=== PATIENT | male | born 1945 | race Caucasian/White ===

== ENCOUNTER → 2019-11-15 00:01 | Outpatient (RCR) | payer MEDICARE, OTHER, SELFPAY | LOC: ONCMED 10-18 09:26 | PROVIDERS: Family Provider Family Medicine; Visit Provider Internal Medicine Hematology & Oncology | DX: Z51.12 Encounter for antineoplastic immunotherapy (principal); Z51.11 Encounter for antineoplastic chemotherapy; C34.2 Malignant neoplasm of middle lobe, bronchus or lung; C34.12 Malignant neoplasm of upper lobe, left bronchus or lung; C77.1 Secondary and unspecified malignant neoplasm of intrathoracic lymph nodes; J43.9 Emphysema, unspecified; F17.290 Nicotine dependence, other tobacco product, uncomplicated; Z92.3 Personal history of irradiation; Z79.899 Other long term (current) drug therapy | CPT/HCPCS: 80053 ×3; 84443; 85025 ×3; 96367; 96372; 96413; 96417; 99214 ×4; J1100; J1453; J2469; J3420; J3490; J7050 ×2; J9045; J9271; J9305 ==

== ENCOUNTER 2019-12-13 05:44 | Outpatient (RCR) | payer MEDICARE, OTHER, SELFPAY ==
[2019-11-23] MEDS: sodium chloride 0.9% 1,000 ML 999 ML IV (13:40)
[2019-11-23 14:17] LABS: Basophils % 0.8 %; Eosinophils % 1.2 %; Hematocrit 34.4 % (42.0-52.0); Hemoglobin 11.5 g/dL (11.7-16.6); Lymphocytes # 0.8 10^3/uL (0.8-4.8); Lymphocytes % 30.7 %; Mean Corpuscular HGB Conc 33.4 g/dL (30.0-36.0); Mean Corpuscular Hemoglobin 31.4 pg (28.0-34.0); Mean Platelet Volume 10.3 fL (7.4-10.4); Monocytes # 0.6 10^3/uL (0.2-0.9); Monocytes % 23.8 %; Neutrophils % 41.9 %; Nucleated Red Blood Cells % 0 %; Platelet Count 176 10^3/cmm (130-400); Red Blood Count 3.66 10^6/uL (4.1-5.3); Red Cell Distribution Width 13.8 % (12.1-15.1); White Blood Count 2.4 10^3/uL (4.0-10.0)
[2019-11-23 14:27] LABS: Alanine Aminotransferase 22 U/L (0-41); Albumin Level 3.9 g/dL (3.5-5.2); Alkaline Phosphatase 82 IU/L (40-130); Anion Gap 17.5 (5-19); Aspartate Amino Transferase 21 U/L (0-40); Blood Urea Nitrogen 31 mg/dL (8-23); Calcium 9.2 mg/Dl (8.8-10.2); Carbon Dioxide 23 mmol/L (22-29); Chloride 100 mmol/L (98-107); Globulin 3.1 g/dL (1.3-4.6); Glucose 112 mg/dL (74-106); Potassium 3.5 mmol/L (3.5-5.1); Sodium 137 mmol/L (136-145); Total Bilirubin 0.2 mg/dL (0.15-1.2)
[2019-11-23 14:47] LABS: Absolute Segmented Neutrophil 1.3 10/cmm (1.6-7.1); Band Neutrophils Absolute 0.1 10^3/cmm (0.0-1.2); Eosinophils 2 %; Lymphocytes 30 %; Monocytes Absolute 0.2 10^3/cmm (0.1-0.6); Platelet Estimate Normal (Normal); Segmented Neutrophils 56 %; Total Cells Counted 100 (0-100)
[2019-11-28 15:50] LABS: Eosinophils % 1.7 %; Hematocrit 27.8 % (42.0-52.0); Hemoglobin 9.1 g/dL (11.7-16.6); Lymphocytes # 0.6 10^3/uL (0.8-4.8); Lymphocytes % 26.8 %; Mean Corpuscular HGB Conc 32.7 g/dL (30.0-36.0); Mean Corpuscular Hemoglobin 31.2 pg (28.0-34.0); Mean Corpuscular Volume 95.2 fL (80-94); Mean Platelet Volume 11.2 fL (7.4-10.4); Monocytes # 0.7 10^3/uL (0.2-0.9); Monocytes % 30.3 %; Neutrophils # 0.9 10^3/uL (1.8-7.7); Neutrophils % 40.8 %; Nucleated Red Blood Cells % 0 %; Platelet Count 95 10^3/cmm (130-400); Red Blood Count 2.92 10^6/uL (4.1-5.3); Red Cell Distribution Width 13.4 % (12.1-15.1); White Blood Count 2.3 10^3/uL (4.0-10.0)
[2019-11-28 16:21] LABS: Alanine Aminotransferase 39 U/L (0-41); Albumin Level 3.2 g/dL (3.5-5.2); Alkaline Phosphatase 66 IU/L (40-130); Anion Gap 17.3 (5-19); Aspartate Amino Transferase 24 U/L (0-40); Blood Urea Nitrogen 18 mg/dL (8-23); Carbon Dioxide 24 mmol/L (22-29); Chloride 100 mmol/L (98-107); Globulin 2.5 g/dL (1.3-4.6); Glucose 82 mg/dL (74-106); Potassium 3.3 mmol/L (3.5-5.1); Sodium 138 mmol/L (136-145); Total Bilirubin 0.4 mg/dL (0.15-1.2); Total Protein 5.7 g/dL (6.6-8.7)
[2019-11-28 16:26] LABS: Calcium 8.5 mg/Dl (8.8-10.2)
--- NOTE | 2019-12-03 16:00 | ONC FU_ITS ---
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 Mr. Romeo reports in the last week of June 2018 he noted some blood in his yellow phlegm and tried to tough it out for about month and half. He finally saw his primary care physician and he was diagnosed with chronic bronchitis. A Chest x-ray was done-as per patient it was normal and he was given a prescription for Flovent. He felt some improvement and on 09/01/[address] scan of chest which showed right middle lobe lung mass. The mass was reported as about 6 cm in size with mediastinal and hilar lymphadenopathy and there was a contralateral nodule which is lobulated in the left upper lobe measures 4 x 2.3 cm. Mr Romeo was then referred to Dr. 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 He underwent bronchoscopy and transbronchial biopsy on 09/10/2018 which showed no evidence of malignancy. Subsequently patient underwent CT-guided biopsy of right middle lobe on 10/01/2018 which confirmed small cell lung cancer. Mr. Romeo underwent PET CT staging on 10/23/2018. The bulky right middle lobe mass demonstrates significant necrosis, and homogenous FDG uptake extends from the right hilum with subtotal atelectasis of the right middle lobe and an SUV of 25.2. There was loss of that plane between the mediastinum and mass superiorly, suggesting early invasion. The left upper lobe satellite mass is in a subpleural location, without involvement of the adjacent chest wall. This measures 2.0 x 3.0 cm with an SUV of 8.5. Patient has long-standing history of smoking, 50 year plus also tried pipe and then now cigars. He smokes 4-5 cigars a day. There was no evidence of malignancy outside of the chest. MRI of the head from 10/20/2018 reveals right anterior frontal lobe and left parietal lobe cortical 2-3 mm enhancing foci; primary considerations metastatic disease. Mr. Romeo began his first cycle of carboplatin and etoposide on 11/02/2018. He did have a few mouth sores with cycle 1 but this was controlled with Valtrex, baking soda and salt water and as needed Magic mouthwash. He states that once he started the Valtrex for cold sores resolved within a couple of days. He's had no recurrent problems with mouth sores. CT PET scan done after 3 cycles of chemotherapy on 01/15/2019 showed significant improvement in the right middle lobe mass with postobstructive atelectasis since the prior study. The mass now measures 4.6 x 2.4 cm with SUV of 5. And the satellite malignant nodules in the left upper lobe is stable measuring 2.2 x 2.8 cm with SUV of 10.9, not a significant change since prior study on 10/23/2018. No new lesion seen. Patient was referred to [facility] where he saw thoracic oncologist Dr. Bellamy who recommended MRI scan of the brain which was done on on 02/21/2019 which showed a new diffusion weighted, 5 mm abnormality with mild enhancement in the anterior right parietal lobe cortex. Subacute small lacunar infarction versus metastatic disease. Follow-up MRI brain is recommended in 3-4 month Previously described anterior right frontal and left parietal cortical areas of enhancement are slightly smaller in size. Differential include decrease in size of metastatic due to treatment. Severe chronic white matter disease and CT-guided biopsy of left upper lobe was done on 02/24/2019 showed adenocarcinoma, well-differentiated Patient was started on combined chemoradiation on 03/09/2019 with carboplatin and etoposide and if patient achieved complete remission then consider SB RT to newly diagnosed left upper lobe lung adenocarcinoma .Follow-up CT scan of chest done on 06/20/2019 showed decreased size of previous left upper lobe neoplastic mass Further decrease in size of previous bulky right middle lobe mass. Residual mass lesion remaining is probably associated with right-sided mediastinal invasion Residual scarring or subsegmental atelectasis right middle lobe Chronic emphysema f/u CT PET scan done on 09/10/2019 showed positive response to therapy of the left upper lobe adenocarcinoma New abnormal activity in the left upper lobe groundglass nodule and left upper hilar lymph node Increased activity in the bowel at left inguinal canal with new reactive left inguinal node, patient has history of left inguinal hernia repair in April 2018 MRI head done on 08/23/2019 shows resolved enhancing metastatic lesion, no new lesion seen Was referred to [facility] in [place] for EBUS/biopsy of left upper hilar lymph node which was done on 10/07/2019 and final pathology report came back adenocarcinoma consistent with lung origin. Patient was referred to radiation oncology Dr. Dalal for evaluation and his impression was patient had received radiation therapy to left upper lobe primary previously with a further radiation disease risk of left bronchus damage and major blood vessel damage so suggested chemotherapy alone. Dr Romeo was offered treatment with Carboplatin/Alimta/Keytruda. He started cycle 1 Keytruda/carboplatin/Alimta on 11/15/2019. He states overall he feels pretty good he has had significant diarrhea which was controlled with blackberries since his last treatment. He states he thinks he did have a touch of colitis although it is completely resolved now. With that he has had a flare of his hemorrhoids and is wondering what he can try for that. We discussed Preparation H and witch nikki. Typically the [id number] products worked well and prescription anti-hemorrhoid is typically not covered by insurance and is very pricey. I did offer to try run through his insurance for him but he states he will try [id number] first. He states is not been eating or drinking well for the last couple of days and the diarrhea has finally stopped. He feels that he is somewhat dehydrated. He has had no diarrhea that he states that is why his potassium is low. He denies any leg cramps or palpitations. He denies any actual nausea but states is been little queasy at times but that resolved on its own. He denies any worsening neuropathy symptoms. He has had no fever or chills. He denies any symptoms of infection. He states his breathing is about the same. It is no worse. He denies any chest pain/angina. He has had no vomiting but has had diarrhea multiple times. He states it lasted 3 to 4 days. It finally has resolved. He denies any new pain or lower extremity edema. He states his hemorrhoids are bothering him more than anything and once they are settled down he thinks he will feel better in general. He has no new concerns now that the diarrhea has stopped. His ECOG is 1. Came for follow-up, denies any specific complaints, no fever or chills, no nausea or vomiting, no hemoptysis or hematemesis, no shortness of breath, no diarrhea constipation. And ready to start first cycle of chemotherapy with carboplatin/Alimta/Keytruda. Past Medical History: Cardiac dysrhythmias Centrilobular emphysema Coronary artery disease Gastroesophageal reflux disease Hypertension Past Surgical History: Bronchoscopy Hernia repair Left lung biopsy in 2018 Lung biopsy in 2019 Lung biopsy in 2017 Coronary artery bypass in 2012 Allergies: latex Medications: Anoro Ellipta 1 (62.5-25 mcg/inh) Aerosol Powder, Breath Activated Inhalation daily black seed oil 1 tsp Liquid b.i.d. Co Q-10 1 Capsule (of 400 mg) Oral daily Flonase 2 spray(s) (of 50 mcg/act) Suspension Nasal daily PRN Metoprolol Tartrate 1 Tablet (of 50 mg) Oral b.i.d. Montelukast Sodium 1 Tablet (of 10 mg) Oral daily Multivitamin Adults 1 Tablet Oral daily Omeprazole 1 Capsule (of 20 mg) Capsule Delayed Release Oral b.i.d. Probiotic Daily 1 Capsule Oral daily ZyrTEC Allergy 1 Tablet (of 10 mg) Oral daily Family History: Mr. Romeo's mother is alive: heart disease, and hypertension. Mr. Romeo's father at age 74: sarcoma. Mr. Romeo has 2 brothers: 2 alive. 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 Mr. Romeo quit smoking 5 years ago but had smoked 1.0 pack/day for 50 years. He drinks daily. He consumes 3 drinks/day. Mr. Romeo reports contact with hazardous material. Review Of Symptoms: Constitutional Denies fevers, chills, night sweats, excessive fatigue or weight loss. Allergic/Immunologic No reactions. Eyes Denies significant visual changes. No diplopia. No amaurosis. ENMT Denies changes in hearing, sore throat, mouth sores, difficulty or changes in swallowing ability, and/or sinus drainage. Endocrine No diabetes, thyroid disease or hormone replacement. Denies hot flashes or night sweats. Hematologic/Lymphatic Denies easy bruising or bleeding. The patient denies any tender or palpable lymph nodes. Respiratory Denies dyspnea on exertion, chest pain, cough or hemoptysis. Denies orthopnea. Cardiovascular Denies anginal chest pain, palpitations or orthopnea. Gastrointestinal Denies nausea, vomiting, GI bleeding, or constipation. Denies change in bowel habits and/or stool color, no heartburn or early satiety. He states he did have alot of diarrhea and abdominal cramping after his last treatment. He did not use Imodium and the diarrhea resolved on its own after 3-4 days. Genitourinary (M) Denies hematuria, dysuria, increased frequency, urgency, hesitancy or incontinence. Musculoskeletal Denies joint pain, swelling or redness. No decreased range of motion. Integumentary Denies chronic rashes, inflammation, ulcerations or skin changes. Neurologic Denies headache, blurred vision, and no areas of focal weakness or numbness. Normal gait. No sensory problems. Psychiatric Denies insomnia, depression, bryant or mood swings. Vital Signs: Performed on Nov 29, 2019 11:46 Height - 70.00 in Weight - 150.8 lbs (LOW) BSA - 1.85 sq.m BMI - 21.64 Temperature - 97.8 F (LOW) Pulse - 96 /min Respiration - 16 /min BP - 89/60 mm(hg) (LOW) O2 Sat - 96 % Pain - 0 Fatigue - 6,1 - No physically strenuous activity, but ambulatory and able to carry out light or sedentary work (e.g. office work, light house work). (ECOG) Physical Examination: Constitutional Alert, oriented, no acute distress. Skin pink, warm and dry. Head Normocephalic; atraumatic. Eyes Conjunctivae and sclerae are clear and without icterus. Pupils are reactive and equal. ENMT No oral exudates, ulcers, masses, thrush or mucositis. Oropharynx clear. Tongue normal. Neck Supple without masses or thyromegaly. No jugular venous distension. Hematologic/Lymphatic No petechiae or purpura. Respiratory Lungs are clear to auscultation without rhonchi or wheezing. Cardiovascular Regular rate and rhythm of heart without murmurs,clicks, gallops or rubs. Back/Spine Non-tender to palpation. Extremities No visible deformities, no cyanosis, clubbing or edema. Pulses 4+ and equal bilaterally. Musculoskeletal No tenderness or swelling, normal range of motion without obvious weakness. Integumentary No rashes or lesions. Neurologic No sensory or motor deficits, normal cerebellar function, normal gait. Psychiatric Alert and oriented times three. Coherent speech. Verbalizes understanding of our discussions today. Laboratory:Test performed on Nov 28, 2019 08:55 Glucose 82 mg/dL BUN 18 mg/dL Creatinine 1.1 mg/dL Cr Clearance (Est) 60.09 mL/min Sodium 138 mmol/L Potassium 3.3 mmol/L Chloride 100 mmol/L CO2 24 mmol/L Calcium 8.5 mg/dL Protein, Total 5.7 g/dL Albumin 3.2 g/dL Globulin 2.5 g/dL Bilirubin, Total 0.4 mg/dL Alkaline Phosphatase 66 IU/L AST (SGOT) 24 IU/L ALT (SGPT) 39 IU/L WBC 2.3 10^9/L RBC 2.92 10^12/L HGB 9.1 g/dL HCT 27.8 % MCV 95.2 fl MCH 31.2 pg MCHC 32.7 g/dL RDW 13.4 % Platelet Count 95 10^9/L MPV 11.2 fL Neutrophils (Gran) 0.9 10^9/L Lymphocytes 0.6 10^9/L Monocytes 0.7 10^9/L Eosinophils 0.0 10^9/L Basophils 0.0 10^9/L Neutrophil % 1.7 % Manual Lymphocytes 26.8 % Manual Monocytes 30.3 % Manual Eosinophils 1.7 % Manual Basophils 0.0 % NRBCs 0.0 /100 WBC Test performed on Nov 14, 2019 09:10 TSH 1.31 uIU/mL Anion Gap 15.7 Lymphocyte % 18.0 % Monocyte % 12.4 % Eosinophil % 2.0 % Basophils % 0.6 % Impression: Recurrent adenocarcinoma per left hilar lymph node biopsy Small cell lung cancer involving the right middle lobe per CT-guided lung biopsy done on 10/01/2018 CT scan of chest done on 08/31/2018 showed 4 cm left upper lobe mass and large mass with a probable postobstructive atelectasis involving the right hilum extending to right middle lobe. This mass occludes medial bronchus of right middle lobe and narrowing of the lateral bronchus COPD/emphysema with bilateral apical pleural thickening Chronic smoking Mr. Romeo underwent PET CT staging on 10/23/2018. The bulky right middle lobe mass demonstrates significant necrosis, and homogenous FDG uptake extends from the right hilum with subtotal atelectasis of the right middle lobe and an SUV of 25.2. There was loss of that plane between the mediastinum and mass superiorly, suggesting early invasion. The left upper lobe satellite mass is in a subpleural location, without involvement of the adjacent chest wall. This measures 2.0 x 3.0 cm with an SUV of 8.5. Patient has long-standing history of smoking, 50 year plus also tried pipe and then now cigars. He smokes 4-5 cigars a day. Mr. Romeo began his first cycle of carboplatin and etoposide on 11/02/2018. He is completed 3 cycles of the carboplatin and etoposide On 12/30/2018. Follow-up CT PET scan done on 01/15/2019 showed significant improvement in right middle lobe mass with postobstructive atelectasis since prior study. Mass now measures 4.6 x 2.4 cm with SUV of 5. A satellite malignant nodule in the left upper lobe is stable, measuring 2.2 x 2.8 cm with SUV of 10.9, and not a significant change since prior study. No new lesion seen. There was no evidence of malignancy outside of the chest. MRI of the head from 10/20/2018 reveals right anterior frontal lobe and left parietal lobe cortical 2-3 mm enhancing foci; primary considerations metastatic disease .Based on CT PET scan findings patient was referred to thoracic oncology at [facility] for second opinion with patient underwent CT-guided biopsy of left upper lobe lesion which confirmed second primary e.g. adenocarcinoma well differentiated Patient was evaluated by Dr. Barrington Segundo who recommended concurrent chemoradiation to right chest and followed by whole brain radiation therapy and observation versus SB RT to left upper lobe newly diagnosed non-small cell lung cancer e.g. adenocarcinoma. Follow-up CT scan of chest done on 06/20/2019 showed when compared to CT scan from 08/31/2018 CT PET scan from 01/15/2019 Previously left upper lobe mass lesion in anterior lateral subpleural location, now measure 1.8 cm x 3.2 x 2.1 cm compared to 2.3 x 3.6 x 2.8 on 01/15/2019. Previous bulky mass lesion within the right middle lobe seen on 08/31/2018 and with reduced size on 01/15/2019 is with further improvement, now measuring 1.6 cm x 6 x 2.8 cm. Medially the mass lesion and likely invades the right side of mediastinum adjacent a superior vena cava and right atrium. No other mass lesion seen normal liver and spleen No adrenal enlargement. No lytic or blastic bony distal to lesion seen. Plan: 1. Hold planned treatment today due to neutropenia ANC is 900. Hemoglobin is 9.1. 2. PA for Neupogen 480 mics for 3 days and then recheck CBC. 3. We will go ahead and give him IV hydration today due to the fact that he had severe diarrhea last week and his potassium was 3.3. We will give him 10 mg of IV potassium today. 4. Labs from today were reviewed in detail and discussed with Dr. Romeo and his and a copy was given to them. WBC 2.3, hemoglobin 9.1, platelets 95,000 ANC is 900 potassium 3.3 glucose 82 LFTs are normal. His last TSH on 11/14/2019 was 1.3. It is noted that his weight is down 6 pounds. 5. We will plan to have him return in 1 week with repeat CBC CMP and follow-up with Dr. Guerrero for possible consideration of cycle 2 carboplatin Alimta/Keytruda. 7. He is advised that he can use [id number] preparation H for his hemorrhoid treatment and may try witch nikki. We could try Anusol to see if his insurance will pay for it but we have not had much luck in the past with that. He will start with the Preparation H. 8. If the Neupogen is prior approved we have authorization we will proceed with Neupogen 480 for 3 days and then recheck his blood counts. 9. Neutropenic precautions discussed and he was advised to contact us he has a fever greater than 100.4. I have asked that he keep Levaquin on hand just in the event that he does have fever or chills or any signs of infection. Refill was sent to [facility]. 10. Dr. Romeo was instructed to contact us in the interim should questions or problems arise. Signed By: James De Leon-, AOCNP Colette Guerrero MD <<Signature on File>>
[2019-12-05 12:07] LABS: Basophils % 0.5 %; Eosinophils % 0.7 %; Hematocrit 27.6 % (42.0-52.0); Hemoglobin 8.9 g/dL (11.7-16.6); Lymphocytes # 1.2 10^3/uL (0.8-4.8); Lymphocytes % 20.1 %; Mean Corpuscular HGB Conc 32.2 g/dL (30.0-36.0); Mean Corpuscular Hemoglobin 31.2 pg (28.0-34.0); Mean Corpuscular Volume 96.8 fL (80-94); Mean Platelet Volume 10.9 fL (7.4-10.4); Monocytes # 1.2 10^3/uL (0.2-0.9); Monocytes % 19.3 %; Neutrophils # 2.9 10^3/uL (1.8-7.7); Neutrophils % 48.6 %; Nucleated Red Blood Cells % 0 %; Platelet Count 291 10^3/cmm (130-400); Red Blood Count 2.85 10^6/uL (4.1-5.3)
[2019-12-05 12:36] LABS: Alanine Aminotransferase 98 U/L (0-41); Albumin Level 3.2 g/dL (3.5-5.2); Alkaline Phosphatase 74 IU/L (40-130); Anion Gap 16.9 (5-19); Aspartate Amino Transferase 55 U/L (0-40); Blood Urea Nitrogen 19 mg/dL (8-23); Calcium 8.7 mg/Dl (8.8-10.2); Carbon Dioxide 26 mmol/L (22-29); Chloride 101 mmol/L (98-107); Globulin 3.3 g/dL (1.3-4.6); Glucose 91 mg/dL (74-106); Potassium 3.9 mmol/L (3.5-5.1); Sodium 140 mmol/L (136-145); Total Bilirubin 0.2 mg/dL (0.15-1.2); Total Protein 6.5 g/dL (6.6-8.7)
[2019-12-05 13:31] LABS: Slide Review Slide Review Perform
--- NOTE | 2019-12-07 09:38 | ONC FU_ITS ---
Dr. 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 Mr. Romeo reports in the last week of June 2018 he noted some blood in his yellow phlegm and tried to tough it out for about month and half. He finally saw his primary care physician and he was diagnosed with chronic bronchitis. A Chest x-ray was done-as per patient it was normal and he was given a prescription for Flovent. He felt some improvement and on 09/01/[address] scan of chest which showed right middle lobe lung mass. The mass was reported as about 6 cm in size with mediastinal and hilar lymphadenopathy and there was a contralateral nodule which is lobulated in the left upper lobe measures 4 x 2.3 cm. Mr Romeo was then referred to Dr. Ortiz, otorhinolaryngologist in [place]. He underwent bronchoscopy and transbronchial biopsy on 09/10/2018 which showed no evidence of malignancy. Subsequently patient underwent CT-guided biopsy of right middle lobe on 10/01/2018 which confirmed small cell lung cancer. Mr. Romeo underwent PET CT staging on 10/23/2018. The bulky right middle lobe mass demonstrates significant necrosis, and homogenous FDG uptake extends from the right hilum with subtotal atelectasis of the right middle lobe and an SUV of 25.2. There was loss of that plane between the mediastinum and mass superiorly, suggesting early invasion. The left upper lobe satellite mass is in a subpleural location, without involvement of the adjacent chest wall. This measures 2.0 x 3.0 cm with an SUV of 8.5. Patient has long-standing history of smoking, 50 year plus also tried pipe and then now cigars. He smokes 4-5 cigars a day. There was no evidence of malignancy outside of the chest. MRI of the head from 10/20/2018 reveals right anterior frontal lobe and left parietal lobe cortical 2-3 mm enhancing foci; primary considerations metastatic disease. Mr. Romeo began his first cycle of carboplatin and etoposide on 11/02/2018. He did have a few mouth sores with cycle 1 but this was controlled with Valtrex, baking soda and salt water and as needed Magic mouthwash. He states that once he started the Valtrex for cold sores resolved within a couple of days. He's had no recurrent problems with mouth sores. CT PET scan done after 3 cycles of chemotherapy on 01/15/2019 showed significant improvement in the right middle lobe mass with postobstructive atelectasis since the prior study. The mass now measures 4.6 x 2.4 cm with SUV of 5. And the satellite malignant nodules in the left upper lobe is stable measuring 2.2 x 2.8 cm with SUV of 10.9, not a significant change since prior study on 10/23/2018. No new lesion seen. Patient was referred to [facility] where he saw thoracic oncologist Dr. Bellamy who recommended MRI scan of the brain which was done on on 02/21/2019 which showed a new diffusion weighted, 5 mm abnormality with mild enhancement in the anterior right parietal lobe cortex. Subacute small lacunar infarction versus metastatic disease. Follow-up MRI brain is recommended in 3-4 month Previously described anterior right frontal and left parietal cortical areas of enhancement are slightly smaller in size. Differential include decrease in size of metastatic due to treatment. Severe chronic white matter disease and CT-guided biopsy of left upper lobe was done on 02/24/2019 showed adenocarcinoma, well-differentiated Patient was started on combined chemoradiation on 03/09/2019 with carboplatin and etoposide and if patient achieved complete remission then consider SB RT to newly diagnosed left upper lobe lung adenocarcinoma .Follow-up CT scan of chest done on 06/20/2019 showed decreased size of previous left upper lobe neoplastic mass Further decrease in size of previous bulky right middle lobe mass. Residual mass lesion remaining is probably associated with right-sided mediastinal invasion Residual scarring or subsegmental atelectasis right middle lobe Chronic emphysema f/u CT PET scan done on 09/10/2019 showed positive response to therapy of the left upper lobe adenocarcinoma New abnormal activity in the left upper lobe groundglass nodule and left upper hilar lymph node Increased activity in the bowel at left inguinal canal with new reactive left inguinal node, patient has history of left inguinal hernia repair in April 2018 MRI head done on 08/23/2019 shows resolved enhancing metastatic lesion, no new lesion seen Was referred to [facility] in [place] for EBUS/biopsy of left upper hilar lymph node which was done on 10/07/2019 and final pathology report came back adenocarcinoma consistent with lung origin. Patient was referred to radiation oncology Dr. Dalal for evaluation and his impression was patient had received radiation therapy to left upper lobe primary previously with a further radiation disease risk of left bronchus damage and major blood vessel damage so suggested chemotherapy alone. Dr Romeo was offered treatment with Carboplatin/Alimta/Keytruda. He started cycle 1 Keytruda/carboplatin/Alimta on 11/15/2019. He states overall he feels pretty good he has had significant diarrhea which was controlled with blackberries since his last treatment. He states he thinks he did have a touch of colitis although it is completely resolved now. With that he has had a flare of his hemorrhoids Came for follow-up, denies any specific complaints,except episode of diarrhea started 4 days after chemotherapy lasted for 2 days and resolved on its own. Denies any jaundice, denies any fever or chills denies any abdominal pain has any mouth sores denies any mucus in his stool. no fever or chills, no nausea or vomiting, no hemoptysis or hematemesis, no shortness of breath, no diarrhea constipation. Medications: Anoro Ellipta 1 (62.5-25 mcg/inh) Aerosol Powder, Breath Activated Inhalation daily, black seed oil 1 tsp Liquid daily, Co Q-10 1 Capsule (of 400 mg) Oral daily, Flonase 2 spray(s) (of 50 mcg/act) Suspension Nasal daily PRN, Metoprolol Tartrate 1 Tablet (of 50 mg) Oral daily, Montelukast Sodium 1 Tablet (of 10 mg) Oral daily, Multivitamin Adults 1 Tablet Oral daily, Omeprazole 1 Capsule (of 20 mg) Capsule Delayed Release Oral b.i.d., Probiotic Daily 1 Capsule Oral daily, ZyrTEC Allergy 1 Tablet (of 10 mg) Oral daily Allergies: latex Review of Systems: Constitutional - Appetite is good and weight is stable. No fever, chills, hot flashes, or night sweats. Energy level is poor, ENMT - Some sinus congestion/drainage. No mouth sores. No sore throat or difficulty swallowing, Hematologic/Lymphatic - No abnormal bruising or bleeding, Respiratory - Frequent shortness of breath, with emphysema and wheezing. Nonproductive cough. No pleuritic pain or hemoptysis, Cardiovascular - No angina pain. No palpitations, Gastrointestinal - No nausea or vomiting. No heartburn or acid reflux. No diarrhea or constipation. No blood in the stool or black stools, Genitourinary (M) - No dysuria or hematuria. No urinary frequency. No urgency or incontinence, Musculoskeletal - Chronic back pain r/t old injury, Neurologic - No headaches or dizziness reported today, Psychiatric - No anxiety or depression. No insomnia. Vital Signs: Performed on Dec 06, 2019 08:10 Height - 70.00 in Weight - 154.8 lbs (HIGH) BSA - 1.87 sq.m BMI - 22.21 Temperature - 98.0 F (LOW) Pulse - 92 /min Respiration - 18 /min BP - 118/81 mm(hg) O2 Sat - 100 % Pain - 0 Performance Status: 1 - No physically strenuous activity, but ambulatory and able to carry out light or sedentary work (e.g. office work, light house work). (ECOG) Physical Examination: ENMT - No oral exudates, ulcers, masses, thrush or mucositis. Oropharynx clear. Tongue normal, Respiratory - Lungs are clear to auscultation without rhonchi or wheezing, Cardiovascular - Regular rate and rhythm of heart, Abdomen - Non-tender, . Good bowel sounds. No guarding or rebound tenderness. No pulsatile masses, Extremities - no edema. Lab/Imaging: Test performed on Dec 05, 2019 07:35 Glucose 91 mg/dL BUN 19 mg/dL Creatinine 1.0 mg/dL Cr Clearance (Est) 66.10 mL/min Sodium 140 mmol/L Potassium 3.9 mmol/L Chloride 101 mmol/L CO2 26 mmol/L Calcium 8.7 mg/dL Protein, Total 6.5 g/dL Albumin 3.2 g/dL Globulin 3.3 g/dL Bilirubin, Total 0.2 mg/dL Alkaline Phosphatase 74 IU/L AST (SGOT) 55 IU/L ALT (SGPT) 98 IU/L WBC 6.0 10^9/L RBC 2.85 10^12/L HGB 8.9 g/dL HCT 27.6 % MCV 96.8 fl MCH 31.2 pg MCHC 32.2 g/dL RDW 14.0 % Platelet Count 291 10^9/L MPV 10.9 fL Neutrophils (Gran) 2.9 10^9/L Lymphocytes 1.2 10^9/L Monocytes 1.2 10^9/L Eosinophils 0.0 10^9/L Basophils 0.0 10^9/L Manual Lymphocytes 20.1 % Manual Monocytes 19.3 % Manual Eosinophils 0.7 % Manual Basophils 0.5 % NRBCs 0.0 /100 WBC Test performed on Nov 28, 2019 08:55 Neutrophil % 1.7 % Test performed on Nov 14, 2019 09:10 TSH 1.31 uIU/mL Anion Gap 15.7 Lymphocyte % 18.0 % Monocyte % 12.4 % Eosinophil % 2.0 % Basophils % 0.6 % Impression: Recurrent adenocarcinoma per left hilar lymph node biopsy Small cell lung cancer involving the right middle lobe per CT-guided lung biopsy done on 10/01/2018 CT scan of chest done on 08/31/2018 showed 4 cm left upper lobe mass and large mass with a probable postobstructive atelectasis involving the right hilum extending to right middle lobe. This mass occludes medial bronchus of right middle lobe and narrowing of the lateral bronchus COPD/emphysema with bilateral apical pleural thickening Chronic smoking Mr. Romeo underwent PET CT staging on 10/23/2018. The bulky right middle lobe mass demonstrates significant necrosis, and homogenous FDG uptake extends from the right hilum with subtotal atelectasis of the right middle lobe and an SUV of 25.2. There was loss of that plane between the mediastinum and mass superiorly, suggesting early invasion. The left upper lobe satellite mass is in a subpleural location, without involvement of the adjacent chest wall. This measures 2.0 x 3.0 cm with an SUV of 8.5. Patient has long-standing history of smoking, 50 year plus also tried pipe and then now cigars. He smokes 4-5 cigars a day. Mr. Romeo began his first cycle of carboplatin and etoposide on 11/02/2018. He is completed 3 cycles of the carboplatin and etoposide On 12/30/2018. Follow-up CT PET scan done on 01/15/2019 showed significant improvement in right middle lobe mass with postobstructive atelectasis since prior study. Mass now measures 4.6 x 2.4 cm with SUV of 5. A satellite malignant nodule in the left upper lobe is stable, measuring 2.2 x 2.8 cm with SUV of 10.9, and not a significant change since prior study. No new lesion seen. There was no evidence of malignancy outside of the chest. MRI of the head from 10/20/2018 reveals right anterior frontal lobe and left parietal lobe cortical 2-3 mm enhancing foci; primary considerations metastatic disease .Based on CT PET scan findings patient was referred to thoracic oncology at [facility] for second opinion with patient underwent CT-guided biopsy of left upper lobe lesion which confirmed second primary e.g. adenocarcinoma well differentiated Patient was evaluated by Dr. Barrington Segundo who recommended concurrent chemoradiation to right chest and followed by whole brain radiation therapy and observation versus SB RT to left upper lobe newly diagnosed non-small cell lung cancer e.g. adenocarcinoma. Follow-up CT scan of chest done on 06/20/2019 showed when compared to CT scan from 08/31/2018 CT PET scan from 01/15/2019 Previously left upper lobe mass lesion in anterior lateral subpleural location, now measure 1.8 cm x 3.2 x 2.1 cm compared to 2.3 x 3.6 x 2.8 on 01/15/2019. Previous bulky mass lesion within the right middle lobe seen on 08/31/2018 and with reduced size on 01/15/2019 is with further improvement, now measuring 1.6 cm x 6 x 2.8 cm. Medially the mass lesion and likely invades the right side of mediastinum adjacent a superior vena cava and right atrium. No other mass lesion seen normal liver and spleen No adrenal enlargement. No lytic or blastic bony distal to lesion seen. Plan: Discussed with patient regarding his labs white blood count 6 hemoglobin 8.9 crit 27.6 platelets 291,000 ANC 2.9 CMP within normal limit except ALT 98 AST 55 compared to 39/24 on 11/28/2019 and 14/16 on 11/14/2019 Clinically, patient is doing well, tolerated first cycle of chemotherapy with Alimta/carboplatin/Keytruda well but with expected side effects e.g. progressive generalized weakness and fatigue could be due to progressive anemia progressive thrombocytopenia which has resolved now and leukopenia/neutropenia. And his CMP shows elevated LFTs which could be due to chemotherapy especially Alimta or as patient had episode of diarrhea may have exposure to hepatitis A. At this point his diarrhea has resolved so we will monitor his LFTs and also reduce Alimta dose by 20% to minimize Alimta related hepatic toxicity. Patient return to clinic in 1 week with CBC CMP. If there is a worsening of LFTs will consider right upper quadrant sonogram and hepatitis profile.And consider blood transfusion if hemoglobin drops below 8 g Signed By: Colette Guerrero M.D. <<Signature on File>>
[2019-12-12 15:39] LABS: Basophils % 1.3 %; Eosinophils % 0.3 %; Hematocrit 28.9 % (42.0-52.0); Hemoglobin 9.4 g/dL (11.7-16.6); Lymphocytes # 0.7 10^3/uL (0.8-4.8); Lymphocytes % 21.9 %; Mean Corpuscular HGB Conc 32.5 g/dL (30.0-36.0); Mean Corpuscular Hemoglobin 31.3 pg (28.0-34.0); Mean Corpuscular Volume 96.3 fL (80-94); Mean Platelet Volume 10.3 fL (7.4-10.4); Monocytes # 0.2 10^3/uL (0.2-0.9); Monocytes % 5.1 %; Neutrophils # 2.2 10^3/uL (1.8-7.7); Neutrophils % 70.8 %; Nucleated Red Blood Cells % 0 %; Platelet Count 299 10^3/cmm (130-400); Red Cell Distribution Width 14.2 % (12.1-15.1); White Blood Count 3.2 10^3/uL (4.0-10.0)
[2019-12-12 15:41] LABS: Alanine Aminotransferase 59 U/L (0-41); Albumin Level 3.7 g/dL (3.5-5.2); Alkaline Phosphatase 78 IU/L (40-130); Anion Gap 16.4 (5-19); Aspartate Amino Transferase 33 U/L (0-40); Blood Urea Nitrogen 26 mg/dL (8-23); Carbon Dioxide 26 mmol/L (22-29); Chloride 100 mmol/L (98-107); Globulin 3.1 g/dL (1.3-4.6); Glucose 94 mg/dL (74-106); Potassium 4.4 mmol/L (3.5-5.1); Sodium 138 mmol/L (136-145); Total Bilirubin 0.3 mg/dL (0.15-1.2); Total Protein 6.8 g/dL (6.6-8.7)
--- NOTE | 2019-12-13 17:00 | ONC FU_ITS ---
Dr. 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 Mr. Romeo reports in the last week of June 2018 he noted some blood in his yellow phlegm and tried to tough it out for about month and half. He finally saw his primary care physician and he was diagnosed with chronic bronchitis. A Chest x-ray was done-as per patient it was normal and he was given a prescription for Flovent. He felt some improvement and on 09/01/[address] scan of chest which showed right middle lobe lung mass. The mass was reported as about 6 cm in size with mediastinal and hilar lymphadenopathy and there was a contralateral nodule which is lobulated in the left upper lobe measures 4 x 2.3 cm. Mr Romeo was then referred to Dr. Ortiz, protection agent in [place]. He underwent bronchoscopy and transbronchial biopsy on 09/10/2018 which showed no evidence of malignancy. Subsequently patient underwent CT-guided biopsy of right middle lobe on 10/01/2018 which confirmed small cell lung cancer. Mr. Romeo underwent PET CT staging on 10/23/2018. The bulky right middle lobe mass demonstrates significant necrosis, and homogenous FDG uptake extends from the right hilum with subtotal atelectasis of the right middle lobe and an SUV of 25.2. There was loss of that plane between the mediastinum and mass superiorly, suggesting early invasion. The left upper lobe satellite mass is in a subpleural location, without involvement of the adjacent chest wall. This measures 2.0 x 3.0 cm with an SUV of 8.5. Patient has long-standing history of smoking, 50 year plus also tried pipe and then now cigars. He smokes 4-5 cigars a day. There was no evidence of malignancy outside of the chest. MRI of the head from 10/20/2018 reveals right anterior frontal lobe and left parietal lobe cortical 2-3 mm enhancing foci; primary considerations metastatic disease. Mr. Romeo began his first cycle of carboplatin and etoposide on 11/02/2018. He did have a few mouth sores with cycle 1 but this was controlled with Valtrex, baking soda and salt water and as needed Magic mouthwash. He states that once he started the Valtrex for cold sores resolved within a couple of days. He's had no recurrent problems with mouth sores. CT PET scan done after 3 cycles of chemotherapy on 01/15/2019 showed significant improvement in the right middle lobe mass with postobstructive atelectasis since the prior study. The mass now measures 4.6 x 2.4 cm with SUV of 5. And the satellite malignant nodules in the left upper lobe is stable measuring 2.2 x 2.8 cm with SUV of 10.9, not a significant change since prior study on 10/23/2018. No new lesion seen. Patient was referred to [facility] where he saw thoracic oncologist Dr. Bellamy who recommended MRI scan of the brain which was done on on 02/21/2019 which showed a new diffusion weighted, 5 mm abnormality with mild enhancement in the anterior right parietal lobe cortex. Subacute small lacunar infarction versus metastatic disease. Follow-up MRI brain is recommended in 3-4 month Previously described anterior right frontal and left parietal cortical areas of enhancement are slightly smaller in size. Differential include decrease in size of metastatic due to treatment. Severe chronic white matter disease and CT-guided biopsy of left upper lobe was done on 02/24/2019 showed adenocarcinoma, well-differentiated Patient was started on combined chemoradiation on 03/09/2019 with carboplatin and etoposide and if patient achieved complete remission then consider SB RT to newly diagnosed left upper lobe lung adenocarcinoma .Follow-up CT scan of chest done on 06/20/2019 showed decreased size of previous left upper lobe neoplastic mass Further decrease in size of previous bulky right middle lobe mass. Residual mass lesion remaining is probably associated with right-sided mediastinal invasion Residual scarring or subsegmental atelectasis right middle lobe Chronic emphysema f/u CT PET scan done on 09/10/2019 showed positive response to therapy of the left upper lobe adenocarcinoma New abnormal activity in the left upper lobe groundglass nodule and left upper hilar lymph node Increased activity in the bowel at left inguinal canal with new reactive left inguinal node, patient has history of left inguinal hernia repair in April 2018 MRI head done on 08/23/2019 shows resolved enhancing metastatic lesion, no new lesion seen Was referred to [facility] in [place] for EBUS/biopsy of left upper hilar lymph node which was done on 10/07/2019 and final pathology report came back adenocarcinoma consistent with lung origin. Patient was referred to radiation oncology Dr. Dalal for evaluation and his impression was patient had received radiation therapy to left upper lobe primary previously with a further radiation disease risk of left bronchus damage and major blood vessel damage so suggested chemotherapy alone. Dr Romeo was offered treatment with Carboplatin/Alimta/Keytruda. He started cycle 1 Keytruda/carboplatin/Alimta on 11/15/2019. He states overall he feels pretty good he has had significant diarrhea which was controlled with blackberries since his last treatment. He states he thinks he did have a touch of colitis although it is completely resolved now. With that he has had a flare of his hemorrhoids Came for follow-up, denies any specific complaints, no nausea vomiting, no diarrhea constipation no fever or chills, no mouth sores, tolerated second cycle of chemotherapy with Alimta/carboplatin/Keytruda well Medications: Anoro Ellipta 1 (62.5-25 mcg/inh) Aerosol Powder, Breath Activated Inhalation daily, black seed oil 1 tsp Liquid daily, Co Q-10 1 Capsule (of 400 mg) Oral daily, Flonase 2 spray(s) (of 50 mcg/act) Suspension Nasal daily PRN, Metoprolol Tartrate 1 Tablet (of 50 mg) Oral daily, Montelukast Sodium 1 Tablet (of 10 mg) Oral daily, Multivitamin Adults 1 Tablet Oral daily, Omeprazole 1 Capsule (of 20 mg) Capsule Delayed Release Oral b.i.d., Probiotic Daily 1 Capsule Oral daily, ZyrTEC Allergy 1 Tablet (of 10 mg) Oral daily Allergies: latex Review of Systems: Constitutional - Appetite is good and weight is stable. No fever, chills, hot flashes, or night sweats. Energy level is poor, ENMT - Some sinus congestion/drainage. No mouth sores. No sore throat or difficulty swallowing, Hematologic/Lymphatic - No abnormal bruising or bleeding, Respiratory - Frequent shortness of breath, with emphysema and wheezing. Nonproductive cough. No pleuritic pain or hemoptysis, Cardiovascular - No angina pain. No palpitations, Gastrointestinal - No nausea or vomiting. No heartburn or acid reflux. No diarrhea or constipation. No blood in the stool or black stools, Genitourinary (M) - No dysuria or hematuria. No urinary frequency. No urgency or incontinence, Musculoskeletal - Chronic back pain r/t old injury, Neurologic - No headaches or dizziness reported today, Psychiatric - No anxiety or depression. No insomnia. Vital Signs: Performed on Dec 13, 2019 08:41 Height - 70.00 in Weight - 148.6 lbs (LOW) BSA - 1.84 sq.m BMI - 21.32 Temperature - 97.5 F (LOW) Pulse - 88 /min Respiration - 24 /min BP - 115/74 mm(hg) O2 Sat - 95 % (LOW) Pain - 0 Performance Status: 1 - No physically strenuous activity, but ambulatory and able to carry out light or sedentary work (e.g. office work, light house work). (ECOG) Physical Examination: ENMT - No oral exudates, ulcers, masses, thrush or mucositis. Oropharynx clear. Tongue normal, Respiratory - Lungs are clear to auscultation without rhonchi or wheezing, Cardiovascular - Regular rate and rhythm of heart, Abdomen - Non-tender, non-distended, Good bowel sounds. No guarding or rebound tenderness. No pulsatile masses, Extremities - no edema. Lab/Imaging: Test performed on Dec 05, 2019 07:35 Glucose 91 mg/dL BUN 19 mg/dL Creatinine 1.0 mg/dL Cr Clearance (Est) 66.10 mL/min Sodium 140 mmol/L Potassium 3.9 mmol/L Chloride 101 mmol/L CO2 26 mmol/L Calcium 8.7 mg/dL Protein, Total 6.5 g/dL Albumin 3.2 g/dL Globulin 3.3 g/dL Bilirubin, Total 0.2 mg/dL Alkaline Phosphatase 74 IU/L AST (SGOT) 55 IU/L ALT (SGPT) 98 IU/L WBC 6.0 10^9/L RBC 2.85 10^12/L HGB 8.9 g/dL HCT 27.6 % MCV 96.8 fl MCH 31.2 pg MCHC 32.2 g/dL RDW 14.0 % Platelet Count 291 10^9/L MPV 10.9 fL Neutrophils (Gran) 2.9 10^9/L Lymphocytes 1.2 10^9/L Monocytes 1.2 10^9/L Eosinophils 0.0 10^9/L Basophils 0.0 10^9/L Manual Lymphocytes 20.1 % Manual Monocytes 19.3 % Manual Eosinophils 0.7 % Manual Basophils 0.5 % NRBCs 0.0 /100 WBC Test performed on Nov 28, 2019 08:55 Neutrophil % 1.7 % Test performed on Nov 14, 2019 09:10 TSH 1.31 uIU/mL Anion Gap 15.7 Lymphocyte % 18.0 % Monocyte % 12.4 % Eosinophil % 2.0 % Basophils % 0.6 % Impression: Recurrent adenocarcinoma per left hilar lymph node biopsy Small cell lung cancer involving the right middle lobe per CT-guided lung biopsy done on 10/01/2018 CT scan of chest done on 08/31/2018 showed 4 cm left upper lobe mass and large mass with a probable postobstructive atelectasis involving the right hilum extending to right middle lobe. This mass occludes medial bronchus of right middle lobe and narrowing of the lateral bronchus COPD/emphysema with bilateral apical pleural thickening Chronic smoking Mr. Romeo underwent PET CT staging on 10/23/2018. The bulky right middle lobe mass demonstrates significant necrosis, and homogenous FDG uptake extends from the right hilum with subtotal atelectasis of the right middle lobe and an SUV of 25.2. There was loss of that plane between the mediastinum and mass superiorly, suggesting early invasion. The left upper lobe satellite mass is in a subpleural location, without involvement of the adjacent chest wall. This measures 2.0 x 3.0 cm with an SUV of 8.5. Patient has long-standing history of smoking, 50 year plus also tried pipe and then now cigars. He smokes 4-5 cigars a day. Mr. Romeo began his first cycle of carboplatin and etoposide on 11/02/2018. He is completed 3 cycles of the carboplatin and etoposide On 12/30/2018. Follow-up CT PET scan done on 01/15/2019 showed significant improvement in right middle lobe mass with postobstructive atelectasis since prior study. Mass now measures 4.6 x 2.4 cm with SUV of 5. A satellite malignant nodule in the left upper lobe is stable, measuring 2.2 x 2.8 cm with SUV of 10.9, and not a significant change since prior study. No new lesion seen. There was no evidence of malignancy outside of the chest. MRI of the head from 10/20/2018 reveals right anterior frontal lobe and left parietal lobe cortical 2-3 mm enhancing foci; primary considerations metastatic disease .Based on CT PET scan findings patient was referred to thoracic oncology at [facility] for second opinion with patient underwent CT-guided biopsy of left upper lobe lesion which confirmed second primary e.g. adenocarcinoma well differentiated Patient was evaluated by Dr. Barrington Segundo who recommended concurrent chemoradiation to right chest and followed by whole brain radiation therapy and observation versus SB RT to left upper lobe newly diagnosed non-small cell lung cancer e.g. adenocarcinoma. Follow-up CT scan of chest done on 06/20/2019 showed when compared to CT scan from 08/31/2018 CT PET scan from 01/15/2019 Previously left upper lobe mass lesion in anterior lateral subpleural location, now measure 1.8 cm x 3.2 x 2.1 cm compared to 2.3 x 3.6 x 2.8 on 01/15/2019. Previous bulky mass lesion within the right middle lobe seen on 08/31/2018 and with reduced size on 01/15/2019 is with further improvement, now measuring 1.6 cm x 6 x 2.8 cm. Medially the mass lesion and likely invades the right side of mediastinum adjacent a superior vena cava and right atrium. No other mass lesion seen normal liver and spleen No adrenal enlargement. No lytic or blastic bony distal to lesion seen. Plan: Discussed patient regarding his labs white blood count 3.2 hemoglobin 9.4 crit 28.9 platelets 299,000 ANC 2200 CMP within normal limits except ALT 59 compared to 98 on 12/05/2019 and AST 33 compared to 55 on 12/05/2019 , creatinine 1.2. Clinically, patient is doing well, tolerating palliative chemotherapy/immunotherapy with Alimta/carboplatin/Keytruda well but with expected side effects. His follow-up lab showed improvement in his LFTs, last time his Alimta dose was reduced by 20%. We'll continue to monitor and he will return to clinic in 2 weeks with CBC CMP and if looks reasonable then or third cycle of chemotherapy followed by follow-up CT PET scan to assess disease response. Patient was advised to maintain good hydration. Signed By: Colette Guerrero M.D. <<Signature on File>>
== END 2019-12-16 23:59 | disposition home or self-care (01) ==
LOC: ONCMED 05:44
PROVIDERS: Internal Medicine Medical Oncology; Nurse Practitioner; Family Provider Family Medicine; Visit Provider Internal Medicine Hematology & Oncology
DX: Z51.12 Encounter for antineoplastic immunotherapy (principal); Z51.11 Encounter for antineoplastic chemotherapy; C34.2 Malignant neoplasm of middle lobe, bronchus or lung; E87.6 Hypokalemia; C78.02 Secondary malignant neoplasm of left lung; C77.1 Secondary and unspecified malignant neoplasm of intrathoracic lymph nodes; D70.1 Agranulocytosis secondary to cancer chemotherapy; T45.1X5A Adverse effect of antineoplastic and immunosuppressive drugs, initial encounter; E86.0 Dehydration; J43.9 Emphysema, unspecified; K64.9 Unspecified hemorrhoids; I25.10 Atherosclerotic heart disease of native coronary artery without angina pectoris; K21.9 Gastro-esophageal reflux disease without esophagitis; I10 Essential (primary) hypertension; F10.21 Alcohol dependence, in remission; Z92.3 Personal history of irradiation; Z95.1 Presence of aortocoronary bypass graft; Z87.891 Personal history of nicotine dependence
CPT/HCPCS: 36415; 80053; 85007; 85025; 87493; 96360; 96365; 96367; 96413; 96417; 99214; J1100; J1200; J1453; J2469; J3480; J3490; J7030; J7050; J9045; J9271; J9305

== ENCOUNTER 2020-01-05 10:39 | Outpatient (CLI) | payer MEDICARE, OTHER, SELFPAY ==
--- NOTE | 2020-01-05 11:13 | MR_ITS ---
WS: [id number] MRI BRAIN WITH AND WITHOUT CONTRAST HISTORY: METASTATIC LUNG CANCER COMPARISON: 12/26/2019 TECHNIQUE: Multiplanar imaging performed through the brain with Prohance 15 ml's IV. No acute infarcts are seen. Ledezma-white matter differentiation is well preserved. There is extensive c onfluent and patchy periventricular white matter abnormality similar to the prior study. May be relat ed to prior treatment effect. No susceptibility artifacts or prior lacunar infarcts. Ventricles and extra-axial spaces are normal. Clivus and pituitary gland are normal. Visualized posterior fossa and brainstem are also normal. Again noted is the RIGHT parasagittal enhancing lesion consistent with a metastatic site. Metastatic site measures 7 x 8 mm and questionably decreased in size as compared to the prior examination. No si gnificant change. No progression of the surrounding edema. No additional areas of enhancement. Dural venous sinuses are normal. Paranasal sinuses: Well aerated with no significant disease. Mastoid air cells: Diffuse bilateral mastoid air cell effusions without improvement. Also noted is th e T2 hyperintense lesion in the soft tissues of the inferior LEFT earlobe. Nodule measures 8.4 mm wit h minimal peripheral enhancement. Calvarium and scalp: Normal. MR/MR head wo/w con [id number] IMPRESSION: 1. No significant interval change of the RIGHT parietal, parasagittal metastat ic site measuring 7 x 8 mm. No additional metastatic sites or abnormal enhance ment. 2. Moderate chronic microvascular ischemic or post treatment changes. Stable. 3. T2 peripherally enhancing hyperdense lesion in the left ear lobe is unchang ed.
== END 2020-01-05 10:40 | disposition home or self-care (01) ==
LOC: RADWPI 10:47
PROVIDERS: Family Provider Family Medicine; PCP Family Medicine; Visit Provider Radiology Radiation Oncology
DX: C34.90 Malignant neoplasm of unspecified part of unspecified bronchus or lung (principal)
CPT/HCPCS: 70553; A9579

== ENCOUNTER 2020-01-09 06:00 | Outpatient (CLI) | payer MEDICARE, OTHER, SELFPAY ==
[2020-01-09 16:41] LABS: Eosinophils % 0.6 %; Lymphocytes # 0.7 10^3/uL (0.8-4.8); Mean Corpuscular HGB Conc 32.8 g/dL (30.0-36.0); Mean Corpuscular Hemoglobin 32.2 pg (28.0-34.0); Mean Corpuscular Volume 98.4 fL (80-94); Mean Platelet Volume 11.6 fL (7.4-10.4); Monocytes # 0.4 10^3/uL (0.2-0.9); Monocytes % 21.3 %; Neutrophils % 35.5 %; Nucleated Red Blood Cells % 0 %; Platelet Count 44 10^3/cmm (130-400); Red Blood Count 1.83 10^6/uL (4.1-5.3); Red Cell Distribution Width 15.1 % (12.1-15.1); White Blood Count 1.7 10^3/uL (4.0-10.0)
[2020-01-09 17:19] LABS: Alanine Aminotransferase 41 U/L (0-41); Albumin Level 3.5 g/dL (3.5-5.2); Alkaline Phosphatase 73 IU/L (40-130); Anion Gap 19.4 (5-19); Aspartate Amino Transferase 28 U/L (0-40); Blood Urea Nitrogen 24 mg/dL (8-23); Calcium 7.9 mg/dL (8.5-10.5); Carbon Dioxide 24 mmol/L (22-29); Chloride 98 mmol/L (98-107); Globulin 3.4 g/dL (1.3-4.6); Glucose 92 mg/dL (65-115); Iron 192 ug/dL (59-158); Percent Saturation 83.1 % (20-50); Potassium 3.4 mmol/L (3.5-5.1); Sodium 138 mmol/L (136-145); Total Bilirubin 0.4 mg/dL (0.15-1.2); Total Iron Binding Capacity 231 mcg/dl; Total Protein 6.9 g/dL (6.6-8.7); Unsaturated Iron Binding 39 ug/dL (112-347)
[2020-01-09 17:31] LABS: Vitamin B12 653 pg/mL (232-1245)
[2020-01-09 17:57] LABS: Ferritin 1878 ng/mL (30-400)
[2020-01-09 19:32] LABS: Neutrophils # 0.6 10^3/uL (1.8-7.7)
[2020-01-09 19:33] LABS: Hemoglobin 5.9 g/dL (11.7-16.6); Slide Review Slide Review Perform
[2020-01-10 01:25] LABS: Folate Level > 20.0 ng/mL (4.5-32.2)
--- NOTE | 2020-03-28 17:53 | ONC FU_ITS ---
Dr. Guerrero follow up note Patient: Timmy Romeo Unit #: [id number]: [id number] Dicatated By: Colette Guerrero M.D.Date of Visit:March 28, 2020 Telehealth Progress Note The patient has been informed that the visit may not be secure and acknowledged the information. I have explained the option of participating in a telephone or video visit during the [facility] emergency to the patient. After being given an opportunity to ask questions about and discuss this type of visit, the patient verbally consented to proceeding with the telephone/video visit. 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 Mr. Romeo reports in the last week of June 2018 he noted some blood in his yellow phlegm and tried to tough it out for about month and half. He finally saw his primary care physician and he was diagnosed with chronic bronchitis. A Chest x-ray was done-as per patient it was normal and he was given a prescription for Flovent. He felt some improvement and on 09/01/[address] scan of chest which showed right middle lobe lung mass. The mass was reported as about 6 cm in size with mediastinal and hilar lymphadenopathy and there was a contralateral nodule which is lobulated in the left upper lobe measures 4 x 2.3 cm. Mr Romeo was then referred to Dr. Ortiz, automotive services manager in [place]. He underwent bronchoscopy and transbronchial biopsy on 09/10/2018 which showed no evidence of malignancy. Subsequently patient underwent CT-guided biopsy of right middle lobe on 10/01/2018 which confirmed small cell lung cancer. Mr. Romeo underwent PET CT staging on 10/23/2018. The bulky right middle lobe mass demonstrates significant necrosis, and homogenous FDG uptake extends from the right hilum with subtotal atelectasis of the right middle lobe and an SUV of 25.2. There was loss of that plane between the mediastinum and mass superiorly, suggesting early invasion. The left upper lobe satellite mass is in a subpleural location, without involvement of the adjacent chest wall. This measures 2.0 x 3.0 cm with an SUV of 8.5. Patient has long-standing history of smoking, 50 year plus also tried pipe and then now cigars. He smokes 4-5 cigars a day. There was no evidence of malignancy outside of the chest. MRI of the head from 10/20/2018 reveals right anterior frontal lobe and left parietal lobe cortical 2-3 mm enhancing foci; primary considerations metastatic disease. Mr. Romeo began his first cycle of carboplatin and etoposide on 11/02/2018. He did have a few mouth sores with cycle 1 but this was controlled with Valtrex, baking soda and salt water and as needed Magic mouthwash. He states that once he started the Valtrex for cold sores resolved within a couple of days. He's had no recurrent problems with mouth sores. CT PET scan done after 3 cycles of chemotherapy on 01/15/2019 showed significant improvement in the right middle lobe mass with postobstructive atelectasis since the prior study. The mass now measures 4.6 x 2.4 cm with SUV of 5. And the satellite malignant nodules in the left upper lobe is stable measuring 2.2 x 2.8 cm with SUV of 10.9, not a significant change since prior study on 10/23/2018. No new lesion seen. Patient was referred to [facility] where he saw thoracic oncologist Dr. Bellamy who recommended MRI scan of the brain which was done on on 02/21/2019 which showed a new diffusion weighted, 5 mm abnormality with mild enhancement in the anterior right parietal lobe cortex. Subacute small lacunar infarction versus metastatic disease. Follow-up MRI brain is recommended in 3-4 month Previously described anterior right frontal and left parietal cortical areas of enhancement are slightly smaller in size. Differential include decrease in size of metastatic due to treatment. Severe chronic white matter disease and CT-guided biopsy of left upper lobe was done on 02/24/2019 showed adenocarcinoma, well-differentiated Patient was started on combined chemoradiation on 03/09/2019 with carboplatin and etoposide and if patient achieved complete remission then consider SB RT to newly diagnosed left upper lobe lung adenocarcinoma .Follow-up CT scan of chest done on 06/20/2019 showed decreased size of previous left upper lobe neoplastic mass Further decrease in size of previous bulky right middle lobe mass. Residual mass lesion remaining is probably associated with right-sided mediastinal invasion Residual scarring or subsegmental atelectasis right middle lobe Chronic emphysema f/u CT PET scan done on 09/10/2019 showed positive response to therapy of the left upper lobe adenocarcinoma New abnormal activity in the left upper lobe groundglass nodule and left upper hilar lymph node Increased activity in the bowel at left inguinal canal with new reactive left inguinal node, patient has history of left inguinal hernia repair in April 2018 MRI head done on 08/23/2019 shows resolved enhancing metastatic lesion, no new lesion seen Was referred to [facility] in [place] for EBUS/biopsy of left upper hilar lymph node which was done on 10/07/2019 and final pathology report came back adenocarcinoma consistent with lung origin. Patient was referred to radiation oncology Dr. Dalal for evaluation and his impression was patient had received radiation therapy to left upper lobe primary previously with a further radiation disease risk of left bronchus damage and major blood vessel damage so suggested chemotherapy alone. Dr Romeo was offered treatment with Carboplatin/Alimta/Keytruda. He started cycle 1 Keytruda/carboplatin/Alimta on 11/15/2019. He states overall he feels pretty good he has had significant diarrhea which was controlled with blackberries since his last treatment. He states he thinks he did have a touch of colitis although it is completely resolved now. With that he has had a flare of his hemorrhoids Follow-up CT PET scan done after 3 cycles of carboplatin/Alimta/Keytruda on 01/07/2020 showed mild progression of left upper lobe mass from the prior study done on 09/10/2019. Overall progression of disease within new unifocal osseous metastatic disease in the posterior left iliac and a new FDG positive prevascular mediastinal lymph node. Decreasing FDG activity in left upper lobe groundglass nodule. No significant change in left hilar node. No significant change in presumed inflammatory activity in the left inguinal canal. Patient had MRI scan of the head done recently which shows single brain metastases for which he was evaluated by radiation oncology , underwent SRS to the solitary brain lesion on 01/11/2020, subsequently patient developed seizure-like activity and was admitted to hospital on 01/12/2020, was treated with dexamethasone and Keppra was also evaluated by neurology Dr. García and at that time his labs showed white blood count1.3, hemoglobin 7.7 hematocrit 23.5, platelets 47,000 Restarted on palliative chemotherapy with carboplatin/Alimta/Keytruda on 01/22/2020 Evaluated via phone patient denies any specific complaint except generalized weakness and fatigue but no fever or chills, no nausea or vomiting, no diarrhea constipation, no nosebleed or gum bleed, no melena or hematochezia, no chest pain or palpitation. Medications: Anoro Ellipta 1 (62.5-25 mcg/inh) Aerosol Powder, Breath Activated Inhalation daily, black seed oil 1 tsp Liquid daily, Co Q-10 1 Capsule (of 400 mg) Oral daily, Flonase 2 spray(s) (of 50 mcg/act) Suspension Nasal daily PRN, Keppra 1 Tablet (of 1000 mg) Oral b.i.d., Magnesium 1 Tablet (of 100 mg) Oral daily, Multivitamin Adults 1 Tablet Oral daily, Omeprazole 1 Capsule (of 20 mg) Capsule Delayed Release Oral b.i.d., Probiotic Daily 1 Capsule Oral daily, ZyrTEC Allergy 1 Tablet (of 10 mg) Oral daily Allergies: latex and Pollen. Review of Systems: Review of Systems is not available for this patient. Vital Signs: Vitals are not available for this patient. Performance Status: 2 - Ambulatory/capable of all self-care, unable to perform any work activities. Up and about more than 50% of waking hours. (ECOG) Physical Examination: ENMT - denies any mouth sores, Respiratory - denies any shortness of breath orwheezing, Cardiovascular - denies any palpitation or tachycardia, Abdomen - denies any abdominal pain or distention, Extremities - mild edema bilaterally. Lab/Imaging: Test performed on March 27, 2020 08:25 Sodium 140 mmol/L TSH 3.59 uIU/mL Potassium 4.1 mmol/L Chloride 101 mmol/L CO2 25 mmol/L Anion Gap 18.1 BUN 27 mg/dL Creatinine 1.0 mg/dL Cr Clearance (Est) 65.1100 mL/min Glucose 83 mg/dL Calcium 8.7 mg/dL Protein, Total 6.7 g/dL Albumin 4.1 g/dL Globulin 2.6 g/dL Bilirubin, Total 0.2 mg/dL ALT (SGPT) 202 U/L AST (SGOT) 95 U/L Alkaline Phosphatase 117 IU/L WBC 5.6 10 3/uL RBC 2.47 10 6/uL HGB 8.0 g/dL HCT 25.2 % MCV 102.0 fL MCH 32.4 pg MCHC 31.7 g/dL RDW 16.7 % Platelet Count 39 10 3/cmm MPV 12.0 fL Neutrophils 3.5 10 3/uL Lymphocytes 1.0 10 3/uL Monocytes 0.9 10 3/uL Eosinophils 0.0 10 3/uL Basophils 0.0 10 3/uL Neutrophil % 62.8 % Lymphocyte % 17.9 % Monocyte % 16.5 % Eosinophil % 0.4 % Basophils % 0.2 % Test performed on Mar 01, 2020 13:15 CBC Slide Review Slide Review Perform SLIDE REVIEW AGREES WITH AUTOMATION Test performed on Feb 14, 2020 10:10 Magnesium 1.2 mg/dL Test performed on Jan 31, 2020 13:30 Ferritin 1317 ng/mL Iron 63 mcg/dL Vitamin B12 520 pg/mL Iron Binding Capacity (TIBC) 247 mcg/dl % Iron Saturation 25.5 % UIBC 184 mcg/dL Test performed on Dec 05, 2019 07:35 Manual Lymphocytes 20.1 % Manual Monocytes 19.3 % Manual Eosinophils 0.7 % Manual Basophils 0.5 % NRBCs 0.0 /100 WBC Impression: Recurrent adenocarcinoma per left hilar lymph node biopsy Small cell lung cancer involving the right middle lobe per CT-guided lung biopsy done on 10/01/2018 CT scan of chest done on 08/31/2018 showed 4 cm left upper lobe mass and large mass with a probable postobstructive atelectasis involving the right hilum extending to right middle lobe. This mass occludes medial bronchus of right middle lobe and narrowing of the lateral bronchus COPD/emphysema with bilateral apical pleural thickening Chronic smoking Mr. Romeo underwent PET CT staging on 10/23/2018. The bulky right middle lobe mass demonstrates significant necrosis, and homogenous FDG uptake extends from the right hilum with subtotal atelectasis of the right middle lobe and an SUV of 25.2. There was loss of that plane between the mediastinum and mass superiorly, suggesting early invasion. The left upper lobe satellite mass is in a subpleural location, without involvement of the adjacent chest wall. This measures 2.0 x 3.0 cm with an SUV of 8.5. Patient has long-standing history of smoking, 50 year plus also tried pipe and then now cigars. He smokes 4-5 cigars a day. Mr. Romeo began his first cycle of carboplatin and etoposide on 11/02/2018. He is completed 3 cycles of the carboplatin and etoposide On 12/30/2018. Follow-up CT PET scan done on 01/15/2019 showed significant improvement in right middle lobe mass with postobstructive atelectasis since prior study. Mass now measures 4.6 x 2.4 cm with SUV of 5. A satellite malignant nodule in the left upper lobe is stable, measuring 2.2 x 2.8 cm with SUV of 10.9, and not a significant change since prior study. No new lesion seen. There was no evidence of malignancy outside of the chest. MRI of the head from 10/20/2018 reveals right anterior frontal lobe and left parietal lobe cortical 2-3 mm enhancing foci; primary considerations metastatic disease .Based on CT PET scan findings patient was referred to thoracic oncology at [facility] for second opinion with patient underwent CT-guided biopsy of left upper lobe lesion which confirmed second primary e.g. adenocarcinoma well differentiated Patient was evaluated by Dr. Barrington Segundo who recommended concurrent chemoradiation to right chest and followed by whole brain radiation therapy and observation versus SB RT to left upper lobe newly diagnosed non-small cell lung cancer e.g. adenocarcinoma. Follow-up CT scan of chest done on 06/20/2019 showed when compared to CT scan from 08/31/2018 CT PET scan from 01/15/2019 Previously left upper lobe mass lesion in anterior lateral subpleural location, now measure 1.8 cm x 3.2 x 2.1 cm compared to 2.3 x 3.6 x 2.8 on 01/15/2019. Previous bulky mass lesion within the right middle lobe seen on 08/31/2018 and with reduced size on 01/15/2019 is with further improvement, now measuring 1.6 cm x 6 x 2.8 cm. Medially the mass lesion and likely invades the right side of mediastinum adjacent a superior vena cava and right atrium. No other mass lesion seen normal liver and spleen No adrenal enlargement. No lytic or blastic bony distal to lesion seen. Plan: Discussed with patient via telephone, regarding his labs white blood count 5.6 hemoglobin 8 hematocrit 25.2 platelets 39,000 CMP within normal limits except ALT 202 compared to 56 on 03/13/2020 and AST 95 compared to 44 on 03/13/2020 with a normal alkaline phosphatase and bilirubin Clinically, patient doing well, tolerating systemic chemotherapy/immunotherapy with carboplatin/Alimta/Keytruda well but with expected side effects. We will continue to monitor his labs including liver function test and platelet count We'll repeat his labs CBC CMP on 04/02/2020 if there is resolution of thrombocytopenia, we'll consider next cycle of chemotherapy followed by follow-up CT PET scan. If he has persistent thrombocytopenia then we will postpone his chemotherapy for 1 week. On the other hand if is a drop in his hemoglobin to below 8 g, we'll consider blood transfusion.^, time spent 5 minutes on the phone] Signed By: Colette Guerrero M.D. <<Signature on File>>
== END 2020-01-09 23:59 | disposition home or self-care (01) ==
LOC: ONCMED 03-29 09:56
PROVIDERS: PCP Family Medicine; Visit Provider Internal Medicine Hematology & Oncology
DX: C34.12 Malignant neoplasm of upper lobe, left bronchus or lung (principal); C34.2 Malignant neoplasm of middle lobe, bronchus or lung; D64.81 Anemia due to antineoplastic chemotherapy; D70.1 Agranulocytosis secondary to cancer chemotherapy
CPT/HCPCS: 36415; 80053; 82607; 82728; 82746; 83540; 83550; 85025

== ENCOUNTER 2020-01-11 05:45 | Outpatient (RCR) | payer MEDICARE, OTHER, SELFPAY ==
--- NOTE | 2019-12-26 07:52 | MR_ITS ---
WS: [id number] MRI HEAD WITH CONTRAST TECHNIQUE: Sagittal T1, T2 axial, T2 axial FLAIR, axial susceptibility weighted imaging, axial diffus ion weighted images, and coronal T2 images were obtained. Pre and post-T1 axial and post T1 coronal i mages. ADC and FSPGR images. CLINICAL INFORMATION: METASTATIC LUNG CA COMPARISON: MRI MRI 4 18,019, 12 5,018 FINDINGS: No evidence of restricted diffusion to suggest acute ischemia. Ventricular system and basal cisterns are patent. Moderate patchy supratentorial periventricular white matter changes progressed since likely due to treatment effect. Superimposed small vessel changes. Moderate parenchyma l volume loss. No hydrocephalus. New enhancing right parasagittal parietal lesion measuring 10 mm consistent with progressive metastat ic disease. This is new from previous with a small amount of T2 signal abnormality. No significant ma ss effect. No other new or progressed enhancing lesions. Normal optic chiasm and pituitary infundibul um. Normal visualized dural venous sinuses. Normal cavernous sinuses and Meckel's cave. Normal price checker ior fossa. Normal vascular flow voids at the skull base. Partial opacification the mastoid air cells bilaterally. Mild mucosal thickening in the ethmoid air cells. Small T2 hyperintense subcutaneous lesion involving the left earlobe measuring 8.8 mm with peripheral enhancement. This appears unchanged since August 23 2019, this is also stable since October 20. MR/MR head wo/w con [id number] IMPRESSION: 1. New enhancing lesion in the parasagittal right parietal lobe measuring 10.3 mm consistent with metastatic disease. Minimal associated edema. No significan t mass effect. 2. No other progressed metastatic lesions. 3. Progressed periventricular T2 hyperintensity consistent with treatment effe ct. Superimposed small vessel changes. 4. Bilateral mastoid effusions. 5. T2 hyperintense lesion in the left ear near the auricular lobule (earlobe) with peripheral enhancement. This is unchanged since 2018.
[2019-12-26 08:26] LABS: Basophils % 0.5 %; Eosinophils % 0.2 %; Hematocrit 27.2 % (42.0-52.0); Hemoglobin 8.6 g/dL (11.7-16.6); Lymphocytes # 0.9 10^3/uL (0.8-4.8); Lymphocytes % 21.4 %; Mean Corpuscular HGB Conc 31.6 g/dL (30.0-36.0); Mean Corpuscular Hemoglobin 31.7 pg (28.0-34.0); Mean Corpuscular Volume 100.4 fL (80-94); Mean Platelet Volume 10.1 fL (7.4-10.4); Monocytes # 0.6 10^3/uL (0.2-0.9); Monocytes % 15.2 %; Neutrophils # 2.4 10^3/uL (1.8-7.7); Neutrophils % 57.4 %; Nucleated Red Blood Cells % 0 %; Platelet Count 231 10^3/cmm (130-400); Red Blood Count 2.71 10^6/uL (4.1-5.3); White Blood Count 4.2 10^3/uL (4.0-10.0)
[2019-12-26 09:19] LABS: Alanine Aminotransferase 62 U/L (0-41); Albumin Level 3.7 g/dL (3.5-5.2); Alkaline Phosphatase 83 IU/L (40-130); Anion Gap 17.9 (5-19); Aspartate Amino Transferase 41 U/L (0-40); Blood Urea Nitrogen 17 mg/dL (8-23); Calcium 8.5 mg/dL (8.5-10.5); Carbon Dioxide 25 mmol/L (22-29); Chloride 102 mmol/L (98-107); Globulin 2.9 g/dL (1.3-4.6); Glucose 110 mg/dL (65-115); Potassium 3.9 mmol/L (3.5-5.1); Sodium 141 mmol/L (136-145); Total Bilirubin 0.3 mg/dL (0.15-1.2); Total Protein 6.6 g/dL (6.6-8.7)
[2019-12-27] MEDS: sodium chloride 0.9% 250 ML 999 ML IV (09:30)
[2019-12-27 10:18] LABS: Iron 103 ug/dL (59-158); Percent Saturation 43.6 % (20-50); Total Iron Binding Capacity 236 mcg/dl; Unsaturated Iron Binding 133 ug/dL (112-347); Vitamin B12 711 pg/mL (232-1245)
[2019-12-27 10:41] LABS: Ferritin 1353 ng/mL (30-400)
[2019-12-27 11:26] LABS: Folate Level 18.7 ng/mL (4.5-32.2)
--- NOTE | 2019-12-28 16:36 | ONCRAD EPV_ITS ---
Radiation Oncology Established Patient Visit Patient: Lazaro MR#: [id number] : 1945> Age: 74> Sex: Male> Dictated by: Dr. Moises Dalal Date of Service: 12/28/2019 Referring Physician(s) : Dr. Nathanael Ortiz Diagnosis: D70.1 - Agranulocytosis secondary to cancer chemotherapy, Diagnosed 11/29/2019 (Active) C34.2 - Malignant neoplasm of middle lobe, bronchus or lung, Diagnosed 10/06/2018 (Active) Radiotherapy to Date: Course: Lung RT Mediasti Treatment Site: [id number] Ref. ID: [id number] Energy: 15X/6X Dose/Fx (cGy): 200 #Fx: 23/ Dose Correction (cGy): 0 Total Dose (cGy): 4,600 Start Date: 03/09/2019 End Date: 04/08/2019 Elapsed Days: 30 Course: Lung RT Mediasti Treatment Site: [id number] Ref. ID: [id number] Energy: 15X/6X Dose/Fx (cGy): 200 #Fx: 7 / 7 Dose Correction (cGy): 0 Total Dose (cGy): 1,400 Start Date: 04/12/2019 End Date: 04/20/2019 Elapsed Days: 8 Chief Complaint / History of Present Illness: Small cell lung cancer of right middle lobe and left upper lobe adenocarcinoma This is a 74-year-old gentleman with 2 synchronous lung cancers: Small cell carcinoma involving the right lung/hilum/mediastinum and a stage I adenocarcinoma involving the left upper lobe of the lung. He is received 3 cycles of chemotherapy with excellent response followed by chemoRT to the residual tumor in the right lung/mediastinum, whole brain irradiation and SBRT to the left upper lobe adenocarcinoma completed on 05/04/2019. The patient has had a good response to chemoRT and SBRT. CT of chest on 06/20/2019 showed decreased size of the left upper lobe pulmonary mass and further decrease in size of previous bulky right medial lobe mass. Residual mass lesion is probably associated with right-sided mediastinal invasion. There is no new lesions in the chest. The patient is doing well overall. He notes dyspnea on exertion and a fair appetite, mild fatigue but denies cough, hemoptysis, chest pain or significant weight loss. He had a PET/CT on September 10, 2019. It showed that the subpleural left upper lobe nodule now measures 1.7 x 2.5 cm with an SUV of 6.6 representing a positive anatomic and metabolic response to therapy. A new central groundglass opacity has developed in the central left upper lobe with an SUV of 4.0, and that there is new intense activity in the superior left hilar node with an SUV of 11.3. The patient underwent a bronchoscopy with EBUS and transbronchial needle aspiration of the left hilar 10L lymphadenopathy on October 07, 2019. Pathology showed adenocarcinoma consistent with lung origin. The patient received chemotherapy and had his last one yesterday. He has tolerated chemotherapy relatively well. Follow-up MRI of the brain on December 26, 2019 showed a new enhancing right parasagittal parietal lesion measuring 10.3 mm consistent with metastatic disease. It is new from previous scan with a small amount of T2 signal abnormality. There is no significant mass-effect. No other new or progressive enhancing lesions. Small T2 hyperintense subcutaneous lesion involving the left earlobe measuring 8.8 mm with peripheral enhancement. This appears unchanged since August 23, 2019 and is also stable since October 20, 2018. The patient denies headaches, nausea, vomiting, vision change, seizures or focal neurological deficits. Current Medications: Alimta, aloxi, anoro Ellipta, benadryl, black seed oil, cARBOplatin, co Q-10, dexamethasone Sodium Phosphate, emend, flonase, folic Acid, keytruda, lORazepam, metoprolol Tartrate, montelukast Sodium, multivitamin Adults, neulasta Delivery Kit, omeprazole, pepcid, probiotic Daily, prochlorperazine Maleate, zyrTEC Allergy. Allergies: latex. Current Complaints / Review of Systems: Constitutional - Complains of lack of appetite. Complains of moderate fatigue. Denies fever, night sweats and rigors / chills. Eyes - Denies blurred vision and double vision. ENMT - Complains of ear pain on the right side which happened last week and was a sharp shooting pain that happened occasionally. Complains of mouth dryness. Complains of altered taste which is off and on. Denies dysphagia, stomatitis and tinnitus. Neck - Denies neck pain. Integumentary - Complains of rash small spot on the right knee. Cardiovascular - Denies arrhythmias and chest pain. Respiratory - Complains of cough which is related to sinus drainage. Denies dyspnea and wheezing. Gastrointestinal - Complains of diarrhea which happened after a treatment of Keytruda. Denies abdominal pain, constipation, heartburn / dyspepsia, melena / GI bleeding, nausea and vomiting. Genitourinary (M) - Denies dysuria, frequency, nocturia and urgency. Musculoskeletal - Complains of joint pain in right SI joint. Complains of generalized muscle weakness. Denies bone pain. Neurologic - Denies disorientation, dizziness, abnormal gait, headaches and memory loss. Endocrine - Denies diabetes and thyroid disease. Hematologic/Lymphatic - Denies tender or enlarged lymph nodes.. Vital Signs: Performed on 12/28/2019 1:26 PM BMI - 21.839 kg/m2, Height - 70.00 in, Weight - 152.2 lbs, Temperature - 97.7 f, Pulse - 89, Respiration - 20, O2 Sat - 100 %, Pain - 0 and BP - 120/ 75 mm(hg). Physical Exam: General: Alert and oriented x 3. No acute distress. HEENT: Normocephalic, atraumatic. Extraocular Movements Intact: Pupils Equal, Round, Reactive to Light and Accommodation: Sclerae anicteric. Oral cavity is clear without lesions, masses or ulcers. NECK: Supple without supraclavicular or jugular lymphadenopathy. LUNGS: Clear to auscultation bilaterally without rales, rhonchi or wheeze. HEART: Regular rate and rhythm, normal S1 and S2 without murmur, gallop or rub. MUSCULOSKELETAL: No tenderness or percussion pain over the axial skeleton, scapulae or pelvis. ABDOMEN: Soft, nontender, nondistended without masses or organomegaly. Bowel sounds are present. EXTREMITIES: No peripheral edema is identified. Limited motor and sensory examination are grossly intact and symmetric bilaterally. NEUROLOGIC: Cranial nerves II ???XII are grossly intact. Normal sensation, strength 5/5 in all extremities, normal gait, no ataxia. Performance Status: 2 - Ambulatory/capable of all self-care, unable to perform any work activities. Up and about more than 50% of waking hours. (ECOG) Lab: Test performed on 12/26/2019 7:57 AM RBC - 2.71 10 6/ul (low), HGB - 8.6 g/dl (low), HCT - 27.2 % (low), MCV - 100.4 fl (high), Cr Clearance (Est) - 55.0800 ml/min (low), ALT (SGPT) - 62 u/l (high), AST (SGOT) - 41 u/l (high) and Test performed on 12/27/2019 9:20 AM Ferritin - 1353 ng/ml (high). 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 There is no associated neurological symptoms/signs. Plan: I recommended SRS to the solitary brain metastasis. We went over the procedure, benefit, risks and potential side effects of SRS to the solitary brain metastasis. The potential side effects include but not limited to fatigue, skin reaction, hair loss, headaches, nausea, radiation necrosis and potential damage to the surrounding normal brain tissue causing associated neurological symptoms. Mr. Romeo has expressed good understanding and decided to proceed with the recommended treatment. The patient just received a full dose chemotherapy yesterday. In order to decrease the risk of radiation toxicity caused by concurrent chemotherapy, we will defer SRS to 2 weeks later. He will be scheduled for CT simulation along with a MRI late next week. And we will start his treatment in about 2 weeks. Signed by: 12/28/2019 4:36:04 PM <<Signature on File>> CPT Code: CPT Code: Signed By: Dr. Moises Dalal, 12/28/2019 4:36:05 PM <<Signature on File>>
--- NOTE | 2020-01-05 | CT_ITS ---
Radation Therapy Planning CT images; total exam DLP: 1409.39 mGy-cm MTDD
[2020-01-10 15:10] VITALS: BP 96/64; PULSE 64; RESP 18; TEMP 37.2
[2020-01-10 15:24] VITALS: BP 96/64; PULSE 68; RESP 18; TEMP 37.2; O2SAT 96
[2020-01-10 15:32] VITALS: BP 103/68; PULSE 98; RESP 18; TEMP 36.8; O2SAT 98
--- NOTE | 2020-01-10 16:01 | ONC FU_ITS ---
Dr. 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 Mr. Romeo reports in the last week of June 2018 he noted some blood in his yellow phlegm and tried to tough it out for about month and half. He finally saw his primary care physician and he was diagnosed with chronic bronchitis. A Chest x-ray was done-as per patient it was normal and he was given a prescription for Flovent. He felt some improvement and on 09/01/[address] scan of chest which showed right middle lobe lung mass. The mass was reported as about 6 cm in size with mediastinal and hilar lymphadenopathy and there was a contralateral nodule which is lobulated in the left upper lobe measures 4 x 2.3 cm. Mr Romeo was then referred to Dr. Ortiz, fur scraper in [place]. He underwent bronchoscopy and transbronchial biopsy on 09/10/2018 which showed no evidence of malignancy. Subsequently patient underwent CT-guided biopsy of right middle lobe on 10/01/2018 which confirmed small cell lung cancer. Mr. Romeo underwent PET CT staging on 10/23/2018. The bulky right middle lobe mass demonstrates significant necrosis, and homogenous FDG uptake extends from the right hilum with subtotal atelectasis of the right middle lobe and an SUV of 25.2. There was loss of that plane between the mediastinum and mass superiorly, suggesting early invasion. The left upper lobe satellite mass is in a subpleural location, without involvement of the adjacent chest wall. This measures 2.0 x 3.0 cm with an SUV of 8.5. Patient has long-standing history of smoking, 50 year plus also tried pipe and then now cigars. He smokes 4-5 cigars a day. There was no evidence of malignancy outside of the chest. MRI of the head from 10/20/2018 reveals right anterior frontal lobe and left parietal lobe cortical 2-3 mm enhancing foci; primary considerations metastatic disease. Mr. Romeo began his first cycle of carboplatin and etoposide on 11/02/2018. He did have a few mouth sores with cycle 1 but this was controlled with Valtrex, baking soda and salt water and as needed Magic mouthwash. He states that once he started the Valtrex for cold sores resolved within a couple of days. He's had no recurrent problems with mouth sores. CT PET scan done after 3 cycles of chemotherapy on 01/15/2019 showed significant improvement in the right middle lobe mass with postobstructive atelectasis since the prior study. The mass now measures 4.6 x 2.4 cm with SUV of 5. And the satellite malignant nodules in the left upper lobe is stable measuring 2.2 x 2.8 cm with SUV of 10.9, not a significant change since prior study on 10/23/2018. No new lesion seen. Patient was referred to [facility] where he saw thoracic oncologist Dr. Bellamy who recommended MRI scan of the brain which was done on on 02/21/2019 which showed a new diffusion weighted, 5 mm abnormality with mild enhancement in the anterior right parietal lobe cortex. Subacute small lacunar infarction versus metastatic disease. Follow-up MRI brain is recommended in 3-4 month Previously described anterior right frontal and left parietal cortical areas of enhancement are slightly smaller in size. Differential include decrease in size of metastatic due to treatment. Severe chronic white matter disease and CT-guided biopsy of left upper lobe was done on 02/24/2019 showed adenocarcinoma, well-differentiated Patient was started on combined chemoradiation on 03/09/2019 with carboplatin and etoposide and if patient achieved complete remission then consider SB RT to newly diagnosed left upper lobe lung adenocarcinoma .Follow-up CT scan of chest done on 06/20/2019 showed decreased size of previous left upper lobe neoplastic mass Further decrease in size of previous bulky right middle lobe mass. Residual mass lesion remaining is probably associated with right-sided mediastinal invasion Residual scarring or subsegmental atelectasis right middle lobe Chronic emphysema f/u CT PET scan done on 09/10/2019 showed positive response to therapy of the left upper lobe adenocarcinoma New abnormal activity in the left upper lobe groundglass nodule and left upper hilar lymph node Increased activity in the bowel at left inguinal canal with new reactive left inguinal node, patient has history of left inguinal hernia repair in April 2018 MRI head done on 08/23/2019 shows resolved enhancing metastatic lesion, no new lesion seen Was referred to [facility] in [place] for EBUS/biopsy of left upper hilar lymph node which was done on 10/07/2019 and final pathology report came back adenocarcinoma consistent with lung origin. Patient was referred to radiation oncology Dr. Dalal for evaluation and his impression was patient had received radiation therapy to left upper lobe primary previously with a further radiation disease risk of left bronchus damage and major blood vessel damage so suggested chemotherapy alone. Dr Romeo was offered treatment with Carboplatin/Alimta/Keytruda. He started cycle 1 Keytruda/carboplatin/Alimta on 11/15/2019. He states overall he feels pretty good he has had significant diarrhea which was controlled with blackberries since his last treatment. He states he thinks he did have a touch of colitis although it is completely resolved now. With that he has had a flare of his hemorrhoids Came for follow-up, denies any specific complaint except mild to moderate generalized weakness and fatigue mild dyspnea on exertion. But no melena hematochezia no fever or chills, mild diarrhea e.g. to 2-3 semisolid stools in 24 hours. No jaundice no abdominal pain, no lower extremity edema. Tolerating systemic therapy with Keytruda/Alimta/carboplatin well otherwise Follow-up CT PET scan done after 3 cycles of carboplatin/Alimta/Keytruda on 01/07/2020 showed mild progression of left upper lobe mass from the prior study done on 09/10/2019. Overall progression of disease within new unifocal osseous metastatic disease in the posterior left iliac and a new FDG positive prevascular mediastinal lymph node. Decreasing FDG activity in left upper lobe groundglass nodule. No significant change in left hilar node. No significant change in presumed inflammatory activity in the left inguinal canal. Patient had MRI scan of the head done recently which shows single brain metastases for which he was evaluated by radiation oncology and now SRS to the solitary brain lesion is planned for the morning and radiation oncology requested to chemotherapy for 2 weeks. Came for follow-up, patient is complaining of generalized weakness and fatigue but no melena or hematochezia, no nausea or vomiting, no jaundice, no diarrhea constipation but palpitation and shortness of breath on exertion but no chest pain. Medications: Anoro Ellipta 1 (62.5-25 mcg/inh) Aerosol Powder, Breath Activated Inhalation daily, black seed oil 1 tsp Liquid daily, Co Q-10 1 Capsule (of 400 mg) Oral daily, Flonase 2 spray(s) (of 50 mcg/act) Suspension Nasal daily PRN, Metoprolol Tartrate 1 Tablet (of 50 mg) Oral daily, Montelukast Sodium 1 Tablet (of 10 mg) Oral daily, Multivitamin Adults 1 Tablet Oral daily, Omeprazole 1 Capsule (of 20 mg) Capsule Delayed Release Oral b.i.d., Probiotic Daily 1 Capsule Oral daily, ZyrTEC Allergy 1 Tablet (of 10 mg) Oral daily Allergies: latex Review of Systems: Review of Systems is not available for this patient. Vital Signs: Vitals are not available for this patient. Performance Status: 2 - Ambulatory/capable of all self-care, unable to perform any work activities. Up and about more than 50% of waking hours. (ECOG) Physical Examination: ENMT - No oral exudates, ulcers, masses, thrush or mucositis. Oropharynx clear. Tongue normal, Respiratory - Lungs are clear to auscultation without rhonchi or wheezing, Cardiovascular - Regular rate and rhythm of heart, Abdomen - Non-tender, non-distended, Good bowel sounds. No guarding or rebound tenderness. No pulsatile masses, Extremities - trace edema. Lab/Imaging: Test performed on Dec 27, 2019 09:20 Ferritin 1353 ng/mL Iron 103 ug/dL Vitamin B12 711 pg/mL UIBC 133 ug/dL Test performed on Dec 26, 2019 07:57 Sodium 141 mmol/L Potassium 3.9 mmol/L Chloride 102 mmol/L CO2 25 mmol/L Anion Gap 17.9 BUN 17 mg/dL Creatinine 1.2 mg/dL Cr Clearance (Est) 55.0800 mL/min Glucose 110 mg/dL Calcium 8.5 mg/dL Protein, Total 6.6 g/dL Albumin 3.7 g/dL Globulin 2.9 g/dL Bilirubin, Total 0.3 mg/dL ALT (SGPT) 62 U/L AST (SGOT) 41 U/L Alkaline Phosphatase 83 IU/L WBC 4.2 10 3/uL RBC 2.71 10 6/uL HGB 8.6 g/dL HCT 27.2 % MCV 100.4 fL MCH 31.7 pg MCHC 31.6 g/dL RDW 15.0 % Platelet Count 231 10 3/cmm MPV 10.1 fL Neutrophils 2.4 10 3/uL Lymphocytes 0.9 10 3/uL Monocytes 0.6 10 3/uL Eosinophils 0.0 10 3/uL Basophils 0.0 10 3/uL Neutrophil % 57.4 % Lymphocyte % 21.4 % Monocyte % 15.2 % Eosinophil % 0.2 % Basophils % 0.5 % Test performed on Dec 05, 2019 07:35 Manual Lymphocytes 20.1 % Manual Monocytes 19.3 % Manual Eosinophils 0.7 % Manual Basophils 0.5 % NRBCs 0.0 /100 WBC Test performed on Nov 14, 2019 09:10 TSH 1.31 uIU/mL Impression: Recurrent adenocarcinoma per left hilar lymph node biopsy Small cell lung cancer involving the right middle lobe per CT-guided lung biopsy done on 10/01/2018 CT scan of chest done on 08/31/2018 showed 4 cm left upper lobe mass and large mass with a probable postobstructive atelectasis involving the right hilum extending to right middle lobe. This mass occludes medial bronchus of right middle lobe and narrowing of the lateral bronchus COPD/emphysema with bilateral apical pleural thickening Chronic smoking Mr. Romeo underwent PET CT staging on 10/23/2018. The bulky right middle lobe mass demonstrates significant necrosis, and homogenous FDG uptake extends from the right hilum with subtotal atelectasis of the right middle lobe and an SUV of 25.2. There was loss of that plane between the mediastinum and mass superiorly, suggesting early invasion. The left upper lobe satellite mass is in a subpleural location, without involvement of the adjacent chest wall. This measures 2.0 x 3.0 cm with an SUV of 8.5. Patient has long-standing history of smoking, 50 year plus also tried pipe and then now cigars. He smokes 4-5 cigars a day. Mr. Romeo began his first cycle of carboplatin and etoposide on 11/02/2018. He is completed 3 cycles of the carboplatin and etoposide On 12/30/2018. Follow-up CT PET scan done on 01/15/2019 showed significant improvement in right middle lobe mass with postobstructive atelectasis since prior study. Mass now measures 4.6 x 2.4 cm with SUV of 5. A satellite malignant nodule in the left upper lobe is stable, measuring 2.2 x 2.8 cm with SUV of 10.9, and not a significant change since prior study. No new lesion seen. There was no evidence of malignancy outside of the chest. MRI of the head from 10/20/2018 reveals right anterior frontal lobe and left parietal lobe cortical 2-3 mm enhancing foci; primary considerations metastatic disease .Based on CT PET scan findings patient was referred to thoracic oncology at [facility] for second opinion with patient underwent CT-guided biopsy of left upper lobe lesion which confirmed second primary e.g. adenocarcinoma well differentiated Patient was evaluated by Dr. Barrington Segundo who recommended concurrent chemoradiation to right chest and followed by whole brain radiation therapy and observation versus SB RT to left upper lobe newly diagnosed non-small cell lung cancer e.g. adenocarcinoma. Follow-up CT scan of chest done on 06/20/2019 showed when compared to CT scan from 08/31/2018 CT PET scan from 01/15/2019 Previously left upper lobe mass lesion in anterior lateral subpleural location, now measure 1.8 cm x 3.2 x 2.1 cm compared to 2.3 x 3.6 x 2.8 on 01/15/2019. Previous bulky mass lesion within the right middle lobe seen on 08/31/2018 and with reduced size on 01/15/2019 is with further improvement, now measuring 1.6 cm x 6 x 2.8 cm. Medially the mass lesion and likely invades the right side of mediastinum adjacent a superior vena cava and right atrium. No other mass lesion seen normal liver and spleen No adrenal enlargement. No lytic or blastic bony distal to lesion seen. Plan: Discussed with patient regarding his labs white blood count 1.7 hemoglobin 5.9 hematocrit 18 platelets 44,060 600 CMP within normal limits, ferritin 1878, iron 119, B12 653 Clinically, patient is in moderate distress due to progressive anemia and his anemia workup remained inconclusive, there is a decent drop in his hemoglobin from 8.6 g on 12/26/2019 to 5.9 g today, we will consider 2 units of packed RBCs and also give him prescription for Levaquin 500 milligrams by mouth daily prophylaxis for neutropenia. We'll repeat his CBC at home next week and then he will return to clinic in 2 weeks with CBC CMP After reviewing his PET scan, treatment options were discussed including continue with same regimen e.g. Keytruda/carboplatin/Alimta for [address] PET scan to assess for the response as recent CT PET scan was compared with one from 09/10/2019 whereas systemic therapy was started on 11/15/2019 e.g. after 9 weeks of gap, there is a possibility of tumor growth during that period of time. And next PET scan will show us if current regimen is effective or not Other treatment option would be considering carboplatin/Abraxane/ tecentriq ???[address] scan. All the side effect possible benefits associated with this regimen were discussed, patient to think about and will make decision when he return to clinic in 2 weeks. Patient was advised in case he has any fever or mental status changes he need to go to ER immediately. Signed By: Colette Guerrero M.D. <<Signature on File>>
[2020-01-10 16:55] VITALS: BP 103/68; BP 104/64; PULSE 98; RESP 18; TEMP 36.8; TEMP 37.2; O2SAT 98
[2020-01-10 17:10] VITALS: BP 109/60; PULSE 90; RESP 18; TEMP 36.8; O2SAT 98
[2020-01-10 18:00] VITALS: BP 108/61; PULSE 90; RESP 18; TEMP 36.6; O2SAT 98
--- NOTE | 2020-01-11 10:47 | ONCRAD TMN_ITS ---
Radiation Oncology Weekly Treatment Management/Treatment Summary Patient: Timmy Romeo MR#: [id number] : 1945> Age: 74> Sex: Male Dictated by: Dr. Moises Dalal Date of Service: 01/11/2020 Referring Physician(s) : Dr. Ntahanael Otriz Primary Diagnosis: D70.1 - Agranulocytosis secondary to cancer chemotherapy, Diagnosed 11/29/2019 (Active) C34.2 - Malignant neoplasm of middle lobe, bronchus or lung, Diagnosed 10/06/2018 (Active) Radiotherapy to date: Course: BrainSRS 2019, Treatment Site: BrainSRS 20Gy, Ref. ID: BrainSRS, Energy: 6X, Dose/Fx (cGy): 2,000, #Fx: , Dose Correction (cGy): 0, Total Dose (cGy): 2,000, Start Date: 01/11/2020, End Date: 01/11/2020, Elapsed Days: 0 Current Complaints/Interval History: Constitutional Complains of a poor appetite, moderate fatigue and weight loss of between 6 and 9 pounds since last week. Denies fever and night sweats. Neurologic Complains of intermittent dull headaches, dizziness that occurs with activity and abnormal gait in which he feels off balanced with walking. Denies blurred vision, double vision, nausea and vomiting. Current Medications: Alimta, aloxi, anoro Ellipta, benadryl, black seed oil, cARBOplatin, co Q-10, dexamethasone Sodium Phosphate, emend, flonase, folic Acid, keytruda, levoFLOXacin, lORazepam, metoprolol Tartrate, montelukast Sodium, multivitamin Adults, neulasta Delivery Kit, omeprazole, pepcid, probiotic Daily, prochlorperazine Maleate, zyrTEC Allergy. Allergies: latex. Vital Signs: Performed on 01/11/2020 9:48 AM BMI - 20.547 kg/m2, Height - 70.00 in, Weight - 143.2 lbs, Temperature - 98.0 f, Pulse - 93, Respiration - 20, O2 Sat - 100 %, Pain - 0 and BP - 106/ 75 mm(hg). Physical Exam: Appears stable, no skin erythema or desquamation. Performance Status: 3 - Capable of only limited self-care, confined to bed or chair more than 50% of waking hours. (ECOG) Lab: Test performed on 12/26/2019 7:57 AM RBC - 2.71 10 6/ul (low), HGB - 8.6 g/dl (low), HCT - 27.2 % (low), MCV - 100.4 fl (high), Cr Clearance (Est) - 55.0800 ml/min (low), ALT (SGPT) - 62 u/l (high), AST (SGOT) - 41 u/l (high) and Test performed on 12/27/2019 9:20 AM Ferritin - 1353 ng/ml (high). Imaging: No new diagnostic imaging was performed since the last weekly treatment visit. All radiation therapy related imaging (including but not limited to CBCT generated images) was reviewed. Appropriate changes, if any, were made to assure accurate target localization. Impression/Plan: Tolerating treatment well. Completed treatment as planned today. He will follow up with med onc to resume systemic therapy. He will follow up with me in one month. CPT: 71095 Signed by: Dr. Moises Dalal>01/11/2020 10:46:16 AM <<Signature on File>>
== END 2020-01-11 22:00 | disposition home or self-care (01) ==
LOC: ONCMED 05:45
PROVIDERS: Internal Medicine Hematology & Oncology; Family Provider Family Medicine; Visit Provider Radiology Radiation Oncology
DX: Z51.0 Encounter for antineoplastic radiation therapy (principal); Z51.11 Encounter for antineoplastic chemotherapy; C79.31 Secondary malignant neoplasm of brain; C34.12 Malignant neoplasm of upper lobe, left bronchus or lung; C34.2 Malignant neoplasm of middle lobe, bronchus or lung; C77.1 Secondary and unspecified malignant neoplasm of intrathoracic lymph nodes; C79.51 Secondary malignant neoplasm of bone; D64.9 Anemia, unspecified; F17.210 Nicotine dependence, cigarettes, uncomplicated; J43.9 Emphysema, unspecified; Z79.899 Other long term (current) drug therapy
CPT/HCPCS: 36415; 36430; 70553; 77014; 77280; 77290; 77295; 77300; 77334; 77370; 77372; 77470; 80053; 82607; 82728; 82746; 83540; 83550; 85025; 86850; 86900; 96367; 96413; 96417; 99214; 99215; A9579; J1100; J1200; J1453; J2469; J3490; J7050; J9045; J9271; J9305; P9040

== ENCOUNTER 2020-01-11 22:13 | Inpatient (IN) | payer OTHER, MEDICARE, SELFPAY ==
[2020-01-11 22:34] VITALS: BMI 20.7
[2020-01-11 22:40] VITALS: BP 132/87; PULSE 114; RESP 23; TEMP 36.4; O2SAT 99
[2020-01-11 23:00] VITALS: BP 132/87; PULSE 102; RESP 18; O2SAT 98
--- NOTE | 2020-01-11 23:56 | PM.HP ---
Providers/Chief Complaint Admitting Physician: Bianka Koch MD Primary Care Provider: Edwin Carranza Chief Complaint: NEW ONSET SEIZURES History of Present Illness Timmy Romeo is a 74 year old male with a history of small cell lung cancer. He follows with Dr. Guerrero. He completed his third cycle of carboplatin, Alimta, Keytruda on December 27. PET scan done on January 07 showed mild progression of the left upper lobe mass, progression of some osseous metastases in the left iliac area as well as a new prevascular mediastinal lymph node. Recent MRI of the head showed a single brain metastases as well. Patient was seen by Dr. Guerrero on January 10. His counts were low and he received transfusion of blood at that time. On 01/11, patient underwent a planned one-time radiation treatment for the brain lesion. He was doing okay when he got home. His stepped out to get prescriptions filled and continuous pickling line pickler helper a walker. She was gone for about an hour. When she came home patient was on the couch and was jerking and rigid. She called 911. They were there a short time later. Patient was not doing as bad when they arrived. He had another significant episode in route to the hospital. He was taken to [facility]. On arrival there patient was unresponsive. Not knowing if he might still be seizing he did receive Ativan for a total of 4 mg. He started to come around and at times was able to provide answers to questions and other times was very sedate. He has no personal history of seizures to speak of. He did have loss of bowel or bladder function associated with the event. No recent fevers. He has been getting progressively weaker lately. He had had problems with diarrhea after his chemotherapy and it was thought that his weakness was related to this time. Diarrhea has started to slow down. Last bowel movement was the day of admission. Patient has not had an appetite for much. He has continued to lose weight. He has been sleeping a little bit more. He was noted to have pupil irregularities on exam at [facility] in addition to the new onset seizure and request was made for transfer to our facility. Additionally they reported that ABG on arrival showed a pH of 7.0 with low bicarbonate. They gave him some bicarbonate there. He has not had any further seizure activity. Only other new medications lately included Levaquin that was started yesterday officially by Dr. Guerrero empirically because of low counts. Patient had been taking it for couple of days from an old prescription due to upper respiratory type symptoms. It is not known exactly how long he had been taking them. He was accepted on transfer. Review of Systems General: Reports: ROS unobtainable due to mental status (And what is below was per his ) Const: Reports: change in appetite, change in weight, fatigue and malaise; Denies: fever Eyes: Reports: other (Decreased vision left eye, chronically irregular pupils) ENMT: Reports: nasal discharge Resp: Reports: shortness of breath and productive cough; Denies: coughing up blood GI: Reports: nausea, diarrhea, constipation and other; Denies: vomiting : Denies: difficulty urinating Musc: Reports: back pain and extremity pain Skin/Breast: Reports: sores (On 1 of his knees) Yuri/Lymph: Denies: easy bleeding Medications/Allergies Home Medications Medication Instructions Recorded Confirmed Last Taken Type ascorbic acid (vitamin C) [Vitamin 1,000 mg PO DAILY 01/11/20 01/11/20 01/11/20 08:00 History C] cetirizine [Zyrtec] 10 mg PO DAILY 01/11/20 01/11/20 01/11/20 08:00 History fluticasone propionate 2 spray INTRANASAL Q12H PRN 01/11/20 01/11/20 01/10/20 20:00 History levofloxacin [Levaquin] 500 mg PO DAILY 01/11/20 01/11/20 01/11/20 08:00 History metoprolol tartrate 50 mg PO DAILY 01/11/20 01/11/20 01/11/20 08:00 History montelukast [Singulair] 10 mg PO DAILY 01/11/20 01/11/20 01/11/20 08:00 History squchfmccaza-dcp-mcoa-FA-vit K 1 tab PO DAILY 01/11/20 01/11/20 01/11/20 08:00 History [Multi-Day Plus Minerals] omeprazole 20 mg PO BID 01/11/20 01/11/20 01/11/20 08:00 History umeclidinium-vilanterol [Anoro 1 inh INHALATION DAILY 01/11/20 01/11/20 01/11/20 08:00 History Ellipta] Allergies Allergy/AdvReac Type Severity Reaction Status Date / Time Latex, Natural Rubber Allergy Intermediate ADR-Itching Verified 01/11/20 22:45 PFSH Acute PFSH: Medical History (Updated 01/12/20 @ 06:14 by Bianka Koch MD) CAD (coronary artery disease) COPD (chronic obstructive pulmonary disease) GERD (gastroesophageal reflux disease) History of cardiac arrhythmia Hypertension 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 Guerrero, on third cycle of carboplatin, Alimta, Keytruda and has received 1 dose of radiation therapy to the brain as of 01/12/20 Surgical History (Updated 01/12/20 @ 05:59 by Bianka Koch MD) History of bilateral inguinal hernia repair (~2017) History of cataract surgery (~2013) History of coronary artery bypass graft (~2012) Vocal cord nodule Required surgery x2 in 2011 and 2014, benign Family History (Updated 01/12/20 @ 06:00 by Bianka Koch MD) Other CAD (coronary artery disease) Cancer Hypertension Social History (Updated 01/12/20 @ 06:00 by Bianka Koch MD) Smoking and tobacco status: former smoker Alcohol intake: current Alcohol use comment: Occasional beers 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 Vitals/I&O/Wt Weight last 48 hrs Weight 65.459 kg Weight 65.459 kg Physical Exam Const: EXAM LIMITATIONS: altered mental status NUTRITIONAL APPEARANCE: cachectic (Mild) HENMT: HEAD & SCALP: normocephalic (Except mild bitemporal wasting) and atraumatic MOUTH: mouth trauma (Patient obviously bit his oral mucosa and has some bruising to the tongue) Eye: COMMON NORMALS: conjunctivae normal GENERAL EYE: other (Left pupil is slightly larger than right pupil but both are equally reactive) Neck/C-Spine: COMMON NORMALS: supple Resp: COMMON NORMALS: normal respiratory effort, no use of accessory muscles and clear to auscultation bilaterally Cardio: RATE: tachycardic HEART SOUNDS: murmur GI: COMMON NORMALS: soft to palpation and non-tender AUSCULTATION: Yes normoactive bowel sounds : COMMON NORMALS: Yes external exam normal Extremity: COMMON NORMALS: normal capillary refill GENERAL: No edema Neuro: OTHER: No current seizure activity noted. Did make eye contact with me initially. Moves all extremities. Face symmetric. Skin: NARRATIVE SKIN EXAM: Patient has lewis for radiation noted. He has alopecia. He has some chronic hyperpigmented areas Data : 01/11/20 00:23 01/12/20 04:03 Other Labs: Laboratory studies from outside facility show troponin that was negative INR 1.5 and PTT of 26. Initial ABG showed 7.0/19/95/5. Patient was given 2 A of bicarb and subsequent ABG showed 7.4 01/10//16. Initial lactic acid was 12 with a reflex lactic acid of 22, or possibly the other way around. Sodium was 139, potassium 3.5, chloride 100, CO2 on initial blood work was also less than 5, BUN was 23 with a creatinine of 1.5, glucose 200, total bili 0.4, albumin 4.2, alkaline phosphatase 69, AST 38, ALT does not look like it was run white blood count was 6.8, hemoglobin was 9.6 with hematocrit of 29.8 and platelet count was 59. Patient had 11% neutrophils with 54% lymphocytes. CT Head: Radiologist's impression: From outside facility, CT of the head without contrast this evening showed no mass, no midline shift, no hydrocephalus or hemorrhage. The ventricles and sulci were noted to be enlarged consistent with atrophy. Lucency in the periventricular white matter indicates microvascular ischemic changes but no extra-axial fluid collection was identified. A&P Assessment and plan (1) New onset seizure: Most likely related to small brain metastases. He has been on Levaquin lately which can potentially decrease seizure threshold. Chemotherapy was several weeks out. Cannot rule out infection with his counts where they are but I do not get a strong sense that that is what happened here at the moment. Status: Acute Code(s): R56.9 - Unspecified convulsions (2) Antineoplastic chemotherapy induced pancytopenia: Received third cycle of carboplatin, Alimta, Keytruda on 12/27/2019. Had transfusion on 01/10/2020. Status: Acute Code(s): D61.810 - Antineoplastic chemotherapy induced pancytopenia; T45.1X5A - Adverse effect of antineoplastic and immunosuppressive drugs, initial encounter (3) Small cell lung cancer: With brain and bone metastases, follows with Dr. Guerrero. Status post 1 dose of radiation therapy to the brain on 01/11/[address] Dalal. Status: Chronic Code(s): C34.90 - Malignant neoplasm of unspecified part of unspecified bronchus or lung (4) COPD (chronic obstructive pulmonary disease): Not currently acute, chronically on Anoro Ellipta Status: Chronic Qualifiers: COPD type: unspecified COPD Qualified Code(s): J44.9 - Chronic obstructive pulmonary disease, unspecified Code(s): J44.9 - Chronic obstructive pulmonary disease, unspecified (5) Hypertension: Chronically on metoprolol Status: Chronic Qualifiers: Hypertension type: essential hypertension Qualified Code(s): I10 - Essential (primary) hypertension Code(s): I10 - Essential (primary) hypertension (6) CAD (coronary artery disease): No acute symptoms to speak of, status post bypass surgery in 2013 Status: Chronic Qualifiers: Coronary Disease-Associated Artery/Lesion type: [place] artery [place] vs. transplanted heart: [place] heart Associated angina: without angina Qualified Code(s): I25.10 - Atherosclerotic heart disease of [place] coronary artery without angina pectoris Code(s): I25.10 - Atherosclerotic heart disease of [place] coronary artery without angina pectoris (7) GERD (gastroesophageal reflux disease): Chronically on PPI Status: Chronic Qualifiers: Esophagitis presence: esophagitis presence not specified Qualified Code(s): K21.9 - Gastro-esophageal reflux disease without esophagitis Code(s): K21.9 - Gastro-esophageal reflux disease without esophagitis Additional A&P Information Other diagnoses: Presented with significant acidosis at outside facility which I think was due to lactic acidosis from hypoxemia looking at labs there. Recent diarrhea from chemotherapy Declining ECOG of late Plan: Observation admission for now Admitted to the ICU for overnight monitoring secondary to length of seizure and presenting ABG values Serial neuro exams Loaded with some IV Keppra and switch to oral Keppra when alert and able to take by mouth medications Dexamethasone 4 mg p.o. twice a day I did review the case briefly with Dr. Dalal who had seen him earlier in the day as well as with neurology to get recommendations on above medications Recommendation was for outpatient EEG Continue Levaquin for empiric coverage in the setting of neutropenia, monitor clinical condition and adjust coverage if needed Nothing by mouth until a bit more awake IV fluids Continue home medications otherwise as ordered Need to review events with Dr. Guerrero in the morning Discussed with patient's and other family present in the room that having the brain metastases increases potential to have a seizure. Discussed that medications, metabolic abnormalities such as electrolyte changes as well as infection can contribute to the development of seizures. Reviewed initiation of Keppra as well as a dexamethasone. SCDs for DVT prophylaxis, no pharmacological prophylaxis secondary to thrombocytopenia Supportive care otherwise Currently full code If remains stable tonight can transfer to floor in the morning if requires ongoing hospitalization Attestations Medical Necessity Statement*: Currently anticipated stay less than 2 midnights in a patient with known brain metastases presenting with new onset seizure. With the significant acidosis present on presentation to outside facility want to ensure there is not anything else going on particularly in light of chemotherapy-induced pancytopenia and other comorbid conditions. Hopefully however he will be beyond his postictal state tomorrow unable to be discharged with outpatient follow-up. Plans are as noted above. Coding Level of Care Code Acute Javascript Engineer for Shonda Jimenez Diagnoses New onset seizure R56.9 Antineoplastic chemotherapy induced pancytopenia D61.810; T45.1X5A Small cell lung cancer C34.90 COPD (chronic obstructive pulmonary disease) J44.9 COPD type: unspecified COPD Hypertension I10 Hypertension type: essential hypertension CAD (coronary artery disease) I25.10 Coronary Disease-Associated Artery/Lesion type: [place] artery [place] vs. transplanted heart: [place] heart Associated angina: without angina GERD (gastroesophageal reflux disease) K21.9 Esophagitis presence: esophagitis presence not specified
[2020-01-12] VITALS (27 sets, daily range): BP systolic 97–123; BP diastolic 57–78; PULSE 81–106; RESP 16–25; TEMP 37; O2SAT 95–99
[2020-01-12 00:28] LABS: Lactic Sepsis W/Reflex 0.9 mmol/L (0.5-2.2)
[2020-01-12 00:53] LABS: Hematocrit 21.6 % (42.0-52.0); Hemoglobin 7.3 g/dL (11.7-16.6); Mean Corpuscular HGB Conc 33.8 g/dL (30.0-36.0); Mean Corpuscular Hemoglobin 32.2 pg (28.0-34.0); Mean Corpuscular Volume 95.2 fL (80-94); Mean Platelet Volume 11.5 fL (7.4-10.4); Platelet Count 45 10^3/cmm (130-400); Red Blood Count 2.27 10^6/uL (4.1-5.3); Red Cell Distribution Width 15.7 % (12.1-15.1); White Blood Count 1.9 10^3/uL (4.0-10.0)
[2020-01-12 00:56] LABS: Troponin T (5th) Once 30 ng/mL (0-15)
[2020-01-12 03:25] LABS: Absolute Segmented Neutrophil 0.4 10/cmm (1.6-7.1); Lymphocytes 37 %; Monocytes Absolute 0.7 10^3/cmm (0.1-0.6); Platelet Estimate Decreased (Normal); Segmented Neutrophils 23 %; Total Cells Counted 100 (0-100)
[2020-01-12 04:48] LABS: Eosinophils % 0.9 %; Hematocrit 22.3 % (42.0-52.0); Hemoglobin 7.6 g/dL (11.7-16.6); Lymphocytes # 0.8 10^3/uL (0.8-4.8); Lymphocytes % 37.5 %; Mean Corpuscular HGB Conc 34.1 g/dL (30.0-36.0); Mean Corpuscular Hemoglobin 31.5 pg (28.0-34.0); Mean Corpuscular Volume 92.5 fL (80-94); Monocytes # 0.9 10^3/uL (0.2-0.9); Monocytes % 42.1 %; Neutrophils % 18.6 %; Nucleated Red Blood Cells % 0.9 %; Platelet Count 47 10^3/cmm (130-400); Red Blood Count 2.41 10^6/uL (4.1-5.3); Red Cell Distribution Width 15.3 % (12.1-15.1); White Blood Count 2.2 10^3/uL (4.0-10.0)
[2020-01-12 05:03] LABS: Alanine Aminotransferase 29 U/L (0-41); Albumin Level 3.1 g/dL (3.5-5.2); Alkaline Phosphatase 67 IU/L (40-130); Anion Gap 17.8 (5-19); Aspartate Amino Transferase 26 U/L (0-40); Blood Urea Nitrogen 23 mg/dL (8-23); Calcium 7.3 mg/dL (8.5-10.5); Carbon Dioxide 26 mmol/L (22-29); Chloride 102 mmol/L (98-107); Glucose 89 mg/dL (65-115); Sodium 143 mmol/L (136-145); Total Bilirubin 0.3 mg/dL (0.15-1.2); Total Protein 6.1 g/dL (6.6-8.7)
[2020-01-12 05:12] LABS: Potassium 2.8 mmol/L (3.5-5.1)
[2020-01-12 05:53] LABS: Neutrophils # 0.4 10^3/uL (1.8-7.7)
[2020-01-12 05:54] LABS: Slide Review Slide Review Perform
[2020-01-12 07:06] LABS: Phosphorus 3.2 mg/dL (2.5-4.5)
[2020-01-12] MEDS: sodium chlor 0.9% + KCl 20 mEq 20 MEQ/1,000 ML BAG 125 MEQ IV ×2 (07:15→16:53)
[2020-01-12] MEDS: potassium chloride premix 40 MEQ/100 ML PREMIX 25 MEQ IV (07:15)
[2020-01-12] MEDS: ascorbic acid 500 mg Tablet 1000 MG PO (09:04)
[2020-01-12] MEDS: cetirizine 10 mg Tablet PO (09:04)
[2020-01-12] MEDS: levofloxacin-dextrose 5 % 500 MG/100 ML PREMIX 100 MG IV (09:04)
[2020-01-12] MEDS: pantoprazole DR 40 mg Tablet PO ×2 (09:05→17:00)
[2020-01-12] MEDS: levETIRAcetam 500 mg Tablet 1000 MG PO ×2 (09:05→17:00)
[2020-01-12] MEDS: metoprolol tartrate 50 mg Tablet PO (09:05)
[2020-01-12] MEDS: dexamethasone 4 mg Tablet PO ×2 (09:05→17:00)
[2020-01-12] MEDS: montelukast sodium 10 mg Tablet PO (09:05)
[2020-01-12] MEDS: magnesium sulfate premix 4 GM/100 ML PREMIX IV (10:34)
[2020-01-12 13:36] LABS: Hematocrit 23.5 % (42.0-52.0); Hemoglobin 7.7 g/dL (11.7-16.6); Mean Corpuscular HGB Conc 32.8 g/dL (30.0-36.0); Mean Corpuscular Hemoglobin 30.7 pg (28.0-34.0); Mean Corpuscular Volume 93.6 fL (80-94); Mean Platelet Volume 11.4 fL (7.4-10.4); Platelet Count 47 10^3/cmm (130-400); Red Blood Count 2.51 10^6/uL (4.1-5.3); Red Cell Distribution Width 15.8 % (12.1-15.1); White Blood Count 1.3 10^3/uL (4.0-10.0)
[2020-01-12 13:55] LABS: Alanine Aminotransferase 32 U/L (0-41); Alkaline Phosphatase 72 IU/L (40-130); Anion Gap 17.9 (5-19); Aspartate Amino Transferase 33 U/L (0-40); Blood Urea Nitrogen 22 mg/dL (8-23); Calcium 7.5 mg/dL (8.5-10.5); Carbon Dioxide 23 mmol/L (22-29); Chloride 102 mmol/L (98-107); Globulin 3.3 g/dL (1.3-4.6); Glucose 106 mg/dL (65-115); Magnesium 2.4 mg/dL (1.7-2.3); Phosphorus 3.2 mg/dL (2.5-4.5); Potassium 3.9 mmol/L (3.5-5.1); Sodium 139 mmol/L (136-145); Total Bilirubin 0.3 mg/dL (0.15-1.2); Total Protein 6.3 g/dL (6.6-8.7)
[2020-01-12 14:00] LABS: Absolute Segmented Neutrophil 0.2 10/cmm (1.6-7.1); Anisocytosis 1+; Band Neutrophils Absolute 0.2 10^3/cmm (0.0-1.2); Eosinophils 2 %; Lymphocytes 40 %; Monocytes Absolute 0.3 10^3/cmm (0.1-0.6); Platelet Estimate Decreased (Normal); Segmented Neutrophils 18 %; Total Cells Counted 50 (0-100)
--- NOTE | 2020-01-12 14:19 | P.PN_ITS ---
Subjective Subjective: Interval history: This morning patient was examined, he was lying in bed, is at bedside, patient does not remember the event but stated that he had an episode of seizure in his home, and an episode of seizure in the ambulance on the way to the hospital, no seizures since being in the hospital, has tolerated Keppra well, no headaches, no blurry vision, no nausea, no vomiting, no lightheadedness, no dizziness patient's does state he has a poor appetite, has not been eating and drinking well, no diarrhea, no fevers, no chills, he is has been on Levaquin for the last 5 days for URI symptoms, and there were plans for him to be on it chronically for neutropenia Vitals/I&O/Wt Last Vital Signs Temp 97.6 F 01/11/20 22:40 Pulse 83 01/12/20 12:00 Resp 20 H 01/12/20 12:00 BP 109/71 01/12/20 12:00 Pulse Ox 96 01/12/20 12:00 01/11/20 01/12/20 01/12/20 22:59 06:59 14:59 Intake Total 390 / 390 40 / 40 Output Total 450 / 450 Balance -60 / -60 40 / 40 Weight last 48 hrs Weight 65.459 kg Weight 65.459 kg Physical Exam Const: COMMON NORMALS: no apparent distress and oriented x3 GENERAL APPEARANCE: cooperative and comfortable NUTRITIONAL APPEARANCE: cachectic and thin HENMT: COMMON NORMALS: normocephalic HEAD & SCALP: normocephalic Eye: COMMON NORMALS: PERRL, EOMs intact bilaterally and no papilledema GENERAL EYE: normal appearance of both eyes PUPIL: Yes PERRL DIRECT OPHTHALMOSCOPY: Yes no papilledema Neck/C-Spine: COMMON NORMALS: full ROM, no lymphadenopathy, no JVD and thyroid normal THYROID: thyroid normal Lymph: LYMPHATIC: no lymphadenopathy noted Resp: COMMON NORMALS: normal respiratory effort, no retractions, no use of accessory muscles and clear to auscultation bilaterally AUSCULTATION: clear to auscultation bilaterally Cardio: COMMON NORMALS: no JVD, regular rate, regular rhythm, S1 normal heart sound, S2 normal heart sound, no gallops, no clicks and no murmurs RATE: regular rate RHYTHM: regular rhythm HEART SOUNDS: S1 normal and S2 normal GI: COMMON NORMALS: normal to inspection, nondistended, normoactive bowel sounds, soft to palpation, non-tender and no hepatosplenomegaly PALPATION: Y es soft and Yes no hepatosplenomegaly Extremity: COMMON NORMALS: normal to inspection, full ROM and no pedal edema Neuro: COMMON NORMALS: oriented x3, CN's II-XII intact bilaterally, moves all extremities and no focal motor deficits Psych: COMMON NORMALS: mental status grossly normal, thought process normal and cooperative THOUGHT PROCESS: normal thought process Data : 01/12/20 13:18 01/12/20 13:18 A&P Assessment and plan (1) New onset seizure: Most likely related to small brain metastases. He has been on Levaquin lately which can potentially decrease seizure threshold. Chemotherapy was several weeks out. Cannot rule out infection with his counts where they are but I do not get a strong sense that that is what happened here at the moment. Continue Keppra thousand twice daily Status: Acute Code(s): R56.9 - Unspecified convulsions (2) Antineoplastic chemotherapy induced pancytopenia: Received third cycle of carboplatin, Alimta, Keytruda on 12/27/2019. Had transfusion on 01/10/2020. Hemoglobin 7.7, platelet count 47, continue to monitor Status: Acute Code(s): D61.810 - Antineoplastic chemotherapy induced pancytopenia; T45.1X5A - Adverse effect of antineoplastic and immunosuppressive drugs, initial encounter (3) Small cell lung cancer: With brain and bone metastases, follows with Dr. Guerrero. Status post 1 dose of radiation therapy to the brain on 01/11/[address] Dalal. Status: Chronic Code(s): C34.90 - Malignant neoplasm of unspecified part of unspecified bronchus or lung (4) COPD (chronic obstructive pulmonary disease): Not currently acute, chronically on Anoro Ellipta Status: Chronic Qualifiers: COPD type: unspecified COPD Qualified Code(s): J44.9 - Chronic obstructive pulmonary disease, unspecified Code(s): J44.9 - Chronic obstructive pulmonary disease, unspecified (5) Hypertension: Chronically on metoprolol Status: Chronic Qualifiers: Hypertension type: essential hypertension Qualified Code(s): I10 - Essential (primary) hypertension Code(s): I10 - Essential (primary) hypertension (6) CAD (coronary artery disease): No acute symptoms to speak of, status post bypass surgery in 2013 Status: Chronic Qualifiers: Coronary Disease-Associated Artery/Lesion type: [place] artery [place] vs. transplanted heart: [place] Associated angina: without angina Qualified Code(s): I25.10 - Atherosclerotic heart disease of [place] coronary artery without angina pectoris Code(s): I25.10 - Atherosclerotic heart disease of [place] coronary artery without angina pectoris (7) GERD (gastroesophageal reflux disease): Chronically on PPI Status: Chronic Qualifiers: Esophagitis presence: esophagitis presence not specified Qualified Code(s): K21.9 - Gastro-esophageal reflux disease without esophagitis Code(s): K21.9 - Gastro-esophageal reflux disease without esophagitis Additional A&P Information Other diagnoses: Presented with significant acidosis at outside facility which I think was due to lactic acidosis from hypoxemia looking at labs there. Recent diarrhea from chemotherapy Declining ECOG of late Plan: Observation admission for now Will transition to general medical floors Serial neuro exams Loaded with some IV Keppra and switch to oral Keppra when alert and able to take by mouth medications Dexamethasone 4 mg p.o. twice a day I did review the case briefly with Dr. Dalal who had seen him earlier in the day as well as with neurology to get recommendations on above medications Recommendation was for outpatient EEG I spoke to Dr. Guerrero, he agrees with Keppra, continue Decadron, will top Levaquin as this can decrease seizure threshold, start Bactrim 1 tablet double strength every other day for neutropenia Transition to general diet Replace potassium with 80 mEq of potassium IV, replace magnesium with 4 mg of magnesium, recheck electrolytes in the afternoon Continue home medications otherwise as ordered Discussed with patient's and other family present in the room that having the brain metastases increases potential to have a seizure. Discussed that medications, metabolic abnormalities such as electrolyte changes as well as infection can contribute to the development of seizures. Reviewed initiation of Keppra as well as a dexamethasone. SCDs for DVT prophylaxis, no pharmacological prophylaxis secondary to thrombocytopenia Supportive care otherwise Currently full code If remains stable tonight can transfer to floor in the morning if requires ongoing hospitalization Attestations Medical Necessity Statement*: Patient requires continued hospitalization for new onset seizure secondary to intracranial metastasis Coding Level of Care Code Acute Psych Therapist for Shonda Fwolivier Diagnoses New onset seizure R56.9 Antineoplastic chemotherapy induced pancytopenia D61.810; T45.1X5A Small cell lung cancer C34.90 COPD (chronic obstructive pulmonary disease) J44.9 COPD type: unspecified COPD Hypertension I10 Hypertension type: essential hypertension CAD (coronary artery disease) I25.10 Coronary Disease-Associated Artery/Lesion type: [place] artery [place] vs. transplanted heart: [place] Associated angina: without angina GERD (gastroesophageal reflux disease) K21.9 Esophagitis presence: esophagitis presence not specified
[2020-01-13] VITALS (12 sets, daily range): BP systolic 102–113; BP diastolic 63–73; PULSE 72–111; RESP 12–29; TEMP 36.8; O2SAT 94
[2020-01-13] MEDS: sodium chlor 0.9% + KCl 20 mEq 20 MEQ/1,000 ML BAG 125 MEQ IV (00:47)
[2020-01-13 05:32] LABS: Hematocrit 22.1 % (42.0-52.0); Hemoglobin 7.3 g/dL (11.7-16.6); Lymphocytes # 0.6 10^3/uL (0.8-4.8); Lymphocytes % 29.1 %; Mean Corpuscular Hemoglobin 30.9 pg (28.0-34.0); Mean Corpuscular Volume 93.6 fL (80-94); Monocytes # 0.9 10^3/uL (0.2-0.9); Monocytes % 43.3 %; Neutrophils % 25.6 %; Nucleated Red Blood Cells % 0 %; Platelet Count 60 10^3/cmm (130-400); Red Blood Count 2.36 10^6/uL (4.1-5.3); Red Cell Distribution Width 15.1 % (12.1-15.1)
[2020-01-13 05:43] LABS: Alanine Aminotransferase 31 U/L (0-41); Albumin Level 2.9 g/dL (3.5-5.2); Alkaline Phosphatase 66 IU/L (40-130); Anion Gap 17.5 (5-19); Aspartate Amino Transferase 33 U/L (0-40); Blood Urea Nitrogen 17 mg/dL (8-23); Calcium 7.4 mg/dL (8.5-10.5); Carbon Dioxide 21 mmol/L (22-29); Chloride 105 mmol/L (98-107); Globulin 3.1 g/dL (1.3-4.6); Glucose 106 mg/dL (65-115); Magnesium 1.8 mg/dL (1.7-2.3); Phosphorus 3.6 mg/dL (2.5-4.5); Potassium 4.5 mmol/L (3.5-5.1); Sodium 139 mmol/L (136-145); Total Bilirubin 0.3 mg/dL (0.15-1.2)
[2020-01-13 05:56] LABS: Neutrophils # 0.5 10^3/uL (1.8-7.7)
[2020-01-13] MEDS: dexamethasone 4 mg Tablet PO (09:04)
[2020-01-13] MEDS: pantoprazole DR 40 mg Tablet PO (09:05)
[2020-01-13] MEDS: levETIRAcetam 500 mg Tablet 1000 MG PO (09:05)
[2020-01-13] MEDS: cetirizine 10 mg Tablet PO (09:05)
[2020-01-13] MEDS: ascorbic acid 500 mg Tablet 1000 MG PO (09:05)
[2020-01-13] MEDS: metoprolol tartrate 50 mg Tablet PO (09:07)
[2020-01-13] MEDS: montelukast sodium 10 mg Tablet PO (09:15)
--- NOTE | 2020-01-13 11:06 | PC.CHAP ---
Pastoral Care Encounter/Spiritual Assessment Type of Contact [] Declined retail specialist visit [] Patient/Family/Request visit [] Outpatient visit [] Follow-up visit [] Physician referral [] Code/Alert [x] Routine visit [] Staff referral [] Actively dying [] Patient sleeping [x] Family support [] [] Out of room [] Palliative care [] [] Receiving care in room [] Pre-surgical visit [] Trauma [] Long length of stay [x] ICU visit [] Other: Relational/Emotional Strength [] Patient feels connected with others/family/visitors/staff [] Distress [] Loneliness/isolation [] Abandonment Spirituality of Patient [x] Person of Kateryna [] Attends Yazdanism of their [place]ateryna [x] Believes in Prayer [] Reads Bible or Methodist materials [] There are Spiritual issues to be addressed Hosiery Repairer Interventions [x] Prayer [] Active listening [] Non-anxious presence [] Spiritual/emotional support [] Crisis/trauma care [] Spiritual counseling [] Bereavement support [] Provided bereavement packet [] Provided Bible/devotional materials [] Provided toy/stuffed animal, coloring book to patient or family member [] Provided Communion [] Anointing/[place] [] Salvation [x] Completed spiritual assessment [] Other: Impact on Illness or Injury [] Angry [] Fearful [] Anxious [] Often cries [] Exhaustion [] Unable to work [] Unable to attend spiritism [] Unable to walk/stand [] Unable to read [] Unable to drive [] Unable to eat/drink [] Unable to sleep [] Unable to be with family [] Patient intubated [] Other: Summary Mask and gloves required to enter room. Patients coloring better, per and breathing better. Time spent with patient 15min
--- NOTE | 2020-01-13 14:43 | P.DS_ITS ---
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 Guerrero, on third cycle of carboplatin, Alimta, Keytruda and has received 1 dose of radiation therapy to the brain as of 01/12/20 (4) COPD (chronic obstructive pulmonary disease): Status: Chronic Qualifiers: COPD type: unspecified COPD Qualified Code(s): J44.9 - Chronic obstructive pulmonary disease, unspecified (5) Hypertension: Status: Chronic Qualifiers: Hypertension type: essential hypertension Qualified Code(s): I10 - Essential (primary) hypertension (6) CAD (coronary artery disease): Status: Chronic Qualifiers: Coronary Disease-Associated Artery/Lesion type: [place] artery [place] vs. transplanted heart: [place] heart Associated angina: without angina Qualified Code(s): I25.10 - Atherosclerotic heart disease of [place] coronary artery without angina pectoris (7) GERD (gastroesophageal reflux disease): Status: Chronic Qualifiers: Esophagitis presence: esophagitis presence not specified Qualified Code(s): K21.9 - Gastro-esophageal reflux disease without esophagitis Reason for Visit Reason for Visit: Reason For Visit: NEW ONSET SEIZURES Brief History: Timmy Romeo is a 74 year old male with a history of small cell lung cancer. He follows with Dr. Guerrero. He completed his third cycle of carboplatin, Alimta, Keytruda on December 27. PET scan done on January 07 showed mild progression of the left upper lobe mass, progression of some osseous metastases in the left iliac area as well as a new prevascular mediastinal lymph node. Recent MRI of the head showed a single brain metastases as well. Patient was seen by Dr. Guerrero on January 10. His counts were low and he received transfusion of blood at that time. On 01/11, patient underwent a planned one-time radiation treatment for the brain lesion. He was doing okay when he got home. His stepped out to get prescriptions filled and olive picker a walker. She was gone for about an hour. When she came home patient was on the couch and was jerking and rigid. She called 911. They were there a short time later. 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 García as outpatient. In addition patient was discharged on Decadron for 10 total days. In addition he anti-biotic prophylaxis for his absolute neutropenia was changed from Levaquin to Bactrim as fluoroquinolones can lower the seizure threshold. Patient also had poor appetite, deconditioning during his hospitalization requiring IV replacement of his electrolytes, patient was discharged with instructions to drink plenty of electrolyte balance fluids, drink Ensure shakes 3 times daily, and home health care. Patient was advised to follow-up with Dr. Guerrero in 1 week. Physical Exam Const: COMMON NORMALS: no apparent distress and oriented x3 HENMT: COMMON NORMALS: normocephalic HEAD & SCALP: normocephalic Neck/C-Spine: COMMON NORMALS: no JVD Resp: COMMON NORMALS: normal respiratory effort, no retractions, no use of accessory muscles and clear to auscultation bilaterally AUSCULTATION: clear to auscultation bilaterally Cardio: COMMON NORMALS: no JVD, regular rate, regular rhythm, S1 normal heart sound and S2 normal heart sound RATE: regular rate RHYTHM: regular rhythm HEART SOUNDS: S1 normal and S2 normal GI: COMMON NORMALS: normal to inspection, nondistended, normoactive bowel sounds, soft to palpation, non-tender, no hepatosplenomegaly, no masses and no bruits PALPATION: Yes soft and Yes no hepatosplenomegaly Extremity: COMMON NORMALS: normal capillary refill, no clubbing, cyanosis or edema, no calf tenderness and no pedal edema Neuro: COMMON NORMALS: oriented x3 Psych: COMMON NORMALS: mental status grossly normal Discharge Data Data Completed and Pending: Pending at discharge Category Date Time Status Complete Blood Co unt w/Auto AM LABS Lab 01/14/20 04:00 Ordered Complete Blood Co unt w/Auto AM LABS Lab 01/15/20 04:00 Ordered Complete Blood Co unt w/Auto AM LABS Lab 01/16/20 04:00 Ordered Comprehensive Met abolic Panel AM LA BS Lab 01/14/20 04:00 Ordered Comprehensive Met abolic Panel AM LA BS Lab 01/15/20 04:00 Ordered Comprehensive Met abolic Panel AM LA BS Lab 01/16/20 04:00 Ordered Magnesium AM LABS Lab 01/14/20 04:00 Ordered Magnesium AM LABS Lab 01/15/20 04:00 Ordered Magnesium AM LABS Lab 01/16/20 04:00 Ordered Phosphorus AM LAB S Lab 01/14/20 04:00 Ordered Phosphorus AM LAB S Lab 01/15/20 04:00 Ordered Phosphorus AM LAB S Lab 01/16/20 04:00 Ordered Labs from last 24 hours 01/13/20 01/13/20 04:45 04:45 WBC 2.0 L RBC 2.36 L Hgb 7.3 L Hct 22.1 L MCV 93.6 MCH 30.9 MCHC 33.0 RDW 15.1 Plt Count 60 L MPV 11.0 H Neut % (Auto) 25.6 Lymph % (Auto) 29.1 [place] % (Auto) 43.3 Eos % (Auto) 0.0 Baso % (Auto) 0.0 Neut # (Auto) 0.5 L* Lymph # (Auto) 0.6 L [place] # (Auto) 0.9 Eos # (Auto) 0.0 Baso # (Auto) 0.0 Nucleated RBC % (a uto) 0 Nucleated RBCs # 0.0 Sodium 139 Potassium 4.5 Chloride 105 Carbon Dioxide 21 L Anion Gap 17.5 BUN 17 Creatinine 1.1 Glucose 106 Calcium 7.4 L Phosphorus 3.6 Magnesium 1.8 Total Bilirubin 0.3 AST 33 ALT 31 Alkaline Phosphata se 66 Total Protein 6.0 L Albumin 2.9 L Globulin 3.1 Vitals: Last Vital Signs Temp 98.2 F 01/13/20 04:00 Pulse 111 H 01/13/20 09:00 Resp 29 H 01/13/20 09:00 BP 105/68 01/13/20 10:00 Pulse Ox 94 01/13/20 08:27 Discharge Plan Discharge Patient Disposition: Home Health Service Condition: Stable Prescriptions: New dexamethasone 4 mg Tablet 4 mg PO DAILY 8 Days Qty: 8 RF: 0 levetiracetam 1,000 mg tablet 1,000 mg PO BID 30 Days Qty: 60 RF: 0 sulfamethoxazole-trimethoprim 800-160 mg Tablet 1 tab PO EVERY OTHER DAY 30 Days Qty: 15 RF: 0 Continued Anoro Ellipta 62.5-25 mcg/actuation blister with device 1 inh INHALATION DAILY RF: 0 omeprazole 20 mg Capsule,Delayed Release(Dr/Ec) 20 mg PO BID RF: 0 metoprolol tartrate 50 mg Tablet 50 mg PO DAILY RF: 0 Zyrtec 10 mg Tablet 10 mg PO DAILY RF: 0 Singulair 10 mg Tablet 10 mg PO DAILY RF: 0 Multi-Day Plus Minerals 18 mg iron-400 mcg-25 mcg Tablet 1 tab PO DAILY RF: 0 Vitamin C 1,000 mg Tablet 1,000 mg PO DAILY RF: 0 fluticasone propionate 50 mcg/actuation [place],Suspension 2 spray INTRANASAL Q12H PRN (Reason: Allergy Symptoms) RF: 0 Discontinued levofloxacin [Levaquin] 500 mg Tablet 500 mg PO DAILY RF: 0 Discharge Orders: Discharge Order (Routine); Ordered 01/13/20 Ordered By: Geoff Merrill Other Ambulatory Orders: Complete Blood Count w/Auto (Routine) Timeframe: 1 Day Location: Determined by Patient Ordered By: Geoff Merrill Comprehensive Metabolic Panel (Routine) Timeframe: 1 Day Facility: [facility] - Location: Lab - Main Lab Ordered By: Geoff Merrill EEG electroencephalogram (Routine) Timeframe: 1 Week Facility: [facility] - Location: Neurology Ordered By: Geoff Merrill Referrals: Trupti García MD [Physician] - 02/02/20 3:30 am () Colette Guerrero MD [Staff Physician] - 1 week (Please call Thursday morning to verify and/or set up an appointment with Dr. Guerrero. ) Discharge Diet: Regular Discharge Activity: Resume usual activity Patient Instructions: Sulfamethoxazole/Trimethoprim (By mouth), Dexamethasone (By mouth), Levetiracetam (By mouth), Neutropenia (DC), Seizures Activity Restrictions/Additional Instructions: -For seizures please take Keppra as prescribed, follow-up with Dr. García, complete EEG, if you have repeat seizures please follow discharge instructions for seizures, come back to the emergency room -Take steroids for the next 8 days -Take Bactrim for neutropenia -Follow-up with Dr. Guerrero in 1 week Discharge Attestations Time Spent in Discharge Care*: less than 30 min Quality Metrics Clinical Quality Measures During this hospital stay, did patient experience: None Coding Level of Care Code Acute Buffing Line Set Up Worker for Chg Fwd Diagnoses New onset seizure R56.9 Antineoplastic chemotherapy induced pancytopenia D61.810; T45.1X5A Small cell lung cancer C34.90 COPD (chronic obstructive pulmonary disease) J44.9 COPD type: unspecified COPD Hypertension I10 Hypertension type: essential hypertension CAD (coronary artery disease) I25.10 Coronary Disease-Associated Artery/Lesion type: [place] artery [place] vs. transplanted heart: [place] heart Associated angina: without angina GERD (gastroesophageal reflux disease) K21.9 Esophagitis presence: esophagitis presence not specified
== END 2020-01-13 14:00 | disposition home health service (06) | DRG 100 ==
PROVIDERS: Admitting Provider Hospitalist; Family Provider Family Medicine; PCP Family Medicine; Visit Provider Family Medicine
DX: R56.9 Unspecified convulsions (principal); D61.810 Antineoplastic chemotherapy induced pancytopenia; E87.2 Acidosis; C34.90 Malignant neoplasm of unspecified part of unspecified bronchus or lung; C79.31 Secondary malignant neoplasm of brain; I10 Essential (primary) hypertension; I25.10 Atherosclerotic heart disease of native coronary artery without angina pectoris; Z87.891 Personal history of nicotine dependence; J44.9 Chronic obstructive pulmonary disease, unspecified; K21.9 Gastro-esophageal reflux disease without esophagitis
CPT/HCPCS: 12345; 36415; 36430; 77014; 77280; 77295; 77300; 77334; 77370; 77372; 80053; 82607; 82728; 82746; 83540; 83550; 83605; 83735; 84100; 84484; 85007; 85025; 85027; 86850; 86900; 97110; 97161; 97165; 99214; G0378; G0379; J1953; J1956; J3475; J3480; J8540; P9040

== ENCOUNTER → 2020-02-02 15:13 | Outpatient (BNVA) | payer MEDICARE, OTHER, SELFPAY | PROVIDERS: Family Provider Family Medicine; PCP Family Medicine; Referring Provider Family Medicine; Visit Provider Specialist | DX: G40.909 Epilepsy, unspecified, not intractable, without status epilepticus (principal); C34.90 Malignant neoplasm of unspecified part of unspecified bronchus or lung; C79.31 Secondary malignant neoplasm of brain; Z87.891 Personal history of nicotine dependence | CPT/HCPCS: 99204 ==

== ENCOUNTER 2020-02-14 10:10 | Outpatient (RCR) | payer MEDICARE, OTHER, SELFPAY ==
[2020-01-18 14:46] LABS: Basophils % 0.3 %; Eosinophils % 0.2 %; Hematocrit 29.6 % (42.0-52.0); Hemoglobin 9.4 g/dL (11.7-16.6); Lymphocytes # 1.3 10^3/uL (0.8-4.8); Lymphocytes % 14.5 %; Mean Corpuscular HGB Conc 31.8 g/dL (30.0-36.0); Mean Corpuscular Hemoglobin 32.5 pg (28.0-34.0); Mean Corpuscular Volume 102.4 fL (80-94); Mean Platelet Volume 10.7 fL (7.4-10.4); Monocytes # 1.6 10^3/uL (0.2-0.9); Monocytes % 17.7 %; Neutrophils # 4.7 10^3/uL (1.8-7.7); Neutrophils % 51.9 %; Nucleated Red Blood Cells % 0 %; Platelet Count 247 10^3/cmm (130-400); Red Blood Count 2.89 10^6/uL (4.1-5.3); Red Cell Distribution Width 17.3 % (12.1-15.1)
[2020-01-18 15:00] LABS: Alanine Aminotransferase 48 U/L (0-41); Albumin Level 3.7 g/dL (3.5-5.2); Alkaline Phosphatase 69 IU/L (40-130); Anion Gap 17.1 (5-19); Aspartate Amino Transferase 53 U/L (0-40); Blood Urea Nitrogen 14 mg/dL (8-23); Calcium 9.5 mg/dL (8.5-10.5); Carbon Dioxide 25 mmol/L (22-29); Chloride 101 mmol/L (98-107); Glucose 82 mg/dL (65-115); Magnesium 1.2 mg/dL (1.7-2.3); Potassium 4.1 mmol/L (3.5-5.1); Sodium 139 mmol/L (136-145); Total Bilirubin 0.2 mg/dL (0.15-1.2); Total Protein 6.7 g/dL (6.6-8.7)
[2020-01-18 15:23] LABS: Slide Review Slide Review Perform
[2020-01-24 16:59] LABS: Basophils # 0.1 10^3/uL (0.0-0.1); Basophils % 0.5 %; Hemoglobin 9.1 g/dL (11.7-16.6); Lymphocytes # 1.2 10^3/uL (0.8-4.8); Lymphocytes % 12.8 %; Mean Corpuscular HGB Conc 31.4 g/dL (30.0-36.0); Mean Corpuscular Hemoglobin 31.8 pg (28.0-34.0); Mean Corpuscular Volume 101.4 fL (80-94); Mean Platelet Volume 10.5 fL (7.4-10.4); Monocytes # 2.1 10^3/uL (0.2-0.9); Neutrophils # 5.7 10^3/uL (1.8-7.7); Neutrophils % 58.8 %; Nucleated Red Blood Cells % 0 %; Platelet Count 242 10^3/cmm (130-400); Red Blood Count 2.86 10^6/uL (4.1-5.3); Red Cell Distribution Width 18.9 % (12.1-15.1); White Blood Count 9.7 10^3/uL (4.0-10.0)
[2020-01-24 17:00] LABS: Alanine Aminotransferase 38 U/L (0-41); Albumin Level 3.5 g/dL (3.5-5.2); Alkaline Phosphatase 71 IU/L (40-130); Anion Gap 17.8 (5-19); Aspartate Amino Transferase 29 U/L (0-40); Blood Urea Nitrogen 21 mg/dL (8-23); Calcium 9.2 mg/dL (8.5-10.5); Carbon Dioxide 24 mmol/L (22-29); Chloride 103 mmol/L (98-107); Glucose 78 mg/dL (65-115); Magnesium 1.1 mg/dL (1.7-2.3); Osmolality Calculated 287 mOsm/kg (285-295); Potassium 3.8 mmol/L (3.5-5.1); Sodium 141 mmol/L (136-145); Total Bilirubin 0.3 mg/dL (0.15-1.2); Total Protein 6.5 g/dL (6.6-8.7)
[2020-01-24 20:18] LABS: Slide Review Slide Review Perform
--- NOTE | 2020-01-25 13:41 | ONC FU_ITS ---
Dr. 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 Mr. Romeo reports in the last week of June 2018 he noted some blood in his yellow phlegm and tried to tough it out for about month and half. He finally saw his primary care physician and he was diagnosed with chronic bronchitis. A Chest x-ray was done-as per patient it was normal and he was given a prescription for Flovent. He felt some improvement and on 09/01/[address] scan of chest which showed right middle lobe lung mass. The mass was reported as about 6 cm in size with mediastinal and hilar lymphadenopathy and there was a contralateral nodule which is lobulated in the left upper lobe measures 4 x 2.3 cm. Mr Romeo was then referred to Dr. Ortiz, foreign exchange dealer in [place]. He underwent bronchoscopy and transbronchial biopsy on 09/10/2018 which showed no evidence of malignancy. Subsequently patient underwent CT-guided biopsy of right middle lobe on 10/01/2018 which confirmed small cell lung cancer. Mr. Romeo underwent PET CT staging on 10/23/2018. The bulky right middle lobe mass demonstrates significant necrosis, and homogenous FDG uptake extends from the right hilum with subtotal atelectasis of the right middle lobe and an SUV of 25.2. There was loss of that plane between the mediastinum and mass superiorly, suggesting early invasion. The left upper lobe satellite mass is in a subpleural location, without involvement of the adjacent chest wall. This measures 2.0 x 3.0 cm with an SUV of 8.5. Patient has long-standing history of smoking, 50 year plus also tried pipe and then now cigars. He smokes 4-5 cigars a day. There was no evidence of malignancy outside of the chest. MRI of the head from 10/20/2018 reveals right anterior frontal lobe and left parietal lobe cortical 2-3 mm enhancing foci; primary considerations metastatic disease. Mr. Romeo began his first cycle of carboplatin and etoposide on 11/02/2018. He did have a few mouth sores with cycle 1 but this was controlled with Valtrex, baking soda and salt water and as needed Magic mouthwash. He states that once he started the Valtrex for cold sores resolved within a couple of days. He's had no recurrent problems with mouth sores. CT PET scan done after 3 cycles of chemotherapy on 01/15/2019 showed significant improvement in the right middle lobe mass with postobstructive atelectasis since the prior study. The mass now measures 4.6 x 2.4 cm with SUV of 5. And the satellite malignant nodules in the left upper lobe is stable measuring 2.2 x 2.8 cm with SUV of 10.9, not a significant change since prior study on 10/23/2018. No new lesion seen. Patient was referred to [facility] where he saw thoracic oncologist Dr. Bellamy who recommended MRI scan of the brain which was done on on 02/21/2019 which showed a new diffusion weighted, 5 mm abnormality with mild enhancement in the anterior right parietal lobe cortex. Subacute small lacunar infarction versus metastatic disease. Follow-up MRI brain is recommended in 3-4 month Previously described anterior right frontal and left parietal cortical areas of enhancement are slightly smaller in size. Differential include decrease in size of metastatic due to treatment. Severe chronic white matter disease and CT-guided biopsy of left upper lobe was done on 02/24/2019 showed adenocarcinoma, well-differentiated Patient was started on combined chemoradiation on 03/09/2019 with carboplatin and etoposide and if patient achieved complete remission then consider SB RT to newly diagnosed left upper lobe lung adenocarcinoma .Follow-up CT scan of chest done on 06/20/2019 showed decreased size of previous left upper lobe neoplastic mass Further decrease in size of previous bulky right middle lobe mass. Residual mass lesion remaining is probably associated with right-sided mediastinal invasion Residual scarring or subsegmental atelectasis right middle lobe Chronic emphysema f/u CT PET scan done on 09/10/2019 showed positive response to therapy of the left upper lobe adenocarcinoma New abnormal activity in the left upper lobe groundglass nodule and left upper hilar lymph node Increased activity in the bowel at left inguinal canal with new reactive left inguinal node, patient has history of left inguinal hernia repair in April 2018 MRI head done on 08/23/2019 shows resolved enhancing metastatic lesion, no new lesion seen Was referred to [facility] in [place] for EBUS/biopsy of left upper hilar lymph node which was done on 10/07/2019 and final pathology report came back adenocarcinoma consistent with lung origin. Patient was referred to radiation oncology Dr. Dalal for evaluation and his impression was patient had received radiation therapy to left upper lobe primary previously with a further radiation disease risk of left bronchus damage and major blood vessel damage so suggested chemotherapy alone. Dr Romeo was offered treatment with Carboplatin/Alimta/Keytruda. He started cycle 1 Keytruda/carboplatin/Alimta on 11/15/2019. He states overall he feels pretty good he has had significant diarrhea which was controlled with blackberries since his last treatment. He states he thinks he did have a touch of colitis although it is completely resolved now. With that he has had a flare of his hemorrhoids Follow-up CT PET scan done after 3 cycles of carboplatin/Alimta/Keytruda on 01/07/2020 showed mild progression of left upper lobe mass from the prior study done on 09/10/2019. Overall progression of disease within new unifocal osseous metastatic disease in the posterior left iliac and a new FDG positive prevascular mediastinal lymph node. Decreasing FDG activity in left upper lobe groundglass nodule. No significant change in left hilar node. No significant change in presumed inflammatory activity in the left inguinal canal. Patient had MRI scan of the head done recently which shows single brain metastases for which he was evaluated by radiation oncology , underwent SRS to the solitary brain lesion on 01/11/2020, subsequently patient developed seizure-like activity and was admitted to hospital on 01/12/2020, was treated with dexamethasone and Keppra was also evaluated by neurology Dr. García and at that time his labs showed white blood count1.3, hemoglobin 7.7 hematocrit 23.5, platelets 47,000 Came for follow-up, denies any specific complaint except generalized weakness and fatigue, and short-term memory loss since episode of seizure but now improving somewhat, he has follow-up appointment with Dr. García, neurologist on 02/02/2020. He had no more episode of seizure. And no focal weakness. No melena or hematochezia no nausea or vomiting. Medications: Anoro Ellipta 1 (62.5-25 mcg/inh) Aerosol Powder, Breath Activated Inhalation daily, Bactrim DS 1 Tablet (of 800-160 mg) Oral q on Every Other Day, black seed oil 1 tsp Liquid daily, Co Q-10 1 Capsule (of 400 mg) Oral daily, Flonase 2 spray(s) (of 50 mcg/act) Suspension Nasal daily PRN, Magnesium 1 Tablet (of 100 mg) Oral daily, Metoprolol Tartrate 0.5 Tablet (of 50 mg) Oral daily, Montelukast Sodium 1 Tablet (of 10 mg) Oral daily, Multivitamin Adults 1 Tablet Oral daily, Omeprazole 1 Capsule (of 20 mg) Capsule Delayed Release Oral b.i.d., Probiotic Daily 1 Capsule Oral daily, ZyrTEC Allergy 1 Tablet (of 10 mg) Oral daily Allergies: latex Review of Systems: Constitutional - Appetite is fair and weight is stable. No fever, chills, hot flashes, or night sweats. Energy level is poor, ENMT - Some sinus congestion/drainage. No mouth sores. No sore throat or difficulty swallowing, Hematologic/Lymphatic - No abnormal bruising or bleeding, Respiratory - Frequent shortness of breath, with emphysema and wheezing. Nonproductive cough. No pleuritic pain or hemoptysis, Cardiovascular - No angina pain. No palpitations, Gastrointestinal - No nausea or vomiting. No heartburn or acid reflux. No diarrhea or constipation. No blood in the stool or black stools, Genitourinary (M) - No dysuria or hematuria. No urinary frequency. No urgency or incontinence, Musculoskeletal - Chronic back pain r/t old injury, Neurologic - No headaches or dizziness reported today. Pt was recently put on an anti seizure med (unsure which). Pt states he feels shaky and that he is having short term memory loss, Psychiatric - No anxiety or depression. No insomnia. Vital Signs: Performed on Jan 25, 2020 10:50 Height - 70.00 in Weight - 146.4 lbs (HIGH) BSA - 1.83 sq.m BMI - 21.01 Temperature - 97.8 F (LOW) Pulse - 54 /min (LOW) Respiration - 18 /min BP - 93/60 mm(hg) O2 Sat - 90 % (LOW) Pain - 0 Performance Status: 1 - No physically strenuous activity, but ambulatory and able to carry out light or sedentary work (e.g. office work, light house work). (ECOG) Physical Examination: ENMT - No oral exudates, ulcers, masses, thrush or mucositis. Oropharynx clear. Tongue normal, Respiratory - Lungs are clear to auscultation without rhonchi or wheezing, Cardiovascular - Regular rate and rhythm of heart, Abdomen - Non-tender, non-distended,Good bowel sounds. No guarding or rebound tenderness. No pulsatile masses, Extremities - no edema. Lab/Imaging: Test performed on Jan 15, 2020 09:04 Magnesium 0.9 mg/dL Test performed on Jan 09, 2020 13:25 Ferritin 1878 ng/mL Iron 192 ug/dL Vitamin B12 653 pg/mL UIBC 39 ug/dL Cr Clearance (Est) 60.0900 mL/min Test performed on Jan 09, 2020 09:00 Neutrophils 0.6 10 3/uL Eosinophils 0.0 10 3/uL Basophils 0.0 10 3/uL Neutrophil % 35.5 % Eosinophil % 0.6 % Basophils % 0.0 % CBC Slide Review Slide Review Perform Test performed on Dec 05, 2019 07:35 Manual Lymphocytes 20.1 % Manual Monocytes 19.3 % Manual Eosinophils 0.7 % Manual Basophils 0.5 % NRBCs 0.0 /100 WBC Test performed on Nov 14, 2019 09:10 TSH 1.31 uIU/mL Impression: Recurrent adenocarcinoma per left hilar lymph node biopsy Small cell lung cancer involving the right middle lobe per CT-guided lung biopsy done on 10/01/2018 CT scan of chest done on 08/31/2018 showed 4 cm left upper lobe mass and large mass with a probable postobstructive atelectasis involving the right hilum extending to right middle lobe. This mass occludes medial bronchus of right middle lobe and narrowing of the lateral bronchus COPD/emphysema with bilateral apical pleural thickening Chronic smoking Mr. Romeo underwent PET CT staging on 10/23/2018. The bulky right middle lobe mass demonstrates significant necrosis, and homogenous FDG uptake extends from the right hilum with subtotal atelectasis of the right middle lobe and an SUV of 25.2. There was loss of that plane between the mediastinum and mass superiorly, suggesting early invasion. The left upper lobe satellite mass is in a subpleural location, without involvement of the adjacent chest wall. This measures 2.0 x 3.0 cm with an SUV of 8.5. Patient has long-standing history of smoking, 50 year plus also tried pipe and then now cigars. He smokes 4-5 cigars a day. Mr. Romeo began his first cycle of carboplatin and etoposide on 11/02/2018. He is completed 3 cycles of the carboplatin and etoposide On 12/30/2018. Follow-up CT PET scan done on 01/15/2019 showed significant improvement in right middle lobe mass with postobstructive atelectasis since prior study. Mass now measures 4.6 x 2.4 cm with SUV of 5. A satellite malignant nodule in the left upper lobe is stable, measuring 2.2 x 2.8 cm with SUV of 10.9, and not a significant change since prior study. No new lesion seen. There was no evidence of malignancy outside of the chest. MRI of the head from 10/20/2018 reveals right anterior frontal lobe and left parietal lobe cortical 2-3 mm enhancing foci; primary considerations metastatic disease .Based on CT PET scan findings patient was referred to thoracic oncology at [facility] for second opinion with patient underwent CT-guided biopsy of left upper lobe lesion which confirmed second primary e.g. adenocarcinoma well differentiated Patient was evaluated by Dr. Barrington Segundo who recommended concurrent chemoradiation to right chest and followed by whole brain radiation therapy and observation versus SB RT to left upper lobe newly diagnosed non-small cell lung cancer e.g. adenocarcinoma. Follow-up CT scan of chest done on 06/20/2019 showed when compared to CT scan from 08/31/2018 CT PET scan from 01/15/2019 Previously left upper lobe mass lesion in anterior lateral subpleural location, now measure 1.8 cm x 3.2 x 2.1 cm compared to 2.3 x 3.6 x 2.8 on 01/15/2019. Previous bulky mass lesion within the right middle lobe seen on 08/31/2018 and with reduced size on 01/15/2019 is with further improvement, now measuring 1.6 cm x 6 x 2.8 cm. Medially the mass lesion and likely invades the right side of mediastinum adjacent a superior vena cava and right atrium. No other mass lesion seen normal liver and spleen No adrenal enlargement. No lytic or blastic bony distal to lesion seen. Plan: Discussed with patient regarding his labs white blood count 9.7 hemoglobin 9.1 crit 29 platelets 242,000 with normal differential CMP within normal limits, Clinically, patient is doing reasonably well, now recovering and absent concerned about driving now and in future , patient was advised discussed with Dr. García. In the meantime patient is complaining of generalized weakness and fatigue which could be multifactorial including anemia and Keppra and Dr. García will monitor his Keppra dose and we will consider anemia workup which include iron studies, B12 folic acid level if low will consider supplement. Patient will return to clinic in 1 week to discuss regarding restarting systemic therapy for recurrent adenocarcinoma of the lung Signed By: Colette Guerrero M.D. <<Signature on File>>
[2020-01-31 17:31] LABS: Basophils % 0.5 %; Eosinophils % 0.2 %; Hematocrit 28.8 % (42.0-52.0); Lymphocytes # 0.4 10^3/uL (0.8-4.8); Lymphocytes % 7.3 %; Mean Corpuscular HGB Conc 31.3 g/dL (30.0-36.0); Mean Corpuscular Volume 105.5 fL (80-94); Mean Platelet Volume 11.1 fL (7.4-10.4); Monocytes # 0.2 10^3/uL (0.2-0.9); Monocytes % 2.9 %; Neutrophils # 5.1 10^3/uL (1.8-7.7); Neutrophils % 87.5 %; Nucleated Red Blood Cells % 0 %; Platelet Count 211 10^3/cmm (130-400); Red Blood Count 2.73 10^6/uL (4.1-5.3); Red Cell Distribution Width 19.3 % (12.1-15.1); White Blood Count 5.8 10^3/uL (4.0-10.0)
[2020-01-31 18:12] LABS: Alanine Aminotransferase 31 U/L (0-41); Albumin Level 3.5 g/dL (3.5-5.2); Alkaline Phosphatase 80 IU/L (40-130); Chloride 101 mmol/L (98-107); Iron 63 ug/dL (59-158); Potassium 3.9 mmol/L (3.5-5.1); Sodium 138 mmol/L (136-145); Vitamin B12 520 pg/mL (232-1245)
[2020-01-31 18:42] LABS: Anion Gap 15.9 (5-19); Aspartate Amino Transferase 27 U/L (0-40); Blood Urea Nitrogen 17 mg/dL (8-23); Calcium 9.5 mg/dL (8.5-10.5); Carbon Dioxide 25 mmol/L (22-29); Globulin 3.6 g/dL (1.3-4.6); Glucose 130 mg/dL (65-115); Osmolality Calculated 284 mOsm/kg (285-295); Percent Saturation 25.5 % (20-50); Total Bilirubin 0.3 mg/dL (0.15-1.2); Total Iron Binding Capacity 247 mcg/dl; Total Protein 7.1 g/dL (6.6-8.7); Unsaturated Iron Binding 184 ug/dL (112-347)
[2020-01-31 19:10] LABS: Ferritin 1317 ng/mL (30-400)
[2020-02-01] MEDS: sodium chloride 0.9% 250 ML 999 ML IV (10:30)
[2020-02-01] MEDS: cyanocobalamin 1,000 mcg/mL SDV 1000 MCG SUBCUT (16:10)
[2020-02-01] MEDS: pegfilgrastim 6 mg/0.6 mL Kit (onpro) SUBCUT (16:15)
--- NOTE | 2020-02-01 17:22 | ONC FU_ITS ---
Dr. 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 Mr. Romeo reports in the last week of June 2018 he noted some blood in his yellow phlegm and tried to tough it out for about month and half. He finally saw his primary care physician and he was diagnosed with chronic bronchitis. A Chest x-ray was done-as per patient it was normal and he was given a prescription for Flovent. He felt some improvement and on 09/01/[address] scan of chest which showed right middle lobe lung mass. The mass was reported as about 6 cm in size with mediastinal and hilar lymphadenopathy and there was a contralateral nodule which is lobulated in the left upper lobe measures 4 x 2.3 cm. Mr Romeo was then referred to Dr. Ortiz, network technology instructor in [place]. He underwent bronchoscopy and transbronchial biopsy on 09/10/2018 which showed no evidence of malignancy. Subsequently patient underwent CT-guided biopsy of right middle lobe on 10/01/2018 which confirmed small cell lung cancer. Mr. Romeo underwent PET CT staging on 10/23/2018. The bulky right middle lobe mass demonstrates significant necrosis, and homogenous FDG uptake extends from the right hilum with subtotal atelectasis of the right middle lobe and an SUV of 25.2. There was loss of that plane between the mediastinum and mass superiorly, suggesting early invasion. The left upper lobe satellite mass is in a subpleural location, without involvement of the adjacent chest wall. This measures 2.0 x 3.0 cm with an SUV of 8.5. Patient has long-standing history of smoking, 50 year plus also tried pipe and then now cigars. He smokes 4-5 cigars a day. There was no evidence of malignancy outside of the chest. MRI of the head from 10/20/2018 reveals right anterior frontal lobe and left parietal lobe cortical 2-3 mm enhancing foci; primary considerations metastatic disease. Mr. Romeo began his first cycle of carboplatin and etoposide on 11/02/2018. He did have a few mouth sores with cycle 1 but this was controlled with Valtrex, baking soda and salt water and as needed Magic mouthwash. He states that once he started the Valtrex for cold sores resolved within a couple of days. He's had no recurrent problems with mouth sores. CT PET scan done after 3 cycles of chemotherapy on 01/15/2019 showed significant improvement in the right middle lobe mass with postobstructive atelectasis since the prior study. The mass now measures 4.6 x 2.4 cm with SUV of 5. And the satellite malignant nodules in the left upper lobe is stable measuring 2.2 x 2.8 cm with SUV of 10.9, not a significant change since prior study on 10/23/2018. No new lesion seen. Patient was referred to [facility] where he saw thoracic oncologist Dr. Bellamy who recommended MRI scan of the brain which was done on on 02/21/2019 which showed a new diffusion weighted, 5 mm abnormality with mild enhancement in the anterior right parietal lobe cortex. Subacute small lacunar infarction versus metastatic disease. Follow-up MRI brain is recommended in 3-4 month Previously described anterior right frontal and left parietal cortical areas of enhancement are slightly smaller in size. Differential include decrease in size of metastatic due to treatment. Severe chronic white matter disease and CT-guided biopsy of left upper lobe was done on 02/24/2019 showed adenocarcinoma, well-differentiated Patient was started on combined chemoradiation on 03/09/2019 with carboplatin and etoposide and if patient achieved complete remission then consider SB RT to newly diagnosed left upper lobe lung adenocarcinoma .Follow-up CT scan of chest done on 06/20/2019 showed decreased size of previous left upper lobe neoplastic mass Further decrease in size of previous bulky right middle lobe mass. Residual mass lesion remaining is probably associated with right-sided mediastinal invasion Residual scarring or subsegmental atelectasis right middle lobe Chronic emphysema f/u CT PET scan done on 09/10/2019 showed positive response to therapy of the left upper lobe adenocarcinoma New abnormal activity in the left upper lobe groundglass nodule and left upper hilar lymph node Increased activity in the bowel at left inguinal canal with new reactive left inguinal node, patient has history of left inguinal hernia repair in April 2018 MRI head done on 08/23/2019 shows resolved enhancing metastatic lesion, no new lesion seen Was referred to [facility] in [place] for EBUS/biopsy of left upper hilar lymph node which was done on 10/07/2019 and final pathology report came back adenocarcinoma consistent with lung origin. Patient was referred to radiation oncology Dr. Dalal for evaluation and his impression was patient had received radiation therapy to left upper lobe primary previously with a further radiation disease risk of left bronchus damage and major blood vessel damage so suggested chemotherapy alone. Dr Romeo was offered treatment with Carboplatin/Alimta/Keytruda. He started cycle 1 Keytruda/carboplatin/Alimta on 11/15/2019. He states overall he feels pretty good he has had significant diarrhea which was controlled with blackberries since his last treatment. He states he thinks he did have a touch of colitis although it is completely resolved now. With that he has had a flare of his hemorrhoids Follow-up CT PET scan done after 3 cycles of carboplatin/Alimta/Keytruda on 01/07/2020 showed mild progression of left upper lobe mass from the prior study done on 09/10/2019. Overall progression of disease within new unifocal osseous metastatic disease in the posterior left iliac and a new FDG positive prevascular mediastinal lymph node. Decreasing FDG activity in left upper lobe groundglass nodule. No significant change in left hilar node. No significant change in presumed inflammatory activity in the left inguinal canal. Patient had MRI scan of the head done recently which shows single brain metastases for which he was evaluated by radiation oncology , underwent SRS to the solitary brain lesion on 01/11/2020, subsequently patient developed seizure-like activity and was admitted to hospital on 01/12/2020, was treated with dexamethasone and Keppra was also evaluated by neurology Dr. García and at that time his labs showed white blood count1.3, hemoglobin 7.7 hematocrit 23.5, platelets 47,000 Came for follow-up, denies any specific complaints, no nausea vomiting no fever no chills no diarrhea constipation more energetic,. No more seizure-like activity. Medications: Anoro Ellipta 1 (62.5-25 mcg/inh) Aerosol Powder, Breath Activated Inhalation daily, Bactrim DS 1 Tablet (of 800-160 mg) Oral q on Every Other Day, black seed oil 1 tsp Liquid daily, Co Q-10 1 Capsule (of 400 mg) Oral daily, Flonase 2 spray(s) (of 50 mcg/act) Suspension Nasal daily PRN, Magnesium 1 Tablet (of 100 mg) Oral daily, Metoprolol Tartrate 0.5 Tablet (of 50 mg) Oral daily, Montelukast Sodium 1 Tablet (of 10 mg) Oral daily, Multivitamin Adults 1 Tablet Oral daily, Omeprazole 1 Capsule (of 20 mg) Capsule Delayed Release Oral b.i.d., Probiotic Daily 1 Capsule Oral daily, ZyrTEC Allergy 1 Tablet (of 10 mg) Oral daily Allergies: latex Review of Systems: Review of Systems is not available for this patient. Vital Signs: Performed on Feb 01, 2020 08:36 Height - 70.00 in Weight - 144.0 lbs (LOW) BSA - 1.82 sq.m BMI - 20.66 Temperature - 98.1 F (LOW) Pulse - 108 /min (HIGH) Respiration - 20 /min BP - 116/76 mm(hg) O2 Sat - 98 % Pain - 0 Performance Status: 1 - No physically strenuous activity, but ambulatory and able to carry out light or sedentary work (e.g. office work, light house work). (ECOG) Physical Examination: ENMT - No oral exudates, ulcers, masses, thrush or mucositis. Oropharynx clear. Tongue normal, Respiratory - Lungs are clear to auscultation without rhonchi or wheezing, Cardiovascular - Regular rate and rhythm of heart, Abdomen - Non-tender, non-distended, Good bowel sounds. No guarding or rebound tenderness. No pulsatile masses, Extremities - no edema. Lab/Imaging: Test performed on Jan 31, 2020 13:30 Ferritin 1317 ng/mL Iron 63 mcg/dL Sodium 138 mmol/L Vitamin B12 520 pg/mL Iron Binding Capacity (TIBC) 247 mcg/dl Potassium 3.9 mmol/L % Iron Saturation 25.5 % Chloride 101 mmol/L CO2 25 mmol/L UIBC 184 mcg/dL Anion Gap 15.9 BUN 17 mg/dL Creatinine 1.0 mg/dL Cr Clearance (Est) 66.1000 mL/min Glucose 130 mg/dL Calcium 9.5 mg/dL Protein, Total 7.1 g/dL Albumin 3.5 g/dL Globulin 3.6 g/dL Bilirubin, Total 0.3 mg/dL ALT (SGPT) 31 U/L AST (SGOT) 27 U/L Alkaline Phosphatase 80 IU/L WBC 5.8 10 3/uL RBC 2.73 10 6/uL HGB 9.0 g/dL HCT 28.8 % MCV 105.5 fL MCH 33.0 pg MCHC 31.3 g/dL RDW 19.3 % Platelet Count 211 10 3/cmm MPV 11.1 fL Neutrophils 5.1 10 3/uL Lymphocytes 0.4 10 3/uL Monocytes 0.2 10 3/uL Eosinophils 0.0 10 3/uL Basophils 0.0 10 3/uL Neutrophil % 87.5 % Lymphocyte % 7.3 % Monocyte % 2.9 % Eosinophil % 0.2 % Basophils % 0.5 % Test performed on Jan 15, 2020 09:04 Magnesium 0.9 mg/dL Test performed on Jan 09, 2020 09:00 CBC Slide Review Slide Review Perform Test performed on Dec 05, 2019 07:35 Manual Lymphocytes 20.1 % Manual Monocytes 19.3 % Manual Eosinophils 0.7 % Manual Basophils 0.5 % NRBCs 0.0 /100 WBC Test performed on Nov 14, 2019 09:10 TSH 1.31 uIU/mL Impression: Recurrent adenocarcinoma per left hilar lymph node biopsy Small cell lung cancer involving the right middle lobe per CT-guided lung biopsy done on 10/01/2018 CT scan of chest done on 08/31/2018 showed 4 cm left upper lobe mass and large mass with a probable postobstructive atelectasis involving the right hilum extending to right middle lobe. This mass occludes medial bronchus of right middle lobe and narrowing of the lateral bronchus COPD/emphysema with bilateral apical pleural thickening Chronic smoking Mr. Romeo underwent PET CT staging on 10/23/2018. The bulky right middle lobe mass demonstrates significant necrosis, and homogenous FDG uptake extends from the right hilum with subtotal atelectasis of the right middle lobe and an SUV of 25.2. There was loss of that plane between the mediastinum and mass superiorly, suggesting early invasion. The left upper lobe satellite mass is in a subpleural location, without involvement of the adjacent chest wall. This measures 2.0 x 3.0 cm with an SUV of 8.5. Patient has long-standing history of smoking, 50 year plus also tried pipe and then now cigars. He smokes 4-5 cigars a day. Mr. Romeo began his first cycle of carboplatin and etoposide on 11/02/2018. He is completed 3 cycles of the carboplatin and etoposide On 12/30/2018. Follow-up CT PET scan done on 01/15/2019 showed significant improvement in right middle lobe mass with postobstructive atelectasis since prior study. Mass now measures 4.6 x 2.4 cm with SUV of 5. A satellite malignant nodule in the left upper lobe is stable, measuring 2.2 x 2.8 cm with SUV of 10.9, and not a significant change since prior study. No new lesion seen. There was no evidence of malignancy outside of the chest. MRI of the head from 10/20/2018 reveals right anterior frontal lobe and left parietal lobe cortical 2-3 mm enhancing foci; primary considerations metastatic disease .Based on CT PET scan findings patient was referred to thoracic oncology at [facility] for second opinion with patient underwent CT-guided biopsy of left upper lobe lesion which confirmed second primary e.g. adenocarcinoma well differentiated Patient was evaluated by Dr. Barrington Segundo who recommended concurrent chemoradiation to right chest and followed by whole brain radiation therapy and observation versus SB RT to left upper lobe newly diagnosed non-small cell lung cancer e.g. adenocarcinoma. Follow-up CT scan of chest done on 06/20/2019 showed when compared to CT scan from 08/31/2018 CT PET scan from 01/15/2019 Previously left upper lobe mass lesion in anterior lateral subpleural location, now measure 1.8 cm x 3.2 x 2.1 cm compared to 2.3 x 3.6 x 2.8 on 01/15/2019. Previous bulky mass lesion within the right middle lobe seen on 08/31/2018 and with reduced size on 01/15/2019 is with further improvement, now measuring 1.6 cm x 6 x 2.8 cm. Medially the mass lesion and likely invades the right side of mediastinum adjacent a superior vena cava and right atrium. No other mass lesion seen normal liver and spleen No adrenal enlargement. No lytic or blastic bony distal to lesion seen. Plan: Discussed with patient regarding his labs white blood count 5.8 hemoglobin 9.0 hematocrit 28.8 platelets 211,000 CMP within normal limits ferritin 1317, iron 63, TIBC 247, B12 520 Clinically, patient is doing really well, now further palliative chemotherapy is under consideration. We'll proceed with next dose of carboplatin/Alimta/Keytruda with Neulasta support and then he'll return to clinic in 2 weeks with CBC CMP and plan was to do CT PET scan up to 2 cycles of chemotherapy if it shows good response then we'll switch him to maintenance therapy with Keytruda alone. As for his anemia is concerned, his anemia workup is inconclusive so we'll continue monitor his blood counts and consider blood transfusion if hemoglobin is below 8 g Signed By: Colette Guerrero M.D. <<Signature on File>>
[2020-02-14 18:37] LABS: Basophils % 0.3 %; Eosinophils % 0.2 %; Hematocrit 21.4 % (42.0-52.0); Hemoglobin 6.6 g/dL (11.7-16.6); Lymphocytes # 1.1 10^3/uL (0.8-4.8); Lymphocytes % 19.7 %; Mean Corpuscular HGB Conc 30.8 g/dL (30.0-36.0); Mean Corpuscular Hemoglobin 33.3 pg (28.0-34.0); Mean Corpuscular Volume 108.1 fL (80-94); Mean Platelet Volume 12.2 fL (7.4-10.4); Monocytes # 0.8 10^3/uL (0.2-0.9); Monocytes % 14.1 %; Neutrophils # 3.5 10^3/uL (1.8-7.7); Nucleated Red Blood Cells % 0 %; Platelet Count 30 10^3/cmm (130-400); Red Blood Count 1.98 10^6/uL (4.1-5.3); White Blood Count 5.7 10^3/uL (4.0-10.0)
[2020-02-14 18:39] LABS: Alanine Aminotransferase 132 U/L (0-41); Albumin Level 3.9 g/dL (3.5-5.2); Alkaline Phosphatase 101 IU/L (40-130); Anion Gap 18.8 (5-19); Aspartate Amino Transferase 68 U/L (0-40); Blood Urea Nitrogen 20 mg/dL (8-23); Calcium 9.4 mg/dL (8.5-10.5); Carbon Dioxide 23 mmol/L (22-29); Chloride 103 mmol/L (98-107); Globulin 2.3 g/dL (1.3-4.6); Glucose 68 mg/dL (65-115); Magnesium 1.2 mg/dL (1.7-2.3); Osmolality Calculated 287 mOsm/kg (285-295); Potassium 3.8 mmol/L (3.5-5.1); Sodium 141 mmol/L (136-145); Total Bilirubin 0.2 mg/dL (0.15-1.2); Total Protein 6.2 g/dL (6.6-8.7)
[2020-02-14 20:00] LABS: Slide Review Slide Review Perform
== END 2020-02-14 23:59 | disposition home or self-care (01) ==
LOC: ONCMED 10:10
PROVIDERS: Absent Provider Radiology Radiation Oncology; Family Provider Family Medicine; PCP Family Medicine; Visit Provider Internal Medicine Hematology & Oncology
DX: Z51.12 Encounter for antineoplastic immunotherapy (principal); Z51.11 Encounter for antineoplastic chemotherapy; C34.12 Malignant neoplasm of upper lobe, left bronchus or lung; C34.2 Malignant neoplasm of middle lobe, bronchus or lung; C79.51 Secondary malignant neoplasm of bone; C79.31 Secondary malignant neoplasm of brain; C77.1 Secondary and unspecified malignant neoplasm of intrathoracic lymph nodes; D64.9 Anemia, unspecified; D70.1 Agranulocytosis secondary to cancer chemotherapy; T45.1X5A Adverse effect of antineoplastic and immunosuppressive drugs, initial encounter; R41.3 Other amnesia; J43.9 Emphysema, unspecified; F17.210 Nicotine dependence, cigarettes, uncomplicated; Z79.899 Other long term (current) drug therapy; Z92.3 Personal history of irradiation
CPT/HCPCS: 36415; 80053; 82607; 82728; 83540; 83550; 83735; 85025; 96365; 96367; 96372; 96413; 96415; 96417; 99214; G0463; J1100; J1200; J1453; J2469; J2505; J3420; J3475; J3490; J7050; J9045; J9271; J9305

== ENCOUNTER 2020-02-22 06:47 | Outpatient (RCR) | payer MEDICARE, OTHER, SELFPAY ==
--- NOTE | 2020-02-15 14:35 | ONC FU_ITS ---
Dr. 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 Mr. Romeo reports in the last week of June 2018 he noted some blood in his yellow phlegm and tried to tough it out for about month and half. He finally saw his primary care physician and he was diagnosed with chronic bronchitis. A Chest x-ray was done-as per patient it was normal and he was given a prescription for Flovent. He felt some improvement and on 09/01/[address] scan of chest which showed right middle lobe lung mass. The mass was reported as about 6 cm in size with mediastinal and hilar lymphadenopathy and there was a contralateral nodule which is lobulated in the left upper lobe measures 4 x 2.3 cm. Mr Romeo was then referred to Dr. Ortiz, chemical checker in [place]. He underwent bronchoscopy and transbronchial biopsy on 09/10/2018 which showed no evidence of malignancy. Subsequently patient underwent CT-guided biopsy of right middle lobe on 10/01/2018 which confirmed small cell lung cancer. Mr. Romeo underwent PET CT staging on 10/23/2018. The bulky right middle lobe mass demonstrates significant necrosis, and homogenous FDG uptake extends from the right hilum with subtotal atelectasis of the right middle lobe and an SUV of 25.2. There was loss of that plane between the mediastinum and mass superiorly, suggesting early invasion. The left upper lobe satellite mass is in a subpleural location, without involvement of the adjacent chest wall. This measures 2.0 x 3.0 cm with an SUV of 8.5. Patient has long-standing history of smoking, 50 year plus also tried pipe and then now cigars. He smokes 4-5 cigars a day. There was no evidence of malignancy outside of the chest. MRI of the head from 10/20/2018 reveals right anterior frontal lobe and left parietal lobe cortical 2-3 mm enhancing foci; primary considerations metastatic disease. Mr. Romeo began his first cycle of carboplatin and etoposide on 11/02/2018. He did have a few mouth sores with cycle 1 but this was controlled with Valtrex, baking soda and salt water and as needed Magic mouthwash. He states that once he started the Valtrex for cold sores resolved within a couple of days. He's had no recurrent problems with mouth sores. CT PET scan done after 3 cycles of chemotherapy on 01/15/2019 showed significant improvement in the right middle lobe mass with postobstructive atelectasis since the prior study. The mass now measures 4.6 x 2.4 cm with SUV of 5. And the satellite malignant nodules in the left upper lobe is stable measuring 2.2 x 2.8 cm with SUV of 10.9, not a significant change since prior study on 10/23/2018. No new lesion seen. Patient was referred to [facility] where he saw thoracic oncologist Dr. Bellamy who recommended MRI scan of the brain which was done on on 02/21/2019 which showed a new diffusion weighted, 5 mm abnormality with mild enhancement in the anterior right parietal lobe cortex. Subacute small lacunar infarction versus metastatic disease. Follow-up MRI brain is recommended in 3-4 month Previously described anterior right frontal and left parietal cortical areas of enhancement are slightly smaller in size. Differential include decrease in size of metastatic due to treatment. Severe chronic white matter disease and CT-guided biopsy of left upper lobe was done on 02/24/2019 showed adenocarcinoma, well-differentiated Patient was started on combined chemoradiation on 03/09/2019 with carboplatin and etoposide and if patient achieved complete remission then consider SB RT to newly diagnosed left upper lobe lung adenocarcinoma .Follow-up CT scan of chest done on 06/20/2019 showed decreased size of previous left upper lobe neoplastic mass Further decrease in size of previous bulky right middle lobe mass. Residual mass lesion remaining is probably associated with right-sided mediastinal invasion Residual scarring or subsegmental atelectasis right middle lobe Chronic emphysema f/u CT PET scan done on 09/10/2019 showed positive response to therapy of the left upper lobe adenocarcinoma New abnormal activity in the left upper lobe groundglass nodule and left upper hilar lymph node Increased activity in the bowel at left inguinal canal with new reactive left inguinal node, patient has history of left inguinal hernia repair in April 2018 MRI head done on 08/23/2019 shows resolved enhancing metastatic lesion, no new lesion seen Was referred to [facility] in [place] for EBUS/biopsy of left upper hilar lymph node which was done on 10/07/2019 and final pathology report came back adenocarcinoma consistent with lung origin. Patient was referred to radiation oncology Dr. Dalal for evaluation and his impression was patient had received radiation therapy to left upper lobe primary previously with a further radiation disease risk of left bronchus damage and major blood vessel damage so suggested chemotherapy alone. Dr Romeo was offered treatment with Carboplatin/Alimta/Keytruda. He started cycle 1 Keytruda/carboplatin/Alimta on 11/15/2019. He states overall he feels pretty good he has had significant diarrhea which was controlled with blackberries since his last treatment. He states he thinks he did have a touch of colitis although it is completely resolved now. With that he has had a flare of his hemorrhoids Follow-up CT PET scan done after 3 cycles of carboplatin/Alimta/Keytruda on 01/07/2020 showed mild progression of left upper lobe mass from the prior study done on 09/10/2019. Overall progression of disease within new unifocal osseous metastatic disease in the posterior left iliac and a new FDG positive prevascular mediastinal lymph node. Decreasing FDG activity in left upper lobe groundglass nodule. No significant change in left hilar node. No significant change in presumed inflammatory activity in the left inguinal canal. Patient had MRI scan of the head done recently which shows single brain metastases for which he was evaluated by radiation oncology , underwent SRS to the solitary brain lesion on 01/11/2020, subsequently patient developed seizure-like activity and was admitted to hospital on 01/12/2020, was treated with dexamethasone and Keppra was also evaluated by neurology Dr. García and at that time his labs showed white blood count1.3, hemoglobin 7.7 hematocrit 23.5, platelets 47,000 Restarted on palliative chemotherapy with carboplatin/Alimta/Keytruda on 02/01/2020 Came for follow-up, complaining of generalized weakness and fatigue, dyspnea/palpitation on exertion. Denies any melena or hematochezia denies any hemoptysis hematemesis denies any jaundice. Denies any nausea or vomiting denies any fever or chills. No headaches blurred vision double vision, no seizure-like activity. Tolerating palliative therapy with carboplatin/lambda/Keytruda reasonably well. Medications: Anoro Ellipta 1 (62.5-25 mcg/inh) Aerosol Powder, Breath Activated Inhalation daily, Bactrim DS 1 Tablet (of 800-160 mg) Oral q on Every Other Day, black seed oil 1 tsp Liquid daily, Co Q-10 1 Capsule (of 400 mg) Oral daily, Flonase 2 spray(s) (of 50 mcg/act) Suspension Nasal daily PRN, Magnesium 1 Tablet (of 100 mg) Oral daily, Metoprolol Tartrate 0.5 Tablet (of 50 mg) Oral daily, Montelukast Sodium 1 Tablet (of 10 mg) Oral daily, Multivitamin Adults 1 Tablet Oral daily, Omeprazole 1 Capsule (of 20 mg) Capsule Delayed Release Oral b.i.d., Probiotic Daily 1 Capsule Oral daily, ZyrTEC Allergy 1 Tablet (of 10 mg) Oral daily Allergies: latex Review of Systems: Review of Systems is not available for this patient. Vital Signs: Performed on Feb 15, 2020 12:32 Height - 70.00 in Weight - 145.0 lbs (HIGH) BSA - 1.82 sq.m BMI - 20.81 Temperature - 97.7 F (LOW) Pulse - 99 /min Respiration - 24 /min BP - 104/70 mm(hg) O2 Sat - 99 % Pain - 0 Performance Status: 2 - Ambulatory/capable of all self-care, unable to perform any work activities. Up and about more than 50% of waking hours. (ECOG) Physical Examination: ENMT - No oral exudates, ulcers, masses, thrush or mucositis. Oropharynx clear. Tongue normal, Respiratory - Lungs are clear to auscultation without rhonchi or wheezing, Extremities - 1+ edema bilaterally. Lab/Imaging: Test performed on Jan 31, 2020 13:30 Ferritin 1317 ng/mL Iron 63 mcg/dL Sodium 138 mmol/L Vitamin B12 520 pg/mL Iron Binding Capacity (TIBC) 247 mcg/dl Potassium 3.9 mmol/L % Iron Saturation 25.5 % Chloride 101 mmol/L CO2 25 mmol/L UIBC 184 mcg/dL Anion Gap 15.9 BUN 17 mg/dL Creatinine 1.0 mg/dL Cr Clearance (Est) 66.1000 mL/min Glucose 130 mg/dL Calcium 9.5 mg/dL Protein, Total 7.1 g/dL Albumin 3.5 g/dL Globulin 3.6 g/dL Bilirubin, Total 0.3 mg/dL ALT (SGPT) 31 U/L AST (SGOT) 27 U/L Alkaline Phosphatase 80 IU/L WBC 5.8 10 3/uL RBC 2.73 10 6/uL HGB 9.0 g/dL HCT 28.8 % MCV 105.5 fL MCH 33.0 pg MCHC 31.3 g/dL RDW 19.3 % Platelet Count 211 10 3/cmm MPV 11.1 fL Neutrophils 5.1 10 3/uL Lymphocytes 0.4 10 3/uL Monocytes 0.2 10 3/uL Eosinophils 0.0 10 3/uL Basophils 0.0 10 3/uL Neutrophil % 87.5 % Lymphocyte % 7.3 % Monocyte % 2.9 % Eosinophil % 0.2 % Basophils % 0.5 % Test performed on Jan 24, 2020 13:10 Magnesium 1.1 mg/dL CBC Slide Review Slide Review Perform SLIDE REVIEW AGREES WITH AUTOMATED RESULT Test performed on Dec 05, 2019 07:35 Manual Lymphocytes 20.1 % Manual Monocytes 19.3 % Manual Eosinophils 0.7 % Manual Basophils 0.5 % NRBCs 0.0 /100 WBC Test performed on Nov 14, 2019 09:10 TSH 1.31 uIU/mL Impression: Recurrent adenocarcinoma per left hilar lymph node biopsy Small cell lung cancer involving the right middle lobe per CT-guided lung biopsy done on 10/01/2018 CT scan of chest done on 08/31/2018 showed 4 cm left upper lobe mass and large mass with a probable postobstructive atelectasis involving the right hilum extending to right middle lobe. This mass occludes medial bronchus of right middle lobe and narrowing of the lateral bronchus COPD/emphysema with bilateral apical pleural thickening Chronic smoking Mr. Romeo underwent PET CT staging on 10/23/2018. The bulky right middle lobe mass demonstrates significant necrosis, and homogenous FDG uptake extends from the right hilum with subtotal atelectasis of the right middle lobe and an SUV of 25.2. There was loss of that plane between the mediastinum and mass superiorly, suggesting early invasion. The left upper lobe satellite mass is in a subpleural location, without involvement of the adjacent chest wall. This measures 2.0 x 3.0 cm with an SUV of 8.5. Patient has long-standing history of smoking, 50 year plus also tried pipe and then now cigars. He smokes 4-5 cigars a day. Mr. Romeo began his first cycle of carboplatin and etoposide on 11/02/2018. He is completed 3 cycles of the carboplatin and etoposide On 12/30/2018. Follow-up CT PET scan done on 01/15/2019 showed significant improvement in right middle lobe mass with postobstructive atelectasis since prior study. Mass now measures 4.6 x 2.4 cm with SUV of 5. A satellite malignant nodule in the left upper lobe is stable, measuring 2.2 x 2.8 cm with SUV of 10.9, and not a significant change since prior study. No new lesion seen. There was no evidence of malignancy outside of the chest. MRI of the head from 10/20/2018 reveals right anterior frontal lobe and left parietal lobe cortical 2-3 mm enhancing foci; primary considerations metastatic disease .Based on CT PET scan findings patient was referred to thoracic oncology at [facility] for second opinion with patient underwent CT-guided biopsy of left upper lobe lesion which confirmed second primary e.g. adenocarcinoma well differentiated Patient was evaluated by Dr. Barrington Segundo who recommended concurrent chemoradiation to right chest and followed by whole brain radiation therapy and observation versus SB RT to left upper lobe newly diagnosed non-small cell lung cancer e.g. adenocarcinoma. Follow-up CT scan of chest done on 06/20/2019 showed when compared to CT scan from 08/31/2018 CT PET scan from 01/15/2019 Previously left upper lobe mass lesion in anterior lateral subpleural location, now measure 1.8 cm x 3.2 x 2.1 cm compared to 2.3 x 3.6 x 2.8 on 01/15/2019. Previous bulky mass lesion within the right middle lobe seen on 08/31/2018 and with reduced size on 01/15/2019 is with further improvement, now measuring 1.6 cm x 6 x 2.8 cm. Medially the mass lesion and likely invades the right side of mediastinum adjacent a superior vena cava and right atrium. No other mass lesion seen normal liver and spleen No adrenal enlargement. No lytic or blastic bony distal to lesion seen. Plan: Discussed with patient regarding his labs white blood count 5.7 hemoglobin 6.6 hematocrit 21.4 platelets 30,000 CMP within normal limit except ALT 132 AST 68 bilirubin 0.2 alkaline phosphatase 101 Clinically, patient is doing reasonably well, tolerating palliative therapy with carboplatin/Keytruda/Alimta well but with expected side effects now with progressive anemia with a no evidence of hemolysis or bleeding. His anemia workup done recently was inconclusive, anemia could be multifactorial including due to chemotherapy and considering his age underlying myelodysplasia cannot be ruled out. Now he is symptomatic due to anemia we will consider 2 units of packed RBCs will be arranged in [facility] in [facility]. As far as thrombocytopenia is concern probably due to chemotherapy especially carboplatin. Patient was advised not to take ibuprofen/Motrin or aspirin and avoid trauma. We'll continue monitor his platelet count if there is a further drop to below 20,000 we'll consider platelet transfusion. He will return to clinic in 1 week with CBC CMP and will consider chemotherapy if resolution of thrombocytopenia and improvement in LFTs otherwise may postpone chemotherapy for another week and if there is a worsening of LFTs we'll consider right upper quadrant sonogram order otherwise consider further dose reduction to minimize chemotherapy-induced hepatotoxicity. Signed By: Colette Guerrero M.D. <<Signature on File>>
[2020-02-21 12:45] LABS: Basophils % 0.3 %; Eosinophils % 0.2 %; Hematocrit 28.9 % (42.0-52.0); Hemoglobin 9.1 g/dL (11.7-16.6); Lymphocytes # 1.2 10^3/uL (0.8-4.8); Lymphocytes % 12.7 %; Mean Corpuscular HGB Conc 31.5 g/dL (30.0-36.0); Mean Corpuscular Hemoglobin 33.2 pg (28.0-34.0); Mean Corpuscular Volume 105.5 fL (80-94); Mean Platelet Volume 11.9 fL (7.4-10.4); Monocytes # 1.4 10^3/uL (0.2-0.9); Neutrophils # 6.6 10^3/uL (1.8-7.7); Neutrophils % 67.7 %; Nucleated Red Blood Cells % 0 %; Platelet Count 101 10^3/cmm (130-400); Red Blood Count 2.74 10^6/uL (4.1-5.3); Red Cell Distribution Width 17.7 % (12.1-15.1); White Blood Count 9.7 10^3/uL (4.0-10.0)
[2020-02-21 12:54] LABS: Alanine Aminotransferase 53 U/L (0-41); Albumin Level 3.6 g/dL (3.5-5.2); Alkaline Phosphatase 112 IU/L (40-130); Anion Gap 18.3 (5-19); Aspartate Amino Transferase 33 U/L (0-40); Blood Urea Nitrogen 20 mg/dL (8-23); Calcium 8.9 mg/dL (8.5-10.5); Carbon Dioxide 22 mmol/L (22-29); Chloride 103 mmol/L (98-107); Globulin 2.9 g/dL (1.3-4.6); Glucose 110 mg/dL (65-115); Osmolality Calculated 287 mOsm/kg (285-295); Potassium 3.3 mmol/L (3.5-5.1); Sodium 140 mmol/L (136-145); Total Bilirubin 0.2 mg/dL (0.15-1.2); Total Protein 6.5 g/dL (6.6-8.7)
[2020-02-21 13:53] LABS: Slide Review Slide Review Perform
[2020-02-21 13:57] LABS: Band Neutrophils Absolute 0.3 10^3/cmm (0.0-1.2); Lymphocytes 20 %; Platelet Estimate Decreased (Normal); Segmented Neutrophils 62 %; Total Cells Counted 100 (0-100)
[2020-02-21 13:58] LABS: Anisocytosis 2+; Macrocytosis 2+
[2020-02-22] MEDS: sodium chloride 0.9% 250 ML 999 ML IV (10:54)
[2020-02-22] MEDS: sodium chloride 0.9% 100 ML (15:27)
[2020-02-22] MEDS: cyanocobalamin 1,000 mcg/mL SDV 1000 MCG SUBCUT (15:38)
[2020-02-22] MEDS: pegfilgrastim 6 mg/0.6 mL Kit (onpro) SUBCUT (15:39)
== END 2020-02-22 23:59 | disposition home or self-care (01) ==
LOC: ONCMED 06:47
PROVIDERS: Family Medicine; Absent Provider Radiology Radiation Oncology; Family Provider Family Medicine; PCP Family Medicine; Visit Provider Internal Medicine Hematology & Oncology
DX: Z51.12 Encounter for antineoplastic immunotherapy (principal); Z51.11 Encounter for antineoplastic chemotherapy; C34.12 Malignant neoplasm of upper lobe, left bronchus or lung; C77.1 Secondary and unspecified malignant neoplasm of intrathoracic lymph nodes; D70.1 Agranulocytosis secondary to cancer chemotherapy; D69.59 Other secondary thrombocytopenia; T45.1X5A Adverse effect of antineoplastic and immunosuppressive drugs, initial encounter; F17.210 Nicotine dependence, cigarettes, uncomplicated; J43.9 Emphysema, unspecified; Z79.899 Other long term (current) drug therapy; Z92.3 Personal history of irradiation
CPT/HCPCS: 80053; 85007; 85025; 96367; 96372; 96413; 96415; 96417; 99214; J1100; J1200; J1453; J2469; J2505; J3420; J3490; J7050; J9045; J9271; J9305

== ENCOUNTER 2020-03-01 13:15 | Outpatient (CLI) | payer MEDICARE, OTHER, SELFPAY ==
[2020-03-01 20:22] LABS: Basophils % 0.9 %; Eosinophils % 0.3 %; Hematocrit 25.3 % (42.0-52.0); Lymphocytes # 0.6 10^3/uL (0.8-4.8); Lymphocytes % 18.9 %; Mean Corpuscular HGB Conc 31.6 g/dL (30.0-36.0); Mean Corpuscular Hemoglobin 33.5 pg (28.0-34.0); Mean Corpuscular Volume 105.9 fL (80-94); Mean Platelet Volume 12.2 fL (7.4-10.4); Monocytes # 0.6 10^3/uL (0.2-0.9); Monocytes % 16.5 %; Neutrophils % 59.2 %; Nucleated Red Blood Cells % 0 %; Platelet Count 103 10^3/cmm (130-400); Red Blood Count 2.39 10^6/uL (4.1-5.3); Red Cell Distribution Width 17.2 % (12.1-15.1); White Blood Count 3.3 10^3/uL (4.0-10.0)
[2020-03-01 20:49] LABS: Alanine Aminotransferase 65 U/L (0-41); Alkaline Phosphatase 139 IU/L (40-130); Anion Gap 19.1 (5-19); Aspartate Amino Transferase 43 U/L (0-40); Blood Urea Nitrogen 26 mg/dL (8-23); Calcium 9.2 mg/dL (8.5-10.5); Carbon Dioxide 24 mmol/L (22-29); Chloride 99 mmol/L (98-107); Globulin 2.9 g/dL (1.3-4.6); Glucose 72 mg/dL (65-115); Osmolality Calculated 281 mOsm/kg (285-295); Potassium 4.1 mmol/L (3.5-5.1); Sodium 138 mmol/L (136-145); Total Bilirubin 0.4 mg/dL (0.15-1.2); Total Protein 6.9 g/dL (6.6-8.7)
[2020-03-01 21:48] LABS: Slide Review Slide Review Perform
== END 2020-03-01 13:16 | disposition home or self-care (01) ==
LOC: ONCMED 03-02 08:29
PROVIDERS: PCP Family Medicine; Visit Provider Internal Medicine Hematology & Oncology
DX: C34.12 Malignant neoplasm of upper lobe, left bronchus or lung (principal)
CPT/HCPCS: 80053; 85025

== ENCOUNTER 2020-03-02 08:47 | Outpatient (CLI) | payer MEDICARE, OTHER, SELFPAY ==
--- NOTE | 2020-03-02 16:45 | ONC FU_ITS ---
Dr. 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 Mr. Romeo reports in the last week of June 2018 he noted some blood in his yellow phlegm and tried to tough it out for about month and half. He finally saw his primary care physician and he was diagnosed with chronic bronchitis. A Chest x-ray was done-as per patient it was normal and he was given a prescription for Flovent. He felt some improvement and on 09/01/[address] scan of chest which showed right middle lobe lung mass. The mass was reported as about 6 cm in size with mediastinal and hilar lymphadenopathy and there was a contralateral nodule which is lobulated in the left upper lobe measures 4 x 2.3 cm. Mr Romeo was then referred to Dr. Ortiz, pharmaceutical laboratory technician in [place]. He underwent bronchoscopy and transbronchial biopsy on 09/10/2018 which showed no evidence of malignancy. Subsequently patient underwent CT-guided biopsy of right middle lobe on 10/01/2018 which confirmed small cell lung cancer. Mr. Romeo underwent PET CT staging on 10/23/2018. The bulky right middle lobe mass demonstrates significant necrosis, and homogenous FDG uptake extends from the right hilum with subtotal atelectasis of the right middle lobe and an SUV of 25.2. There was loss of that plane between the mediastinum and mass superiorly, suggesting early invasion. The left upper lobe satellite mass is in a subpleural location, without involvement of the adjacent chest wall. This measures 2.0 x 3.0 cm with an SUV of 8.5. Patient has long-standing history of smoking, 50 year plus also tried pipe and then now cigars. He smokes 4-5 cigars a day. There was no evidence of malignancy outside of the chest. MRI of the head from 10/20/2018 reveals right anterior frontal lobe and left parietal lobe cortical 2-3 mm enhancing foci; primary considerations metastatic disease. Mr. Romeo began his first cycle of carboplatin and etoposide on 11/02/2018. He did have a few mouth sores with cycle 1 but this was controlled with Valtrex, baking soda and salt water and as needed Magic mouthwash. He states that once he started the Valtrex for cold sores resolved within a couple of days. He's had no recurrent problems with mouth sores. CT PET scan done after 3 cycles of chemotherapy on 01/15/2019 showed significant improvement in the right middle lobe mass with postobstructive atelectasis since the prior study. The mass now measures 4.6 x 2.4 cm with SUV of 5. And the satellite malignant nodules in the left upper lobe is stable measuring 2.2 x 2.8 cm with SUV of 10.9, not a significant change since prior study on 10/23/2018. No new lesion seen. Patient was referred to [facility] where he saw thoracic oncologist Dr. Bellamy who recommended MRI scan of the brain which was done on on 02/21/2019 which showed a new diffusion weighted, 5 mm abnormality with mild enhancement in the anterior right parietal lobe cortex. Subacute small lacunar infarction versus metastatic disease. Follow-up MRI brain is recommended in 3-4 month Previously described anterior right frontal and left parietal cortical areas of enhancement are slightly smaller in size. Differential include decrease in size of metastatic due to treatment. Severe chronic white matter disease and CT-guided biopsy of left upper lobe was done on 02/24/2019 showed adenocarcinoma, well-differentiated Patient was started on combined chemoradiation on 03/09/2019 with carboplatin and etoposide and if patient achieved complete remission then consider SB RT to newly diagnosed left upper lobe lung adenocarcinoma .Follow-up CT scan of chest done on 06/20/2019 showed decreased size of previous left upper lobe neoplastic mass Further decrease in size of previous bulky right middle lobe mass. Residual mass lesion remaining is probably associated with right-sided mediastinal invasion Residual scarring or subsegmental atelectasis right middle lobe Chronic emphysema f/u CT PET scan done on 09/10/2019 showed positive response to therapy of the left upper lobe adenocarcinoma New abnormal activity in the left upper lobe groundglass nodule and left upper hilar lymph node Increased activity in the bowel at left inguinal canal with new reactive left inguinal node, patient has history of left inguinal hernia repair in April 2018 MRI head done on 08/23/2019 shows resolved enhancing metastatic lesion, no new lesion seen Was referred to [facility] in [place] for EBUS/biopsy of left upper hilar lymph node which was done on 10/07/2019 and final pathology report came back adenocarcinoma consistent with lung origin. Patient was referred to radiation oncology Dr. Dalal for evaluation and his impression was patient had received radiation therapy to left upper lobe primary previously with a further radiation disease risk of left bronchus damage and major blood vessel damage so suggested chemotherapy alone. Dr Romeo was offered treatment with Carboplatin/Alimta/Keytruda. He started cycle 1 Keytruda/carboplatin/Alimta on 11/15/2019. He states overall he feels pretty good he has had significant diarrhea which was controlled with blackberries since his last treatment. He states he thinks he did have a touch of colitis although it is completely resolved now. With that he has had a flare of his hemorrhoids Follow-up CT PET scan done after 3 cycles of carboplatin/Alimta/Keytruda on 01/07/2020 showed mild progression of left upper lobe mass from the prior study done on 09/10/2019. Overall progression of disease within new unifocal osseous metastatic disease in the posterior left iliac and a new FDG positive prevascular mediastinal lymph node. Decreasing FDG activity in left upper lobe groundglass nodule. No significant change in left hilar node. No significant change in presumed inflammatory activity in the left inguinal canal. Patient had MRI scan of the head done recently which shows single brain metastases for which he was evaluated by radiation oncology , underwent SRS to the solitary brain lesion on 01/11/2020, subsequently patient developed seizure-like activity and was admitted to hospital on 01/12/2020, was treated with dexamethasone and Keppra was also evaluated by neurology Dr. García and at that time his labs showed white blood count1.3, hemoglobin 7.7 hematocrit 23.5, platelets 47,000 Restarted on palliative chemotherapy with carboplatin/Alimta/Keytruda on 02/01/2020 Came for follow-up, denies any specific complaints except generalized weakness fatigue patient tolerated last dose of chemotherapy with Alimta/carboplatin and Keytruda given on 02/22/2020, this time no diarrhea or nausea or vomiting patient denies any fever chills. Denies any melena or hematochezia, denies any chest pain. Denies any skin rash or jaundice, denies any shortness of breath or wheezing at rest but complaining of dyspnea on exertion. But no lightheadedness no dizziness. Medications: Anoro Ellipta 1 (62.5-25 mcg/inh) Aerosol Powder, Breath Activated Inhalation daily, Bactrim DS 1 Tablet (of 800-160 mg) Oral q on Every Other Day, black seed oil 1 tsp Liquid daily, Co Q-10 1 Capsule (of 400 mg) Oral daily, Flonase 2 spray(s) (of 50 mcg/act) Suspension Nasal daily PRN, Keppra 1 Tablet (of 1000 mg) Oral b.i.d., Magnesium 1 Tablet (of 100 mg) Oral daily, Metoprolol Tartrate 0.5 Tablet (of 50 mg) Oral daily, Montelukast Sodium 1 Tablet (of 10 mg) Oral daily, Multivitamin Adults 1 Tablet Oral daily, Omeprazole 1 Capsule (of 20 mg) Capsule Delayed Release Oral b.i.d., Probiotic Daily 1 Capsule Oral daily, ZyrTEC Allergy 1 Tablet (of 10 mg) Oral daily Allergies: latex and Pollen. Review of Systems: Constitutional - Appetite is fair and weight is stable. No fever, chills, hot flashes, or night sweats. Energy level is poor, ENMT - Some sinus congestion/drainage. No mouth sores. No sore throat or difficulty swallowing, Hematologic/Lymphatic - No abnormal bruising or bleeding, Respiratory - Frequent shortness of breath, with emphysema and wheezing. Nonproductive cough. No pleuritic pain or hemoptysis, Cardiovascular - No angina pain. No palpitations, Gastrointestinal - No nausea or vomiting. No heartburn or acid reflux. No diarrhea or constipation. No blood in the stool or black stools, Genitourinary (M) - No dysuria or hematuria. No urinary frequency. No urgency or incontinence, Musculoskeletal - Chronic back pain r/t old injury, Neurologic - No headaches or dizziness reported today. Pt states he feels shaky and that he is having short term memory loss, Psychiatric - No anxiety or depression. No insomnia. Vital Signs: Performed on Mar 02, 2020 08:58 Height - 70.00 in Weight - 145 lbs BSA - 1.82 sq.m BMI - 20.81 Temperature - 97.7 F (LOW) Pulse - 118 /min (HIGH) Respiration - 19 /min BP - 87/71 mm(hg) (LOW) O2 Sat - 98 % Pain - 0 Performance Status: 2 - Ambulatory/capable of all self-care, unable to perform any work activities. Up and about more than 50% of waking hours. (ECOG) Physical Examination: ENMT - no ulcer or thrush, Respiratory - Lungs are clear to auscultation, Cardiovascular - Regular rate and rhythm, Abdomen - nontender, bowel sounds present, Extremities - no edema. Lab/Imaging: Test performed on Feb 21, 2020 09:36 Glucose 110 mg/dL BUN 20 mg/dL Creatinine 1 mg/dL Cr Clearance (Est) 65.11 mL/min Sodium 140 mmol/L Potassium 3.3 mmol/L Chloride 103 mmol/L CO2 22 mmol/L Calcium 8.9 mg/dL Protein, Total 6.5 g/dL Albumin 3.6 g/dL Globulin 2.9 g/dL Bilirubin, Total 0.2 mg/dL Alkaline Phosphatase 112 IU/L AST (SGOT) 33 IU/L ALT (SGPT) 53 IU/L WBC 9.7 10^9/L RBC 2.74 10^12/L HGB 9.1 g/dL HCT 28.9 % MCV 105.5 fl MCH 33.2 pg MCHC 31.5 g/dL RDW 17.7 % Platelet Count 101 10^9/L MPV 11.9 fL Neutrophils (Gran) 6.6 10^9/L Lymphocytes 1.2319 10^9/L Monocytes 1.358 10^9/L Eosinophils 0.0194 10^9/L Basophils 0.0291 10^9/L Test performed on Feb 14, 2020 10:10 Magnesium 1.2 mg/dL Anion Gap 18.8 Neutrophil % 61.0 % Lymphocyte % 19.7 % Monocyte % 14.1 % Eosinophil % 0.2 % Basophils % 0.3 % CBC Slide Review Slide Review Perform SLIDE REVIEW AGREES WITH AUTO DIFF. Test performed on Jan 31, 2020 13:30 Ferritin 1317 ng/mL Iron 63 mcg/dL Vitamin B12 520 pg/mL Iron Binding Capacity (TIBC) 247 mcg/dl % Iron Saturation 25.5 % UIBC 184 mcg/dL Test performed on Dec 05, 2019 07:35 Manual Lymphocytes 20.1 % Manual Monocytes 19.3 % Manual Eosinophils 0.7 % Manual Basophils 0.5 % NRBCs 0.0 /100 WBC Test performed on Nov 14, 2019 09:10 TSH 1.31 uIU/mL Impression: Recurrent adenocarcinoma per left hilar lymph node biopsy Small cell lung cancer involving the right middle lobe per CT-guided lung biopsy done on 10/01/2018 CT scan of chest done on 08/31/2018 showed 4 cm left upper lobe mass and large mass with a probable postobstructive atelectasis involving the right hilum extending to right middle lobe. This mass occludes medial bronchus of right middle lobe and narrowing of the lateral bronchus COPD/emphysema with bilateral apical pleural thickening Chronic smoking Mr. Romeo underwent PET CT staging on 10/23/2018. The bulky right middle lobe mass demonstrates significant necrosis, and homogenous FDG uptake extends from the right hilum with subtotal atelectasis of the right middle lobe and an SUV of 25.2. There was loss of that plane between the mediastinum and mass superiorly, suggesting early invasion. The left upper lobe satellite mass is in a subpleural location, without involvement of the adjacent chest wall. This measures 2.0 x 3.0 cm with an SUV of 8.5. Patient has long-standing history of smoking, 50 year plus also tried pipe and then now cigars. He smokes 4-5 cigars a day. Mr. Romeo began his first cycle of carboplatin and etoposide on 11/02/2018. He is completed 3 cycles of the carboplatin and etoposide On 12/30/2018. Follow-up CT PET scan done on 01/15/2019 showed significant improvement in right middle lobe mass with postobstructive atelectasis since prior study. Mass now measures 4.6 x 2.4 cm with SUV of 5. A satellite malignant nodule in the left upper lobe is stable, measuring 2.2 x 2.8 cm with SUV of 10.9, and not a significant change since prior study. No new lesion seen. There was no evidence of malignancy outside of the chest. MRI of the head from 10/20/2018 reveals right anterior frontal lobe and left parietal lobe cortical 2-3 mm enhancing foci; primary considerations metastatic disease .Based on CT PET scan findings patient was referred to thoracic oncology at [facility] for second opinion with patient underwent CT-guided biopsy of left upper lobe lesion which confirmed second primary e.g. adenocarcinoma well differentiated Patient was evaluated by Dr. Barrington Segundo who recommended concurrent chemoradiation to right chest and followed by whole brain radiation therapy and observation versus SB RT to left upper lobe newly diagnosed non-small cell lung cancer e.g. adenocarcinoma. Follow-up CT scan of chest done on 06/20/2019 showed when compared to CT scan from 08/31/2018 CT PET scan from 01/15/2019 Previously left upper lobe mass lesion in anterior lateral subpleural location, now measure 1.8 cm x 3.2 x 2.1 cm compared to 2.3 x 3.6 x 2.8 on 01/15/2019. Previous bulky mass lesion within the right middle lobe seen on 08/31/2018 and with reduced size on 01/15/2019 is with further improvement, now measuring 1.6 cm x 6 x 2.8 cm. Medially the mass lesion and likely invades the right side of mediastinum adjacent a superior vena cava and right atrium. No other mass lesion seen normal liver and spleen No adrenal enlargement. No lytic or blastic bony distal to lesion seen. Plan: Discussed with patient regarding his labs white blood count 3.3 hemoglobin 8 hematocrit 25.3 platelets 103,000 CMP within normal limits except ALT 65. ALT 43 compared to ALT 132 on 02/14/2020 Clinically, patient doing reasonably well tolerating palliative therapy with carboplatin/Alimta/Keytruda well but with expected side effects e.g. progressive pancytopenia/anemia requiring frequent blood transfusion and at this point we'll consider 2 units of packed RBCs to improve quality of life. Patient will go to [facility] in [facility] for blood transfusion tomorrow morning. His vital s pulse was around 118 and systolic blood pressure was in in upper 80s but patient is not symptomatic, he was offered hydration as he has not been drink enough fluids but patient declined rather prefer oral intake and he was also advised to minimize coffee intake. Patient was advised in case there is a worsening of his symptoms then he need to go to emergency room. Patient agreed. Return to clinic in 2 weeks with CBC CMP Signed By: Colette Guerrero M.D. <<Signature on File>>
== END 2020-03-02 08:48 | disposition home or self-care (01) ==
LOC: ONCMED 08:47
PROVIDERS: PCP Family Medicine; Visit Provider Internal Medicine Hematology & Oncology
DX: C34.2 Malignant neoplasm of middle lobe, bronchus or lung (principal); C78.02 Secondary malignant neoplasm of left lung; C79.51 Secondary malignant neoplasm of bone; C77.8 Secondary and unspecified malignant neoplasm of lymph nodes of multiple regions; J43.9 Emphysema, unspecified; F17.210 Nicotine dependence, cigarettes, uncomplicated; Z79.899 Other long term (current) drug therapy; Z92.3 Personal history of irradiation
CPT/HCPCS: 99214

== ENCOUNTER 2020-03-13 08:55 | Outpatient (CLI) | payer MEDICARE, OTHER, SELFPAY ==
[2020-03-13 15:29] LABS: Basophils # 0.1 10^3/uL (0.0-0.1); Basophils % 0.4 %; Eosinophils % 0.1 %; Hematocrit 34.6 % (42.0-52.0); Hemoglobin 10.7 g/dL (11.7-16.6); Lymphocytes # 1.3 10^3/uL (0.8-4.8); Lymphocytes % 9.2 %; Mean Corpuscular HGB Conc 30.9 g/dL (30.0-36.0); Mean Corpuscular Hemoglobin 31.9 pg (28.0-34.0); Mean Corpuscular Volume 103.3 fL (80-94); Mean Platelet Volume 11.6 fL (7.4-10.4); Monocytes # 2.2 10^3/uL (0.2-0.9); Monocytes % 15.8 %; Neutrophils # 9.6 10^3/uL (1.8-7.7); Neutrophils % 69.5 %; Nucleated Red Blood Cells % 0 %; Platelet Count 158 10^3/cmm (130-400); Red Blood Count 3.35 10^6/uL (4.1-5.3); Red Cell Distribution Width 16.9 % (12.1-15.1); White Blood Count 13.8 10^3/uL (4.0-10.0)
[2020-03-13 17:14] LABS: Alanine Aminotransferase 56 U/L (0-41); Albumin Level 3.8 g/dL (3.5-5.2); Alkaline Phosphatase 120 IU/L (40-130); Anion Gap 21.4 (5-19); Blood Urea Nitrogen 19 mg/dL (8-23); Calcium 9.1 mg/dL (8.5-10.5); Carbon Dioxide 23 mmol/L (22-29); Chloride 100 mmol/L (98-107); Globulin 3.2 g/dL (1.3-4.6); Glucose 66 mg/dL (65-115); Osmolality Calculated 285 mOsm/kg (285-295); Potassium 4.4 mmol/L (3.5-5.1); Sodium 140 mmol/L (136-145); Total Bilirubin 0.2 mg/dL (0.15-1.2)
[2020-03-14 01:05] LABS: Aspartate Amino Transferase 44 U/L (0-40)
== END 2020-03-13 08:56 | disposition home or self-care (01) ==
LOC: ONCMED 03-14 08:07
PROVIDERS: PCP Family Medicine; Visit Provider Internal Medicine Hematology & Oncology
DX: C34.12 Malignant neoplasm of upper lobe, left bronchus or lung (principal); D64.81 Anemia due to antineoplastic chemotherapy; D70.1 Agranulocytosis secondary to cancer chemotherapy
CPT/HCPCS: 80053; 85025

== ENCOUNTER 2020-03-14 10:48 | Outpatient (CLI) | payer MEDICARE, OTHER, SELFPAY ==
[2020-03-14] MEDS: sodium chloride 0.9% 250 ML 999 ML IV (12:05)
--- NOTE | 2020-03-14 14:38 | ONC FU_ITS ---
Dr. 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 Mr. Romeo reports in the last week of June 2018 he noted some blood in his yellow phlegm and tried to tough it out for about month and half. He finally saw his primary care physician and he was diagnosed with chronic bronchitis. A Chest x-ray was done-as per patient it was normal and he was given a prescription for Flovent. He felt some improvement and on 09/01/[address] scan of chest which showed right middle lobe lung mass. The mass was reported as about 6 cm in size with mediastinal and hilar lymphadenopathy and there was a contralateral nodule which is lobulated in the left upper lobe measures 4 x 2.3 cm. Mr Romeo was then referred to Dr. Ortiz, heart doctor in [place]. He underwent bronchoscopy and transbronchial biopsy on 09/10/2018 which showed no evidence of malignancy. Subsequently patient underwent CT-guided biopsy of right middle lobe on 10/01/2018 which confirmed small cell lung cancer. Mr. Romeo underwent PET CT staging on 10/23/2018. The bulky right middle lobe mass demonstrates significant necrosis, and homogenous FDG uptake extends from the right hilum with subtotal atelectasis of the right middle lobe and an SUV of 25.2. There was loss of that plane between the mediastinum and mass superiorly, suggesting early invasion. The left upper lobe satellite mass is in a subpleural location, without involvement of the adjacent chest wall. This measures 2.0 x 3.0 cm with an SUV of 8.5. Patient has long-standing history of smoking, 50 year plus also tried pipe and then now cigars. He smokes 4-5 cigars a day. There was no evidence of malignancy outside of the chest. MRI of the head from 10/20/2018 reveals right anterior frontal lobe and left parietal lobe cortical 2-3 mm enhancing foci; primary considerations metastatic disease. Mr. Romeo began his first cycle of carboplatin and etoposide on 11/02/2018. He did have a few mouth sores with cycle 1 but this was controlled with Valtrex, baking soda and salt water and as needed Magic mouthwash. He states that once he started the Valtrex for cold sores resolved within a couple of days. He's had no recurrent problems with mouth sores. CT PET scan done after 3 cycles of chemotherapy on 01/15/2019 showed significant improvement in the right middle lobe mass with postobstructive atelectasis since the prior study. The mass now measures 4.6 x 2.4 cm with SUV of 5. And the satellite malignant nodules in the left upper lobe is stable measuring 2.2 x 2.8 cm with SUV of 10.9, not a significant change since prior study on 10/23/2018. No new lesion seen. Patient was referred to [facility] where he saw thoracic oncologist Dr. Bellamy who recommended MRI scan of the brain which was done on on 02/21/2019 which showed a new diffusion weighted, 5 mm abnormality with mild enhancement in the anterior right parietal lobe cortex. Subacute small lacunar infarction versus metastatic disease. Follow-up MRI brain is recommended in 3-4 month Previously described anterior right frontal and left parietal cortical areas of enhancement are slightly smaller in size. Differential include decrease in size of metastatic due to treatment. Severe chronic white matter disease and CT-guided biopsy of left upper lobe was done on 02/24/2019 showed adenocarcinoma, well-differentiated Patient was started on combined chemoradiation on 03/09/2019 with carboplatin and etoposide and if patient achieved complete remission then consider SB RT to newly diagnosed left upper lobe lung adenocarcinoma .Follow-up CT scan of chest done on 06/20/2019 showed decreased size of previous left upper lobe neoplastic mass Further decrease in size of previous bulky right middle lobe mass. Residual mass lesion remaining is probably associated with right-sided mediastinal invasion Residual scarring or subsegmental atelectasis right middle lobe Chronic emphysema f/u CT PET scan done on 09/10/2019 showed positive response to therapy of the left upper lobe adenocarcinoma New abnormal activity in the left upper lobe groundglass nodule and left upper hilar lymph node Increased activity in the bowel at left inguinal canal with new reactive left inguinal node, patient has history of left inguinal hernia repair in April 2018 MRI head done on 08/23/2019 shows resolved enhancing metastatic lesion, no new lesion seen Was referred to [facility] in [place] for EBUS/biopsy of left upper hilar lymph node which was done on 10/07/2019 and final pathology report came back adenocarcinoma consistent with lung origin. Patient was referred to radiation oncology Dr. Dalal for evaluation and his impression was patient had received radiation therapy to left upper lobe primary previously with a further radiation disease risk of left bronchus damage and major blood vessel damage so suggested chemotherapy alone. Dr Romeo was offered treatment with Carboplatin/Alimta/Keytruda. He started cycle 1 Keytruda/carboplatin/Alimta on 11/15/2019. He states overall he feels pretty good he has had significant diarrhea which was controlled with blackberries since his last treatment. He states he thinks he did have a touch of colitis although it is completely resolved now. With that he has had a flare of his hemorrhoids Follow-up CT PET scan done after 3 cycles of carboplatin/Alimta/Keytruda on 01/07/2020 showed mild progression of left upper lobe mass from the prior study done on 09/10/2019. Overall progression of disease within new unifocal osseous metastatic disease in the posterior left iliac and a new FDG positive prevascular mediastinal lymph node. Decreasing FDG activity in left upper lobe groundglass nodule. No significant change in left hilar node. No significant change in presumed inflammatory activity in the left inguinal canal. Patient had MRI scan of the head done recently which shows single brain metastases for which he was evaluated by radiation oncology , underwent SRS to the solitary brain lesion on 01/11/2020, subsequently patient developed seizure-like activity and was admitted to hospital on 01/12/2020, was treated with dexamethasone and Keppra was also evaluated by neurology Dr. García and at that time his labs showed white blood count1.3, hemoglobin 7.7 hematocrit 23.5, platelets 47,000 Restarted on palliative chemotherapy with carboplatin/Alimta/Keytruda on 01/22/2020 Came for follow-up, denies any specific complaints, no fever or chills, no nausea or vomiting, no diarrhea constipation, feeling much better since blood transfusion, more energetic Medications: Anoro Ellipta 1 (62.5-25 mcg/inh) Aerosol Powder, Breath Activated Inhalation daily, black seed oil 1 tsp Liquid daily, Co Q-10 1 Capsule (of 400 mg) Oral daily, Flonase 2 spray(s) (of 50 mcg/act) Suspension Nasal daily PRN, Keppra 1 Tablet (of 1000 mg) Oral b.i.d., Magnesium 1 Tablet (of 100 mg) Oral daily, Multivitamin Adults 1 Tablet Oral daily, Omeprazole 1 Capsule (of 20 mg) Capsule Delayed Release Oral b.i.d., Probiotic Daily 1 Capsule Oral daily, ZyrTEC Allergy 1 Tablet (of 10 mg) Oral daily Allergies: latex and Pollen. Review of Systems: Constitutional - Appetite is fair and weight is stable. No fever, chills, hot flashes, or night sweats. Energy level is poor, ENMT - Some sinus congestion/drainage. No mouth sores. No sore throat or difficulty swallowing, Hematologic/Lymphatic - No abnormal bruising or bleeding, Respiratory - Frequent shortness of breath, with emphysema and wheezing. Nonproductive cough. No pleuritic pain or hemoptysis, Cardiovascular - No angina pain. No palpitations, Gastrointestinal - No nausea or vomiting. No heartburn or acid reflux. No diarrhea or constipation. No blood in the stool or black stools, Genitourinary (M) - No dysuria or hematuria. No urinary frequency. No urgency or incontinence, Musculoskeletal - Chronic back pain r/t old injury. Also c/o of hip pain today, Neurologic - No headaches or dizziness reported today, Psychiatric - No anxiety or depression. No insomnia. Vital Signs: Performed on Mar 14, 2020 11:10 Height - 70.00 in Weight - 146.4 lbs (HIGH) BSA - 1.83 sq.m BMI - 21.01 Temperature - 98.4 F Pulse - 16 /min (LOW) Respiration - 106 /min (HIGH) BP - 112/77 mm(hg) O2 Sat - 97 % Pain - 5 Performance Status: 1 - No physically strenuous activity, but ambulatory and able to carry out light or sedentary work (e.g. office work, light house work). (ECOG) Physical Examination: ENMT - no mouth sores, Respiratory - Lungs are clear, Cardiovascular - Regular rate and rhythm of heart, Abdomen - no abdominal pain or distention, Extremities - no visible edema or rash. Lab/Imaging: Test performed on Mar 13, 2020 08:55 Sodium 140 mmol/L Potassium 4.4 mmol/L Chloride 100 mmol/L CO2 23 mmol/L Anion Gap 21.4 BUN 19 mg/dL Creatinine 1.1 mg/dL Cr Clearance (Est) 59.1900 mL/min Glucose 66 mg/dL Calcium 9.1 mg/dL Protein, Total 7.0 g/dL Albumin 3.8 g/dL Globulin 3.2 g/dL Bilirubin, Total 0.2 mg/dL ALT (SGPT) 56 U/L AST (SGOT) 44 U/L Alkaline Phosphatase 120 IU/L WBC 13.8 10 3/uL RBC 3.35 10 6/uL HGB 10.7 g/dL HCT 34.6 % MCV 103.3 fL MCH 31.9 pg MCHC 30.9 g/dL RDW 16.9 % Platelet Count 158 10 3/cmm MPV 11.6 fL Neutrophils 9.6 10 3/uL Lymphocytes 1.3 10 3/uL Monocytes 2.2 10 3/uL Eosinophils 0.0 10 3/uL Basophils 0.1 10 3/uL Neutrophil % 69.5 % Lymphocyte % 9.2 % Monocyte % 15.8 % Eosinophil % 0.1 % Basophils % 0.4 % Test performed on Mar 01, 2020 13:15 CBC Slide Review Slide Review Perform SLIDE REVIEW AGREES WITH AUTOMATION Test performed on Feb 14, 2020 10:10 Magnesium 1.2 mg/dL Test performed on Jan 31, 2020 13:30 Ferritin 1317 ng/mL Iron 63 mcg/dL Vitamin B12 520 pg/mL Iron Binding Capacity (TIBC) 247 mcg/dl % Iron Saturation 25.5 % UIBC 184 mcg/dL Test performed on Dec 05, 2019 07:35 Manual Lymphocytes 20.1 % Manual Monocytes 19.3 % Manual Eosinophils 0.7 % Manual Basophils 0.5 % NRBCs 0.0 /100 WBC Test performed on Nov 14, 2019 09:10 TSH 1.31 uIU/mL Impression: Recurrent adenocarcinoma per left hilar lymph node biopsy Small cell lung cancer involving the right middle lobe per CT-guided lung biopsy done on 10/01/2018 CT scan of chest done on 08/31/2018 showed 4 cm left upper lobe mass and large mass with a probable postobstructive atelectasis involving the right hilum extending to right middle lobe. This mass occludes medial bronchus of right middle lobe and narrowing of the lateral bronchus COPD/emphysema with bilateral apical pleural thickening Chronic smoking Mr. Romeo underwent PET CT staging on 10/23/2018. The bulky right middle lobe mass demonstrates significant necrosis, and homogenous FDG uptake extends from the right hilum with subtotal atelectasis of the right middle lobe and an SUV of 25.2. There was loss of that plane between the mediastinum and mass superiorly, suggesting early invasion. The left upper lobe satellite mass is in a subpleural location, without involvement of the adjacent chest wall. This measures 2.0 x 3.0 cm with an SUV of 8.5. Patient has long-standing history of smoking, 50 year plus also tried pipe and then now cigars. He smokes 4-5 cigars a day. Mr. Romeo began his first cycle of carboplatin and etoposide on 11/02/2018. He is completed 3 cycles of the carboplatin and etoposide On 12/30/2018. Follow-up CT PET scan done on 01/15/2019 showed significant improvement in right middle lobe mass with postobstructive atelectasis since prior study. Mass now measures 4.6 x 2.4 cm with SUV of 5. A satellite malignant nodule in the left upper lobe is stable, measuring 2.2 x 2.8 cm with SUV of 10.9, and not a significant change since prior study. No new lesion seen. There was no evidence of malignancy outside of the chest. MRI of the head from 10/20/2018 reveals right anterior frontal lobe and left parietal lobe cortical 2-3 mm enhancing foci; primary considerations metastatic disease .Based on CT PET scan findings patient was referred to thoracic oncology at [facility] for second opinion with patient underwent CT-guided biopsy of left upper lobe lesion which confirmed second primary e.g. adenocarcinoma well differentiated Patient was evaluated by Dr. Barrington Segundo who recommended concurrent chemoradiation to right chest and followed by whole brain radiation therapy and observation versus SB RT to left upper lobe newly diagnosed non-small cell lung cancer e.g. adenocarcinoma. Follow-up CT scan of chest done on 06/20/2019 showed when compared to CT scan from 08/31/2018 CT PET scan from 01/15/2019 Previously left upper lobe mass lesion in anterior lateral subpleural location, now measure 1.8 cm x 3.2 x 2.1 cm compared to 2.3 x 3.6 x 2.8 on 01/15/2019. Previous bulky mass lesion within the right middle lobe seen on 08/31/2018 and with reduced size on 01/15/2019 is with further improvement, now measuring 1.6 cm x 6 x 2.8 cm. Medially the mass lesion and likely invades the right side of mediastinum adjacent a superior vena cava and right atrium. No other mass lesion seen normal liver and spleen No adrenal enlargement. No lytic or blastic bony distal to lesion seen. Plan: Discussed with patient regarding his labs white blood count 13.8 hemoglobin 10.7 hematocrit 34.6 platelets 158,000, CMP within normal limits except mildly elevated transaminases Clinically, patient is doing well, with no signs symptom suggestive of disease progression, tolerating systemic therapy with Alimta/carboplatin/Keytruda well. We'll proceed with next 3 weekly dose with carboplatin/Alimta/Keytruda, with the Neulasta support to prevent chemotherapy-induced neutropenia, today and then repeat CBC CMP in 2 weeks and we will evaluate him via telemedicine. Then he'll return to clinic in 3 weeks with CBC CMP looks reasonable for next cycle of chemotherapy and after that we'll consider follow-up CT PET scan to assess disease status, if complete remission then we may consider consolidation therapy with 1- 2 cycle same regimen followed by maintenance therapy with Keytruda alone, on the other hand if it shows disease progression, then will consider changing his treatment. Signed By: Colette Guerrero M.D. <<Signature on File>>
[2020-03-14] MEDS: pegfilgrastim 6 mg/0.6 mL Kit (onpro) SUBCUT (15:00)
== END 2020-03-14 10:49 | disposition home or self-care (01) ==
LOC: ONCMED 10:50
PROVIDERS: PCP Family Medicine; Visit Provider Internal Medicine Hematology & Oncology
DX: Z51.11 Encounter for antineoplastic chemotherapy (principal); Z51.12 Encounter for antineoplastic immunotherapy; C34.12 Malignant neoplasm of upper lobe, left bronchus or lung; C34.2 Malignant neoplasm of middle lobe, bronchus or lung; C77.1 Secondary and unspecified malignant neoplasm of intrathoracic lymph nodes; C79.51 Secondary malignant neoplasm of bone; C79.31 Secondary malignant neoplasm of brain; D64.81 Anemia due to antineoplastic chemotherapy; D70.1 Agranulocytosis secondary to cancer chemotherapy; J43.9 Emphysema, unspecified; F17.210 Nicotine dependence, cigarettes, uncomplicated; Z79.899 Other long term (current) drug therapy; Z92.3 Personal history of irradiation
CPT/HCPCS: 96367; 96372; 96413; 96415; 96417; 99214; J1100; J1200; J1453; J2469; J2505; J3490; J7050; J9045; J9271; J9305

== ENCOUNTER 2020-03-27 08:25 | Outpatient (CLI) | payer MEDICARE, OTHER, SELFPAY ==
[2020-03-27 10:48] LABS: Basophils % 0.2 %; Eosinophils % 0.4 %; Hematocrit 25.2 % (42.0-52.0); Lymphocytes % 17.9 %; Mean Corpuscular HGB Conc 31.7 g/dL (30.0-36.0); Mean Corpuscular Hemoglobin 32.4 pg (28.0-34.0); Monocytes # 0.9 10^3/uL (0.2-0.9); Monocytes % 16.5 %; Neutrophils # 3.5 10^3/uL (1.8-7.7); Neutrophils % 62.8 %; Nucleated Red Blood Cells % 0 %; Platelet Count 39 10^3/cmm (130-400); Red Blood Count 2.47 10^6/uL (4.1-5.3); Red Cell Distribution Width 16.7 % (12.1-15.1); White Blood Count 5.6 10^3/uL (4.0-10.0)
[2020-03-27 11:17] LABS: Alanine Aminotransferase 202 U/L (0-41); Albumin Level 4.1 g/dL (3.5-5.2); Alkaline Phosphatase 117 IU/L (40-130); Anion Gap 18.1 (5-19); Aspartate Amino Transferase 95 U/L (0-40); Blood Urea Nitrogen 27 mg/dL (8-23); Calcium 8.7 mg/dL (8.5-10.5); Carbon Dioxide 25 mmol/L (22-29); Chloride 101 mmol/L (98-107); Globulin 2.6 g/dL (1.3-4.6); Glucose 83 mg/dL (65-115); Osmolality Calculated 286 mOsm/kg (285-295); Potassium 4.1 mmol/L (3.5-5.1); Sodium 140 mmol/L (136-145); Thyroid Stimulating Hormone 3.59 uIU/mL (0.27-4.20); Total Bilirubin 0.2 mg/dL (0.15-1.2); Total Protein 6.7 g/dL (6.6-8.7)
== END 2020-03-27 08:26 | disposition home or self-care (01) ==
LOC: ONCMED 15:48
PROVIDERS: PCP Family Medicine; Visit Provider Internal Medicine Hematology & Oncology
DX: C34.12 Malignant neoplasm of upper lobe, left bronchus or lung (principal); C34.2 Malignant neoplasm of middle lobe, bronchus or lung; D64.81 Anemia due to antineoplastic chemotherapy; D70.1 Agranulocytosis secondary to cancer chemotherapy; E03.9 Hypothyroidism, unspecified
CPT/HCPCS: 80053; 84443; 85025

== ENCOUNTER 2020-04-02 12:20 | Outpatient (CLI) | payer MEDICARE, OTHER, SELFPAY ==
[2020-04-02 19:50] LABS: Basophils % 0.1 %; Eosinophils % 0.1 %; Hematocrit 26.2 % (42.0-52.0); Hemoglobin 8.2 g/dL (11.7-16.6); Lymphocytes # 0.6 10^3/uL (0.8-4.8); Lymphocytes % 3.5 %; Mean Corpuscular HGB Conc 31.3 g/dL (30.0-36.0); Mean Corpuscular Hemoglobin 32.3 pg (28.0-34.0); Mean Corpuscular Volume 103.1 fL (80-94); Mean Platelet Volume 12.4 fL (7.4-10.4); Monocytes # 0.3 10^3/uL (0.2-0.9); Monocytes % 1.8 %; Neutrophils # 16.2 10^3/uL (1.8-7.7); Neutrophils % 92.4 %; Nucleated Red Blood Cells % 0 %; Platelet Count 70 10^3/cmm (130-400); Red Blood Count 2.54 10^6/uL (4.1-5.3); White Blood Count 17.5 10^3/uL (4.0-10.0)
[2020-04-03 00:35] LABS: Alanine Aminotransferase 65 U/L (0-41); Albumin Level 4.1 g/dL (3.5-5.2); Alkaline Phosphatase 118 IU/L (40-130); Aspartate Amino Transferase 30 U/L (0-40); Blood Urea Nitrogen 18 mg/dL (8-23); Calcium 8.6 mg/dL (8.5-10.5); Carbon Dioxide 23 mmol/L (22-29); Chloride 102 mmol/L (98-107); Globulin 2.3 g/dL (1.3-4.6); Glucose 119 mg/dL (65-115); Osmolality Calculated 292 mOsm/kg (285-295); Sodium 142 mmol/L (136-145); Total Bilirubin 0.2 mg/dL (0.15-1.2); Total Protein 6.4 g/dL (6.6-8.7)
== END 2020-04-02 12:21 | disposition home or self-care (01) ==
LOC: ONCMED 16:47
PROVIDERS: PCP Family Medicine; Visit Provider Internal Medicine Hematology & Oncology
DX: C34.12 Malignant neoplasm of upper lobe, left bronchus or lung (principal); D64.81 Anemia due to antineoplastic chemotherapy; D70.1 Agranulocytosis secondary to cancer chemotherapy; T45.1X5A Adverse effect of antineoplastic and immunosuppressive drugs, initial encounter
CPT/HCPCS: 36415; 80053; 85025

== ENCOUNTER 2020-04-10 08:28 | Outpatient (CLI) | payer MEDICARE, OTHER, SELFPAY ==
[2020-04-10 10:20] LABS: Alanine Aminotransferase 24 U/L (0-41); Albumin Level 3.6 g/dL (3.5-5.2); Alkaline Phosphatase 102 IU/L (40-130); Anion Gap 19.9 (5-19); Aspartate Amino Transferase 21 U/L (0-40); Blood Urea Nitrogen 24 mg/dL (8-23); Calcium 9.6 mg/dL (8.5-10.5); Carbon Dioxide 19 mmol/L (22-29); Chloride 101 mmol/L (98-107); Globulin 3.4 g/dL (1.3-4.6); Glucose 190 mg/dL (65-115); Osmolality Calculated 282 mOsm/kg (285-295); Potassium 4.9 mmol/L (3.5-5.1); Sodium 135 mmol/L (136-145); Total Bilirubin 0.2 mg/dL (0.15-1.2)
[2020-04-10 10:22] LABS: Basophils % 0.2 %; Hematocrit 25.8 % (42.0-52.0); Hemoglobin 8.4 g/dL (11.7-16.6); Lymphocytes # 0.7 10^3/uL (0.8-4.8); Lymphocytes % 3.9 %; Mean Corpuscular HGB Conc 32.6 g/dL (30.0-36.0); Mean Corpuscular Hemoglobin 32.9 pg (28.0-34.0); Mean Corpuscular Volume 101.2 fL (80-94); Mean Platelet Volume 10.4 fL (7.4-10.4); Monocytes # 0.7 10^3/uL (0.2-0.9); Monocytes % 4.3 %; Neutrophils # 15.1 10^3/uL (1.8-7.7); Neutrophils % 87.8 %; Nucleated Red Blood Cells % 0 %; Platelet Count 274 10^3/cmm (130-400); Red Blood Count 2.55 10^6/uL (4.1-5.3); Red Cell Distribution Width 19.9 % (12.1-15.1); White Blood Count 17.2 10^3/uL (4.0-10.0)
--- NOTE | 2020-04-10 11:01 | ONC FU_ITS ---
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 Mr. Romeo reports in the last week of June 2018 he noted some blood in his yellow phlegm and tried to tough it out for about month and half. He finally saw his primary care physician and he was diagnosed with chronic bronchitis. A Chest x-ray was done-as per patient it was normal and he was given a prescription for Flovent. He felt some improvement and on 09/01/[address] scan of chest which showed right middle lobe lung mass. The mass was reported as about 6 cm in size with mediastinal and hilar lymphadenopathy and there was a contralateral nodule which is lobulated in the left upper lobe measures 4 x 2.3 cm. Mr Romeo was then referred to Dr. Ortiz, title abstractor in [place]. He underwent bronchoscopy and transbronchial biopsy on 09/10/2018 which showed no evidence of malignancy. Subsequently patient underwent CT-guided biopsy of right middle lobe on 10/01/2018 which confirmed small cell lung cancer. Mr. Romeo underwent PET CT staging on 10/23/2018. The bulky right middle lobe mass demonstrates significant necrosis, and homogenous FDG uptake extends from the right hilum with subtotal atelectasis of the right middle lobe and an SUV of 25.2. There was loss of that plane between the mediastinum and mass superiorly, suggesting early invasion. The left upper lobe satellite mass is in a subpleural location, without involvement of the adjacent chest wall. This measures 2.0 x 3.0 cm with an SUV of 8.5. Patient has long-standing history of smoking, 50 year plus also tried pipe and then now cigars. He smokes 4-5 cigars a day. There was no evidence of malignancy outside of the chest. MRI of the head from 10/20/2018 reveals right anterior frontal lobe and left parietal lobe cortical 2-3 mm enhancing foci; primary considerations metastatic disease. Mr. Romeo began his first cycle of carboplatin and etoposide on 11/02/2018. He did have a few mouth sores with cycle 1 but this was controlled with Valtrex, baking soda and salt water and as needed Magic mouthwash. He states that once he started the Valtrex for cold sores resolved within a couple of days. He's had no recurrent problems with mouth sores. CT PET scan done after 3 cycles of chemotherapy on 01/15/2019 showed significant improvement in the right middle lobe mass with postobstructive atelectasis since the prior study. The mass now measures 4.6 x 2.4 cm with SUV of 5. And the satellite malignant nodules in the left upper lobe is stable measuring 2.2 x 2.8 cm with SUV of 10.9, not a significant change since prior study on 10/23/2018. No new lesion seen. Patient was referred to [facility] where he saw thoracic oncologist Dr. Bellamy who recommended MRI scan of the brain which was done on on 02/21/2019 which showed a new diffusion weighted, 5 mm abnormality with mild enhancement in the anterior right parietal lobe cortex. Subacute small lacunar infarction versus metastatic disease. Follow-up MRI brain is recommended in 3-4 month Previously described anterior right frontal and left parietal cortical areas of enhancement are slightly smaller in size. Differential include decrease in size of metastatic due to treatment. Severe chronic white matter disease and CT-guided biopsy of left upper lobe was done on 02/24/2019 showed adenocarcinoma, well-differentiated Patient was started on combined chemoradiation on 03/09/2019 with carboplatin and etoposide and if patient achieved complete remission then consider SB RT to newly diagnosed left upper lobe lung adenocarcinoma .Follow-up CT scan of chest done on 06/20/2019 showed decreased size of previous left upper lobe neoplastic mass Further decrease in size of previous bulky right middle lobe mass. Residual mass lesion remaining is probably associated with right-sided mediastinal invasion Residual scarring or subsegmental atelectasis right middle lobe Chronic emphysema f/u CT PET scan done on 09/10/2019 showed positive response to therapy of the left upper lobe adenocarcinoma New abnormal activity in the left upper lobe groundglass nodule and left upper hilar lymph node Increased activity in the bowel at left inguinal canal with new reactive left inguinal node, patient has history of left inguinal hernia repair in April 2018 MRI head done on 08/23/2019 shows resolved enhancing metastatic lesion, no new lesion seen Was referred to [facility] in [place] for EBUS/biopsy of left upper hilar lymph node which was done on 10/07/2019 and final pathology report came back adenocarcinoma consistent with lung origin. Dr Romeo was referred to radiation oncology for evaluation. Dr Dalal's impression was that the patient had received radiation therapy to left upper lobe primary previously. With further radiation, the risk of casuing left bronchus damage and major blood vessel damage would deter radiation. Dr Guerrero then suggested chemotherapy alone. Dr Romeo was offered treatment with Carboplatin/Alimta/Keytruda. He started cycle 1 Keytruda/carboplatin/Alimta on 11/15/2019. Follow-up CT PET scan done after 3 cycles of carboplatin/Alimta/Keytruda on 01/07/2020 showed mild progression of left upper lobe mass from the prior study done on 09/10/2019. Overall progression of disease within new unifocal osseous metastatic disease in the posterior left iliac and a new FDG positive prevascular mediastinal lymph node. Decreasing FDG activity in left upper lobe groundglass nodule. No significant change in left hilar node. No significant change in presumed inflammatory activity in the left inguinal canal. Dr Romeo had a MRI scan of the head done in December 2019. 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 He was evaluated by radiation oncology and underwent SRS to the solitary brain lesion on 01/11/2020. Subsequently patient developed seizure-like activity and was admitted to hospital on 01/12/2020. He was treated with dexamethasone and Keppra and was also evaluated by neurology- Dr. García. At that time his labs showed white blood count1.3, hemoglobin 7.7 hematocrit 23.5, platelets 47,000 Dr Romoe restarted on palliative chemotherapy with carboplatin/Alimta/Keytruda on 01/22/2020 after recovery from his December hospital admission. He is here today for follow-up. He states overall he is doing well. His appetite is not as good as he would like. In the past he had been using cannabis but has laid off of it since he has been on the Keppra. We did discuss potential interactions between the cannabis and Keppra and he was given the drug information on Keppra from up-to-date file. He denies any nausea or vomiting. She has had no fever or chills. He has occasional cough which thus far has only had clear sputum. He denies any increase in shortness of breath. He denies any wheezing. He states his breathing has been good. He denies any diarrhea or constipation. He states he has had some random hip and leg pain but states that sciatica. He states that is not new and it comes and goes. Tylenol does help this. He is also had some intermittent left shoulder pain but that is gone at present as well. He denies any chest pain orthopnea. He denies mouth sores, sore throat or difficulty swallowing. ECOG is 1. Past Medical History: Cardiac dysrhythmias Centrilobular emphysema Coronary artery disease Gastroesophageal reflux disease Hypertension Past Surgical History: Bronchoscopy Hernia repair Left lung biopsy in 2019 Lung biopsy in 2019 Lung biopsy in 2018 Coronary artery bypass in 2012 Allergies: latex and Pollen. Medications: Anoro Ellipta 1 (62.5-25 mcg/inh) Aerosol Powder, Breath Activated Inhalation daily black seed oil 1 tsp Liquid daily Co Q-10 1 Capsule (of 400 mg) Oral daily Flonase 2 spray(s) (of 50 mcg/act) Suspension Nasal daily PRN Keppra 1 Tablet (of 1000 mg) Oral b.i.d. Magnesium 1 Tablet (of 100 mg) Oral daily Multivitamin Adults 1 Tablet Oral daily Omeprazole 1 Capsule (of 20 mg) Capsule Delayed Release Oral b.i.d. Probiotic Daily 1 Capsule Oral daily ZyrTEC Allergy 1 Tablet (of 10 mg) Oral daily Family History: Mr. Romeo's mother is alive: heart disease, and hypertension. Mr. Romeo's father at age 74: sarcoma. Mr. Romeo has 2 brothers: 2 alive. 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 Mr. Romeo quit smoking 5 years ago but had smoked 1.0 pack/day for 50 years. He drinks daily. He consumes 3 drinks/day. Mr. Romeo reports contact with hazardous material. Review Of Symptoms: Constitutional Denies fevers, chills, night sweats, excessive fatigue or weight loss. Allergic/Immunologic No reactions. Eyes Denies significant visual changes. No diplopia. No amaurosis. ENMT Denies changes in hearing, sore throat, mouth sores, difficulty or changes in swallowing ability, and/or sinus drainage. Endocrine No diabetes, thyroid disease or hormone replacement. Denies hot flashes or night sweats. Hematologic/Lymphatic Denies easy bruising or bleeding. The patient denies any tender or palpable lymph nodes. Respiratory Denies dyspnea on exertion, chest pain, cough or hemoptysis. Denies orthopnea. Cardiovascular Denies anginal chest pain, palpitations or orthopnea. Gastrointestinal Denies nausea, vomiting, GI bleeding, or constipation. Denies change in bowel habits and/or stool color, no heartburn or early satiety. Genitourinary (M) Denies hematuria, dysuria, increased frequency, urgency, hesitancy or incontinence. Musculoskeletal Denies joint pain, swelling or redness. No decreased range of motion. Integumentary Denies chronic rashes, inflammation, ulcerations or skin changes. Neurologic Denies headache, blurred vision, and no areas of focal weakness or numbness. Normal gait. No sensory problems. Psychiatric Denies insomnia, depression, bryant or mood swings. Vital Signs: Performed on April 10, 2020 10:11 Height - 70.00 in Weight - 144.2 lbs (LOW) BSA - 1.82 sq.m BMI - 20.69 Temperature - 98.2 F (LOW) Pulse - 88 /min Respiration - 20 /min BP - 110/71 mm(hg) O2 Sat - 96 % Pain - 0,2 - Ambulatory/capable of all self-care, unable to perform any work activities. Up and about more than 50% of waking hours. (ECOG) Physical Examination: Constitutional Alert, oriented, no acute distress. Skin pink, warm and dry. Head Normocephalic; atraumatic. Eyes Conjunctivae and sclerae are clear and without icterus. Pupils are reactive and equal. Neck Supple without masses or thyromegaly. No jugular venous distension. Hematologic/Lymphatic No petechiae or purpura. No tender or palpable lymph nodes in the cervical or supraclavicular areas. Respiratory Lungs are clear to auscultation without rhonchi or wheezing. Cardiovascular Regular rate and rhythm of heart without murmurs,clicks, gallops or rubs. Abdomen Non-tender, non-distended, no masses or ascites. No guarding or rebound tenderness. No pulsatile masses. Back/Spine Non-tender to palpation. Extremities No visible deformities, no cyanosis, clubbing or edema. Musculoskeletal No tenderness or swelling, normal range of motion without obvious weakness. Integumentary No rashes or lesions. Neurologic No sensory or motor deficits, normal cerebellar function, normal gait. Psychiatric Alert and oriented times three. Coherent speech. Verbalizes understanding of our discussions today. Laboratory:Test performed on April 10, 2020 09:35 Sodium 135 mmol/L Potassium 4.9 mmol/L Chloride 101 mmol/L CO2 19 mmol/L Anion Gap 19.9 BUN 24 mg/dL Creatinine 1.3 mg/dL Cr Clearance (Est) 50.0900 mL/min Glucose 190 mg/dL Calcium 9.6 mg/dL Protein, Total 7.0 g/dL Albumin 3.6 g/dL Globulin 3.4 g/dL Bilirubin, Total 0.2 mg/dL ALT (SGPT) 24 U/L AST (SGOT) 21 U/L Alkaline Phosphatase 102 IU/L WBC 17.2 10 3/uL RBC 2.55 10 6/uL HGB 8.4 g/dL HCT 25.8 % MCV 101.2 fL MCH 32.9 pg MCHC 32.6 g/dL RDW 19.9 % Platelet Count 274 10 3/cmm MPV 10.4 fL Neutrophils 15.1 10 3/uL Lymphocytes 0.7 10 3/uL Monocytes 0.7 10 3/uL Eosinophils 0.0 10 3/uL Basophils 0.0 10 3/uL Neutrophil % 87.8 % Lymphocyte % 3.9 % Monocyte % 4.3 % Eosinophil % 0.0 % Basophils % 0.2 % Test performed on March 27, 2020 08:25 TSH 3.59 uIU/mL Impression: Recurrent adenocarcinoma per left hilar lymph node biopsy Small cell lung cancer involving the right middle lobe per CT-guided lung biopsy done on 10/01/2018 CT scan of chest done on 08/31/2018 showed 4 cm left upper lobe mass and large mass with a probable postobstructive atelectasis involving the right hilum extending to right middle lobe. This mass occludes medial bronchus of right middle lobe and narrowing of the lateral bronchus; COPD/emphysema with bilateral apical pleural thickening Chronic smoking Mr. Romeo underwent PET CT staging on 10/23/2018. The bulky right middle lobe mass demonstrates significant necrosis, and homogenous FDG uptake extends from the right hilum with subtotal atelectasis of the right middle lobe and an SUV of 25.2. There was loss of that plane between the mediastinum and mass superiorly, suggesting early invasion. The left upper lobe satellite mass is in a subpleural location, without involvement of the adjacent chest wall. This measures 2.0 x 3.0 cm with an SUV of 8.5. Patient has long-standing history of smoking, 50 year plus also tried pipe and then now cigars. He smokes 4-5 cigars a day. Mr. Romeo began his first cycle of carboplatin and etoposide on 11/02/2018. He completed 3 cycles of the carboplatin and etoposide On 12/30/2018. Follow-up CT PET scan done on 01/15/2019 showed significant improvement in right middle lobe mass with postobstructive atelectasis since prior study. Mass now measures 4.6 x 2.4 cm with SUV of 5. A satellite malignant nodule in the left upper lobe is stable, measuring 2.2 x 2.8 cm with SUV of 10.9, and not a significant change since prior study. No new lesion seen. There was no evidence of malignancy outside of the chest. MRI of the head from 10/20/2018 revealed right anterior frontal lobe and left parietal lobe cortical 2-3 mm enhancing foci; primary considerations metastatic disease .Based on CT PET scan findings, Dr ValienteOusmane was referred to thoracic oncology at [facility] for second opinion. He underwent CT-guided biopsy of left upper lobe lesion which confirmed second primary e.g. adenocarcinoma well differentiated Patient was evaluated by Dr. Barrington Segundo who recommended concurrent chemoradiation to right chest and followed by whole brain radiation therapy and observation versus SB RT to left upper lobe newly diagnosed non-small cell lung cancer e.g. adenocarcinoma. Follow-up CT scan of chest done on 06/20/2019 showed when compared to CT scan from 08/31/2018 CT PET scan from 01/15/2019 Previously left upper lobe mass lesion in anterior lateral subpleural location, measured 1.8 cm x 3.2 x 2.1 cm compared to 2.3 x 3.6 x 2.8 on 01/15/2019. Previous bulky mass lesion within the right middle lobe seen on 08/31/2018 and with reduced size on 01/15/2019 is with further improvement, now measuring 1.6 cm x 6 x 2.8 cm. Medially the mass lesion and likely invades the right side of mediastinum adjacent a superior vena cava and right atrium. No other mass lesion seen normal liver and spleen No adrenal enlargement. No lytic or blastic bony distal to lesion seen. Mr. Romeo began his first cycle of carboplatin and etoposide on 11/02/2018. He did have a few mouth sores with cycle 1 but this was controlled with Valtrex, baking soda and salt water and as needed Magic mouthwash. He states that once he started the Valtrex for cold sores resolved within a couple of days. He's had no recurrent problems with mouth sores. CT PET scan done after 3 cycles of chemotherapy on 01/15/2019 showed significant improvement in the right middle lobe mass with postobstructive atelectasis since the prior study. The mass now measures 4.6 x 2.4 cm with SUV of 5. And the satellite malignant nodules in the left upper lobe is stable measuring 2.2 x 2.8 cm with SUV of 10.9, not a significant change since prior study on 10/23/2018. No new lesion seen. Patient was referred to [facility] where he saw thoracic oncologist Dr. Bellamy who recommended MRI scan of the brain which was done on on 02/21/2019 which showed a new diffusion weighted, 5 mm abnormality with mild enhancement in the anterior right parietal lobe cortex. Subacute small lacunar infarction versus metastatic disease. Follow-up MRI brain is recommended in 3-4 month Previously described anterior right frontal and left parietal cortical areas of enhancement are slightly smaller in size. Differential include decrease in size of metastatic due to treatment. Severe chronic white matter disease and CT-guided biopsy of left upper lobe was done on 02/24/2019 showed adenocarcinoma, well-differentiated Patient was started on combined chemoradiation on 03/09/2019 with carboplatin and etoposide and if patient achieved complete remission then consider SB RT to newly diagnosed left upper lobe lung adenocarcinoma .Follow-up CT scan of chest done on 06/20/2019 showed decreased size of previous left upper lobe neoplastic mass Further decrease in size of previous bulky right middle lobe mass. Residual mass lesion remaining is probably associated with right-sided mediastinal invasion Residual scarring or subsegmental atelectasis right middle lobe Chronic emphysema f/u CT PET scan done on 09/10/2019 showed positive response to therapy of the left upper lobe adenocarcinoma New abnormal activity in the left upper lobe groundglass nodule and left upper hilar lymph node Increased activity in the bowel at left inguinal canal with new reactive left inguinal node, patient has history of left inguinal hernia repair in April 2018 MRI head done on 08/23/2019 shows resolved enhancing metastatic lesion, no new lesion seen Was referred to [facility] in [place] for EBUS/biopsy of left upper hilar lymph node which was done on 10/07/2019 and final pathology report came back adenocarcinoma consistent with lung origin. Dr Romeo was referred to radiation oncology for evaluation. Dr Dalal's impression was that the patient had received radiation therapy to left upper lobe primary previously. With further radiation, the risk of casuing left bronchus damage and major blood vessel damage would deter radiation. Dr Guerrero then suggested chemotherapy alone. Dr Romeo was offered treatment with Carboplatin/Alimta/Keytruda. He started cycle 1 Keytruda/carboplatin/Alimta on 11/15/2019. Follow-up CT PET scan done after 3 cycles of carboplatin/Alimta/Keytruda on 01/07/2020 showed mild progression of left upper lobe mass from the prior study done on 09/10/2019. Overall progression of disease within new unifocal osseous metastatic disease in the posterior left iliac and a new FDG positive prevascular mediastinal lymph node. Decreasing FDG activity in left upper lobe groundglass nodule. No significant change in left hilar node. No significant change in presumed inflammatory activity in the left inguinal canal. Dr Romeo had a MRI scan of the head done in December 2019. 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 He was evaluated by radiation oncology and underwent SRS to the solitary brain lesion on 01/11/2020. Subsequently patient developed seizure-like activity and was admitted to hospital on 01/12/2020. He was treated with dexamethasone and Keppra and was also evaluated by neurology- Dr. García. At that time his labs showed white blood count1.3, hemoglobin 7.7 hematocrit 23.5, platelets 47,000 Dr Romeo is here today for follow-up. His blood counts have recovered. His hemoglobin is 8.4 and his platelet count is 247,000. We will plan to proceed with this last chemotherapy and reevaluate him with PET CT imaging prior to his next appointment in 3 to 4 weeks. Plan: 1. Proceed with cycle 7 carboplatin/ Alimta/ Keytruda. His carboplatin dose calculated at the lower milligram due to his creatinine of 1.3. I did not change it due to his history of thrombocytopenia. 2. Today's labs were reviewed with Dr. Romeo and a copy was given to him. WBC 17.2, hemoglobin 8.4, platelets are 274,000 ANC is 15,000. Potassium 4.9 creatinine 1.3 BUN is 24 LFTs are normal. His TSH from his visit on March 27 was 3.59. 3. We will plan to see Dr. Romeo back after he has follow-up PET/CT. We tentatively requested the PET/CT on May 05, 2020 and will see him the following week. 4. He is aware that if his hemoglobin is below 8 we can consider blood transfusions. He states right now he feels good. His hemoglobin today is 8.4. He states that he will call us if he has any symptoms of worsening anemia. He states that he would like to do blood transfusions in [place] if that is possible. 5. We will plan to check his labs weekly due to his normal cytopenia in the past as well as his current anemia. 6. We will plan to see him back with CBC CMP TSH and follow-up a week after his PET/CT on May 05, 2020. 1. Dr. Romeo was instructed to contact us in the interim should questions or problems arise. Signed By: Stephane De LeonNArvin-, MISTY Guerrero MD <<Signature on File>>
[2020-04-10] MEDS: sodium chloride 0.9% 250 ML 999 ML IV (11:10)
== END 2020-04-10 08:29 | disposition home or self-care (01) ==
LOC: ONCMED 08:32
PROVIDERS: PCP Family Medicine; Visit Provider Nurse Practitioner
DX: Z51.11 Encounter for antineoplastic chemotherapy (principal); C34.12 Malignant neoplasm of upper lobe, left bronchus or lung; C34.2 Malignant neoplasm of middle lobe, bronchus or lung; C77.1 Secondary and unspecified malignant neoplasm of intrathoracic lymph nodes; C79.51 Secondary malignant neoplasm of bone; C79.31 Secondary malignant neoplasm of brain; D64.81 Anemia due to antineoplastic chemotherapy; T45.1X5A Adverse effect of antineoplastic and immunosuppressive drugs, initial encounter; J43.9 Emphysema, unspecified; R56.9 Unspecified convulsions; F17.290 Nicotine dependence, other tobacco product, uncomplicated; Z92.3 Personal history of irradiation; Z79.899 Other long term (current) drug therapy
CPT/HCPCS: 80053; 85025; 96367; 96375; 96413; 96417; 99214; J1100; J1200; J1453; J2469; J3490; J7050; J9045; J9271; J9305

== ENCOUNTER 2020-05-08 09:25 | Outpatient (CLI) | payer MEDICARE, OTHER, SELFPAY ==
[2020-05-08 14:56] LABS: Alanine Aminotransferase 16 U/L (0-41); Albumin Level 3.8 g/dL (3.5-5.2); Alkaline Phosphatase 77 IU/L (40-130); Anion Gap 19.9 (5-19); Aspartate Amino Transferase 23 U/L (0-40); Blood Urea Nitrogen 28 mg/dL (8-23); Calcium 9.6 mg/dL (8.5-10.5); Carbon Dioxide 23 mmol/L (22-29); Chloride 104 mmol/L (98-107); Globulin 2.5 g/dL (1.3-4.6); Glucose 75 mg/dL (65-115); Osmolality Calculated 292 mOsm/kg (285-295); Potassium 3.9 mmol/L (3.5-5.1); Sodium 143 mmol/L (136-145); Total Bilirubin 0.3 mg/dL (0.15-1.2); Total Protein 6.3 g/dL (6.6-8.7)
[2020-05-08 15:36] LABS: Basophils % 0.5 %; Eosinophils % 0.3 %; Hematocrit 21.7 % (42.0-52.0); Lymphocytes # 0.5 10^3/uL (0.8-4.8); Lymphocytes % 8.2 %; Mean Corpuscular Hemoglobin 34.6 pg (28.0-34.0); Mean Corpuscular Volume 115.4 fL (80-94); Monocytes # 0.6 10^3/uL (0.2-0.9); Monocytes % 10.8 %; Neutrophils # 4.7 10^3/uL (1.8-7.7); Neutrophils % 79.2 %; Nucleated Red Blood Cells % 0 %; Platelet Count 229 10^3/cmm (130-400); Red Blood Count 1.88 10^6/uL (4.1-5.3); Red Cell Distribution Width 23.6 % (12.1-15.1); White Blood Count 5.9 10^3/uL (4.0-10.0)
[2020-05-08 15:46] LABS: Hemoglobin 6.5 g/dL (11.7-16.6)
== END 2020-05-08 09:26 | disposition home or self-care (01) ==
LOC: ONCMED 15:26
PROVIDERS: PCP Family Medicine; Visit Provider Nurse Practitioner
DX: C34.12 Malignant neoplasm of upper lobe, left bronchus or lung (principal); C34.2 Malignant neoplasm of middle lobe, bronchus or lung; Z51.81 Encounter for therapeutic drug level monitoring; Z79.899 Other long term (current) drug therapy; C79.51 Secondary malignant neoplasm of bone; C77.1 Secondary and unspecified malignant neoplasm of intrathoracic lymph nodes; J43.9 Emphysema, unspecified; Z92.3 Personal history of irradiation; Z91.81 History of falling; Z87.81 Personal history of (healed) traumatic fracture
CPT/HCPCS: 36415; 36430; 80053; 84443; 85025; 86850; 86900; 86920; 99214; J7050; P9016

== ENCOUNTER 2020-05-09 08:36 | Outpatient (CLI) | payer MEDICARE, OTHER, SELFPAY ==
[2020-05-09] VITALS (10 sets, daily range): BP systolic 107–136; BP diastolic 66–82; PULSE 87–96; RESP 18–118; TEMP 36.4–36.8; O2SAT 97–99
[2020-05-09] MEDS: acetaminophen 325 mg Tablet 650 MG PO (10:10)
[2020-05-09] MEDS: diphenhydrAMINE 25 mg Capsule PO (10:10)
--- NOTE | 2020-05-09 10:37 | ONC FU_ITS ---
Dr. 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 Mr. Romeo reports in the last week of June 2018 he noted some blood in his yellow phlegm and tried to tough it out for about month and half. He finally saw his primary care physician and he was diagnosed with chronic bronchitis. A Chest x-ray was done-as per patient it was normal and he was given a prescription for Flovent. He felt some improvement and on 09/01/[address] scan of chest which showed right middle lobe lung mass. The mass was reported as about 6 cm in size with mediastinal and hilar lymphadenopathy and there was a contralateral nodule which is lobulated in the left upper lobe measures 4 x 2.3 cm. Mr Romeo was then referred to Dr. Ortiz, individualized education plan aide in [place]. He underwent bronchoscopy and transbronchial biopsy on 09/10/2018 which showed no evidence of malignancy. Subsequently patient underwent CT-guided biopsy of right middle lobe on 10/01/2018 which confirmed small cell lung cancer. Mr. Romeo underwent PET CT staging on 10/23/2018. The bulky right middle lobe mass demonstrates significant necrosis, and homogenous FDG uptake extends from the right hilum with subtotal atelectasis of the right middle lobe and an SUV of 25.2. There was loss of that plane between the mediastinum and mass superiorly, suggesting early invasion. The left upper lobe satellite mass is in a subpleural location, without involvement of the adjacent chest wall. This measures 2.0 x 3.0 cm with an SUV of 8.5. Patient has long-standing history of smoking, 50 year plus also tried pipe and then now cigars. He smokes 4-5 cigars a day. There was no evidence of malignancy outside of the chest. MRI of the head from 10/20/2018 reveals right anterior frontal lobe and left parietal lobe cortical 2-3 mm enhancing foci; primary considerations metastatic disease. Mr. Romeo began his first cycle of carboplatin and etoposide on 11/02/2018. He did have a few mouth sores with cycle 1 but this was controlled with Valtrex, baking soda and salt water and as needed Magic mouthwash. He states that once he started the Valtrex for cold sores resolved within a couple of days. He's had no recurrent problems with mouth sores. CT PET scan done after 3 cycles of chemotherapy on 01/15/2019 showed significant improvement in the right middle lobe mass with postobstructive atelectasis since the prior study. The mass now measures 4.6 x 2.4 cm with SUV of 5. And the satellite malignant nodules in the left upper lobe is stable measuring 2.2 x 2.8 cm with SUV of 10.9, not a significant change since prior study on 10/23/2018. No new lesion seen. Patient was referred to [facility] where he saw thoracic oncologist Dr. Bellamy who recommended MRI scan of the brain which was done on on 02/21/2019 which showed a new diffusion weighted, 5 mm abnormality with mild enhancement in the anterior right parietal lobe cortex. Subacute small lacunar infarction versus metastatic disease. Follow-up MRI brain is recommended in 3-4 month Previously described anterior right frontal and left parietal cortical areas of enhancement are slightly smaller in size. Differential include decrease in size of metastatic due to treatment. Severe chronic white matter disease and CT-guided biopsy of left upper lobe was done on 02/24/2019 showed adenocarcinoma, well-differentiated Patient was started on combined chemoradiation on 03/09/2019 with carboplatin and etoposide and if patient achieved complete remission then consider SB RT to newly diagnosed left upper lobe lung adenocarcinoma .Follow-up CT scan of chest done on 06/20/2019 showed decreased size of previous left upper lobe neoplastic mass Further decrease in size of previous bulky right middle lobe mass. Residual mass lesion remaining is probably associated with right-sided mediastinal invasion Residual scarring or subsegmental atelectasis right middle lobe Chronic emphysema f/u CT PET scan done on 09/10/2019 showed positive response to therapy of the left upper lobe adenocarcinoma New abnormal activity in the left upper lobe groundglass nodule and left upper hilar lymph node Increased activity in the bowel at left inguinal canal with new reactive left inguinal node, patient has history of left inguinal hernia repair in April 2018 MRI head done on 08/23/2019 shows resolved enhancing metastatic lesion, no new lesion seen Was referred to [facility] in [place] for EBUS/biopsy of left upper hilar lymph node which was done on 10/07/2019 and final pathology report came back adenocarcinoma consistent with lung origin. Dr Romeo was referred to radiation oncology for evaluation. Dr Dalal's impression was that the patient had received radiation therapy to left upper lobe primary previously. With further radiation, the risk of casuing left bronchus damage and major blood vessel damage would deter radiation. Dr Guerrero then suggested chemotherapy alone. Dr Romeo was offered treatment with Carboplatin/Alimta/Keytruda. He started cycle 1 Keytruda/carboplatin/Alimta on 11/15/2019. Follow-up CT PET scan done after 3 cycles of carboplatin/Alimta/Keytruda on 01/07/2020 showed mild progression of left upper lobe mass from the prior study done on 09/10/2019. Overall progression of disease within new unifocal osseous metastatic disease in the posterior left iliac and a new FDG positive prevascular mediastinal lymph node. Decreasing FDG activity in left upper lobe groundglass nodule. No significant change in left hilar node. No significant change in presumed inflammatory activity in the left inguinal canal. Dr Romeo had a MRI scan of the head done in December 2019. 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 He was evaluated by radiation oncology and underwent SRS to the solitary brain lesion on 01/11/2020. Subsequently patient developed seizure-like activity and was admitted to hospital on 01/12/2020. He was treated with dexamethasone and Keppra and was also evaluated by neurology- Dr. García. At that time his labs showed white blood count1.3, hemoglobin 7.7 hematocrit 23.5, platelets 47,000 Dr Romeo restarted on palliative chemotherapy with carboplatin/Alimta/Keytruda on 01/22/2020 after recovery from his December hospital admission. c/o poor appetite . In the past he had been using cannabis but has laid off of it since he has been on the Keppra. We did discuss potential interactions between the cannabis and Keppra and he was given the drug information on Keppra from up-to-date file. Follow-up CT PET scan done on May 13, 2020 showed left upper lobe mass that previously measured 2.4 x 3.1 cm with SUV of 5.8 now measures 3.1 x 4.7 cm with SUV of 7.1. Adjacent groundglass opacity is unchanged. Mediastinal nodes are improved, superior left hilar node now has improved SUV 5.8 compared to 7.8 previously. Prevascular adenopathy is improved. Right middle lobe atelectasis seen on previous study is unchanged and remain FDG negative. Activity in left inguinal canal is minimally improved. Osseous metastatic disease in the left iliac is progressed with abnormal activity now surrounding the acetabulum and new lesion in the anterior bone Case was discussed with Dr. Reese who ordered his PET scan today, his impression was changes in the left upper lobe nodule/primary could be due to tumor flare due to immunotherapy which is seen in about 20 to 25% cases as the rest of sites shows improvement except left hip again patient has history of trauma, in that case he suggested plain x-ray or MRI scan of hip for further information. Came for follow-up, complaining of generalized weakness and fatigue, no melena or hematochezia, no jaundice, no hemoptysis or hematemesis, no hematuria but dyspnea on exertion and palpitation. And mild discomfort/pain in left hip. Which is chronic in nature. No wheezing no shortness of breath no diarrhea no skin rash otherwise tolerating Alimta/carboplatin/Keytruda well. Medications: Anoro Ellipta 1 (62.5-25 mcg/inh) Aerosol Powder, Breath Activated Inhalation daily, black seed oil 1 tsp Liquid daily, Co Q-10 1 Capsule (of 400 mg) Oral daily, Flonase 2 spray(s) (of 50 mcg/act) Suspension Nasal daily PRN, Keppra 1 Tablet (of 1000 mg) Oral b.i.d., Magnesium 1 Tablet (of 100 mg) Oral daily, Multivitamin Adults 1 Tablet Oral daily, Omeprazole 1 Capsule (of 20 mg) Capsule Delayed Release Oral b.i.d., Probiotic Daily 1 Capsule Oral daily, ZyrTEC Allergy 1 Tablet (of 10 mg) Oral daily Allergies: latex and Pollen. Review of Systems: Constitutional - Appetite is fair and weight is stable. No fever, chills, hot flashes, or night sweats. Energy level is poor, ENMT - Some sinus congestion/drainage. No mouth sores. No sore throat or difficulty swallowing, Hematologic/Lymphatic - No abnormal bruising or bleeding, Respiratory - Frequent shortness of breath, with emphysema and wheezing. Nonproductive cough. No pleuritic pain or hemoptysis, Cardiovascular - No angina pain. No palpitations, Gastrointestinal - No nausea or vomiting. No heartburn or acid reflux. No diarrhea or constipation. No blood in the stool or black stools, Genitourinary (M) - No dysuria or hematuria. No urinary frequency. No urgency or incontinence, Musculoskeletal - Chronic back pain r/t old injury, Neurologic - No headaches or dizziness reported today, Psychiatric - No anxiety or depression. No insomnia. Vital Signs: Vitals are not available for this patient. Performance Status: 2 - Ambulatory/capable of all self-care, unable to perform any work activities. Up and about more than 50% of waking hours. (ECOG) Physical Examination: ENMT - No mouth sores, no thrush, no jaundice, Respiratory - Lungs are clear, Cardiovascular - Regular rate and rhythm of heart, Abdomen - Soft, bowel sounds present, Extremities - No edema or rash. Lab/Imaging: Test performed on May 08, 2020 09:25 Sodium 143 mmol/L TSH 2.50 uIU/mL Potassium 3.9 mmol/L Chloride 104 mmol/L CO2 23 mmol/L Anion Gap 19.9 BUN 28 mg/dL Creatinine 1.7 mg/dL Cr Clearance (Est) 38.3000 mL/min Glucose 75 mg/dL Calcium 9.6 mg/dL Protein, Total 6.3 g/dL Albumin 3.8 g/dL Globulin 2.5 g/dL Bilirubin, Total 0.3 mg/dL ALT (SGPT) 16 U/L AST (SGOT) 23 U/L Alkaline Phosphatase 77 IU/L WBC 5.9 10 3/uL RBC 1.88 10 6/uL HGB 6.5 g/dL HCT 21.7 % MCV 115.4 fL MCH 34.6 pg MCHC 30.0 g/dL RDW 23.6 % Platelet Count 229 10 3/cmm MPV 11.0 fL Neutrophils 4.7 10 3/uL Lymphocytes 0.5 10 3/uL Monocytes 0.6 10 3/uL Eosinophils 0.0 10 3/uL Basophils 0.0 10 3/uL Neutrophil % 79.2 % Lymphocyte % 8.2 % Monocyte % 10.8 % Eosinophil % 0.3 % Basophils % 0.5 % NRBC % 0 % Test performed on Mar 01, 2020 13:15 CBC Slide Review Slide Review Perform SLIDE REVIEW AGREES WITH AUTOMATION Test performed on Feb 14, 2020 10:10 Magnesium 1.2 mg/dL Test performed on Jan 31, 2020 13:30 Ferritin 1317 ng/mL Iron 63 mcg/dL Vitamin B12 520 pg/mL Iron Binding Capacity (TIBC) 247 mcg/dl % Iron Saturation 25.5 % UIBC 184 mcg/dL Test performed on Dec 05, 2019 07:35 Manual Lymphocytes 20.1 % Manual Monocytes 19.3 % Manual Eosinophils 0.7 % Manual Basophils 0.5 % NRBCs 0.0 /100 WBC Impression: Recurrent adenocarcinoma per left hilar lymph node biopsy Small cell lung cancer involving the right middle lobe per CT-guided lung biopsy done on 10/01/2018 CT scan of chest done on 08/31/2018 showed 4 cm left upper lobe mass and large mass with a probable postobstructive atelectasis involving the right hilum extending to right middle lobe. This mass occludes medial bronchus of right middle lobe and narrowing of the lateral bronchus; COPD/emphysema with bilateral apical pleural thickening Chronic smoking Mr. Romeo underwent PET CT staging on 10/23/2018. The bulky right middle lobe mass demonstrates significant necrosis, and homogenous FDG uptake extends from the right hilum with subtotal atelectasis of the right middle lobe and an SUV of 25.2. There was loss of that plane between the mediastinum and mass superiorly, suggesting early invasion. The left upper lobe satellite mass is in a subpleural location, without involvement of the adjacent chest wall. This measures 2.0 x 3.0 cm with an SUV of 8.5. Patient has long-standing history of smoking, 50 year plus also tried pipe and then now cigars. He smokes 4-5 cigars a day. Mr. Romeo began his first cycle of carboplatin and etoposide on 11/02/2018. He completed 3 cycles of the carboplatin and etoposide On 12/30/2018. Follow-up CT PET scan done on 01/15/2019 showed significant improvement in right middle lobe mass with postobstructive atelectasis since prior study. Mass now measures 4.6 x 2.4 cm with SUV of 5. A satellite malignant nodule in the left upper lobe is stable, measuring 2.2 x 2.8 cm with SUV of 10.9, and not a significant change since prior study. No new lesion seen. There was no evidence of malignancy outside of the chest. MRI of the head from 10/20/2018 revealed right anterior frontal lobe and left parietal lobe cortical 2-3 mm enhancing foci; primary considerations metastatic disease .Based on CT PET scan findings, Dr Romeo was referred to thoracic oncology at [facility] for second opinion. He underwent CT-guided biopsy of left upper lobe lesion which confirmed second primary e.g. adenocarcinoma well differentiated Patient was evaluated by Dr. Barrington Segundo who recommended concurrent chemoradiation to right chest and followed by whole brain radiation therapy and observation versus SB RT to left upper lobe newly diagnosed non-small cell lung cancer e.g. adenocarcinoma. Follow-up CT scan of chest done on 06/20/2019 showed when compared to CT scan from 08/31/2018 CT PET scan from 01/15/2019 Previously left upper lobe mass lesion in anterior lateral subpleural location, measured 1.8 cm x 3.2 x 2.1 cm compared to 2.3 x 3.6 x 2.8 on 01/15/2019. Previous bulky mass lesion within the right middle lobe seen on 08/31/2018 and with reduced size on 01/15/2019 is with further improvement, now measuring 1.6 cm x 6 x 2.8 cm. Medially the mass lesion and likely invades the right side of mediastinum adjacent a superior vena cava and right atrium. No other mass lesion seen normal liver and spleen No adrenal enlargement. No lytic or blastic bony distal to lesion seen. Mr. Romeo began his first cycle of carboplatin and etoposide on 11/02/2018. He did have a few mouth sores with cycle 1 but this was controlled with Valtrex, baking soda and salt water and as needed Magic mouthwash. He states that once he started the Valtrex for cold sores resolved within a couple of days. He's had no recurrent problems with mouth sores. CT PET scan done after 3 cycles of chemotherapy on 01/15/2019 showed significant improvement in the right middle lobe mass with postobstructive atelectasis since the prior study. The mass now measures 4.6 x 2.4 cm with SUV of 5. And the satellite malignant nodules in the left upper lobe is stable measuring 2.2 x 2.8 cm with SUV of 10.9, not a significant change since prior study on 10/23/2018. No new lesion seen. Patient was referred to [facility] where he saw thoracic oncologist Dr. Bellamy who recommended MRI scan of the brain which was done on on 02/21/2019 which showed a new diffusion weighted, 5 mm abnormality with mild enhancement in the anterior right parietal lobe cortex. Subacute small lacunar infarction versus metastatic disease. Follow-up MRI brain is recommended in 3-4 month Previously described anterior right frontal and left parietal cortical areas of enhancement are slightly smaller in size. Differential include decrease in size of metastatic due to treatment. Severe chronic white matter disease and CT-guided biopsy of left upper lobe was done on 02/24/2019 showed adenocarcinoma, well-differentiated Patient was started on combined chemoradiation on 03/09/2019 with carboplatin and etoposide and if patient achieved complete remission then consider SB RT to newly diagnosed left upper lobe lung adenocarcinoma .Follow-up CT scan of chest done on 06/20/2019 showed decreased size of previous left upper lobe neoplastic mass Further decrease in size of previous bulky right middle lobe mass. Residual mass lesion remaining is probably associated with right-sided mediastinal invasion Residual scarring or subsegmental atelectasis right middle lobe Chronic emphysema f/u CT PET scan done on 09/10/2019 showed positive response to therapy of the left upper lobe adenocarcinoma New abnormal activity in the left upper lobe groundglass nodule and left upper hilar lymph node Increased activity in the bowel at left inguinal canal with new reactive left inguinal node, patient has history of left inguinal hernia repair in April 2018 MRI head done on 08/23/2019 shows resolved enhancing metastatic lesion, no new lesion seen Was referred to [facility] in [place] for EBUS/biopsy of left upper hilar lymph node which was done on 10/07/2019 and final pathology report came back adenocarcinoma consistent with lung origin. Dr Romeo was referred to radiation oncology for evaluation. Dr Dalal's impression was that the patient had received radiation therapy to left upper lobe primary previously. With further radiation, the risk of casuing left bronchus damage and major blood vessel damage would deter radiation. Dr Guerrero then suggested chemotherapy alone. Dr Romeo was offered treatment with Carboplatin/Alimta/Keytruda. He started cycle 1 Keytruda/carboplatin/Alimta on 11/15/2019. Follow-up CT PET scan done after 3 cycles of carboplatin/Alimta/Keytruda on 01/07/2020 showed mild progression of left upper lobe mass from the prior study done on 09/10/2019. Overall progression of disease within new unifocal osseous metastatic disease in the posterior left iliac and a new FDG positive prevascular mediastinal lymph node. Decreasing FDG activity in left upper lobe groundglass nodule. No significant change in left hilar node. No significant change in presumed inflammatory activity in the left inguinal canal. Dr Romeo had a MRI scan of the head done in December 2019. 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 He was evaluated by radiation oncology and underwent SRS to the solitary brain lesion on 01/11/2020. Subsequently patient developed seizure-like activity and was admitted to hospital on 01/12/2020. He was treated with dexamethasone and Keppra and was also evaluated by neurology- Dr. García. At that time his labs showed white blood count1.3, hemoglobin 7.7 hematocrit 23.5, platelets 47,000 Dr Romeo is here today for follow-up. His blood counts have recovered. His hemoglobin is 8.4 and his platelet count is 247,000. We will plan to proceed with this last chemotherapy and reevaluate him with PET CT imaging prior to his next appointment in 3 to 4 weeks. Plan: Discussed with patient regarding his labs white blood count 5.9 hemoglobin 6.5 hematocrit 21.7 platelets 229,[address] PET scan findings Clinically, patient is doing well tolerating palliative chemotherapy with carboplatin/Alimta/Keytruda well but with expected side effects. His follow-up CT PET scan shows mixed response, most of the metastatic' disease especially in the thorax shows improvement except the primary in the left upper lobe, case was discussed with Dr. Reese, his impression was left upper lobe increase in size could be due to tumor flare due to immunotherapy which is seen in about 20 to 25% cases as other sites showed continued improvement and other lesion was seen in left iliac bone, patient has history of fall and fractured right hip and Dr. Reese suggested plain x-ray of left hip or MRI scan of left hip for further information. In the meantime, will continue with same chemo regimen carboplatin/Alimta and Keytruda for 3 more cycles and then increase follow-up CT PET scan and if it shows further improvement then we may consider switching him to maintenance therapy with Keytruda alone. Severe anemia, his iron studies done recently were inconclusive, will consider blood transfusion today and he will return to clinic in the morning for next cycle of chemotherapy with carboplatin/Alimta/Keytruda followed by CBC CMP in 2 weeks. Signed By: Colette Guerrero M.D. <<Signature on File>>
[2020-05-09] MEDS: sodium chloride 0.9% 250 ML 999 ML IV (12:39)
== END 2020-05-09 08:37 | disposition home or self-care (01) ==
LOC: ONCMED 08:39
PROVIDERS: PCP Family Medicine; Visit Provider Internal Medicine Hematology & Oncology
DX: C34.12 Malignant neoplasm of upper lobe, left bronchus or lung (principal); C34.2 Malignant neoplasm of middle lobe, bronchus or lung; C79.51 Secondary malignant neoplasm of bone; C77.1 Secondary and unspecified malignant neoplasm of intrathoracic lymph nodes; J43.9 Emphysema, unspecified; Z92.3 Personal history of irradiation; Z79.899 Other long term (current) drug therapy; Z91.81 History of falling; Z87.81 Personal history of (healed) traumatic fracture
CPT/HCPCS: 36430; 86850; 86900; 86920; 99214; J7050; P9016

== ENCOUNTER 2020-05-10 09:21 | Outpatient (CLI) | payer MEDICARE, OTHER, SELFPAY ==
[2020-05-10] MEDS: sodium chloride 0.9% 250 ML 999 ML IV (10:20)
== END 2020-05-10 09:22 | disposition home or self-care (01) ==
LOC: ONCMED 09:30
PROVIDERS: PCP Family Medicine; Visit Provider Nurse Practitioner
DX: Z51.12 Encounter for antineoplastic immunotherapy (principal); Z51.11 Encounter for antineoplastic chemotherapy; C34.12 Malignant neoplasm of upper lobe, left bronchus or lung; C34.2 Malignant neoplasm of middle lobe, bronchus or lung; D64.81 Anemia due to antineoplastic chemotherapy; D70.1 Agranulocytosis secondary to cancer chemotherapy
CPT/HCPCS: 96367; 96413; 96417; J1100; J1200; J1453; J2469; J3490; J7050; J9045; J9271; J9305

== ENCOUNTER 2020-05-22 10:50 | Outpatient (CLI) | payer MEDICARE, OTHER, SELFPAY ==
[2020-05-22 12:35] LABS: Hematocrit 20.9 % (42.0-52.0); Lymphocytes # 0.5 10^3/uL (0.8-4.8); Lymphocytes % 22.8 %; Mean Corpuscular HGB Conc 31.1 g/dL (30.0-36.0); Mean Corpuscular Hemoglobin 34.6 pg (28.0-34.0); Mean Corpuscular Volume 111.2 fL (80-94); Mean Platelet Volume 12.2 fL (7.4-10.4); Monocytes # 0.3 10^3/uL (0.2-0.9); Monocytes % 14.4 %; Neutrophils # 1.2 10^3/uL (1.8-7.7); Neutrophils % 60.8 %; Nucleated Red Blood Cells % 0 %; Red Blood Count 1.88 10^6/uL (4.1-5.3); Red Cell Distribution Width 18.3 % (12.1-15.1)
[2020-05-22 13:40] LABS: Alanine Aminotransferase 88 U/L (0-41); Albumin Level 2.9 g/dL (3.5-5.2); Alkaline Phosphatase 111 IU/L (40-130); Anion Gap 15.7 (5-19); Aspartate Amino Transferase 47 U/L (0-40); Blood Urea Nitrogen 32 mg/dL (8-23); Calcium 8.9 mg/dL (8.5-10.5); Carbon Dioxide 24 mmol/L (22-29); Chloride 104 mmol/L (98-107); Globulin 3.6 g/dL (1.3-4.6); Glucose 94 mg/dL (65-115); Osmolality Calculated 287 mOsm/kg (285-295); Potassium 3.7 mmol/L (3.5-5.1); Sodium 140 mmol/L (136-145); Thyroid Stimulating Hormone 1.16 uIU/mL (0.27-4.20); Total Bilirubin 0.4 mg/dL (0.15-1.2); Total Protein 6.5 g/dL (6.6-8.7)
[2020-05-22 13:44] LABS: Hemoglobin 6.5 g/dL (11.7-16.6); Platelet Count 26 10^3/cmm (130-400); Slide Review Slide Review Perform
[2020-05-23] VITALS (9 sets, daily range): BP systolic 101–119; BP diastolic 69–84; PULSE 90–105; RESP 17–18; TEMP 32.2–37.3; O2SAT 95–97
== END 2020-05-22 10:51 | disposition home or self-care (01) ==
LOC: ONCMED 13:22
PROVIDERS: PCP Family Medicine; Visit Provider Internal Medicine Hematology & Oncology
DX: C34.2 Malignant neoplasm of middle lobe, bronchus or lung (principal); C34.12 Malignant neoplasm of upper lobe, left bronchus or lung; D64.81 Anemia due to antineoplastic chemotherapy; D70.1 Agranulocytosis secondary to cancer chemotherapy; T45.1X5A Adverse effect of antineoplastic and immunosuppressive drugs, initial encounter; E03.9 Hypothyroidism, unspecified
CPT/HCPCS: 80053; 84443; 85025; 86850; 86900; 86920; P9016

== ENCOUNTER 2020-05-23 07:48 | Outpatient (CLI) | payer MEDICARE, OTHER, SELFPAY ==
--- NOTE | 2020-05-23 13:07 | XR_ITS ---
WS: [id number] PORTABLE CHEST HISTORY: PICC PLACEMENT COMPARISON: None available. Right-sided PICC line is in place with tip in distal SVC. Prior CABG. Known LEFT upper lobe mass measures 2.6 x 4.5 cm. No pleural effusion or pneumothorax. Cardiac size: Normal. Mediastinum/Aorta: Mild atherosclerosis aorta. No osseous abnormality seen. XR/XR chest 1V portable [id number] IMPRESSION: Satisfactory placement right-sided PICC line.
[2020-05-23] MEDS: sodium chloride 0.9% 250 ML 999 ML IV (14:20)
[2020-05-23] MEDS: acetaminophen 325 mg Tablet 650 MG PO (14:35)
[2020-05-23] MEDS: diphenhydrAMINE 25 mg Capsule PO (16:39)
[2020-05-23] MEDS: FUROsemide 10 mg/mL SDV 2mL 20 MG IV (16:40)
--- NOTE | 2020-05-23 17:36 | ONC FU_ITS ---
Dr. 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 Mr. Romeo reports in the last week of June 2018 he noted some blood in his yellow phlegm and tried to tough it out for about month and half. He finally saw his primary care physician and he was diagnosed with chronic bronchitis. A Chest x-ray was done-as per patient it was normal and he was given a prescription for Flovent. He felt some improvement and on 09/01/[address] scan of chest which showed right middle lobe lung mass. The mass was reported as about 6 cm in size with mediastinal and hilar lymphadenopathy and there was a contralateral nodule which is lobulated in the left upper lobe measures 4 x 2.3 cm. Mr Romeo was then referred to Dr. Ortiz, bioinformatics specialist in [place]. He underwent bronchoscopy and transbronchial biopsy on 09/10/2018 which showed no evidence of malignancy. Subsequently patient underwent CT-guided biopsy of right middle lobe on 10/01/2018 which confirmed small cell lung cancer. Mr. Romeo underwent PET CT staging on 10/23/2018. The bulky right middle lobe mass demonstrates significant necrosis, and homogenous FDG uptake extends from the right hilum with subtotal atelectasis of the right middle lobe and an SUV of 25.2. There was loss of that plane between the mediastinum and mass superiorly, suggesting early invasion. The left upper lobe satellite mass is in a subpleural location, without involvement of the adjacent chest wall. This measures 2.0 x 3.0 cm with an SUV of 8.5. Patient has long-standing history of smoking, 50 year plus also tried pipe and then now cigars. He smokes 4-5 cigars a day. There was no evidence of malignancy outside of the chest. MRI of the head from 10/20/2018 reveals right anterior frontal lobe and left parietal lobe cortical 2-3 mm enhancing foci; primary considerations metastatic disease. Mr. Romeo began his first cycle of carboplatin and etoposide on 11/02/2018. He did have a few mouth sores with cycle 1 but this was controlled with Valtrex, baking soda and salt water and as needed Magic mouthwash. He states that once he started the Valtrex for cold sores resolved within a couple of days. He's had no recurrent problems with mouth sores. CT PET scan done after 3 cycles of chemotherapy on 01/15/2019 showed significant improvement in the right middle lobe mass with postobstructive atelectasis since the prior study. The mass now measures 4.6 x 2.4 cm with SUV of 5. And the satellite malignant nodules in the left upper lobe is stable measuring 2.2 x 2.8 cm with SUV of 10.9, not a significant change since prior study on 10/23/2018. No new lesion seen. Patient was referred to [facility] where he saw thoracic oncologist Dr. Bellamy who recommended MRI scan of the brain which was done on on 02/21/2019 which showed a new diffusion weighted, 5 mm abnormality with mild enhancement in the anterior right parietal lobe cortex. Subacute small lacunar infarction versus metastatic disease. Follow-up MRI brain is recommended in 3-4 month Previously described anterior right frontal and left parietal cortical areas of enhancement are slightly smaller in size. Differential include decrease in size of metastatic due to treatment. Severe chronic white matter disease and CT-guided biopsy of left upper lobe was done on 02/24/2019 showed adenocarcinoma, well-differentiated Patient was started on combined chemoradiation on 03/09/2019 with carboplatin and etoposide and if patient achieved complete remission then consider SB RT to newly diagnosed left upper lobe lung adenocarcinoma .Follow-up CT scan of chest done on 06/20/2019 showed decreased size of previous left upper lobe neoplastic mass Further decrease in size of previous bulky right middle lobe mass. Residual mass lesion remaining is probably associated with right-sided mediastinal invasion Residual scarring or subsegmental atelectasis right middle lobe Chronic emphysema f/u CT PET scan done on 09/10/2019 showed positive response to therapy of the left upper lobe adenocarcinoma New abnormal activity in the left upper lobe groundglass nodule and left upper hilar lymph node Increased activity in the bowel at left inguinal canal with new reactive left inguinal node, patient has history of left inguinal hernia repair in April 2018 MRI head done on 08/23/2019 shows resolved enhancing metastatic lesion, no new lesion seen Was referred to [facility] in [place] for EBUS/biopsy of left upper hilar lymph node which was done on 10/07/2019 and final pathology report came back adenocarcinoma consistent with lung origin. Dr Romeo was referred to radiation oncology for evaluation. Dr Dalal's impression was that the patient had received radiation therapy to left upper lobe primary previously. With further radiation, the risk of casuing left bronchus damage and major blood vessel damage would deter radiation. Dr Guerrero then suggested chemotherapy alone. Dr Romeo was offered treatment with Carboplatin/Alimta/Keytruda. He started cycle 1 Keytruda/carboplatin/Alimta on 11/15/2019. Follow-up CT PET scan done after 3 cycles of carboplatin/Alimta/Keytruda on 01/07/2020 showed mild progression of left upper lobe mass from the prior study done on 09/10/2019. Overall progression of disease within new unifocal osseous metastatic disease in the posterior left iliac and a new FDG positive prevascular mediastinal lymph node. Decreasing FDG activity in left upper lobe groundglass nodule. No significant change in left hilar node. No significant change in presumed inflammatory activity in the left inguinal canal. Dr Romeo had a MRI scan of the head done in December 2019. 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 He was evaluated by radiation oncology and underwent SRS to the solitary brain lesion on 01/11/2020. Subsequently patient developed seizure-like activity and was admitted to hospital on 01/12/2020. He was treated with dexamethasone and Keppra and was also evaluated by neurology- Dr. García. At that time his labs showed white blood count1.3, hemoglobin 7.7 hematocrit 23.5, platelets 47,000 Dr Romeo restarted on palliative chemotherapy with carboplatin/Alimta/Keytruda on 01/22/2020 after recovery from his December hospital admission. c/o poor appetite . In the past he had been using cannabis but has laid off of it since he has been on the Keppra. We did discuss potential interactions between the cannabis and Keppra and he was given the drug information on Keppra from up-to-date file. Follow-up CT PET scan done on May 13, 2020 showed left upper lobe mass that previously measured 2.4 x 3.1 cm with SUV of 5.8 now measures 3.1 x 4.7 cm with SUV of 7.1. Adjacent groundglass opacity is unchanged. Mediastinal nodes are improved, superior left hilar node now has improved SUV 5.8 compared to 7.8 previously. Prevascular adenopathy is improved. Right middle lobe atelectasis seen on previous study is unchanged and remain FDG negative. Activity in left inguinal canal is minimally improved. Osseous metastatic disease in the left iliac is progressed with abnormal activity now surrounding the acetabulum and new lesion in the anterior bone Case was discussed with Dr. Reese who ordered his PET scan today, his impression was changes in the left upper lobe nodule/primary could be due to tumor flare due to immunotherapy which is seen in about 20 to 25% cases as the rest of sites shows improvement except left hip again patient has history of trauma, in that case he suggested plain x-ray or MRI scan of hip for further information. Came for follow-up, complaining of generalized weakness and fatigue, dyspnea on exertion, but no fever or chills, no nausea or vomiting, no diarrhea or constipation, no melena or hematochezia or hematuria Medications: Anoro Ellipta 1 (62.5-25 mcg/inh) Aerosol Powder, Breath Activated Inhalation daily, black seed oil 1 tsp Liquid daily, Co Q-10 1 Capsule (of 400 mg) Oral daily, Flonase 2 spray(s) (of 50 mcg/act) Suspension Nasal daily PRN, Keppra 1 Tablet (of 1000 mg) Oral b.i.d., Magnesium 1 Tablet (of 100 mg) Oral daily, Multivitamin Adults 1 Tablet Oral daily, Omeprazole 1 Capsule (of 20 mg) Capsule Delayed Release Oral b.i.d., Probiotic Daily 1 Capsule Oral daily, ZyrTEC Allergy 1 Tablet (of 10 mg) Oral daily Allergies: latex and Pollen. Review of Systems: Constitutional - Appetite is fair and weight is stable. No fever, chills, hot flashes, or night sweats. Energy level is poor, ENMT - Some sinus congestion/drainage. No mouth sores. No sore throat or difficulty swallowing, Hematologic/Lymphatic - No abnormal bruising or bleeding, Respiratory - Frequent shortness of breath, with emphysema and wheezing. Nonproductive cough. No pleuritic pain or hemoptysis, Cardiovascular - No angina pain. No palpitations, Gastrointestinal - No nausea or vomiting. No heartburn or acid reflux. No diarrhea or constipation. No blood in the stool or black stools, Genitourinary (M) - No dysuria or hematuria. No urinary frequency. No urgency or incontinence, Musculoskeletal - Chronic back pain r/t old injury, Neurologic - No headaches or dizziness reported today, Psychiatric - No anxiety or depression. No insomnia. Vital Signs: Performed on May 23, 2020 15:50 Height - 70.00 in Temperature - 98.1 F (LOW) Pulse - 100 /min Respiration - 18 /min BP - 117/74 mm(hg) O2 Sat - 89 % (LOW) Pain - 0 Fatigue - 6 Performed on May 23, 2020 09:18 Height - 70.00 in Temperature - 96.9 F (LOW) Pulse - 108 /min (HIGH) Respiration - 17 /min BP - 111/73 mm(hg) O2 Sat - 96 % Pain - 0 Performance Status: 2 - Ambulatory/capable of all self-care, unable to perform any work activities. Up and about more than 50% of waking hours. (ECOG) Physical Examination: ENMT - No mouth sores, no thrush, no jaundice, Respiratory - Lungs are clear, Cardiovascular - Regular rate and rhythm of heart, Abdomen - Soft, bowel sounds present, Extremities - Trace edema bilaterally. Lab/Imaging: Test performed on May 08, 2020 09:25 Sodium 143 mmol/L TSH 2.50 uIU/mL Potassium 3.9 mmol/L Chloride 104 mmol/L CO2 23 mmol/L Anion Gap 19.9 BUN 28 mg/dL Creatinine 1.7 mg/dL Cr Clearance (Est) 38.3000 mL/min Glucose 75 mg/dL Calcium 9.6 mg/dL Protein, Total 6.3 g/dL Albumin 3.8 g/dL Globulin 2.5 g/dL Bilirubin, Total 0.3 mg/dL ALT (SGPT) 16 U/L AST (SGOT) 23 U/L Alkaline Phosphatase 77 IU/L WBC 5.9 10 3/uL RBC 1.88 10 6/uL HGB 6.5 g/dL HCT 21.7 % MCV 115.4 fL MCH 34.6 pg MCHC 30.0 g/dL RDW 23.6 % Platelet Count 229 10 3/cmm MPV 11.0 fL Neutrophils 4.7 10 3/uL Lymphocytes 0.5 10 3/uL Monocytes 0.6 10 3/uL Eosinophils 0.0 10 3/uL Basophils 0.0 10 3/uL Neutrophil % 79.2 % Lymphocyte % 8.2 % Monocyte % 10.8 % Eosinophil % 0.3 % Basophils % 0.5 % NRBC % 0 % Test performed on Mar 01, 2020 13:15 CBC Slide Review Slide Review Perform SLIDE REVIEW AGREES WITH AUTOMATION Test performed on Feb 14, 2020 10:10 Magnesium 1.2 mg/dL Test performed on Jan 31, 2020 13:30 Ferritin 1317 ng/mL Iron 63 mcg/dL Vitamin B12 520 pg/mL Iron Binding Capacity (TIBC) 247 mcg/dl % Iron Saturation 25.5 % UIBC 184 mcg/dL Test performed on Dec 05, 2019 07:35 Manual Lymphocytes 20.1 % Manual Monocytes 19.3 % Manual Eosinophils 0.7 % Manual Basophils 0.5 % NRBCs 0.0 /100 WBC Impression: Recurrent adenocarcinoma per left hilar lymph node biopsy Small cell lung cancer involving the right middle lobe per CT-guided lung biopsy done on 10/01/2018 CT scan of chest done on 08/31/2018 showed 4 cm left upper lobe mass and large mass with a probable postobstructive atelectasis involving the right hilum extending to right middle lobe. This mass occludes medial bronchus of right middle lobe and narrowing of the lateral bronchus; COPD/emphysema with bilateral apical pleural thickening Chronic smoking Mr. Romeo underwent PET CT staging on 10/23/2018. The bulky right middle lobe mass demonstrates significant necrosis, and homogenous FDG uptake extends from the right hilum with subtotal atelectasis of the right middle lobe and an SUV of 25.2. There was loss of that plane between the mediastinum and mass superiorly, suggesting early invasion. The left upper lobe satellite mass is in a subpleural location, without involvement of the adjacent chest wall. This measures 2.0 x 3.0 cm with an SUV of 8.5. Patient has long-standing history of smoking, 50 year plus also tried pipe and then now cigars. He smokes 4-5 cigars a day. Mr. Romeo began his first cycle of carboplatin and etoposide on 11/02/2018. He completed 3 cycles of the carboplatin and etoposide On 12/30/2018. Follow-up CT PET scan done on 01/15/2019 showed significant improvement in right middle lobe mass with postobstructive atelectasis since prior study. Mass now measures 4.6 x 2.4 cm with SUV of 5. A satellite malignant nodule in the left upper lobe is stable, measuring 2.2 x 2.8 cm with SUV of 10.9, and not a significant change since prior study. No new lesion seen. There was no evidence of malignancy outside of the chest. MRI of the head from 10/20/2018 revealed right anterior frontal lobe and left parietal lobe cortical 2-3 mm enhancing foci; primary considerations metastatic disease .Based on CT PET scan findings, Dr Romeo was referred to thoracic oncology at [facility] for second opinion. He underwent CT-guided biopsy of left upper lobe lesion which confirmed second primary e.g. adenocarcinoma well differentiated Patient was evaluated by Dr. Barringtno Segundo who recommended concurrent chemoradiation to right chest and followed by whole brain radiation therapy and observation versus SB RT to left upper lobe newly diagnosed non-small cell lung cancer e.g. adenocarcinoma. Follow-up CT scan of chest done on 06/20/2019 showed when compared to CT scan from 08/31/2018 CT PET scan from 01/15/2019 Previously left upper lobe mass lesion in anterior lateral subpleural location, measured 1.8 cm x 3.2 x 2.1 cm compared to 2.3 x 3.6 x 2.8 on 01/15/2019. Previous bulky mass lesion within the right middle lobe seen on 08/31/2018 and with reduced size on 01/15/2019 is with further improvement, now measuring 1.6 cm x 6 x 2.8 cm. Medially the mass lesion and likely invades the right side of mediastinum adjacent a superior vena cava and right atrium. No other mass lesion seen normal liver and spleen No adrenal enlargement. No lytic or blastic bony distal to lesion seen. Mr. Romeo began his first cycle of carboplatin and etoposide on 11/02/2018. He did have a few mouth sores with cycle 1 but this was controlled with Valtrex, baking soda and salt water and as needed Magic mouthwash. He states that once he started the Valtrex for cold sores resolved within a couple of days. He's had no recurrent problems with mouth sores. CT PET scan done after 3 cycles of chemotherapy on 01/15/2019 showed significant improvement in the right middle lobe mass with postobstructive atelectasis since the prior study. The mass now measures 4.6 x 2.4 cm with SUV of 5. And the satellite malignant nodules in the left upper lobe is stable measuring 2.2 x 2.8 cm with SUV of 10.9, not a significant change since prior study on 10/23/2018. No new lesion seen. Patient was referred to [facility] where he saw thoracic oncologist Dr. Bellamy who recommended MRI scan of the brain which was done on on 02/21/2019 which showed a new diffusion weighted, 5 mm abnormality with mild enhancement in the anterior right parietal lobe cortex. Subacute small lacunar infarction versus metastatic disease. Follow-up MRI brain is recommended in 3-4 month Previously described anterior right frontal and left parietal cortical areas of enhancement are slightly smaller in size. Differential include decrease in size of metastatic due to treatment. Severe chronic white matter disease and CT-guided biopsy of left upper lobe was done on 02/24/2019 showed adenocarcinoma, well-differentiated Patient was started on combined chemoradiation on 03/09/2019 with carboplatin and etoposide and if patient achieved complete remission then consider SB RT to newly diagnosed left upper lobe lung adenocarcinoma .Follow-up CT scan of chest done on 06/20/2019 showed decreased size of previous left upper lobe neoplastic mass Further decrease in size of previous bulky right middle lobe mass. Residual mass lesion remaining is probably associated with right-sided mediastinal invasion Residual scarring or subsegmental atelectasis right middle lobe Chronic emphysema f/u CT PET scan done on 09/10/2019 showed positive response to therapy of the left upper lobe adenocarcinoma New abnormal activity in the left upper lobe groundglass nodule and left upper hilar lymph node Increased activity in the bowel at left inguinal canal with new reactive left inguinal node, patient has history of left inguinal hernia repair in April 2018 MRI head done on 08/23/2019 shows resolved enhancing metastatic lesion, no new lesion seen Was referred to [facility] in [place] for EBUS/biopsy of left upper hilar lymph node which was done on 10/07/2019 and final pathology report came back adenocarcinoma consistent with lung origin. Dr Romeo was referred to radiation oncology for evaluation. Dr Dalal's impression was that the patient had received radiation therapy to left upper lobe primary previously. With further radiation, the risk of casuing left bronchus damage and major blood vessel damage would deter radiation. Dr Guerrero then suggested chemotherapy alone. Dr Romeo was offered treatment with Carboplatin/Alimta/Keytruda. He started cycle 1 Keytruda/carboplatin/Alimta on 11/15/2019. Follow-up CT PET scan done after 3 cycles of carboplatin/Alimta/Keytruda on 01/07/2020 showed mild progression of left upper lobe mass from the prior study done on 09/10/2019. Overall progression of disease within new unifocal osseous metastatic disease in the posterior left iliac and a new FDG positive prevascular mediastinal lymph node. Decreasing FDG activity in left upper lobe groundglass nodule. No significant change in left hilar node. No significant change in presumed inflammatory activity in the left inguinal canal. Dr Romeo had a MRI scan of the head done in December 2019. 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 He was evaluated by radiation oncology and underwent SRS to the solitary brain lesion on 01/11/2020. Subsequently patient developed seizure-like activity and was admitted to hospital on 01/12/2020. He was treated with dexamethasone and Keppra and was also evaluated by neurology- Dr. García. At that time his labs showed white blood count1.3, hemoglobin 7.7 hematocrit 23.5, platelets 47,000 Dr Romeo is here today for follow-up. His blood counts have recovered. His hemoglobin is 8.4 and his platelet count is 247,000. We will plan to proceed with this last chemotherapy and reevaluate him with PET CT imaging prior to his next appointment in 3 to 4 weeks. Plan: Discussed with patient regarding his labs white blood count 2 hemoglobin 6.5 hematocrit 20.9 platelets 26,000 ANC 1200 CMP within normal limit except ALT 88 AST 47 with normal bilirubin and alk phos Clinically, patient is doing reasonably well now with symptomatic anemia, patient was given 2 units of packed RBCs on May 09, 2024 hemoglobin 6.5 g, and he received chemotherapy on May 10, 2020 and follow-up labs done today showed progressive pancytopenia due to chemotherapy with no evidence of gross bleeding. At this point we will proceed with 2 units of packed RBCs and repeat labs in 2 weeks and anticipating thrombocytopenia/leukopenia recovery and improvement in hemoglobin with blood transfusion. If patient's performance and CBC improves in 2 weeks then we may consider next cycle of chemotherapy with Keytruda/carboplatin/Alimta otherwise we may discontinue chemotherapy and switch him to maintenance therapy with Keytruda. Signed By: Colette Guerrero M.D. <<Signature on File>>
== END 2020-05-23 07:49 | disposition home or self-care (01) ==
LOC: ONCMED 07:52
PROVIDERS: PCP Family Medicine; Visit Provider Internal Medicine Hematology & Oncology
DX: C34.12 Malignant neoplasm of upper lobe, left bronchus or lung (principal); D64.81 Anemia due to antineoplastic chemotherapy; D70.1 Agranulocytosis secondary to cancer chemotherapy; T45.1X5A Adverse effect of antineoplastic and immunosuppressive drugs, initial encounter; J43.2 Centrilobular emphysema; I25.10 Atherosclerotic heart disease of native coronary artery without angina pectoris; K21.9 Gastro-esophageal reflux disease without esophagitis; I10 Essential (primary) hypertension
CPT/HCPCS: 36569; 71045; 99214; J1940; J7050

== ENCOUNTER 2020-06-05 11:50 | Outpatient (CLI) | payer MEDICARE, OTHER, SELFPAY ==
[2020-06-05 15:59] LABS: Basophils # 0.1 10^3/uL (0.0-0.1); Basophils % 0.3 %; Eosinophils % 0.1 %; Hematocrit 32.9 % (42.0-52.0); Hemoglobin 10.2 g/dL (11.7-16.6); Lymphocytes # 1.2 10^3/uL (0.8-4.8); Lymphocytes % 7.4 %; Mean Corpuscular Hemoglobin 32.4 pg (28.0-34.0); Mean Corpuscular Volume 104.4 fL (80-94); Mean Platelet Volume 11.6 fL (7.4-10.4); Monocytes % 12.5 %; Neutrophils # 11.63 10^3/uL (1.8-7.7); Neutrophils % 72.6 %; Nucleated Red Blood Cells % 0 %; Platelet Count 146 10^3/cmm (130-400); Red Blood Count 3.15 10^6/uL (4.1-5.3); Red Cell Distribution Width 19.4 % (12.1-15.1)
[2020-06-05 16:38] LABS: Alanine Aminotransferase 57 U/L (0-41); Albumin Level 3.3 g/dL (3.5-5.2); Alkaline Phosphatase 126 IU/L (40-130); Anion Gap 18.4 (5-19); Aspartate Amino Transferase 31 U/L (0-40); Blood Urea Nitrogen 37 mg/dL (8-23); Carbon Dioxide 23 mmol/L (22-29); Chloride 101 mmol/L (98-107); Globulin 2.7 g/dL (1.3-4.6); Glucose 85 mg/dL (65-115); Osmolality Calculated 283 mOsm/kg (285-295); Potassium 4.4 mmol/L (3.5-5.1); Sodium 138 mmol/L (136-145); Thyroid Stimulating Hormone 2.36 uIU/mL (0.27-4.20); Total Bilirubin 0.3 mg/dL (0.15-1.2)
[2020-06-05 16:56] LABS: Slide Review Slide Review Perform
== END 2020-06-05 11:51 | disposition home or self-care (01) ==
LOC: ONCMED 15:30
PROVIDERS: PCP Family Medicine; Visit Provider Internal Medicine Hematology & Oncology
DX: C34.12 Malignant neoplasm of upper lobe, left bronchus or lung (principal); C34.2 Malignant neoplasm of middle lobe, bronchus or lung; D64.81 Anemia due to antineoplastic chemotherapy; D70.1 Agranulocytosis secondary to cancer chemotherapy; T45.1X5A Adverse effect of antineoplastic and immunosuppressive drugs, initial encounter
CPT/HCPCS: 36415; 80053; 84443; 85025

== ENCOUNTER 2020-06-06 08:39 | Outpatient (CLI) | payer MEDICARE, OTHER, SELFPAY ==
--- NOTE | 2020-06-06 16:32 | ONC FU_ITS ---
Dr. 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 Mr. Romeo reports in the last week of June 2018 he noted some blood in his yellow phlegm and tried to tough it out for about month and half. He finally saw his primary care physician and he was diagnosed with chronic bronchitis. A Chest x-ray was done-as per patient it was normal and he was given a prescription for Flovent. He felt some improvement and on 09/01/[address] scan of chest which showed right middle lobe lung mass. The mass was reported as about 6 cm in size with mediastinal and hilar lymphadenopathy and there was a contralateral nodule which is lobulated in the left upper lobe measures 4 x 2.3 cm. Mr Romeo was then referred to Dr. Ortiz, mountain bike guide in [place]. He underwent bronchoscopy and transbronchial biopsy on 09/10/2018 which showed no evidence of malignancy. Subsequently patient underwent CT-guided biopsy of right middle lobe on 10/01/2018 which confirmed small cell lung cancer. Mr. Romeo underwent PET CT staging on 10/23/2018. The bulky right middle lobe mass demonstrates significant necrosis, and homogenous FDG uptake extends from the right hilum with subtotal atelectasis of the right middle lobe and an SUV of 25.2. There was loss of that plane between the mediastinum and mass superiorly, suggesting early invasion. The left upper lobe satellite mass is in a subpleural location, without involvement of the adjacent chest wall. This measures 2.0 x 3.0 cm with an SUV of 8.5. Patient has long-standing history of smoking, 50 year plus also tried pipe and then now cigars. He smokes 4-5 cigars a day. There was no evidence of malignancy outside of the chest. MRI of the head from 10/20/2018 reveals right anterior frontal lobe and left parietal lobe cortical 2-3 mm enhancing foci; primary considerations metastatic disease. Mr. Romeo began his first cycle of carboplatin and etoposide on 11/02/2018. He did have a few mouth sores with cycle 1 but this was controlled with Valtrex, baking soda and salt water and as needed Magic mouthwash. He states that once he started the Valtrex for cold sores resolved within a couple of days. He's had no recurrent problems with mouth sores. CT PET scan done after 3 cycles of chemotherapy on 01/15/2019 showed significant improvement in the right middle lobe mass with postobstructive atelectasis since the prior study. The mass now measures 4.6 x 2.4 cm with SUV of 5. And the satellite malignant nodules in the left upper lobe is stable measuring 2.2 x 2.8 cm with SUV of 10.9, not a significant change since prior study on 10/23/2018. No new lesion seen. Patient was referred to [facility] where he saw thoracic oncologist Dr. Bellamy who recommended MRI scan of the brain which was done on on 02/21/2019 which showed a new diffusion weighted, 5 mm abnormality with mild enhancement in the anterior right parietal lobe cortex. Subacute small lacunar infarction versus metastatic disease. Follow-up MRI brain is recommended in 3-4 month Previously described anterior right frontal and left parietal cortical areas of enhancement are slightly smaller in size. Differential include decrease in size of metastatic due to treatment. Severe chronic white matter disease and CT-guided biopsy of left upper lobe was done on 02/24/2019 showed adenocarcinoma, well-differentiated Patient was started on combined chemoradiation on 03/09/2019 with carboplatin and etoposide and if patient achieved complete remission then consider SB RT to newly diagnosed left upper lobe lung adenocarcinoma .Follow-up CT scan of chest done on 06/20/2019 showed decreased size of previous left upper lobe neoplastic mass Further decrease in size of previous bulky right middle lobe mass. Residual mass lesion remaining is probably associated with right-sided mediastinal invasion Residual scarring or subsegmental atelectasis right middle lobe Chronic emphysema f/u CT PET scan done on 09/10/2019 showed positive response to therapy of the left upper lobe adenocarcinoma New abnormal activity in the left upper lobe groundglass nodule and left upper hilar lymph node Increased activity in the bowel at left inguinal canal with new reactive left inguinal node, patient has history of left inguinal hernia repair in April 2018 MRI head done on 08/23/2019 shows resolved enhancing metastatic lesion, no new lesion seen Was referred to [facility] in [place] for EBUS/biopsy of left upper hilar lymph node which was done on 10/07/2019 and final pathology report came back adenocarcinoma consistent with lung origin. Dr Romeo was referred to radiation oncology for evaluation. Dr Dalal's impression was that the patient had received radiation therapy to left upper lobe primary previously. With further radiation, the risk of casuing left bronchus damage and major blood vessel damage would deter radiation. Dr Guerrero then suggested chemotherapy alone. Dr Romeo was offered treatment with Carboplatin/Alimta/Keytruda. He started cycle 1 Keytruda/carboplatin/Alimta on 11/15/2019. Follow-up CT PET scan done after 3 cycles of carboplatin/Alimta/Keytruda on 01/07/2020 showed mild progression of left upper lobe mass from the prior study done on 09/10/2019. Overall progression of disease within new unifocal osseous metastatic disease in the posterior left iliac and a new FDG positive prevascular mediastinal lymph node. Decreasing FDG activity in left upper lobe groundglass nodule. No significant change in left hilar node. No significant change in presumed inflammatory activity in the left inguinal canal. Dr Romeo had a MRI scan of the head done in December 2019. 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 He was evaluated by radiation oncology and underwent SRS to the solitary brain lesion on 01/11/2020. Subsequently patient developed seizure-like activity and was admitted to hospital on 01/12/2020. He was treated with dexamethasone and Keppra and was also evaluated by neurology- Dr. García. At that time his labs showed white blood count1.3, hemoglobin 7.7 hematocrit 23.5, platelets 47,000 Dr Romoe restarted on palliative chemotherapy with carboplatin/Alimta/Keytruda on 01/22/2020 after recovery from his December hospital admission. c/o poor appetite . In the past he had been using cannabis but has laid off of it since he has been on the Keppra. We did discuss potential interactions between the cannabis and Keppra and he was given the drug information on Keppra from up-to-date file. Follow-up CT PET scan done on May 13, 2020 showed left upper lobe mass that previously measured 2.4 x 3.1 cm with SUV of 5.8 now measures 3.1 x 4.7 cm with SUV of 7.1. Adjacent groundglass opacity is unchanged. Mediastinal nodes are improved, superior left hilar node now has improved SUV 5.8 compared to 7.8 previously. Prevascular adenopathy is improved. Right middle lobe atelectasis seen on previous study is unchanged and remain FDG negative. Activity in left inguinal canal is minimally improved. Osseous metastatic disease in the left iliac is progressed with abnormal activity now surrounding the acetabulum and new lesion in the anterior bone Case was discussed with Dr. Reese who ordered his PET scan today, his impression was changes in the left upper lobe nodule/primary could be due to tumor flare due to immunotherapy which is seen in about 20 to 25% cases as the rest of sites shows improvement except left hip again patient has history of trauma, in that case he suggested plain x-ray or MRI scan of hip for further information. Came for follow-up, denies any specific complaints except generalized weakness and fatigue but overall feeling somewhat better especially after blood transfusion, no fever chills, no nausea or vomiting, no diarrhea or constipation, no hemoptysis or hematemesis, no headaches or blurred vision or double vision, no seizure-like activity. Medications: Anoro Ellipta 1 (62.5-25 mcg/inh) Aerosol Powder, Breath Activated Inhalation daily, black seed oil 1 tsp Liquid daily, Co Q-10 1 Capsule (of 400 mg) Oral daily, Flonase 2 spray(s) (of 50 mcg/act) Suspension Nasal daily PRN, Keppra 1 Tablet (of 1000 mg) Oral b.i.d., Magnesium 1 Tablet (of 100 mg) Oral daily, Multivitamin Adults 1 Tablet Oral daily, Omeprazole 1 Capsule (of 20 mg) Capsule Delayed Release Oral b.i.d., Probiotic Daily 1 Capsule Oral daily, ZyrTEC Allergy 1 Tablet (of 10 mg) Oral daily Allergies: latex and Pollen. Review of Systems: Constitutional - Appetite is fair and weight is stable. No fever, chills, hot flashes, or night sweats. Energy level is poor, ENMT - Some sinus congestion/drainage. No mouth sores. No sore throat or difficulty swallowing, Hematologic/Lymphatic - No abnormal bruising or bleeding, Respiratory - Frequent shortness of breath, with emphysema and wheezing. Nonproductive cough. No pleuritic pain or hemoptysis, Cardiovascular - No angina pain. No palpitations, Gastrointestinal - No nausea or vomiting. No heartburn or acid reflux. No diarrhea or constipation. No blood in the stool or black stools, Genitourinary (M) - No dysuria or hematuria. No urinary frequency. No urgency or incontinence, Musculoskeletal - Chronic back pain r/t old injury, Neurologic - No headaches or dizziness reported today, Psychiatric - No anxiety or depression. No insomnia. Vital Signs: Performed on Jun 06, 2020 08:52 Height - 70.00 in Weight - 142.8 lbs (LOW) BSA - 1.81 sq.m BMI - 20.49 Temperature - 98.9 F (HIGH) Pulse - 108 /min (HIGH) Respiration - 18 /min BP - 123/80 mm(hg) O2 Sat - 98 % Pain - 4 Performance Status: 2 - Ambulatory/capable of all self-care, unable to perform any work activities. Up and about more than 50% of waking hours. (ECOG) Physical Examination: ENMT - No mouth sores, no thrush, no jaundice, Respiratory - Lungs are clear , Cardiovascular - Regular rate and rhythm of heart, Abdomen - Soft, bowel sounds present, Extremities - Trace edema. Lab/Imaging: Test performed on Jun 05, 2020 11:50 Sodium 138 mmol/L TSH 2.36 uIU/mL Potassium 4.4 mmol/L Chloride 101 mmol/L CO2 23 mmol/L Anion Gap 18.4 BUN 37 mg/dL Creatinine 1.4 mg/dL Cr Clearance (Est) 46.5100 mL/min Glucose 85 mg/dL Calcium 9.0 mg/dL Protein, Total 6.0 g/dL Albumin 3.3 g/dL Globulin 2.7 g/dL Bilirubin, Total 0.3 mg/dL ALT (SGPT) 57 U/L AST (SGOT) 31 U/L Alkaline Phosphatase 126 IU/L WBC 16.0 10 3/uL RBC 3.15 10 6/uL HGB 10.2 g/dL HCT 32.9 % MCV 104.4 fL MCH 32.4 pg MCHC 31.0 g/dL RDW 19.4 % Platelet Count 146 10 3/cmm MPV 11.6 fL Neutrophils 11.63 10 3/uL Lymphocytes 1.2 10 3/uL Monocytes 2.0 10 3/uL Eosinophils 0.0 10 3/uL Basophils 0.1 10 3/uL Neutrophil % 72.6 % Lymphocyte % 7.4 % Monocyte % 12.5 % Eosinophil % 0.1 % Basophils % 0.3 % NRBC % 0 % CBC Slide Review Slide Review Perform SLIDE REVIEW AGREES WITH AUTOMATED RESULTS Test performed on Feb 14, 2020 10:10 Magnesium 1.2 mg/dL Test performed on Jan 31, 2020 13:30 Ferritin 1317 ng/mL Iron 63 mcg/dL Vitamin B12 520 pg/mL Iron Binding Capacity (TIBC) 247 mcg/dl % Iron Saturation 25.5 % UIBC 184 mcg/dL Impression: Recurrent adenocarcinoma per left hilar lymph node biopsy Small cell lung cancer involving the right middle lobe per CT-guided lung biopsy done on 10/01/2018 CT scan of chest done on 08/31/2018 showed 4 cm left upper lobe mass and large mass with a probable postobstructive atelectasis involving the right hilum extending to right middle lobe. This mass occludes medial bronchus of right middle lobe and narrowing of the lateral bronchus; COPD/emphysema with bilateral apical pleural thickening Chronic smoking Mr. Romeo underwent PET CT staging on 10/23/2018. The bulky right middle lobe mass demonstrates significant necrosis, and homogenous FDG uptake extends from the right hilum with subtotal atelectasis of the right middle lobe and an SUV of 25.2. There was loss of that plane between the mediastinum and mass superiorly, suggesting early invasion. The left upper lobe satellite mass is in a subpleural location, without involvement of the adjacent chest wall. This measures 2.0 x 3.0 cm with an SUV of 8.5. Patient has long-standing history of smoking, 50 year plus also tried pipe and then now cigars. He smokes 4-5 cigars a day. Mr. Romeo began his first cycle of carboplatin and etoposide on 11/02/2018. He completed 3 cycles of the carboplatin and etoposide On 12/30/2018. Follow-up CT PET scan done on 01/15/2019 showed significant improvement in right middle lobe mass with postobstructive atelectasis since prior study. Mass now measures 4.6 x 2.4 cm with SUV of 5. A satellite malignant nodule in the left upper lobe is stable, measuring 2.2 x 2.8 cm with SUV of 10.9, and not a significant change since prior study. No new lesion seen. There was no evidence of malignancy outside of the chest. MRI of the head from 10/20/2018 revealed right anterior frontal lobe and left parietal lobe cortical 2-3 mm enhancing foci; primary considerations metastatic disease .Based on CT PET scan findings, Dr Romeo was referred to thoracic oncology at [facility] for second opinion. He underwent CT-guided biopsy of left upper lobe lesion which confirmed second primary e.g. adenocarcinoma well differentiated Patient was evaluated by Dr. Barrington Segundo who recommended concurrent chemoradiation to right chest and followed by whole brain radiation therapy and observation versus SB RT to left upper lobe newly diagnosed non-small cell lung cancer e.g. adenocarcinoma. Follow-up CT scan of chest done on 06/20/2019 showed when compared to CT scan from 08/31/2018 CT PET scan from 01/15/2019 Previously left upper lobe mass lesion in anterior lateral subpleural location, measured 1.8 cm x 3.2 x 2.1 cm compared to 2.3 x 3.6 x 2.8 on 01/15/2019. Previous bulky mass lesion within the right middle lobe seen on 08/31/2018 and with reduced size on 01/15/2019 is with further improvement, now measuring 1.6 cm x 6 x 2.8 cm. Medially the mass lesion and likely invades the right side of mediastinum adjacent a superior vena cava and right atrium. No other mass lesion seen normal liver and spleen No adrenal enlargement. No lytic or blastic bony distal to lesion seen. Mr. Romeo began his first cycle of carboplatin and etoposide on 11/02/2018. He did have a few mouth sores with cycle 1 but this was controlled with Valtrex, baking soda and salt water and as needed Magic mouthwash. He states that once he started the Valtrex for cold sores resolved within a couple of days. He's had no recurrent problems with mouth sores. CT PET scan done after 3 cycles of chemotherapy on 01/15/2019 showed significant improvement in the right middle lobe mass with postobstructive atelectasis since the prior study. The mass now measures 4.6 x 2.4 cm with SUV of 5. And the satellite malignant nodules in the left upper lobe is stable measuring 2.2 x 2.8 cm with SUV of 10.9, not a significant change since prior study on 10/23/2018. No new lesion seen. Patient was referred to [facility] where he saw thoracic oncologist Dr. Bellamy who recommended MRI scan of the brain which was done on on 02/21/2019 which showed a new diffusion weighted, 5 mm abnormality with mild enhancement in the anterior right parietal lobe cortex. Subacute small lacunar infarction versus metastatic disease. Follow-up MRI brain is recommended in 3-4 month Previously described anterior right frontal and left parietal cortical areas of enhancement are slightly smaller in size. Differential include decrease in size of metastatic due to treatment. Severe chronic white matter disease and CT-guided biopsy of left upper lobe was done on 02/24/2019 showed adenocarcinoma, well-differentiated Patient was started on combined chemoradiation on 03/09/2019 with carboplatin and etoposide and if patient achieved complete remission then consider SB RT to newly diagnosed left upper lobe lung adenocarcinoma .Follow-up CT scan of chest done on 06/20/2019 showed decreased size of previous left upper lobe neoplastic mass Further decrease in size of previous bulky right middle lobe mass. Residual mass lesion remaining is probably associated with right-sided mediastinal invasion Residual scarring or subsegmental atelectasis right middle lobe Chronic emphysema f/u CT PET scan done on 09/10/2019 showed positive response to therapy of the left upper lobe adenocarcinoma New abnormal activity in the left upper lobe groundglass nodule and left upper hilar lymph node Increased activity in the bowel at left inguinal canal with new reactive left inguinal node, patient has history of left inguinal hernia repair in April 2018 MRI head done on 08/23/2019 shows resolved enhancing metastatic lesion, no new lesion seen Was referred to [facility] in [place] for EBUS/biopsy of left upper hilar lymph node which was done on 10/07/2019 and final pathology report came back adenocarcinoma consistent with lung origin. Dr Romeo was referred to radiation oncology for evaluation. Dr Dalal's impression was that the patient had received radiation therapy to left upper lobe primary previously. With further radiation, the risk of casuing left bronchus damage and major blood vessel damage would deter radiation. Dr Guerrero then suggested chemotherapy alone. Dr Romeo was offered treatment with Carboplatin/Alimta/Keytruda. He started cycle 1 Keytruda/carboplatin/Alimta on 11/15/2019. Follow-up CT PET scan done after 3 cycles of carboplatin/Alimta/Keytruda on 01/07/2020 showed mild progression of left upper lobe mass from the prior study done on 09/10/2019. Overall progression of disease within new unifocal osseous metastatic disease in the posterior left iliac and a new FDG positive prevascular mediastinal lymph node. Decreasing FDG activity in left upper lobe groundglass nodule. No significant change in left hilar node. No significant change in presumed inflammatory activity in the left inguinal canal. Dr Romeo had a MRI scan of the head done in December 2019. 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 He was evaluated by radiation oncology and underwent SRS to the solitary brain lesion on 01/11/2020. Subsequently patient developed seizure-like activity and was admitted to hospital on 01/12/2020. He was treated with dexamethasone and Keppra and was also evaluated by neurology- Dr. García. At that time his labs showed white blood count1.3, hemoglobin 7.7 hematocrit 23.5, platelets 47,000 Dr Romeo is here today for follow-up. His blood counts have recovered. His hemoglobin is 8.4 and his platelet count is 247,000. We will plan to proceed with this last chemotherapy and reevaluate him with PET CT imaging prior to his next appointment in 3 to 4 weeks. Plan: Discussed with patient regarding his labs white blood count 16 hemoglobin 10.2 hematocrit 32.9 platelets 146,000 CMP within normal limit except creatinine 1.4 and ALT 57 compared to 88 on May 22, 2020 and AST 31 compared to 47 earlier Clinically, patient is doing well, overall feeling better especially after blood transfusion. Tolerating chemotherapy reasonably well but with significant side effects, requiring repeated blood transfusions and progressive pancytopenia. At this point discussed with patient and have decided to discontinue chemotherapy and switch him to maintenance therapy with immunotherapy Keytruda 200 mg IV every [address] PET scan after 3 cycles to assess disease status, in the meantime hopefully his overall performance status and nutritional status will continue to improve. At this point we will proceed with maintenance therapy Keytruda now admitted return to clinic in 3 weeks with CBC CMP. Signed By: Colette Guerrero M.D. <<Signature on File>>
== END 2020-06-06 08:40 | disposition home or self-care (01) ==
LOC: ONCMED 08:44
PROVIDERS: PCP Family Medicine; Visit Provider Internal Medicine Hematology & Oncology
DX: Z51.12 Encounter for antineoplastic immunotherapy (principal); C34.2 Malignant neoplasm of middle lobe, bronchus or lung; C34.12 Malignant neoplasm of upper lobe, left bronchus or lung; C79.51 Secondary malignant neoplasm of bone; C77.1 Secondary and unspecified malignant neoplasm of intrathoracic lymph nodes; D61.810 Antineoplastic chemotherapy induced pancytopenia; T45.1X5A Adverse effect of antineoplastic and immunosuppressive drugs, initial encounter; J43.9 Emphysema, unspecified; F17.290 Nicotine dependence, other tobacco product, uncomplicated; Z79.899 Other long term (current) drug therapy
CPT/HCPCS: 96413; 99214; J7050; J9271

== ENCOUNTER 2020-06-11 05:50 | Day surgery (SDC) | payer MEDICARE, OTHER, SELFPAY ==
[2020-06-08 11:21] VITALS: BMI 20.3
--- NOTE | 2020-06-11 05:54 | SC_ITS ---
WS: [id number] INTRAOPERATIVE TECHNIQUE: 2 Spot fluoroscopic images for intraoperative purposes. FLUOROSCOPY TIME: 9.3 seconds CLINICAL INFORMATION: Port-A-Cath placement COMPARISON: None. FINDINGS: Right Port-A-Cath with tip in the distal SVC. No pneumothorax. SC/C-arm FL for CVA 20427 IMPRESSION: Images obtained for intraoperative purposes.
[2020-06-11 06:07] VITALS: BP 131/90; PULSE 107; RESP 16; TEMP 36.5; O2SAT 97
--- NOTE | 2020-06-11 06:10 | W.PM.OPSUD ---
Surgery/Procedure H&P Update DATE OF PROCEDURE: June 11, 2020 DATE H&P PERFORMED: 05/31/20 H&P UPDATE INFORMATION: I have reviewed H&P completed within last 30 days, I have examined patient prior to procedure and No changes to prior documentation (Will plan to dc RUE PICC line.) PREOP DIAGNOSIS: Lung cancer requiring long-term IV access PRIMARY INDICATION FOR PROCEDURE: The same PLANNED PROCEDURE: Operation Date: 06/11/20 07:00 Proposed Procedures p Portacath Placement 14843 C34.90 C79.31(Not Applicable) - Kishore Reveles MD
--- NOTE | 2020-06-11 06:42 | ANES.PREANE2 ---
Pre-Anesthetic Assessment Pre-Anesthetic Assessment: Height/Weight: Height 1.78 m Weight 64.41 kg Temp Pulse Resp BP Pulse Ox 97.7 F 107 H 16 131/90 97 06/11/20 06:07 06/11/20 06:07 06/11/20 06:07 06/11/20 06:07 06/11/20 06:07 Preop Diagnosis: Lung cancer requiring long-term IV access Proposed Procedure: Operation Date: 06/11/20 07:00 Proposed Procedures p Portacath Placement 60916 C34.90 C79.31(Not Applicable) - Kishore Reveles MD Last intake: Intake Last Liquid Date 06/10/20 Last Liquid Time 20:30 Last Solid Date 06/10/20 Last Solid Time 18:00 Social: Social History: Tobacco (quit 2012) and No alcohol Exam: Pre-Anes Outpt Exam: alert, oriented x 3, clear to auscultation bilaterally and regular rate & rhythm Airway: Submandibular: WNL Cervical ROM: WNL MP: 1 Dentition: Other (teeth good) History/ROS: No significant history except as noted Pulmonary: Pulmonary: COPD and RICE CV/HEM: CV/HEM: CAD and HTN : : None reported Hepatic: Hepatic: None reported GI: GI: GERD (controlled) Metabolic: Metabolic: Hyperlipidemia Musc/skel: Musc/skel: OA/DJD Neuropsych: Neuropsych: None reported Anesthetic Plan: ASA status: 3 Anesthesia: Anesthesia Evaluation and MAC Risk of > 500 ml blood loss (7ml/kg in children): No PFSH Anesthesia PFSH: Medical History CAD (coronary artery disease) COPD (chronic obstructive pulmonary disease) GERD (gastroesophageal reflux disease) History of cardiac arrhythmia Hypertension 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 Guerrero, on third cycle of carboplatin, Alimta, Keytruda and has received 1 dose of radiation therapy to the brain as of 01/12/20 Surgical History History of bilateral inguinal hernia repair (~2017) History of cataract surgery (~2013) History of coronary artery bypass graft (~2012) Vocal cord nodule Required surgery x2 in 2011 and 2014, benign Family History Other CAD (coronary artery disease) Cancer Hypertension Denies family history of Diabetes Stroke Social History Smoking and tobacco status: former smoker Quit status (tobacco): has quit using tobacco Year quit tobacco: 2012 quit cigars Alcohol intake: current Alcohol intake frequency: holidays/special occasions only 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
[2020-06-11] MEDS: sodium chloride 0.9% 1,000 ML 30 ML IV (06:44)
[2020-06-11] MEDS: heparin, porcine 1,000 unit/mL INJ 10 mL 10000 UNIT HE (07:30)
[2020-06-11] MEDS: lidocaine 2% INJ 20 mL INJECTION (07:51)
[2020-06-11] MEDS: heparin,porcine 1,000 unit/mL INJ 1 mL 2000 UNIT INJECTION (07:58)
--- NOTE | 2020-06-11 08:14 | P.OP_ITS ---
Operative Report Date of procedure: June 11, 2020 Pre-op Diagnosis: Lung cancer requiring long-term IV access Post-op diagnosis: same Procedure Done: Right subclavian vein PowerPort placement under fluoroscopic guidance through the whole entire procedure by me Implants: Right subclavian vein PowerPort Surgeon: Kishore Reveles Fishing Boat Captain: electro mechanical solar technician Amanda Circulating nurse Shari Anesthesia: MAC (Gentry Jamie) Estimated blood loss (mL): 10 Condition: stable Disposition: same day Brief History: This is a pleasant 75 years old gentleman with history of lung cancer was referred to my practice for placement of Port-A-Cath. plan of care; After thorough history physical examination and reviewing the chart, I counseled the patient for Port-A-Cath placement, indications, risks including pneumothorax and injury of major vascular structures, benefits,indications and alternatives were all discussed with the patient, patient understands and is interested to proceed. Rationale was carefully and clearly discussed with the patient.Appropriate informed consent have been reviewed and signed. Procedure: Patient was identified in the holding area and taken to the operative room and placed in supine position IV propofol was given by the anesthesia provider ,both arms were tucked,Time-out was done verifying the patient's name/ date of /planned procedure and destination after the procedure, all were in agreement. SCDs confirmed to be functioning, preoperative antibiotics administered per protocol, and beta neptali protocol was confirmed, appropriate positioning of the patient was done by me. Medications were reviewed to assess for anticoagulant usage. Risks and benefits and prevention of central line associated blood stream infection (CLABSI) were discussed with the patient/CPOA, and a consent was obtained. Monitors were in place and monitored throughout the procedure. All necessary supplies were available prior to start. Hand hygiene was completed prior to starting. Maximum barrier technique was utilized including a sterile gown, sterile gloves with a hat and mask. Site was was prepped with [chlorhexidine] and a full body drape was placed. 5 mL of 2% lidocaine was injected into the skin with a 25 gauge needle. Prep& drape was done under the usual sterile technique, lidocaine 2% was injected at the site of the stick, started by right subclavian stick that retrieved venous blood was obtained from the first stick, a guidewire was then threaded and under the guidance of fluoroscopy position was confirmed to be in the IVC and my interpretation, there was no PVC changes, at that point the guidewire was secured to the drapes with a hemostat and the needle was taken out, attention was then deviated towards creation of a pocket for the port were lidocaine 2% was injected using an 15 blade knife skin incision was created dissection using the Bovie to create a pocket for the Port-A-Cath to be a ccommodated, hemostasis was secured, after the port being appropriately flushed it was inserted into the pocket and a tunneler was used to accommodate the catheter of the port cath to be delivered through the incision first created at the site of the stick, at that point under fluoroscopy an estimated length was measured for the catheter and was cut at the designed level, followed by that a dilator with the sheath introduced onto the guidewire the dilator and the wire were retrieved and the catheter of the port was introduced via the sheath where it was peeled off and the catheter maintained to be in the SVC that was confirmed with fluoroscopy, and the fluoroscopy interpretation was done by me throughout the entire procedure. The port was secured to the fascia with using 2-0 silk sutures after adjsuting in its pocket, 3-0 Vicryl deep subdermal interrupted sutures, skin was then closed by 4-0 Monocryl as subcuticular closure. The stick site was closed by 4-0 Monocryl and Dermabond was used followed by dressing. Multiple flushes were obtained by diluted and strong heparin and appropriately venous blood was retrieved and flashback with ease. Patient tolerated the procedure well was taken to the recovery area. Count was correct at the end of the procedure I was present for the whole entire procedure. Position of the catheter was checked with a postoperative chest x-ray and it was in good position without evidence of pneumothorax
--- NOTE | 2020-06-11 08:16 | XRR_ITS ---
PROCEDURE INFORMATION: Exam: XR Chest, 1 View Exam date and time: 06/11/2020 8:35 AM Age: 75 years old Clinical indication: Device placement; Prior surgery; Surgery date: Post-operative (0-2 days); Surgery type: Status post right powerport subclavian vein placement TECHNIQUE: Imaging protocol: XR of the chest Views: Frontal portable upright view of the chest. COMPARISON: 1. CR XR chest 1V portable [id number] 05/23/2020 12:[address] chest w con* [id number] 06/20/2019 11:02:25 AM FINDINGS: Tubes, catheters and devices: The right subclavian venous portacatheter tip is in the lower SVC. Lungs: Stable left upper lobe noncalcified pulmonary mass. Mild bilateral medial basilar subsegmental atelectasis. Left mid lung zone calcified pulmonary parenchymal granuloma. Right middle lobe medial segment pulmonary parenchymal scarring, stable. Pleural space: No pleural effusion. No pneumothorax. Heart/Mediastinum: Coronary ostial markers are present. Vasculature: Mild aortic arch atherosclerotic calcification without ectasia. Mild tortuosity of the descending thoracic aorta. Bones/joints: The patient is status post median sternotomy with intact sternal cerclage wires. XR/XR chest 1V portable [id number] IMPRESSION: 1. Stable left upper lobe noncalcified pulmonary mass. 2. Mild bilateral medial basilar subsegmental atelectasis. 3. Central venous catheter placement as above. No evidence of complication.
[2020-06-11 08:23] VITALS: BP 148/99; PULSE 80; RESP 18; TEMP 35.5; O2SAT 96
[2020-06-11 08:38] VITALS: BP 128/92; PULSE 85; RESP 18; TEMP 36.6; O2SAT 95
== END 2020-06-11 09:15 | disposition home or self-care (01) ==
PROVIDERS: PCP Family Medicine; Visit Provider Surgery
PROC: (CPT 36561; principal; 2020-06-11 07:00)
DX: C34.90 Malignant neoplasm of unspecified part of unspecified bronchus or lung (principal); C79.31 Secondary malignant neoplasm of brain; J44.9 Chronic obstructive pulmonary disease, unspecified; I25.10 Atherosclerotic heart disease of native coronary artery without angina pectoris; I10 Essential (primary) hypertension; K21.9 Gastro-esophageal reflux disease without esophagitis; E78.5 Hyperlipidemia, unspecified; M19.90 Unspecified osteoarthritis, unspecified site; Z87.891 Personal history of nicotine dependence; Z82.49 Family history of ischemic heart disease and other diseases of the circulatory system
CPT/HCPCS: 36561; 12345; 71045; 76000; 77001; C1788; J0690; J1644; J2250; J2704; J3010; J7030

== ENCOUNTER 2020-06-27 09:34 | Outpatient (CLI) | payer MEDICARE, OTHER, SELFPAY ==
[2020-06-27 10:33] LABS: Basophils % 0.3 %; Eosinophils # 0.2 10^3/uL (0.0-0.8); Hemoglobin 8.1 g/dL (11.7-16.6); Lymphocytes # 0.7 10^3/uL (0.8-4.8); Mean Corpuscular HGB Conc 32.4 g/dL (30.0-36.0); Mean Corpuscular Hemoglobin 33.9 pg (28.0-34.0); Mean Corpuscular Volume 104.6 fL (80-94); Mean Platelet Volume 11.1 fL (7.4-10.4); Monocytes # 0.7 10^3/uL (0.2-0.9); Monocytes % 7.3 %; Neutrophils # 7.39 10^3/uL (1.8-7.7); Neutrophils % 78.2 %; Nucleated Red Blood Cells % 0 %; Platelet Count 122 10^3/cmm (130-400); Red Blood Count 2.39 10^6/uL (4.1-5.3); Red Cell Distribution Width 20.9 % (12.1-15.1); White Blood Count 9.5 10^3/uL (4.0-10.0)
[2020-06-27 10:50] LABS: Alanine Aminotransferase 21 U/L (0-41); Alkaline Phosphatase 136 IU/L (40-130); Anion Gap 17.4 (5-19); Aspartate Amino Transferase 39 U/L (0-40); Blood Urea Nitrogen 37 mg/dL (8-23); Calcium 8.6 mg/dL (8.5-10.5); Carbon Dioxide 22 mmol/L (22-29); Chloride 100 mmol/L (98-107); Glucose 161 mg/dL (65-115); Osmolality Calculated 283 mOsm/kg (285-295); Potassium 3.4 mmol/L (3.5-5.1); Sodium 136 mmol/L (136-145); Total Bilirubin 0.2 mg/dL (0.15-1.2)
[2020-06-27 11:11] LABS: Slide Review Slide Review Perform
--- NOTE | 2020-06-28 13:36 | ONC FU_ITS ---
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 Mr. Romeo reports in the last week of June 2018 he noted some blood in his yellow phlegm and tried to tough it out for about month and half. He finally saw his primary care physician and he was diagnosed with chronic bronchitis. A Chest x-ray was done-as per patient it was normal and he was given a prescription for Flovent. He felt some improvement and on 09/01/[address] scan of chest which showed right middle lobe lung mass. The mass was reported as about 6 cm in size with mediastinal and hilar lymphadenopathy and there was a contralateral nodule which is lobulated in the left upper lobe measures 4 x 2.3 cm. Mr Romeo was then referred to Dr. Ortiz, drier take off tender in [place]. He underwent bronchoscopy and transbronchial biopsy on 09/10/2018 which showed no evidence of malignancy. Subsequently patient underwent CT-guided biopsy of right middle lobe on 10/01/2018 which confirmed small cell lung cancer. Mr. Romeo underwent PET CT staging on 10/23/2018. The bulky right middle lobe mass demonstrates significant necrosis, and homogenous FDG uptake extends from the right hilum with subtotal atelectasis of the right middle lobe and an SUV of 25.2. There was loss of that plane between the mediastinum and mass superiorly, suggesting early invasion. The left upper lobe satellite mass is in a subpleural location, without involvement of the adjacent chest wall. This measures 2.0 x 3.0 cm with an SUV of 8.5. Patient has long-standing history of smoking, 50 year plus also tried pipe and then now cigars. He smokes 4-5 cigars a day. There was no evidence of malignancy outside of the chest. MRI of the head from 10/20/2018 reveals right anterior frontal lobe and left parietal lobe cortical 2-3 mm enhancing foci; primary considerations metastatic disease. Mr. Romeo began his first cycle of carboplatin and etoposide on 11/02/2018. He did have a few mouth sores with cycle 1 but this was controlled with Valtrex, baking soda and salt water and as needed Magic mouthwash. He states that once he started the Valtrex for cold sores resolved within a couple of days. He's had no recurrent problems with mouth sores. CT PET scan done after 3 cycles of chemotherapy on 01/15/2019 showed significant improvement in the right middle lobe mass with postobstructive atelectasis since the prior study. The mass now measures 4.6 x 2.4 cm with SUV of 5. And the satellite malignant nodules in the left upper lobe is stable measuring 2.2 x 2.8 cm with SUV of 10.9, not a significant change since prior study on 10/23/2018. No new lesion seen. Patient was referred to [facility] where he saw thoracic oncologist Dr. Bellamy who recommended MRI scan of the brain which was done on on 02/21/2019 which showed a new diffusion weighted, 5 mm abnormality with mild enhancement in the anterior right parietal lobe cortex. Subacute small lacunar infarction versus metastatic disease. Follow-up MRI brain is recommended in 3-4 month Previously described anterior right frontal and left parietal cortical areas of enhancement are slightly smaller in size. Differential include decrease in size of metastatic due to treatment. Severe chronic white matter disease and CT-guided biopsy of left upper lobe was done on 02/24/2019 showed adenocarcinoma, well-differentiated Patient was started on combined chemoradiation on 03/09/2019 with carboplatin and etoposide and if patient achieved complete remission then consider SB RT to newly diagnosed left upper lobe lung adenocarcinoma .Follow-up CT scan of chest done on 06/20/2019 showed decreased size of previous left upper lobe neoplastic mass Further decrease in size of previous bulky right middle lobe mass. Residual mass lesion remaining is probably associated with right-sided mediastinal invasion Residual scarring or subsegmental atelectasis right middle lobe Chronic emphysema f/u CT PET scan done on 09/10/2019 showed positive response to therapy of the left upper lobe adenocarcinoma New abnormal activity in the left upper lobe groundglass nodule and left upper hilar lymph node Increased activity in the bowel at left inguinal canal with new reactive left inguinal node, patient has history of left inguinal hernia repair in April 2018 MRI head done on 08/23/2019 shows resolved enhancing metastatic lesion, no new lesion seen Was referred to [facility] in [place] for EBUS/biopsy of left upper hilar lymph node which was done on 10/07/2019 and final pathology report came back adenocarcinoma consistent with lung origin. Dr Romeo was referred to radiation oncology for evaluation. Dr Dalal's impression was that the patient had received radiation therapy to left upper lobe primary previously. With further radiation, the risk of casuing left bronchus damage and major blood vessel damage would deter radiation. Dr Guerrero then suggested chemotherapy alone. Dr Romeo was offered treatment with Carboplatin/Alimta/Keytruda. He started cycle 1 Keytruda/carboplatin/Alimta on 11/15/2019. Follow-up CT PET scan done after 3 cycles of carboplatin/Alimta/Keytruda on 01/07/2020 showed mild progression of left upper lobe mass from the prior study done on 09/10/2019. Overall progression of disease within new unifocal osseous metastatic disease in the posterior left iliac and a new FDG positive prevascular mediastinal lymph node. Decreasing FDG activity in left upper lobe groundglass nodule. No significant change in left hilar node. No significant change in presumed inflammatory activity in the left inguinal canal. Dr Romeo had a MRI scan of the head done in December 2019. 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 He was evaluated by radiation oncology and underwent SRS to the solitary brain lesion on 01/11/2020. Subsequently patient developed seizure-like activity and was admitted to hospital on 01/12/2020. He was treated with dexamethasone and Keppra and was also evaluated by neurology- Dr. Raquel. At that time his labs showed white blood count1.3, hemoglobin 7.7 hematocrit 23.5, platelets 47,000 Dr Romeo restarted on palliative chemotherapy with carboplatin/Alimta/Keytruda on 01/22/2020 after recovery from his December hospital admission. c/o poor appetite . In the past he had been using cannabis but has laid off of it since he has been on the Keppra. We did discuss potential interactions between the cannabis and Keppra and he was given the drug information on Keppra from up-to-date file. Follow-up CT PET scan done on May 13, 2020 showed left upper lobe mass that previously measured 2.4 x 3.1 cm with SUV of 5.8 now measures 3.1 x 4.7 cm with SUV of 7.1. Adjacent groundglass opacity is unchanged. Mediastinal nodes are improved, superior left hilar node now has improved SUV 5.8 compared to 7.8 previously. Prevascular adenopathy is improved. Right middle lobe atelectasis seen on previous study is unchanged and remain FDG negative. Activity in left inguinal canal is minimally improved. Osseous metastatic disease in the left iliac is progressed with abnormal activity now surrounding the acetabulum and new lesion in the anterior bone Dr Guerrero discussed with Dr. Reese ([facility] Radiology-reading radiologist of 05/05/2020 PET/CT. Per Dr Guerrero, Dr Reese's impression was changes in the left upper lobe nodule/primary could be due to tumor flare due to immunotherapy which is seen in about 20 to 25% cases. The rest of sites shows improvement except left hip which suggested worsening osseous disesase-again patient has history of trauma, in that case he suggested plain x-ray or MRI scan of hip for further information. Dr Romeo (patient) reports that he had a plain film at [facility] which looked really good-nothing abnormal . Dr Romeo is here today for followup. He is due for Keytruda today. He asked to be seen and the chemotherapy suite due to hip pain/leg pain. He states it bothers him to walk on it. When it is same in the chemo suite he states that his hip and leg pain is actually better. He is able to move his leg around the low bit better especially in the hip joint. He states he did do an x-ray at [facility] to bone was just this visit to be . He does state he has been taking 2 Percocet at a time for the hip/leg pain with no relief. He states it does ease it some but is not relieving the pain. He is asking for something a little stronger if possible. He still has trouble bearing weight on that side. But then reassures me that it is getting better. He is hard to assess. Is noted that his hemoglobin is 8.1. Initially he stated that he was short of breath and tired but did not think you want to pursue blood just yet but once he got home he did call back requesting transfusion services. He states that he is just more short of breath and draggy and is causing chest heaviness and increased shortness of breath just to walk across the room. He denies any lower extremity edema. He denies any other pain. He denies cough, painful inspiration or hemoptysis. He denies any diarrhea or abdominal pain. His ECOG is 2. Past Medical History: Cardiac dysrhythmias Centrilobular emphysema Coronary artery disease Gastroesophageal reflux disease Hypertension Past Surgical History: Bronchoscopy Hernia repair Right subclavian PowerPort-Dr Reveles in 2019 Left lung biopsy in 2018 Lung biopsy in 2018 Lung biopsy in 2017 Coronary artery bypass in 2012 Allergies: latex and Pollen. Medications: Anoro Ellipta 1 (62.5-25 mcg/inh) Aerosol Powder, Breath Activated Inhalation daily black seed oil 1 tsp Liquid daily Co Q-10 1 Capsule (of 400 mg) Oral daily Flonase 2 spray(s) (of 50 mcg/act) Suspension Nasal daily PRN Keppra 1 Tablet (of 1000 mg) Oral b.i.d. Magnesium 1 Tablet (of 100 mg) Oral daily Multivitamin Adults 1 Tablet Oral daily Omeprazole 1 Capsule (of 20 mg) Capsule Delayed Release Oral b.i.d. Probiotic Daily 1 Capsule Oral daily ZyrTEC Allergy 1 Tablet (of 10 mg) Oral daily Family History: Mr. Romeo's mother is alive: heart disease, and hypertension. Mr. Romeo's father at age 74: sarcoma. Mr. Romeo has 2 brothers: 2 alive. 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 Mr. Romeo quit smoking 6 years ago but had smoked 1.0 pack/day for 50 years. He drinks daily. He consumes 3 drinks/day. Mr. Romeo reports contact with hazardous material. Review Of Symptoms: Constitutional Denies fevers, chills, night sweats, excessive fatigue or weight loss. Has fatigue and shortness of breath. States he is sleepy alot. All worse over the last few days. Allergic/Immunologic No reactions. Eyes Denies significant visual changes. No diplopia. No amaurosis. ENMT Denies changes in hearing, sore throat, mouth sores, difficulty or changes in swallowing ability, and/or sinus drainage. Respiratory He is having dyspnea on minimal exertion but denies chest pain, cough or hemoptysis. Denies orthopnea. Cardiovascular Denies anginal chest pain, palpitations or orthopnea. Gastrointestinal Denies nausea, vomiting, GI bleeding, or constipation. Denies change in bowel habits and/or stool color, no heartburn or early satiety. Genitourinary (M) Denies hematuria, dysuria, increased frequency, urgency, hesitancy or incontinence. Musculoskeletal Denies joint swelling or redness. No decreased range of motion. He states he is having sciatica down the left hip and leg. He states it runs right along that nerve root. He states that he did have an x-ray at [facility] and he looked at it and it all looked really good . He states the bone was just to smooth as it could be. He also had a radiologist look at and they did not see any abnormalities. He states the pain is getting better but is still significant at times. He states he has been taking up to 2 Percocet at a time and that is not touching his pain. He states he is able to maneuver his hip much better today. He actually was able to pull it up to his chest and sit Lithuanian style and states that that is little uncomfortable but not like it has been over the last several days. Integumentary Denies chronic rashes, inflammation, ulcerations or skin changes. Neurologic Denies headache, blurred vision, and no areas of focal weakness or new numbness. Psychiatric Denies insomnia, depression, bryant or mood swings. Vital Signs: Performed on Jun 27, 2020 11:10 Height - 70.00 in Temperature - 97.6 F (LOW) Pulse - 115 /min (HIGH) Respiration - 16 /min BP - 91/60 mm(hg) O2 Sat - 95 % (LOW) Pain - 0,2 - Ambulatory/capable of all self-care, unable to perform any work activities. Up and about more than 50% of waking hours. (ECOG) Physical Examination: Constitutional Alert, oriented, no acute distress. Skin pink, warm and dry. Head Normocephalic; atraumatic. Eyes Conjunctivae and sclerae are clear and without icterus. Pupils are reactive and equal. Neck Supple without masses or thyromegaly. No jugular venous distension. Hematologic/Lymphatic No petechiae or purpura. No tender or palpable lymph nodes in the cervical or supraclavicular areas. Respiratory Lungs are clear to auscultation without rhonchi or wheezing. Abdomen Non-tender, non-distended, no masses or ascites. Back/Spine Non-tender to palpation. Extremities No visible deformities, no cyanosis, clubbing or edema. Musculoskeletal No tenderness or swelling, normal range of motion without obvious weakness with exam while in treatment recliner-Gait not assessed today. Integumentary No rashes or lesions. Neurologic No sensory or motor deficits, normal cerebellar function. Psychiatric Alert and oriented times three. Coherent speech. Verbalizes understanding of our discussions today. Laboratory:Test performed on Jun 27, 2020 09:59 Sodium 136 mmol/L Potassium 3.4 mmol/L Chloride 100 mmol/L CO2 22 mmol/L Anion Gap 17.4 BUN 37 mg/dL Creatinine 1.6 mg/dL Cr Clearance (Est) 37.1100 mL/min Glucose 161 mg/dL Calcium 8.6 mg/dL Protein, Total 6.0 g/dL Albumin 3.0 g/dL Globulin 3.0 g/dL Bilirubin, Total 0.2 mg/dL ALT (SGPT) 21 U/L AST (SGOT) 39 U/L Alkaline Phosphatase 136 IU/L WBC 9.5 10 3/uL RBC 2.39 10 6/uL HGB 8.1 g/dL HCT 25.0 % MCV 104.6 fL MCH 33.9 pg MCHC 32.4 g/dL RDW 20.9 % Platelet Count 122 10 3/cmm MPV 11.1 fL Neutrophils 7.39 10 3/uL Lymphocytes 0.7 10 3/uL Monocytes 0.7 10 3/uL Eosinophils 0.2 10 3/uL Basophils 0.0 10 3/uL Neutrophil % 78.2 % Lymphocyte % 7.0 % Monocyte % 7.3 % Eosinophil % 2.0 % Basophils % 0.3 % NRBC % 0 % CBC Slide Review Slide Review Perform SLIDE REVIEW AGREES WITH AUTOMATED RESULTS ST Test performed on Jun 05, 2020 11:50 TSH 2.36 uIU/mL Test performed on Feb 14, 2020 10:10 Magnesium 1.2 mg/dL Test performed on Jan 31, 2020 13:30 Ferritin 1317 ng/mL Iron 63 mcg/dL Vitamin B12 520 pg/mL Iron Binding Capacity (TIBC) 247 mcg/dl % Iron Saturation 25.5 % UIBC 184 mcg/dL Impression: Recurrent adenocarcinoma per left hilar lymph node biopsy Small cell lung cancer involving the right middle lobe per CT-guided lung biopsy done on 10/01/2018 CT scan of chest done on 08/31/2018 showed 4 cm left upper lobe mass and large mass with a probable postobstructive atelectasis involving the right hilum extending to right middle lobe. This mass occludes medial bronchus of right middle lobe and narrowing of the lateral bronchus; COPD/emphysema with bilateral apical pleural thickening Chronic smoking Mr. Romeo underwent PET CT staging on 10/23/2018. The bulky right middle lobe mass demonstrates significant necrosis, and homogenous FDG uptake extends from the right hilum with subtotal atelectasis of the right middle lobe and an SUV of 25.2. There was loss of that plane between the mediastinum and mass superiorly, suggesting early invasion. The left upper lobe satellite mass is in a subpleural location, without involvement of the adjacent chest wall. This measures 2.0 x 3.0 cm with an SUV of 8.5. Patient has long-standing history of smoking, 50 year plus also tried pipe and then now cigars. He smokes 4-5 cigars a day. Mr. Romeo began his first cycle of carboplatin and etoposide on 11/02/2018. He completed 3 cycles of the carboplatin and etoposide On 12/30/2018. Follow-up CT PET scan done on 01/15/2019 showed significant improvement in right middle lobe mass with postobstructive atelectasis since prior study. Mass now measures 4.6 x 2.4 cm with SUV of 5. A satellite malignant nodule in the left upper lobe is stable, measuring 2.2 x 2.8 cm with SUV of 10.9, and not a significant change since prior study. No new lesion seen. There was no evidence of malignancy outside of the chest. MRI of the head from 10/20/2018 revealed right anterior frontal lobe and left parietal lobe cortical 2-3 mm enhancing foci; primary considerations metastatic disease .Based on CT PET scan findings, Dr Romeo was referred to thoracic oncology at [facility] for second opinion. He underwent CT-guided biopsy of left upper lobe lesion which confirmed second primary e.g. adenocarcinoma well differentiated Patient was evaluated by Dr. Barrington Segundo who recommended concurrent chemoradiation to right chest and followed by whole brain radiation therapy and observation versus SB RT to left upper lobe newly diagnosed non-small cell lung cancer e.g. adenocarcinoma. Follow-up CT scan of chest done on 06/20/2019 showed when compared to CT scan from 08/31/2018 CT PET scan from 01/15/2019 Previously left upper lobe mass lesion in anterior lateral subpleural location, measured 1.8 cm x 3.2 x 2.1 cm compared to 2.3 x 3.6 x 2.8 on 01/15/2019. Previous bulky mass lesion within the right middle lobe seen on 08/31/2018 and with reduced size on 01/15/2019 is with further improvement, now measuring 1.6 cm x 6 x 2.8 cm. Medially the mass lesion and likely invades the right side of mediastinum adjacent a superior vena cava and right atrium. No other mass lesion seen normal liver and spleen No adrenal enlargement. No lytic or blastic bony distal to lesion seen. Mr. Romeo began his first cycle of carboplatin and etoposide on 11/02/2018. He did have a few mouth sores with cycle 1 but this was controlled with Valtrex, baking soda and salt water and as needed Magic mouthwash. He states that once he started the Valtrex for cold sores resolved within a couple of days. He's had no recurrent problems with mouth sores. CT PET scan done after 3 cycles of chemotherapy on 01/15/2019 showed significant improvement in the right middle lobe mass with postobstructive atelectasis since the prior study. The mass now measures 4.6 x 2.4 cm with SUV of 5. And the satellite malignant nodules in the left upper lobe is stable measuring 2.2 x 2.8 cm with SUV of 10.9, not a significant change since prior study on 10/23/2018. No new lesion seen. Patient was referred to [facility] where he saw thoracic oncologist Dr. Bellamy who recommended MRI scan of the brain which was done on on 02/21/2019 which showed a new diffusion weighted, 5 mm abnormality with mild enhancement in the anterior right parietal lobe cortex. Subacute small lacunar infarction versus metastatic disease. Follow-up MRI brain is recommended in 3-4 month Previously described anterior right frontal and left parietal cortical areas of enhancement are slightly smaller in size. Differential include decrease in size of metastatic due to treatment. Severe chronic white matter disease and CT-guided biopsy of left upper lobe was done on 02/24/2019 showed adenocarcinoma, well-differentiated Patient was started on combined chemoradiation on 03/09/2019 with carboplatin and etoposide and if patient achieved complete remission then consider SB RT to newly diagnosed left upper lobe lung adenocarcinoma .Follow-up CT scan of chest done on 06/20/2019 showed decreased size of previous left upper lobe neoplastic mass Further decrease in size of previous bulky right middle lobe mass. Residual mass lesion remaining is probably associated with right-sided mediastinal invasion Residual scarring or subsegmental atelectasis right middle lobe Chronic emphysema f/u CT PET scan done on 09/10/2019 showed positive response to therapy of the left upper lobe adenocarcinoma New abnormal activity in the left upper lobe groundglass nodule and left upper hilar lymph node Increased activity in the bowel at left inguinal canal with new reactive left inguinal node, patient has history of left inguinal hernia repair in April 2018 MRI head done on 08/23/2019 shows resolved enhancing metastatic lesion, no new lesion seen Was referred to [facility] in [place] for EBUS/biopsy of left upper hilar lymph node which was done on 10/07/2019 and final pathology report came back adenocarcinoma consistent with lung origin. Dr Romeo was referred to radiation oncology for evaluation. Dr Dalal's impression was that the patient had received radiation therapy to left upper lobe primary previously. With further radiation, the risk of casuing left bronchus damage and major blood vessel damage would deter radiation. Dr Guerrero then suggested chemotherapy alone. Dr Romeo was offered treatment with Carboplatin/Alimta/Keytruda. He started cycle 1 Keytruda/carboplatin/Alimta on 11/15/2019. Follow-up CT PET scan done after 3 cycles of carboplatin/Alimta/Keytruda on 01/07/2020 showed mild progression of left upper lobe mass from the prior study done on 09/10/2019. Overall progression of disease within new unifocal osseous metastatic disease in the posterior left iliac and a new FDG positive prevascular mediastinal lymph node. Decreasing FDG activity in left upper lobe groundglass nodule. No significant change in left hilar node. No significant change in presumed inflammatory activity in the left inguinal canal. Dr Romeo had a MRI scan of the head done in December 2019. 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 He was evaluated by radiation oncology and underwent SRS to the solitary brain lesion on 01/11/2020. Subsequently patient developed seizure-like activity and was admitted to hospital on 01/12/2020. He was treated with dexamethasone and Keppra and was also evaluated by neurology- Dr. García. At that time his labs showed white blood count1.3, hemoglobin 7.7 hematocrit 23.5, platelets 47,000 Dr Romeo is here today for follow-up. His blood counts have recovered. His hemoglobin is 8.4 and his platelet count is 247,000. We will plan to proceed with this last chemotherapy and reevaluate him with PET CT imaging prior to his next appointment in 3 to 4 weeks. Plan: 1. Proceed with Keytruda today as scheduled. 2. Change pain medication from Percocet 03/18/2025???which he states he is taking 2 tablets at a time sometimes and still not getting pain relief-To hydromorphone 4 mg he was instructed to take 1 tablet initially to see how this relieves his pain. He can increase to 8 mg as needed for pain control. 3. Labs from today were reviewed in detail and discussed with Dr. Romeo and a copy was given to him. WBC 9.5, hemoglobin 8.1 platelets 12/05/1999 ANC is 7400. Creatinine 1.6 LFTs are normal alk phos slightly elevated at 136 and up from last check on June 05, 2020 at which time was 126. His last TSH was June 05, 2020 and it was reported at 2.36. 4. He will need monthly port flushes at minimum as he did have a right sided PowerPort placed on 06/11/2024 Dr. Reveles. 5. I have recommended that Dr. Romeo have a repeat PET CT prior to his next cycle of Keytruda in 3 weeks. This is to compare to his April study after receiving 3 cycles of Keytruda 2 of which were single agent. He is having hip and leg pain which he feels is sciatica but I am very concerned given the abnormalities on the PET scan on the left side of his hip area and leg. 6. We will plan to see him back in 3 weeks with CBC, CMP and TSH and follow-up PET CT prior to that. I have asked that he see Dr. Guerrero for review of the PET CT imaging. Interim CBC and Typenex as needed. 7. Dr. Romeo was instructed to contact us in the interim should questions or problems arise. 8. He may proceed with transfusion services with standard premeds. Signed By: James De Leon-, CNP Colette Guerrero MD <<Signature on File>>
== END 2020-06-27 09:35 | disposition home or self-care (01) ==
LOC: ONCMED 09:34
PROVIDERS: PCP Family Medicine; Visit Provider Nurse Practitioner
DX: Z51.12 Encounter for antineoplastic immunotherapy (principal); C34.2 Malignant neoplasm of middle lobe, bronchus or lung; C79.51 Secondary malignant neoplasm of bone; J43.9 Emphysema, unspecified; F17.290 Nicotine dependence, other tobacco product, uncomplicated; C34.12 Malignant neoplasm of upper lobe, left bronchus or lung; Z79.899 Other long term (current) drug therapy; Z79.891 Long term (current) use of opiate analgesic; Z95.828 Presence of other vascular implants and grafts
CPT/HCPCS: 80053; 85025; 96413; 99214; J7050; J9271

== ENCOUNTER 2020-06-28 06:58 | Outpatient (CLI) | payer MEDICARE, OTHER, SELFPAY ==
[2020-06-28] VITALS (8 sets, daily range): BP systolic 90–98; BP diastolic 61–69; PULSE 107–118; RESP 17–18; TEMP 36.9–37.7; O2SAT 92–94
[2020-06-28] MEDS: diphenhydrAMINE 25 mg Capsule PO (09:50)
[2020-06-28] MEDS: acetaminophen 325 mg Tablet 650 MG PO (09:50)
[2020-06-28] MEDS: sodium chloride 0.9% 250 ML 999 ML IV (09:55)
[2020-06-28] MEDS: FUROsemide 10 mg/mL SDV 2mL 20 MG IV (12:00)
== END 2020-06-28 06:59 | disposition home or self-care (01) ==
LOC: ONCMED 07:00
PROVIDERS: PCP Family Medicine; Visit Provider Nurse Practitioner
DX: C34.12 Malignant neoplasm of upper lobe, left bronchus or lung (principal); C34.2 Malignant neoplasm of middle lobe, bronchus or lung; D64.81 Anemia due to antineoplastic chemotherapy; D70.1 Agranulocytosis secondary to cancer chemotherapy; T45.1X5D Adverse effect of antineoplastic and immunosuppressive drugs, subsequent encounter
CPT/HCPCS: 86850; 86900; 86920; J1940; J7050; P9016

== ENCOUNTER 2020-07-05 09:48 | Outpatient (CLI) | payer MEDICARE, OTHER, SELFPAY ==
[2020-07-05 10:30] LABS: Basophils % 0.4 %; Eosinophils # 0.1 10^3/uL (0.0-0.8); Eosinophils % 1.2 %; Hematocrit 33.2 % (42.0-52.0); Hemoglobin 10.7 g/dL (11.7-16.6); Lymphocytes # 0.7 10^3/uL (0.8-4.8); Lymphocytes % 7.1 %; Mean Corpuscular HGB Conc 32.2 g/dL (30.0-36.0); Mean Corpuscular Hemoglobin 31.9 pg (28.0-34.0); Mean Corpuscular Volume 99.1 fL (80-94); Mean Platelet Volume 11.5 fL (7.4-10.4); Monocytes # 0.5 10^3/uL (0.2-0.9); Monocytes % 5.2 %; Neutrophils # 8.07 10^3/uL (1.8-7.7); Neutrophils % 80.7 %; Nucleated Red Blood Cells % 0 %; Platelet Count 77 10^3/cmm (130-400); Red Blood Count 3.35 10^6/uL (4.1-5.3); Red Cell Distribution Width 20.8 % (12.1-15.1)
[2020-07-05] MEDS: sodium chloride 0.9% 1,000 ML 999 ML IV (10:30)
[2020-07-05 10:54] LABS: Alanine Aminotransferase 26 U/L (0-41); Albumin Level 2.9 g/dL (3.5-5.2); Alkaline Phosphatase 157 IU/L (40-130); Anion Gap 16.6 (5-19); Aspartate Amino Transferase 40 U/L (0-40); Blood Urea Nitrogen 39 mg/dL (8-23); Calcium 8.9 mg/dL (8.5-10.5); Carbon Dioxide 25 mmol/L (22-29); Chloride 103 mmol/L (98-107); Globulin 3.3 g/dL (1.3-4.6); Glucose 108 mg/dL (65-115); Osmolality Calculated 290 mOsm/kg (285-295); Potassium 3.6 mmol/L (3.5-5.1); Slide Review Slide Review Perform; Sodium 141 mmol/L (136-145); Total Bilirubin 0.5 mg/dL (0.15-1.2); Total Protein 6.2 g/dL (6.6-8.7)
[2020-07-05] MEDS: levofloxacin-dextrose 5% 750 mg-150 mL Premix 100 MG IV (15:40)
--- NOTE | 2020-07-05 18:48 | ONC FU_ITS ---
Dr. Villarreal Patient Follow-Up Note Patient: Timmy Romeo Unit #: [id number]: 1945 Dicatated By: Mundo Villarreal M.D.Date of Visit:Jul 05, 2020 Onc Med Follow-up/Prog Note Chief Complaint: Lung cancer. 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 In the last week of June 2018 he had noted some blood in his yellow phlegm and tried to tough it out for about month and half. He finally saw his primary care physician and he was diagnosed with chronic bronchitis. A Chest x-ray was done-as per patient it was normal and he was given a prescription for Flovent. He felt some improvement and on 09/01/[address] scan of chest which showed right middle lobe lung mass. The mass was reported as about 6 cm in size with mediastinal and hilar lymphadenopathy and there was a contralateral nodule which is lobulated in the left upper lobe measures 4 x 2.3 cm. Mr Romeo was then referred to Dr. Ortiz, rn rehabilitation in [place]. He underwent bronchoscopy and transbronchial biopsy on 09/10/2018 which showed no evidence of malignancy. Subsequently patient underwent CT-guided biopsy of right middle lobe on 10/01/2018 which confirmed small cell lung cancer. Mr. Romeo underwent PET CT staging on 10/23/2018. The bulky right middle lobe mass demonstrates significant necrosis, and homogenous FDG uptake extends from the right hilum with subtotal atelectasis of the right middle lobe and an SUV of 25.2. There was loss of that plane between the mediastinum and mass superiorly, suggesting early invasion. The left upper lobe satellite mass was in a subpleural location, without involvement of the adjacent chest wall. This measured 2.0 x 3.0 cm with an SUV of 8.5. There was no evidence of malignancy outside of the chest. MRI of the head from 10/20/2018 revealed right anterior frontal lobe and left parietal lobe cortical 2-3 mm enhancing foci; primary considerations metastatic disease. Mr. Romeo began his first cycle of carboplatin and etoposide on 11/02/2018. CT PET scan done after 3 cycles of chemotherapy on 01/15/2019 showed significant improvement in the right middle lobe mass with postobstructive atelectasis since the prior study. The mass now measured 4.6 x 2.4 cm with SUV of 5. And the satellite malignant nodules in the left upper lobe was stable measuring 2.2 x 2.8 cm with SUV of 10.9, not a significant change since prior study on 10/23/2018. No new lesion seen. Patient was referred to [facility] where he saw thoracic oncologist Dr. Bellamy who recommended MRI scan of the brain which was done on on 02/21/2019 which showed a new diffusion weighted, 5 mm abnormality with mild enhancement in the anterior right parietal lobe cortex. Subacute small lacunar infarction versus metastatic disease. Follow-up MRI brain recommended in 3-4 months. Previously described anterior right frontal and left parietal cortical areas of enhancement were slightly smaller in size. Differential include decrease in size of metastatic due to treatment. CT-guided biopsy of left upper lobe was done on 02/24/2019 showed adenocarcinoma, well-differentiated. He then underwent radiation to the right lung and mediastinum concurrently with carboplatin and etoposide chemotherapy. It was followed by whole brain radiation and SBRT to the left lung lesion. Treatment was completed on 05/09/2020. Follow-up CT scan of chest done on 06/20/2019 showed decreased size of previous left upper lobe neoplastic mass and further decrease in size of previous bulky right middle lobe mass. Residual mass lesion remaining is probably associated with right-sided mediastinal invasion. Residual scarring or subsegmental atelectasis right middle lobe and chronic emphysema. f/u CT PET scan done on 09/10/2019 showed positive response to therapy of the left upper lobe adenocarcinoma. New abnormal activity in the left upper lobe groundglass nodule and left upper hilar lymph node and increased activity in the bowel at left inguinal canal with new reactive left inguinal node. Patient has history of left inguinal hernia repair in April 2018. MRI head done on 08/23/2019 showed resolved enhancing metastatic lesion, no new lesion seen. He was referred to [facility] in [place] for EBUS/biopsy of left upper hilar lymph node which was done on 10/07/2019 and final pathology report came back adenocarcinoma consistent with lung origin. Dr Romeo was referred to radiation oncology for evaluation. Dr Dalal's impression was that the patient had received radiation therapy to left upper lobe primary previously. With further radiation, the risk of casuing left bronchus damage and major blood vessel damage would deter radiation. Dr Guerrero then suggested chemotherapy alone. Dr Romeo was offered treatment with Carboplatin/Alimta/Keytruda. He started cycle 1 Keytruda/carboplatin/Alimta on 11/15/2019. Follow-up CT PET scan done after 3 cycles of carboplatin/Alimta/Keytruda on 01/07/2020 showed mild progression of left upper lobe mass from the prior study done on 09/10/2019. Overall progression of disease within new unifocal osseous metastatic disease in the posterior left iliac and a new FDG positive prevascular mediastinal lymph node. Decreasing FDG activity in left upper lobe groundglass nodule. No significant change in left hilar node. No significant change in presumed inflammatory activity in the left inguinal canal. Dr Romeo had a MRI scan of the head done in December 2019. 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 He was evaluated by radiation oncology and underwent SRS to the solitary brain lesion on 01/11/2020. Subsequently patient developed seizure-like activity and was admitted to hospital on 01/12/2020. He was treated with dexamethasone and Keppra and was also evaluated by neurology- Dr. García. At that time his labs showed white blood count1.3, hemoglobin 7.7 hematocrit 23.5, platelets 47,000 Dr Romeo restarted on palliative chemotherapy with carboplatin/Alimta/Keytruda on 01/22/2020 after recovery from his December hospital admission. c/o poor appetite . In the past he had been using cannabis but has laid off of it since he has been on the Keppra. We did discuss potential interactions between the cannabis and Keppra and he was given the drug information on Keppra from up-to-date file. Follow-up CT PET scan done on May 13, 2020 showed left upper lobe mass that previously measured 2.4 x 3.1 cm with SUV of 5.8 now measured 3.1 x 4.7 cm with SUV of 7.1. Adjacent groundglass opacity was unchanged. Mediastinal nodes were improved, superior left hilar node now has improved SUV 5.8 compared to 7.8 previously. Prevascular adenopathy was improved. Right middle lobe atelectasis seen on previous study was unchanged and remain FDG negative. Activity in left inguinal canal was minimally improved. Osseous metastatic disease in the left iliac had progressed with abnormal activity now surrounding the acetabulum and new lesion in the anterior bone. Dr Guerrero discussed with Dr. Reese ([facility]-reading radiologist of 05/05/2020 PET/CT. Per Dr Guerrero, Dr Reese's impression was changes in the left upper lobe nodule/primary could be due to tumor flare due to immunotherapy which is seen in about 20 to 25% cases. The rest of sites shows improvement except left hip which suggested worsening osseous disesase-again patient has history of trauma, in that case he suggested plain x-ray or MRI scan of hip for further information. Dr Romeo (patient) reports that he had a plain film at [facility] which looked really good-nothing abnormal . He continued maintenance immunotherapy with pembrolizumab, cycle 1 on 06/06/2020. He continued with cycle 2 on 06/27/2020. He is seen for an unplanned visit. Over the past couple of days he has had a significant decline in his condition, feeling very weak and shaky. He has very limited activity. ECOG score is 3. Had significant worsening of shortness of breath yesterday. He has had some cough associated with sinus drainage, but no worse. He has not been having chest pain. Appetite has declined. He has not had fever. He does have some night sweating. He had nausea yesterday. He has had ongoing problems with constipation. Bladder function remains adequate. He does have pain in his left hip and leg. It has been getting worse over the past 2 to 3 weeks. He does not complain of headache. He does have some orthostatic lightheadedness. He has no numbness/paresthesia or other focal neurologic symptoms. Medications: Anoro Ellipta 1 (62.5-25 mcg/inh) Aerosol Powder, Breath Activated Inhalation daily, black seed oil 1 tsp Liquid daily, Co Q-10 1 Capsule (of 400 mg) Oral daily, Flonase 2 spray(s) (of 50 mcg/act) Suspension Nasal daily PRN, Keppra 1 Tablet (of 1000 mg) Oral b.i.d., Magnesium 1 Tablet (of 100 mg) Oral daily, Multivitamin Adults 1 Tablet Oral daily, Omeprazole 1 Capsule (of 20 mg) Capsule Delayed Release Oral b.i.d., Probiotic Daily 1 Capsule Oral daily, ZyrTEC Allergy 1 Tablet (of 10 mg) Oral daily Allergies: latex and Pollen. Review of Systems: Constitutional - He has no energy. He feels weak and shaky. Appetite has recently declined. He has not had fever. He does have some night sweating. ECOG score is 3, ENMT - He has sinus drainage. No mouth sores. No sore throat or difficulty swallowing, Hematologic/Lymphatic - He has a lot of bruising, Respiratory - He is more short of breath. He has cough with the drainage. No pleuritic pain or hemoptysis, Cardiovascular - No angina pain. No palpitations, Gastrointestinal - He had nausea yesterday. His acid reflux is adequately managed with medication. He has constipation. No blood in the stool or black stools, Genitourinary (M) - No dysuria or hematuria. No urinary frequency. No urgency or incontinence, Musculoskeletal - He has pain in his left hip and leg, Integumentary - No skin rash, Neurologic - No headache. He has occasional orthostatic lightheadedness. No numbness or tingling. No other focal neurologic symptoms, Psychiatric - No anxiety or depression. He does not sleep well at night. Vital Signs: Performed on Jul 05, 2020 10:20 Height - 70.00 in Temperature - 98.4 F Pulse - 113 /min (HIGH) Respiration - 22 /min BP - 91/59 mm(hg) O2 Sat - 88 % (LOW) Pain - 0 Fatigue - 9 Physical Examination: Constitutional - He appears generally weak. He is short of breath with effort, Eyes - Sclerae nonicteric. Conjunctivae clear, ENMT - No lesions noted in the oral cavity, Hematologic/Lymphatic - No cervical, clavicular, or axillary adenopathy, Respiratory - Lungs sound clear, Cardiovascular - Heart rhythm is regular with some premature beats. There is a mild tachycardia. There is no murmur, gallop, or rub noted, Abdomen - Soft and non-tender. Liver and spleen are not enlarged. There is no abdominal mass or ascites noted and there is no inguinal adenopathy, Extremities - No edema, Neurologic - No focal neurologic deficits noted. Lab/Imaging: CBC shows hemoglobin 10.7 g, white blood cell count 10,000, and platelet count 77,000. Comprehensive metabolic profile shows elevated BUN and creatinine at 39 and 1.3 mg/dL. Alkaline phosphatase is mildly elevated at 157/130 IU/L. Albumin low at 2.9 g/dL. Impression: 1. Patient with small cell lung cancer involving the right middle lobe per CT-guided lung biopsy done on 10/01/2018. He had stage IV disease with MRI of the head from 10/20/2018 revealing right anterior frontal lobe and left parietal lobe cortical 2-3 mm enhancing foci consistent with metastatic disease. 2. He had a good response to chemotherapy with 3 cycles of carboplatin/etoposide. 3. During followup he was found to have adenocarcinoma involving the upper lobe of the left lung, diagnosed by CT-guided biopsy in February 2019. He underwent radiaton concurrently with carboplatin/etoposide chemotherapy, completed on 04/20/2019, total radiation dose 6,000 cGy. 4. He underwent palliative whole brain radiation, completed 05/04/2020 to a total dose of 3,000 cGy. 5. He underwent SBRT to the left lung lesion, completed on 05/09/2020 to a total dose of 4,800 cGy. 6. He had recurrence of adenocarcinoma per left hilar lymph node biopsy in September 2019. 7. On 11/15/2019 he began combined chemotherapy/immunotherapy with carboplatin/pemetrexed in combination with pembrolizumab 8. MRI scan of the head done in December 2019 showed a single brain metastases. He was evaluated by radiation oncology and he underwent SRS to the solitary brain lesion on 01/11/2020. As of 05/10/2020 he had completed 8 cycles of treatment with carboplatin/pemetrexed in combination with pembrolizumab. He then transitioned to maintenance pembrolizumab, cycle 1 on 06/06/2020. He continued with cycle 2 on 06/27/2020. He presents now with increasing weakness and shortness of breath over the past several days. He is significantly hypoxic with oxygen saturation 90% on room air dropping to 70% after walking just a short distance. It recovered to 85% at rest, then increased to 93% on 3 L nasal cannula. His CT pulmonary angiogram shows no evidence of pulmonary embolism. There does appear to be progression of the left upper lobe neoplasm. There are groundglass infiltrates in both lungs which may be due to pneumonia, treatment related pneumonitis, or progression of the underlying malignancy. Plan: He will start empiric antibiotic coverage with Levaquin 750 mg IV and I also will start empiric steroid therapy with Solu-Medrol 60 mg IV. He will be started on home oxygen at 3 L/min. He is to return tomorrow to be reassessed. In the meantime, if symptoms worsen he is to go to the emergency room. Signed By: Mundo Villarreal M.D. <<Signature on File>>
== END 2020-07-05 09:49 | disposition home or self-care (01) ==
PROVIDERS: PCP Family Medicine; Visit Provider Internal Medicine Hematology & Oncology
DX: C34.12 Malignant neoplasm of upper lobe, left bronchus or lung (principal); D64.81 Anemia due to antineoplastic chemotherapy; D70.1 Agranulocytosis secondary to cancer chemotherapy; T45.1X5A Adverse effect of antineoplastic and immunosuppressive drugs, initial encounter; Z79.2 Long term (current) use of antibiotics; Z79.52 Long term (current) use of systemic steroids
CPT/HCPCS: 80053; 85025; 86850; 86900; 96361; 96365; 96375; 99214; J1956; J2930; J7030

== ENCOUNTER 2020-07-05 11:30 | Outpatient (CLI) | payer MEDICARE, OTHER, SELFPAY ==
--- NOTE | 2020-07-05 12:23 | CT_ITS ---
WS: [id number] CT CHEST ANGIOGRAPHY WITH REFORMATS HISTORY: LUNG CANCER/SHORTNESS OF BREATH/FATIGUE/CHILLS TECHNIQUE: Contiguous axial images are obtained through the chest during arterial injection of intrav enous contrast. Images are reconstructed to evaluate the pulmonary arteries. MIP imaging also reviewe d. All CT scans at [facility] use at least one of these dose optimization techniques: aut omated exposure control; mA and/or kV adjustment per patient size (includes targeted exams where dose is matched to clinical indication); or iterative reconstruction. CONTRAST: Visipaque 320; 95 mL IV. DLP: 560.11 mGy.cm COMPARISON: 06/20/[address] 05/05/2020. Very good opacification of the pulmonary arteries. No filling defects or pulmonary emboli. Atheroscle rosis of the aorta. There is mild ectasia and dilatation with aorta measuring up to 3.8 cm transverse ly. Prior CABG. Cardiac chambers are slightly enlarged. Hyperexpanded lungs with multifocal areas of groundglass attenuation with significant progression of groundglass attenuation and opacification since 06/20/2019. There is paraseptal emphysema. Soft tissue mass centered in the LEFT upper lobe anteriorly measures 2.6 x 5.4 x 3.3 cm and abuts the pleura. Fin gerlike soft tissue extensions extending back toward the hilum. New mediastinal and hilar lymph nodes. LEFT suprahilar lymph node measures 1.5 cm. There is additiona l soft tissue abutting the RIGHT mediastinum measuring 4.3 x 1.5 cm which may be atelectasis or tumor . Increasing size of the periaortic lymph node at 1.3 cm. Cholelithiasis. Perinephric stranding and mesenteric edema. Atherosclerosis aorta. Increase in thoracic kyphosis. Notified Mundo Villarreal MD at 07/05/2020 4:[address]/CT angio chest PE protcl [id number] IMPRESSION: 1. No pulmonary embolism. 2. LEFT upper lobe pulmonary mass measuring 2.6 x 5.4 x 3.3 cm with mediastina l and hilar lymphadenopathy. Increasing tumor burden and adenopathy since 2019 PET/CT. 3. Multilobar areas of groundglass attenuation and scattered opacifications. A dditional superimposed metastatic sites are not excluded due to the scattered o pacifications which are suspicious for new nodules.
[2020-07-05] MEDS: iodixanol 320 mg/mL 100mL Btl IV (13:45)
== END 2020-07-05 11:31 | disposition home or self-care (01) ==
LOC: CCL 11:38
PROVIDERS: PCP Family Medicine; Visit Provider Internal Medicine Medical Oncology
DX: C34.12 Malignant neoplasm of upper lobe, left bronchus or lung (principal); C34.2 Malignant neoplasm of middle lobe, bronchus or lung; D64.81 Anemia due to antineoplastic chemotherapy; D70.1 Agranulocytosis secondary to cancer chemotherapy; T45.1X5A Adverse effect of antineoplastic and immunosuppressive drugs, initial encounter; Z79.2 Long term (current) use of antibiotics; Z79.52 Long term (current) use of systemic steroids
CPT/HCPCS: 71275; 80053; 85025; 86850; 86900; 96361; 96365; 96375; 99214; J1956; J2930; J7030

== ENCOUNTER 2020-07-06 08:25 | Outpatient (CLI) | payer MEDICARE, OTHER, SELFPAY ==
[2020-07-06] MEDS: levofloxacin-dextrose 5% 750 mg-150 mL Premix 100 MG IV (09:00)
[2020-07-06] MEDS: sodium chloride 0.9% (100 ml) 100 ML 400 ML (09:00)
== END 2020-07-06 17:00 | disposition home or self-care (01) ==
LOC: ONCMED 07-11 05:37
PROVIDERS: PCP Family Medicine; Visit Provider Internal Medicine Hematology & Oncology
DX: C34.12 Malignant neoplasm of upper lobe, left bronchus or lung (principal); D64.81 Anemia due to antineoplastic chemotherapy; D70.1 Agranulocytosis secondary to cancer chemotherapy; T45.1X5A Adverse effect of antineoplastic and immunosuppressive drugs, initial encounter; J43.2 Centrilobular emphysema; I25.10 Atherosclerotic heart disease of native coronary artery without angina pectoris; K21.9 Gastro-esophageal reflux disease without esophagitis; I10 Essential (primary) hypertension
CPT/HCPCS: 96365; 96366; 96374; J1956; J2930

== ENCOUNTER 2020-07-11 06:01 | Outpatient (CLI) | payer MEDICARE, OTHER, SELFPAY ==
[2020-07-11 08:39] LABS: Hematocrit 31.8 % (42.0-52.0); Hemoglobin 10.1 g/dL (11.7-16.6); Mean Corpuscular HGB Conc 31.8 g/dL (30.0-36.0); Mean Corpuscular Hemoglobin 32.1 pg (28.0-34.0); Mean Platelet Volume 11.5 fL (7.4-10.4); Platelet Count 78 10^3/cmm (130-400); Red Blood Count 3.15 10^6/uL (4.1-5.3); White Blood Count 17.2 10^3/uL (4.0-10.0)
[2020-07-11 08:58] LABS: Slide Review Slide Review Perform
[2020-07-11 09:00] LABS: Absolute Segmented Neutrophil 15.1 10/cmm (1.6-7.1); Band Neutrophils Absolute 0.5 10^3/cmm (0.0-1.2); Lymphocytes 3 %; Monocytes Absolute 0.9 10^3/cmm (0.1-0.6); Poikilocytosis 1+; Segmented Neutrophils 88 %; Total Cells Counted 100 (0-100)
[2020-07-11 09:01] LABS: Absolute Neutrophil 15.7 10^3/cmm (1.4-6.5); Macrocytosis Trace; Platelet Estimate Decreased (Normal)
[2020-07-11 09:08] LABS: Alanine Aminotransferase 27 U/L (0-41); Albumin Level 3.2 g/dL (3.5-5.2); Alkaline Phosphatase 138 IU/L (40-130); Anion Gap 16.1 (5-19); Aspartate Amino Transferase 26 U/L (0-40); Blood Urea Nitrogen 48 mg/dL (8-23); Calcium 8.8 mg/dL (8.5-10.5); Carbon Dioxide 27 mmol/L (22-29); Chloride 101 mmol/L (98-107); Globulin 2.8 g/dL (1.3-4.6); Glucose 152 mg/dL (65-115); Osmolality Calculated 291 mOsm/kg (285-295); Potassium 4.1 mmol/L (3.5-5.1); Sodium 140 mmol/L (136-145); Total Bilirubin 0.5 mg/dL (0.15-1.2)
--- NOTE | 2020-07-13 16:51 | ONC FU_ITS ---
Dr. 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 In the last week of June 2018 he had noted some blood in his yellow phlegm and tried to tough it out for about month and half. He finally saw his primary care physician and he was diagnosed with chronic bronchitis. A Chest x-ray was done-as per patient it was normal and he was given a prescription for Flovent. He felt some improvement and on 09/01/[address] scan of chest which showed right middle lobe lung mass. The mass was reported as about 6 cm in size with mediastinal and hilar lymphadenopathy and there was a contralateral nodule which is lobulated in the left upper lobe measures 4 x 2.3 cm. Mr Romeo was then referred to Dr. Ortiz, visualization developer in [place]. He underwent bronchoscopy and transbronchial biopsy on 09/10/2018 which showed no evidence of malignancy. Subsequently patient underwent CT-guided biopsy of right middle lobe on 10/01/2018 which confirmed small cell lung cancer. Mr. Romeo underwent PET CT staging on 10/23/2018. The bulky right middle lobe mass demonstrates significant necrosis, and homogenous FDG uptake extends from the right hilum with subtotal atelectasis of the right middle lobe and an SUV of 25.2. There was loss of that plane between the mediastinum and mass superiorly, suggesting early invasion. The left upper lobe satellite mass was in a subpleural location, without involvement of the adjacent chest wall. This measured 2.0 x 3.0 cm with an SUV of 8.5. There was no evidence of malignancy outside of the chest. MRI of the head from 10/20/2018 revealed right anterior frontal lobe and left parietal lobe cortical 2-3 mm enhancing foci; primary considerations metastatic disease. Mr. Romeo began his first cycle of carboplatin and etoposide on 11/02/2018. CT PET scan done after 3 cycles of chemotherapy on 01/15/2019 showed significant improvement in the right middle lobe mass with postobstructive atelectasis since the prior study. The mass now measured 4.6 x 2.4 cm with SUV of 5. And the satellite malignant nodules in the left upper lobe was stable measuring 2.2 x 2.8 cm with SUV of 10.9, not a significant change since prior study on 10/23/2018. No new lesion seen. Patient was referred to [facility] where he saw thoracic oncologist Dr. Bellamy who recommended MRI scan of the brain which was done on on 02/21/2019 which showed a new diffusion weighted, 5 mm abnormality with mild enhancement in the anterior right parietal lobe cortex. Subacute small lacunar infarction versus metastatic disease. Follow-up MRI brain recommended in 3-4 months. Previously described anterior right frontal and left parietal cortical areas of enhancement were slightly smaller in size. Differential include decrease in size of metastatic due to treatment. CT-guided biopsy of left upper lobe was done on 02/24/2019 showed adenocarcinoma, well-differentiated. He then underwent radiation to the right lung and mediastinum concurrently with carboplatin and etoposide chemotherapy. It was followed by whole brain radiation and SBRT to the left lung lesion. Treatment was completed on 05/09/2020. Follow-up CT scan of chest done on 06/20/2019 showed decreased size of previous left upper lobe neoplastic mass and further decrease in size of previous bulky right middle lobe mass. Residual mass lesion remaining is probably associated with right-sided mediastinal invasion. Residual scarring or subsegmental atelectasis right middle lobe and chronic emphysema. f/u CT PET scan done on 09/10/2019 showed positive response to therapy of the left upper lobe adenocarcinoma. New abnormal activity in the left upper lobe groundglass nodule and left upper hilar lymph node and increased activity in the bowel at left inguinal canal with new reactive left inguinal node. Patient has history of left inguinal hernia repair in April 2018. MRI head done on 08/23/2019 showed resolved enhancing metastatic lesion, no new lesion seen. He was referred to [facility] in [place] for EBUS/biopsy of left upper hilar lymph node which was done on 10/07/2019 and final pathology report came back adenocarcinoma consistent with lung origin. Dr Romeo was referred to radiation oncology for evaluation. Dr Dalal's impression was that the patient had received radiation therapy to left upper lobe primary previously. With further radiation, the risk of casuing left bronchus damage and major blood vessel damage would deter radiation. Dr Guerrero then suggested chemotherapy alone. Dr Romeo was offered treatment with Carboplatin/Alimta/Keytruda. He started cycle 1 Keytruda/carboplatin/Alimta on 11/15/2019. Follow-up CT PET scan done after 3 cycles of carboplatin/Alimta/Keytruda on 01/07/2020 showed mild progression of left upper lobe mass from the prior study done on 09/10/2019. Overall progression of disease within new unifocal osseous metastatic disease in the posterior left iliac and a new FDG positive prevascular mediastinal lymph node. Decreasing FDG activity in left upper lobe groundglass nodule. No significant change in left hilar node. No significant change in presumed inflammatory activity in the left inguinal canal. Dr Romeo had a MRI scan of the head done in December 2019. 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 He was evaluated by radiation oncology and underwent SRS to the solitary brain lesion on 01/11/2020. Subsequently patient developed seizure-like activity and was admitted to hospital on 01/12/2020. He was treated with dexamethasone and Keppra and was also evaluated by neurology- Dr. García. At that time his labs showed white blood count1.3, hemoglobin 7.7 hematocrit 23.5, platelets 47,000 Dr Romeo restarted on palliative chemotherapy with carboplatin/Alimta/Keytruda on 01/22/2020 after recovery from his December hospital admission. c/o poor appetite . In the past he had been using cannabis but has laid off of it since he has been on the Keppra. We did discuss potential interactions between the cannabis and Keppra and he was given the drug information on Keppra from up-to-date file. Follow-up CT PET scan done on May 13, 2020 showed left upper lobe mass that previously measured 2.4 x 3.1 cm with SUV of 5.8 now measured 3.1 x 4.7 cm with SUV of 7.1. Adjacent groundglass opacity was unchanged. Mediastinal nodes were improved, superior left hilar node now has improved SUV 5.8 compared to 7.8 previously. Prevascular adenopathy was improved. Right middle lobe atelectasis seen on previous study was unchanged and remain FDG negative. Activity in left inguinal canal was minimally improved. Osseous metastatic disease in the left iliac had progressed with abnormal activity now surrounding the acetabulum and new lesion in the anterior bone. discussed with Dr. Reese ([facility]-reading radiologist of 05/05/2020 PET/CT. Per Dr Guerrero, Dr Reese's impression was changes in the left upper lobe nodule/primary could be due to tumor flare due to immunotherapy which is seen in about 20 to 25% cases. The rest of sites shows improvement except left hip which suggested worsening osseous disesase-again patient has history of trauma, in that case he suggested plain x-ray or MRI scan of hip for further information. Dr Romeo (patient) reports that he had a plain film at [facility] which looked really good-nothing abnormal . He continued maintenance immunotherapy with pembrolizumab, cycle 1 on 06/06/2020. He continued with cycle 2 on 06/27/2020. Underwent CT chest angiogram on July 05, 2020 which showed no pulmonary embolism, left upper lobe pulmonary mass measuring 2.6 x 5.4 x 3.3 cm with mediastinal or hilar lymphadenopathy increasing tumor burden and adenopathy since May 05, 2020 CT PET scan Multilobar areas of groundglass attenuation and scattered opacifications. And additional superimposed metastatic sites are not excluded Came for follow-up, denies any specific complaint except patient had a fall recently and injured his left elbow but with that his hip pain is 'gone' completely. No fever chills, no nausea or vomiting, no diarrhea constipation, no melena or hematochezia, no hemoptysis or hematemesis overall feeling somewhat better since last visit Medications: Anoro Ellipta 1 (62.5-25 mcg/inh) Aerosol Powder, Breath Activated Inhalation daily, black seed oil 1 Capsule Oral daily, Co Q-10 1 Capsule (of 400 mg) Oral daily, Flonase 2 spray(s) (of 50 mcg/act) Suspension Nasal daily PRN, Keppra 1 Tablet (of 1000 mg) Oral b.i.d., Magnesium 1 Tablet (of 100 mg) Oral daily, Multivitamin Adults 1 Tablet Oral daily, Omeprazole 1 Capsule (of 20 mg) Capsule Delayed Release Oral b.i.d., Probiotic Daily 1 Capsule Oral daily, ZyrTEC Allergy 1 Tablet (of 10 mg) Oral daily Allergies: latex and Pollen. Review of Systems: Constitutional - He continues to feel weak. Appetite has recently declined. He has not had fever. He does have some night sweating. Energy level is poor, ENMT - He has sinus drainage. No mouth sores. No sore throat or difficulty swallowing, Hematologic/Lymphatic - He has a lot of bruising, Respiratory - Positive for being short of breath. He has cough with the drainage. No pleuritic pain or hemoptysis, Cardiovascular - No angina pain. No palpitations, Gastrointestinal - Occasional nausea. His acid reflux is adequately managed with medication. He has constipation. No blood in the stool or black stools, Genitourinary (M) - No dysuria or hematuria. No urinary frequency. No urgency or incontinence, Musculoskeletal - Pt denies pain today, Integumentary - abrasions on left arm and knee from recent fall, Neurologic - No headache. He has occasional orthostatic lightheadedness. No numbness or tingling. No other focal neurologic symptoms, Psychiatric - No anxiety or depression. He does not sleep well at night. Vital Signs: Performed on Jul 11, 2020 09:37 Height - 70.00 in Weight - 132.4 lbs (LOW) BSA - 1.75 sq.m BMI - 19.00 Temperature - 99.4 F (HIGH) Pulse - 114 /min (HIGH) Respiration - 18 /min BP - 96/65 mm(hg) O2 Sat - 92 % (LOW) Pain - 0 Performance Status: 2 - Ambulatory/capable of all self-care, unable to perform any work activities. Up and about more than 50% of waking hours. (ECOG) Physical Examination: ENMT - .No mouth sores, no thrush, no jaundice, Respiratory - Poor air entry, mild wheezing, Abdomen - Soft, bowel sounds present, Extremities - 1+ edema bilaterally. Lab/Imaging: Test performed on Jun 27, 2020 09:59 Sodium 136 mmol/L Potassium 3.4 mmol/L Chloride 100 mmol/L CO2 22 mmol/L Anion Gap 17.4 BUN 37 mg/dL Creatinine 1.6 mg/dL Cr Clearance (Est) 37.1100 mL/min Glucose 161 mg/dL Calcium 8.6 mg/dL Protein, Total 6.0 g/dL Albumin 3.0 g/dL Globulin 3.0 g/dL Bilirubin, Total 0.2 mg/dL ALT (SGPT) 21 U/L AST (SGOT) 39 U/L Alkaline Phosphatase 136 IU/L Test performed on May 22, 2020 10:50 TSH 1.16 uIU/mL WBC 2.0 10 3/uL RBC 1.88 10 6/uL HGB 6.5 g/dL HCT 20.9 % MCV 111.2 fL MCH 34.6 pg MCHC 31.1 g/dL RDW 18.3 % Platelet Count 26 10 3/cmm MPV 12.2 fL Neutrophils 1.2 10 3/uL Lymphocytes 0.5 10 3/uL Monocytes 0.3 10 3/uL Eosinophils 0.0 10 3/uL Basophils 0.0 10 3/uL Neutrophil % 60.8 % Lymphocyte % 22.8 % Monocyte % 14.4 % Eosinophil % 1.0 % Basophils % 0.0 % NRBC % 0 % CBC Slide Review Slide Review Perform SLIDE REVIEW AGREES WITH AUTOMATED RESULTS ST Test performed on Feb 14, 2020 10:10 Magnesium 1.2 mg/dL Test performed on Jan 31, 2020 13:30 Ferritin 1317 ng/mL Iron 63 mcg/dL Vitamin B12 520 pg/mL Iron Binding Capacity (TIBC) 247 mcg/dl % Iron Saturation 25.5 % UIBC 184 mcg/dL Impression: 1. Patient with small cell lung cancer involving the right middle lobe per CT-guided lung biopsy done on 10/01/2018. He had stage IV disease with MRI of the head from 10/20/2018 revealing right anterior frontal lobe and left parietal lobe cortical 2-3 mm enhancing foci consistent with metastatic disease. 2. He had a good response to chemotherapy with 3 cycles of carboplatin/etoposide. 3. During followup he was found to have adenocarcinoma involving the upper lobe of the left lung, diagnosed by CT-guided biopsy in February 2019. He underwent radiaton concurrently with carboplatin/etoposide chemotherapy, completed on 04/20/2019, total radiation dose 6,000 cGy. 4. He underwent palliative whole brain radiation, completed 05/04/2020 to a total dose of 3,000 cGy. 5. He underwent SBRT to the left lung lesion, completed on 05/09/2020 to a total dose of 4,800 cGy. 6. He had recurrence of adenocarcinoma per left hilar lymph node biopsy in September 2019. 7. On 11/15/2019 he began combined chemotherapy/immunotherapy with carboplatin/pemetrexed in combination with pembrolizumab 8. MRI scan of the head done in December 2019 showed a single brain metastases. He was evaluated by radiation oncology and he underwent SRS to the solitary brain lesion on 01/11/2020. As of 05/10/2020 he had completed 8 cycles of treatment with carboplatin/pemetrexed in combination with pembrolizumab. He then transitioned to maintenance pembrolizumab, cycle 1 on 06/06/2020. He continued with cycle 2 on 06/27/2020. He presents now with increasing weakness and shortness of breath over the past several days. He is significantly hypoxic with oxygen saturation 90% on room air dropping to 70% after walking just a short distance. It recovered to 85% at rest, then increased to 93% on 3 L nasal cannula. His CT pulmonary angiogram shows no evidence of pulmonary embolism. There does appear to be progression of the left upper lobe neoplasm. There are groundglass infiltrates in both lungs which may be due to pneumonia, treatment related pneumonitis, or progression of the underlying malignancy. Plan: Discussed with patient regarding his labs white blood count 17.2 hemoglobin 10.1 hematocrit 31.8 platelets 78,000 compared to 77,000 on July 05, 2020 CMP within normal limit except creatinine 1.4 compared to 1.6 on June 27, 2020 Clinically, patient is doing reasonably well, he was presented to clinic about a week ago with shortness of breath so underwent pulmonary CTA to rule out pulmonary embolism and it came back negative but showed additional information including left upper pulmonary mass measuring 2.6 x 5.4 x 3.2 cm which is progressive when compared with CT PET scan done in April 2020 and other concern is multilobar area of groundglass attenuation with scattered opacification, which could be pneumonitis or radiation recall or deterioration of underlying pulmonary condition or metastatic disease. At this point will consider CT PET scan and compared with previous CT PET scan to confirm if there is a disease progression in that case we will discuss about palliative chemotherapy or observation on the other hand if there is no evidence of disease progression but pneumonitis in that case we will discontinue immunotherapy and monitor and also discussed about role of hospice and patient will make decision after reviewing CT PET scan Other concern is progressive thrombocytopenia, etiology unclear could be due to ITP or considering his age underlying myelodysplasia or immunotherapy, will continue to monitor and if persist, may interfere with palliative chemotherapy. Patient return to clinic in 1 week with CBC CMP and with follow-up CT PET scan which is already scheduled for this coming Thursday. Signed By: Colette Guerrero M.D. <<Signature on File>>
== END 2020-07-11 06:02 | disposition home or self-care (01) ==
LOC: ONCMED 06:06
PROVIDERS: PCP Family Medicine; Visit Provider Internal Medicine Hematology & Oncology
DX: C34.12 Malignant neoplasm of upper lobe, left bronchus or lung (principal); C34.2 Malignant neoplasm of middle lobe, bronchus or lung; C77.1 Secondary and unspecified malignant neoplasm of intrathoracic lymph nodes; C79.51 Secondary malignant neoplasm of bone; C79.31 Secondary malignant neoplasm of brain; D69.6 Thrombocytopenia, unspecified; Z92.3 Personal history of irradiation; Z79.899 Other long term (current) drug therapy
CPT/HCPCS: 36591; 80053; 85007; 85025; 99214

== ENCOUNTER → 2020-07-18 10:02 | Outpatient (BNVA) | payer MEDICARE, OTHER, SELFPAY | PROVIDERS: PCP Family Medicine; Visit Provider Specialist | DX: M79.7 Fibromyalgia (principal); G40.309 Generalized idiopathic epilepsy and epileptic syndromes, not intractable, without status epilepticus; C34.90 Malignant neoplasm of unspecified part of unspecified bronchus or lung; C79.31 Secondary malignant neoplasm of brain; Z87.891 Personal history of nicotine dependence | CPT/HCPCS: 99214 ==

== ENCOUNTER 2020-07-25 12:20 | Outpatient (CLI) | payer MEDICARE, OTHER, SELFPAY ==
[2020-07-25 12:47] LABS: Basophils % 0.2 %; Eosinophils # 0.1 10^3/uL (0.0-0.8); Eosinophils % 0.9 %; Hematocrit 26.7 % (42.0-52.0); Hemoglobin 8.4 g/dL (11.7-16.6); Lymphocytes # 1.2 10^3/uL (0.8-4.8); Lymphocytes % 10.4 %; Mean Corpuscular HGB Conc 31.5 g/dL (30.0-36.0); Mean Corpuscular Hemoglobin 32.9 pg (28.0-34.0); Mean Corpuscular Volume 104.7 fL (80-94); Mean Platelet Volume 10.8 fL (7.4-10.4); Monocytes # 1.2 10^3/uL (0.2-0.9); Monocytes % 10.5 %; Neutrophils # 8.61 10^3/uL (1.8-7.7); Neutrophils % 73.9 %; Nucleated Red Blood Cells % 0 %; Platelet Count 111 10^3/cmm (130-400); Red Blood Count 2.55 10^6/uL (4.1-5.3); Red Cell Distribution Width 21.1 % (12.1-15.1); White Blood Count 11.7 10^3/uL (4.0-10.0)
[2020-07-25 13:05] LABS: Alanine Aminotransferase 15 U/L (0-41); Albumin Level 3.2 g/dL (3.5-5.2); Alkaline Phosphatase 154 IU/L (40-130); Anion Gap 14.1 (5-19); Aspartate Amino Transferase 24 U/L (0-40); Blood Urea Nitrogen 28 mg/dL (8-23); Calcium 8.7 mg/dL (8.5-10.5); Carbon Dioxide 28 mmol/L (22-29); Chloride 98 mmol/L (98-107); Globulin 2.9 g/dL (1.3-4.6); Glucose 163 mg/dL (65-115); Osmolality Calculated 283 mOsm/kg (285-295); Potassium 4.1 mmol/L (3.5-5.1); Sodium 136 mmol/L (136-145); Total Bilirubin 0.3 mg/dL (0.15-1.2); Total Protein 6.1 g/dL (6.6-8.7)
--- NOTE | 2020-07-31 21:09 | ONC FU_ITS ---
[facility] Patient Note Patient: Timmy Romeo Unit #: [id number]: 1945 Dictated By: James De LeonDate of Visit: Jul 25, 2020 Onc MED Follow-Up/Prog Note Chief Complaint: Lung cancer. 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 In the last week of June 2018 he had noted some blood in his yellow phlegm and tried to tough it out for about month and half. He finally saw his primary care physician and he was diagnosed with chronic bronchitis. A Chest x-ray was done-as per patient it was normal and he was given a prescription for Flovent. He felt some improvement and on 09/01/[address] scan of chest which showed right middle lobe lung mass. The mass was reported as about 6 cm in size with mediastinal and hilar lymphadenopathy and there was a contralateral nodule which is lobulated in the left upper lobe measures 4 x 2.3 cm. Mr Romeo was then referred to Dr. Ortiz, weatherization crew leader in [place]. He underwent bronchoscopy and transbronchial biopsy on 09/10/2018 which showed no evidence of malignancy. Subsequently patient underwent CT-guided biopsy of right middle lobe on 10/01/2018 which confirmed small cell lung cancer. Mr. Romeo underwent PET CT staging on 10/23/2018. The bulky right middle lobe mass demonstrates significant necrosis, and homogenous FDG uptake extends from the right hilum with subtotal atelectasis of the right middle lobe and an SUV of 25.2. There was loss of that plane between the mediastinum and mass superiorly, suggesting early invasion. The left upper lobe satellite mass was in a subpleural location, without involvement of the adjacent chest wall. This measured 2.0 x 3.0 cm with an SUV of 8.5. There was no evidence of malignancy outside of the chest. MRI of the head from 10/20/2018 revealed right anterior frontal lobe and left parietal lobe cortical 2-3 mm enhancing foci; primary considerations metastatic disease. Mr. Romeo began his first cycle of carboplatin and etoposide on 11/02/2018. CT PET scan done after 3 cycles of chemotherapy on 01/15/2019 showed significant improvement in the right middle lobe mass with postobstructive atelectasis since the prior study. The mass now measured 4.6 x 2.4 cm with SUV of 5. And the satellite malignant nodules in the left upper lobe was stable measuring 2.2 x 2.8 cm with SUV of 10.9, not a significant change since prior study on 10/23/2018. No new lesion seen. He was was referred to [facility] where he saw thoracic oncologist Dr. Bellamy who recommended MRI scan of the brain which was done on on 02/21/2019 which showed a new diffusion weighted, 5 mm abnormality with mild enhancement in the anterior right parietal lobe cortex. Subacute small lacunar infarction versus metastatic disease. Follow-up MRI brain recommended in 3-4 months. Previously described anterior right frontal and left parietal cortical areas of enhancement were slightly smaller in size. Differential include decrease in size of metastatic due to treatment. CT-guided biopsy of left upper lobe was done on 02/24/2019 showed adenocarcinoma, well-differentiated. He then underwent radiation to the right lung and mediastinum concurrently with carboplatin and etoposide chemotherapy. It was followed by whole brain radiation and SBRT to the left lung lesion. Treatment was completed on 05/09/2020. Follow-up CT scan of chest done on 06/20/2019 showed decreased size of previous left upper lobe neoplastic mass and further decrease in size of previous bulky right middle lobe mass. Residual mass lesion remaining is probably associated with right-sided mediastinal invasion. Residual scarring or subsegmental atelectasis right middle lobe and chronic emphysema. f/u CT PET scan done on 09/10/2019 showed positive response to therapy of the left upper lobe adenocarcinoma. New abnormal activity in the left upper lobe groundglass nodule and left upper hilar lymph node and increased activity in the bowel at left inguinal canal with new reactive left inguinal node. Patient has history of left inguinal hernia repair in April 2018. MRI head done on 08/23/2019 showed resolved enhancing metastatic lesion, no new lesion seen. He was referred to [facility] in [place] for EBUS/biopsy of left upper hilar lymph node which was done on 10/07/2019 and final pathology report came back adenocarcinoma consistent with lung origin. Dr Romeo was referred to radiation oncology for evaluation. Dr Dalal's impression was that the patient had received radiation therapy to left upper lobe primary previously. With further radiation, the risk of casuing left bronchus damage and major blood vessel damage would deter radiation. Dr Guerrero then suggested chemotherapy alone. Dr Romeo was offered treatment with Carboplatin/Alimta/Keytruda. He started cycle 1 Keytruda/carboplatin/Alimta on 11/15/2019. Follow-up CT PET scan done after 3 cycles of carboplatin/Alimta/Keytruda on 01/07/2020 showed mild progression of left upper lobe mass from the prior study done on 09/10/2019. Overall progression of disease within new unifocal osseous metastatic disease in the posterior left iliac and a new FDG positive prevascular mediastinal lymph node. Decreasing FDG activity in left upper lobe groundglass nodule. No significant change in left hilar node. No significant change in presumed inflammatory activity in the left inguinal canal. Dr Romeo had a MRI scan of the head done in December 2019. 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 He was evaluated by radiation oncology and underwent SRS to the solitary brain lesion on 01/11/2020. Subsequently patient developed seizure-like activity and was admitted to hospital on 01/12/2020. He was treated with dexamethasone and Keppra and was also evaluated by neurology- Dr. García. At that time his labs showed white blood count1.3, hemoglobin 7.7 hematocrit 23.5, platelets 47,000 Dr Romeo restarted on palliative chemotherapy with carboplatin/Alimta/Keytruda on 01/22/2020 after recovery from his December hospital admission. c/o poor appetite . In the past he had been using cannabis but has laid off of it since he has been on the Keppra. We did discuss potential interactions between the cannabis and Keppra and he was given the drug information on Keppra from up-to-date file. Follow-up CT PET scan done on May 13, 2020 showed left upper lobe mass that previously measured 2.4 x 3.1 cm with SUV of 5.8 now measured 3.1 x 4.7 cm with SUV of 7.1. Adjacent groundglass opacity was unchanged. Mediastinal nodes were improved, superior left hilar node now has improved SUV 5.8 compared to 7.8 previously. Prevascular adenopathy was improved. Right middle lobe atelectasis seen on previous study was unchanged and remain FDG negative. Activity in left inguinal canal was minimally improved. Osseous metastatic disease in the left iliac had progressed with abnormal activity now surrounding the acetabulum and new lesion in the anterior bone. discussed with Dr. Reese ([facility]-reading radiologist of 05/05/2020 PET/CT. Per Dr Guerrero, Dr Reese's impression was changes in the left upper lobe nodule/primary could be due to tumor flare due to immunotherapy which is seen in about 20 to 25% cases. The rest of sites shows improvement except left hip which suggested worsening osseous disesase-again patient has history of trauma, in that case he suggested plain x-ray or MRI scan of hip for further information. Dr Romeo (patient) reports that he had a plain film at [facility] which looked really good-nothing abnormal . He continued maintenance immunotherapy with pembrolizumab, cycle 1 on 06/06/2020. He continued with cycle 2 on 06/27/2020. Underwent CT chest angiogram on July 05, 2020 which showed no pulmonary embolism, left upper lobe pulmonary mass measuring 2.6 x 5.4 x 3.3 cm with mediastinal or hilar lymphadenopathy increasing tumor burden and adenopathy since May 05, 2020 CT PET scan Multilobar areas of groundglass attenuation and scattered opacifications. And additional superimposed metastatic sites are not excluded Dr Romeo has continued on Keytruda with his last treatment on 06/27/2020. He has had marginal performance status and he has received interim supportive ccare with hydration and pain management. He is here today for followup and consideration of treatment. He states he feels like he is getting stronger and feels like his hip/leg pain is better overall. He continues to have limited performance status and is obviously weak today. He is appropriately orientated. He states he is eating better and reinforces that his pain is better. He does require frequent pain medication to control the pain. Mrs Romeo indicates that he seems to be getting weaker to her. His ECOG is 2. Past Medical History: Cardiac dysrhythmias Centrilobular emphysema Coronary artery disease Gastroesophageal reflux disease Hypertension Past Surgical History: Bronchoscopy Hernia repair Right subclavian [employer]-Dr Reveles in 2019 Left lung biopsy in 2018 Lung biopsy in 2018 Lung biopsy in 2017 Coronary artery bypass in 2012 Allergies: latex and Pollen. Medications: Anoro Ellipta 1 (62.5-25 mcg/inh) Aerosol Powder, Breath Activated Inhalation daily black seed oil 1 Capsule Oral daily Co Q-10 1 Capsule (of 400 mg) Oral daily Flonase 2 spray(s) (of 50 mcg/act) Suspension Nasal daily PRN Keppra 1 Tablet (of 1000 mg) Oral b.i.d. Magnesium 1 Tablet (of 100 mg) Oral daily Multivitamin Adults 1 Tablet Oral daily Omeprazole 1 Capsule (of 20 mg) Capsule Delayed Release Oral b.i.d. Probiotic Daily 1 Capsule Oral daily ZyrTEC Allergy 1 Tablet (of 10 mg) Oral daily Family History: Mr. Romeo's mother is alive: heart disease, and hypertension. Mr. Romeo's father at age 74: sarcoma. Mr. Romeo has 2 brothers: 2 alive. 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 Mr. Romeo quit smoking 6 years ago but had smoked 1.0 pack/day for 50 years. He drinks daily. He consumes 3 drinks/day. Mr. Romeo reports contact with hazardous material. Review Of Symptoms: Constitutional Denies fevers, chills, night sweats, excessive fatigue or weight loss. Has fatigue and shortness of breath-stable. Allergic/Immunologic No reactions. Eyes Denies significant visual changes. No diplopia. No amaurosis. ENMT Denies changes in hearing, sore throat, mouth sores, difficulty or changes in swallowing ability, and/or sinus drainage. Endocrine No diabetes, thyroid disease or hormone replacement. Denies hot flashes or night sweats. Hematologic/Lymphatic Denies easy bruising or bleeding. The patient denies any tender or palpable lymph nodes. Respiratory He is having dyspnea on minimal exertion but denies chest pain, cough or hemoptysis. Denies orthopnea. Cardiovascular Denies anginal chest pain, palpitations or orthopnea. Gastrointestinal Denies nausea, vomiting, GI bleeding, or constipation. Denies change in bowel habits and/or stool color, no heartburn or early satiety. Genitourinary (M) Denies hematuria, dysuria, increased frequency, urgency, hesitancy or incontinence. Musculoskeletal Denies joint swelling or redness. No decreased range of motion. He states he is having sciatica down the left hip and leg. He states it runs right along that nerve root. He states that he did have an x-ray at [facility] and he looked at it and it all looked really good . He states the bone was just to smooth as it could be. He also had a radiologist look at and they did not see any abnormalities. He states the pain is getting better but is still significant at times. He states he has been taking up to 2 Percocet at a time and that is not touching his pain. He states he is able to maneuver his hip much better today. Integumentary Denies chronic rashes, inflammation, ulcerations or skin changes. Neurologic Denies headache, blurred vision, and no areas of focal weakness or new numbness. Psychiatric Denies insomnia, depression, bryant or mood swings. Vital Signs: ,2 - Ambulatory/capable of all self-care, unable to perform any work activities. Up and about more than 50% of waking hours. (ECOG) Physical Examination: Constitutional Alert, oriented, no acute distress. Skin pink, warm and dry. Head Normocephalic; atraumatic. Eyes Conjunctivae and sclerae are clear and without icterus. Pupils are reactive and equal. Neck Supple without masses or thyromegaly. No jugular venous distension. Respiratory Lungs are clear to auscultation without rhonchi or wheezing. Cardiovascular Regular rate and rhythm of heart without murmurs,clicks, gallops or rubs. Abdomen Non-tender, non-distended, no masses or ascites. Back/Spine Non-tender to palpation. Extremities No visible deformities, no cyanosis, clubbing or edema. Musculoskeletal No tenderness or swelling, normal range of motion with mild weakness in the left leg with exam while in treatment recliner-Gait not assessed today. Integumentary No rashes or lesions. Neurologic No sensory or motor deficits, normal cerebellar function. Psychiatric Alert and oriented times three. Coherent speech. Verbalizes understanding of our discussions today. Laboratory:Test performed on Jul 25, 2020 12:30 Sodium 136 mmol/L Potassium 4.1 mmol/L Chloride 98 mmol/L CO2 28 mmol/L Anion Gap 14.1 BUN 28 mg/dL Creatinine 1.1 mg/dL Cr Clearance (Est) 50.0500 mL/min Glucose 163 mg/dL Calcium 8.7 mg/dL Protein, Total 6.1 g/dL Albumin 3.2 g/dL Globulin 2.9 g/dL Bilirubin, Total 0.3 mg/dL ALT (SGPT) 15 U/L AST (SGOT) 24 U/L Alkaline Phosphatase 154 IU/L WBC 11.7 10 3/uL RBC 2.55 10 6/uL HGB 8.4 g/dL HCT 26.7 % MCV 104.7 fL MCH 32.9 pg MCHC 31.5 g/dL RDW 21.1 % Platelet Count 111 10 3/cmm MPV 10.8 fL Neutrophils 8.61 10 3/uL Lymphocytes 1.2 10 3/uL Monocytes 1.2 10 3/uL Eosinophils 0.1 10 3/uL Basophils 0.0 10 3/uL Neutrophil % 73.9 % Lymphocyte % 10.4 % Monocyte % 10.5 % Eosinophil % 0.9 % Basophils % 0.2 % NRBC % 0 % Test performed on May 22, 2020 10:50 TSH 1.16 uIU/mL CBC Slide Review Slide Review Perform SLIDE REVIEW AGREES WITH AUTOMATED RESULTS ST Test performed on Feb 14, 2020 10:10 Magnesium 1.2 mg/dL Test performed on Jan 31, 2020 13:30 Ferritin 1317 ng/mL Iron 63 mcg/dL Vitamin B12 520 pg/mL Iron Binding Capacity (TIBC) 247 mcg/dl % Iron Saturation 25.5 % UIBC 184 mcg/dL Impression: 1. Patient with small cell lung cancer involving the right middle lobe per CT-guided lung biopsy done on 10/01/2018. He had stage IV disease with MRI of the head from 10/20/2018 revealing right anterior frontal lobe and left parietal lobe cortical 2-3 mm enhancing foci consistent with metastatic disease. 2. He had a good response to chemotherapy with 3 cycles of carboplatin/etoposide. 3. During followup he was found to have adenocarcinoma involving the upper lobe of the left lung, diagnosed by CT-guided biopsy in February 2019. He underwent radiation concurrently with carboplatin/etoposide chemotherapy, completed on 04/20/2019, total radiation dose 6,000 cGy. 4. He underwent palliative whole brain radiation, completed 05/04/2020 to a total dose of 3,000 cGy. 5. He underwent SBRT to the left lung lesion, completed on 05/09/2020 to a total dose of 4,800 cGy. 6. He had recurrence of adenocarcinoma per left hilar lymph node biopsy in September 2019. 7. On 11/15/2019 he began combined chemotherapy/immunotherapy with carboplatin/pemetrexed in combination with pembrolizumab 8. MRI scan of the head done in December 2019 showed a single brain metastases. He was evaluated by radiation oncology and he underwent SRS to the solitary brain lesion on 01/11/2020. As of 05/10/2020 he had completed 8 cycles of treatment with carboplatin/pemetrexed in combination with pembrolizumab. He then transitioned to maintenance pembrolizumab, cycle 1 on 06/06/2020. He continued with cycle 2 on 06/27/2020. He presents now with increasing weakness and shortness of breath over the past several days. He is significantly hypoxic with oxygen saturation 90% on room air dropping to 70% after walking just a short distance. It recovered to 85% at rest, then increased to 93% on 3 L nasal cannula. His CT pulmonary angiogram shows no evidence of pulmonary embolism. There does appear to be progression of the left upper lobe neoplasm. There are groundglass infiltrates in both lungs which may be due to pneumonia, treatment related pneumonitis, or progression of the underlying malignancy. Per Dr Guerrero's 2019 visit Clinically, patient is doing reasonably well, he was presented to clinic about a week ago with shortness of breath so underwent pulmonary CTA to rule out pulmonary embolism and it came back negative but showed additional information including left upper pulmonary mass measuring 2.6 x 5.4 x 3.2 cm which is progressive when compared with CT PET scan done in April 2020 and other concern is multilobar area of groundglass attenuation with scattered opacification, which could be pneumonitis or radiation recall or deterioration of underlying pulmonary condition or metastatic disease. At this point will consider CT PET scan and compared with previous CT PET scan to confirm if there is a disease progression in that case we will discuss about palliative chemotherapy or observation on the other hand if there is no evidence of disease progression but pneumonitis in that case we will discontinue immunotherapy and monitor and also discussed about role of hospice and patient will make decision after reviewing CT PET scan Other concern is progressive thrombocytopenia, etiology unclear could be due to ITP or considering his age underlying myelodysplasia or immunotherapy, will continue to monitor and if persist, may interfere with palliative chemotherapy. Dr Romeo did not have his PET/CT last Thursday but it is now scheduled for this coming Thursday. Plan: 1. Delay treatment until results of PET/CT are obtained. 2. Continue current agressive pain management as needed. 3. Supportive care as needed. 4. Labs from today were reviewed in detail and discussed with Dr. Maloney and a copy was given to him. White count 11.7, hemoglobin 8.4 platelets 111,000 ANC is 8600. Creatinine 1.1 random glucose 163 LFTs are normal alk phos is 154. He did not feel that he wanted transfusion services at this point. I have asked that he have follow-up CBC CMP weekly with [facility]. I did again encourage/offer to check him next week to see if he would need transfusion. He will let us know if he decides he wants to do that. 5. We will plan to have him return in 2 weeks [address] Guerrero will be back and can review the PET CT with and Mrs. Romeo. I did tell him in the interim that we would send him a copy of the PET scan although no treatment decisions will be made until Dr. Guerrero is back into the clinic. He is aware and verbalized understanding. 6. Dr. Romeo was encouraged to contact us in the interim should he need further pain management or any other concerns. Dr. Villarreal is available to cover for Dr. Guerrero and Dr. Romeo is aware of this. Signed By: James De Leon-, AOP Colette Guerrero MD <<Signature on File>>
== END 2020-07-25 12:21 | disposition home or self-care (01) ==
LOC: ONCMED 12:24
PROVIDERS: PCP Family Medicine; Visit Provider Nurse Practitioner
DX: C34.12 Malignant neoplasm of upper lobe, left bronchus or lung (principal); C34.2 Malignant neoplasm of middle lobe, bronchus or lung; C77.1 Secondary and unspecified malignant neoplasm of intrathoracic lymph nodes; C79.31 Secondary malignant neoplasm of brain; D69.6 Thrombocytopenia, unspecified; R91.8 Other nonspecific abnormal finding of lung field; Z92.3 Personal history of irradiation; Z92.21 Personal history of antineoplastic chemotherapy
CPT/HCPCS: 36591; 80053; 85025; 99214

== ENCOUNTER 2020-08-01 06:06 | Outpatient (CLI) | payer MEDICARE, OTHER, SELFPAY ==
[2020-08-01] MEDS: sodium chloride 0.9% 1,000 ML 999 ML IV (10:00)
[2020-08-01 10:47] LABS: Hematocrit 25.7 % (42.0-52.0); Hemoglobin 8.1 g/dL (11.7-16.6); Mean Corpuscular HGB Conc 31.5 g/dL (30.0-36.0); Mean Corpuscular Hemoglobin 33.8 pg (28.0-34.0); Mean Corpuscular Volume 107.1 fL (80-94); Mean Platelet Volume 10.6 fL (7.4-10.4); Platelet Count 103 10^3/cmm (130-400); Red Cell Distribution Width 20.9 % (12.1-15.1); White Blood Count 11.8 10^3/uL (4.0-10.0)
[2020-08-01 11:08] LABS: Alanine Aminotransferase 16 U/L (0-41); Albumin Level 3.3 g/dL (3.5-5.2); Alkaline Phosphatase 162 IU/L (40-130); Anion Gap 19.3 (5-19); Aspartate Amino Transferase 21 U/L (0-40); Blood Urea Nitrogen 29 mg/dL (8-23); Calcium 9.1 mg/dL (8.5-10.5); Carbon Dioxide 26 mmol/L (22-29); Chloride 96 mmol/L (98-107); Glucose 116 mg/dL (65-115); Osmolality Calculated 282 mOsm/kg (285-295); Potassium 4.3 mmol/L (3.5-5.1); Sodium 137 mmol/L (136-145); Total Bilirubin 0.4 mg/dL (0.15-1.2); Total Protein 6.3 g/dL (6.6-8.7)
[2020-08-01 11:38] LABS: Slide Review Slide Review Perform
[2020-08-01 11:41] LABS: Absolute Segmented Neutrophil 9.9 10/cmm (1.6-7.1); Lymphocytes 6 %; Lymphocytes Absolute 1.1 10^3/cmm (1.2-3.4); Segmented Neutrophils 84 %; Total Cells Counted 100 (0-100)
[2020-08-01 11:43] LABS: Absolute Neutrophil 9.9 10^3/cmm (1.4-6.5); Anisocytosis Trace; Platelet Estimate Decreased (Normal)
== END 2020-08-01 06:07 | disposition home or self-care (01) ==
LOC: ONCMED 06:08
PROVIDERS: PCP Family Medicine; Visit Provider Nurse Practitioner
DX: C34.12 Malignant neoplasm of upper lobe, left bronchus or lung (principal); C34.2 Malignant neoplasm of middle lobe, bronchus or lung; D64.81 Anemia due to antineoplastic chemotherapy; D70.1 Agranulocytosis secondary to cancer chemotherapy; T45.1X5A Adverse effect of antineoplastic and immunosuppressive drugs, initial encounter
CPT/HCPCS: 80053; 85007; 85025; 96360; J7030

== ENCOUNTER 2020-08-07 05:45 | Outpatient (CLI) | payer MEDICARE, OTHER, SELFPAY ==
[2020-08-07 13:28] LABS: Basophils # 0.1 10^3/uL (0.0-0.1); Basophils % 0.4 %; Eosinophils # 0.1 10^3/uL (0.0-0.8); Eosinophils % 0.4 %; Hematocrit 26.1 % (42.0-52.0); Hemoglobin 8.2 g/dL (11.7-16.6); Lymphocytes # 1.1 10^3/uL (0.8-4.8); Mean Corpuscular HGB Conc 31.4 g/dL (30.0-36.0); Mean Corpuscular Hemoglobin 34.7 pg (28.0-34.0); Mean Corpuscular Volume 110.6 fL (80-94); Mean Platelet Volume 10.5 fL (7.4-10.4); Monocytes # 1.4 10^3/uL (0.2-0.9); Monocytes % 12.3 %; Neutrophils # 8.07 10^3/uL (1.8-7.7); Neutrophils % 71.2 %; Nucleated Red Blood Cells % 0 %; Platelet Count 101 10^3/cmm (130-400); Red Blood Count 2.36 10^6/uL (4.1-5.3); Red Cell Distribution Width 20.2 % (12.1-15.1); White Blood Count 11.4 10^3/uL (4.0-10.0)
[2020-08-07 14:19] LABS: Slide Review Slide Review Perform
--- NOTE | 2020-08-07 17:33 | ONC FU_ITS ---
Dr. 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 In the last week of June 2018 he had noted some blood in his yellow phlegm and tried to tough it out for about month and half. He finally saw his primary care physician and he was diagnosed with chronic bronchitis. A Chest x-ray was done-as per patient it was normal and he was given a prescription for Flovent. He felt some improvement and on 09/01/[address] scan of chest which showed right middle lobe lung mass. The mass was reported as about 6 cm in size with mediastinal and hilar lymphadenopathy and there was a contralateral nodule which is lobulated in the left upper lobe measures 4 x 2.3 cm. Mr Romeo was then referred to Dr. Ortiz, engineering patternmaker in [place]. He underwent bronchoscopy and transbronchial biopsy on 09/10/2018 which showed no evidence of malignancy. Subsequently patient underwent CT-guided biopsy of right middle lobe on 10/01/2018 which confirmed small cell lung cancer. Mr. Romeo underwent PET CT staging on 10/23/2018. The bulky right middle lobe mass demonstrates significant necrosis, and homogenous FDG uptake extends from the right hilum with subtotal atelectasis of the right middle lobe and an SUV of 25.2. There was loss of that plane between the mediastinum and mass superiorly, suggesting early invasion. The left upper lobe satellite mass was in a subpleural location, without involvement of the adjacent chest wall. This measured 2.0 x 3.0 cm with an SUV of 8.5. There was no evidence of malignancy outside of the chest. MRI of the head from 10/20/2018 revealed right anterior frontal lobe and left parietal lobe cortical 2-3 mm enhancing foci; primary considerations metastatic disease. Mr. Romeo began his first cycle of carboplatin and etoposide on 11/02/2018. CT PET scan done after 3 cycles of chemotherapy on 01/15/2019 showed significant improvement in the right middle lobe mass with postobstructive atelectasis since the prior study. The mass now measured 4.6 x 2.4 cm with SUV of 5. And the satellite malignant nodules in the left upper lobe was stable measuring 2.2 x 2.8 cm with SUV of 10.9, not a significant change since prior study on 10/23/2018. No new lesion seen. He was was referred to [facility] where he saw thoracic oncologist Dr. Bellamy who recommended MRI scan of the brain which was done on on 02/21/2019 which showed a new diffusion weighted, 5 mm abnormality with mild enhancement in the anterior right parietal lobe cortex. Subacute small lacunar infarction versus metastatic disease. Follow-up MRI brain recommended in 3-4 months. Previously described anterior right frontal and left parietal cortical areas of enhancement were slightly smaller in size. Differential include decrease in size of metastatic due to treatment. CT-guided biopsy of left upper lobe was done on 02/24/2019 showed adenocarcinoma, well-differentiated. He then underwent radiation to the right lung and mediastinum concurrently with carboplatin and etoposide chemotherapy. It was followed by whole brain radiation and SBRT to the left lung lesion. Treatment was completed on 05/09/2020. Follow-up CT scan of chest done on 06/20/2019 showed decreased size of previous left upper lobe neoplastic mass and further decrease in size of previous bulky right middle lobe mass. Residual mass lesion remaining is probably associated with right-sided mediastinal invasion. Residual scarring or subsegmental atelectasis right middle lobe and chronic emphysema. f/u CT PET scan done on 09/10/2019 showed positive response to therapy of the left upper lobe adenocarcinoma. New abnormal activity in the left upper lobe groundglass nodule and left upper hilar lymph node and increased activity in the bowel at left inguinal canal with new reactive left inguinal node. Patient has history of left inguinal hernia repair in April 2018. MRI head done on 08/23/2019 showed resolved enhancing metastatic lesion, no new lesion seen. He was referred to [facility] in [place] for EBUS/biopsy of left upper hilar lymph node which was done on 10/07/2019 and final pathology report came back adenocarcinoma consistent with lung origin. Dr Romeo was referred to radiation oncology for evaluation. Dr Dalal's impression was that the patient had received radiation therapy to left upper lobe primary previously. With further radiation, the risk of casuing left bronchus damage and major blood vessel damage would deter radiation. was suggested chemotherapy alone. Dr Romeo was offered treatment with Carboplatin/Alimta/Keytruda. He started cycle 1 Keytruda/carboplatin/Alimta on 11/15/2019. Follow-up CT PET scan done after 3 cycles of carboplatin/Alimta/Keytruda on 01/07/2020 showed mild progression of left upper lobe mass from the prior study done on 09/10/2019. Overall progression of disease within new unifocal osseous metastatic disease in the posterior left iliac and a new FDG positive prevascular mediastinal lymph node. Decreasing FDG activity in left upper lobe groundglass nodule. No significant change in left hilar node. No significant change in presumed inflammatory activity in the left inguinal canal. Dr Romeo had a MRI scan of the head done in December 2019. 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 He was evaluated by radiation oncology and underwent SRS to the solitary brain lesion on 01/11/2020. Subsequently patient developed seizure-like activity and was admitted to hospital on 01/12/2020. He was treated with dexamethasone and Keppra and was also evaluated by neurology- Dr. García. At that time his labs showed white blood count1.3, hemoglobin 7.7 hematocrit 23.5, platelets 47,000 Dr Romeo restarted on palliative chemotherapy with carboplatin/Alimta/Keytruda on 01/22/2020 after recovery from his December hospital admission. c/o poor appetite . In the past he had been using cannabis but has laid off of it since he has been on the Keppra. We did discuss potential interactions between the cannabis and Keppra and he was given the drug information on Keppra from up-to-date file. Follow-up CT PET scan done on May 13, 2020 showed left upper lobe mass that previously measured 2.4 x 3.1 cm with SUV of 5.8 now measured 3.1 x 4.7 cm with SUV of 7.1. Adjacent groundglass opacity was unchanged. Mediastinal nodes were improved, superior left hilar node now has improved SUV 5.8 compared to 7.8 previously. Prevascular adenopathy was improved. Right middle lobe atelectasis seen on previous study was unchanged and remain FDG negative. Activity in left inguinal canal was minimally improved. Osseous metastatic disease in the left iliac had progressed with abnormal activity now surrounding the acetabulum and new lesion in the anterior bone. discussed with Dr. Reese ([facility] Radiology-reading radiologist of 05/05/2020 PET/CT. Dr Reese's impression was changes in the left upper lobe nodule/primary could be due to tumor flare due to immunotherapy which is seen in about 20 to 25% cases. The rest of sites shows improvement except left hip which suggested worsening osseous disesase-again patient has history of trauma, in that case he suggested plain x-ray or MRI scan of hip for further information. Dr Romeo (patient) reports that he had a plain film at [facility] which looked really good-nothing abnormal . He continued maintenance immunotherapy with pembrolizumab, cycle 1 on 06/06/2020. He continued with cycle 2 on 06/27/2020. Underwent CT chest angiogram on July 05, 2020 which showed no pulmonary embolism, left upper lobe pulmonary mass measuring 2.6 x 5.4 x 3.3 cm with mediastinal or hilar lymphadenopathy increasing tumor burden and adenopathy since May 05, 2020 CT PET scan Multilobar areas of groundglass attenuation and scattered opacifications. And additional superimposed metastatic sites are not excluded Dr Romeo has continued on Keytruda with his last treatment on 06/27/2020. He states he feels like he is getting stronger and feels like his hip/leg pain is better overall. He continues to have limited performance status Follow-up CT PET scan done on July 28, 2020 showed left upper lobe lesion measured 3.3 x 4.5 cm with SUV 11.7 compared to 3.1 x 4.7 cm with SUV of 7.1 on May 05, 2020. Multiple new bilateral pulmonary nodules are FDG positive consistent with metastatic disease the index lesion in the posterior left lower lobe measuring 1.1 cm with SUV of 5.9. New FDG positive nodes in the right hilum, left upper hilum and prevascular territory represent new metastatic adenopathy. Osseous metastatic disease in the left ilium is significantly progressed now infiltrating essentially in the entire bone extending through the acetabulum and ischium. With SUV of 19.5 compared to 11.8 previously new osseous metastatic disease in L5 and L1 vertebra. Came for follow-up, complaining of generalized weakness and fatigue, no fever chills, no nausea or vomiting, no diarrhea or constipation, left hip pain is about 2 on the scale of 1-10 and under control with current pain medication. Denies any lower back pain, denies any lower extremity weakness but poor appetite, Dr. García gave him prescription for appetite stimulant. Is tolerating orally well. Medications: Anoro Ellipta 1 (62.5-25 mcg/inh) Aerosol Powder, Breath Activated Inhalation daily, black seed oil 1 Capsule Oral daily, Co Q-10 1 Capsule (of 400 mg) Oral daily, Flonase 2 spray(s) (of 50 mcg/act) Suspension Nasal daily PRN, Keppra 1 Tablet (of 1000 mg) Oral b.i.d., Magnesium 1 Tablet (of 100 mg) Oral daily, Multivitamin Adults 1 Tablet Oral daily, Omeprazole 1 Capsule (of 20 mg) Capsule Delayed Release Oral b.i.d., Probiotic Daily 1 Capsule Oral daily, ZyrTEC Allergy 1 Tablet (of 10 mg) Oral daily Allergies: latex and Pollen. Review of Systems: Constitutional - He continues to feel weak. Appetite has recently declined. He has not had fever. He does have some night sweating. Energy level is poor, ENMT - He has sinus drainage. No mouth sores. No sore throat or difficulty swallowing, Hematologic/Lymphatic - He has a lot of bruising, Respiratory - Positive for being short of breath. Positive for cough. No pleuritic pain or hemoptysis, Cardiovascular - No angina pain. No palpitations, Gastrointestinal - Occasional nausea. His acid reflux is adequately managed with medication. He has constipation. No blood in the stool or black stools, Genitourinary (M) - No dysuria or hematuria. No urinary frequency. No urgency or incontinence, Musculoskeletal - Pt denies pain today, Neurologic - No headache. He has occasional orthostatic lightheadedness. No numbness or tingling. No other focal neurologic symptoms, Psychiatric - No anxiety or depression. He does not sleep well at night. Vital Signs: Performed on Aug 07, 2020 14:49 Height - 70.00 in Weight - 135.0 lbs (HIGH) BSA - 1.77 sq.m BMI - 19.37 Temperature - 99.2 F (HIGH) Pulse - 121 /min (HIGH) Respiration - 24 /min BP - 95/62 mm(hg) O2 Sat - 94 % (LOW) Pain - 0 Performance Status: 2 - Ambulatory/capable of all self-care, unable to perform any work activities. Up and about more than 50% of waking hours. (ECOG) Physical Examination: ENMT - No mouth sores, no thrush, no jaundice, Respiratory - Lungs are clear to auscultation, Cardiovascular - Regular rate and rhythm of heart, Abdomen - Soft, bowel sounds present, Extremities - No visible edema. Lab/Imaging: Test performed on Aug 04, 2020 09:41 HCT 27.7 % HGB 9.1 g/dL Test performed on Jul 25, 2020 12:30 Sodium 136 mmol/L Potassium 4.1 mmol/L Chloride 98 mmol/L CO2 28 mmol/L Anion Gap 14.1 BUN 28 mg/dL Creatinine 1.1 mg/dL Cr Clearance (Est) 50.0500 mL/min Glucose 163 mg/dL Calcium 8.7 mg/dL Protein, Total 6.1 g/dL Albumin 3.2 g/dL Globulin 2.9 g/dL Bilirubin, Total 0.3 mg/dL ALT (SGPT) 15 U/L AST (SGOT) 24 U/L Alkaline Phosphatase 154 IU/L Test performed on May 22, 2020 10:50 TSH 1.16 uIU/mL WBC 2.0 10 3/uL RBC 1.88 10 6/uL MCV 111.2 fL MCH 34.6 pg MCHC 31.1 g/dL RDW 18.3 % Platelet Count 26 10 3/cmm MPV 12.2 fL Neutrophils 1.2 10 3/uL Lymphocytes 0.5 10 3/uL Monocytes 0.3 10 3/uL Eosinophils 0.0 10 3/uL Basophils 0.0 10 3/uL Neutrophil % 60.8 % Lymphocyte % 22.8 % Monocyte % 14.4 % Eosinophil % 1.0 % Basophils % 0.0 % NRBC % 0 % CBC Slide Review Slide Review Perform SLIDE REVIEW AGREES WITH AUTOMATED RESULTS ST Test performed on Feb 14, 2020 10:10 Magnesium 1.2 mg/dL Impression: 1. Patient with small cell lung cancer involving the right middle lobe per CT-guided lung biopsy done on 10/01/2018. He had stage IV disease with MRI of the head from 10/20/2018 revealing right anterior frontal lobe and left parietal lobe cortical 2-3 mm enhancing foci consistent with metastatic disease. 2. He had a good response to chemotherapy with 3 cycles of carboplatin/etoposide. 3. During followup he was found to have adenocarcinoma involving the upper lobe of the left lung, diagnosed by CT-guided biopsy in February 2019. He underwent radiation concurrently with carboplatin/etoposide chemotherapy, completed on 04/20/2019, total radiation dose 6,000 cGy. 4. He underwent palliative whole brain radiation, completed 05/04/2020 to a total dose of 3,000 cGy. 5. He underwent SBRT to the left lung lesion, completed on 05/09/2020 to a total dose of 4,800 cGy. 6. He had recurrence of adenocarcinoma per left hilar lymph node biopsy in September 2019. 7. On 11/15/2019 he began combined chemotherapy/immunotherapy with carboplatin/pemetrexed in combination with pembrolizumab 8. MRI scan of the head done in December 2019 showed a single brain metastases. He was evaluated by radiation oncology and he underwent SRS to the solitary brain lesion on 01/11/2020. As of 05/10/2020 he had completed 8 cycles of treatment with carboplatin/pemetrexed in combination with pembrolizumab. He then transitioned to maintenance pembrolizumab, cycle 1 on 06/06/2020. He continued with cycle 2 on 06/27/2020. He presents now with increasing weakness and shortness of breath over the past several days. He is significantly hypoxic with oxygen saturation 90% on room air dropping to 70% after walking just a short distance. It recovered to 85% at rest, then increased to 93% on 3 L nasal cannula. His CT pulmonary angiogram shows no evidence of pulmonary embolism. There does appear to be progression of the left upper lobe neoplasm. There are groundglass infiltrates in both lungs which may be due to pneumonia, treatment related pneumonitis, or progression of the underlying malignancy. in 2019 visit Clinically, patient was doing reasonably well, he was presented to clinic about a week ago with shortness of breath so underwent pulmonary CTA to rule out pulmonary embolism and it came back negative but showed additional information including left upper pulmonary mass measuring 2.6 x 5.4 x 3.2 cm which is progressive when compared with CT PET scan done in April 2020 and other concern is multilobar area of groundglass attenuation with scattered opacification, which could be pneumonitis or radiation recall or deterioration of underlying pulmonary condition or metastatic disease. At this point will consider CT PET scan and compared with previous CT PET scan to confirm if there is a disease progression in that case we will discuss about palliative chemotherapy or observation on the other hand if there is no evidence of disease progression but pneumonitis in that case we will discontinue immunotherapy and monitor and also discussed about role of hospice and patient will make decision after reviewing CT PET scan Other concern is progressive thrombocytopenia, etiology unclear could be due to ITP or considering his age underlying myelodysplasia or immunotherapy, will continue to monitor and if persist, may interfere with palliative chemotherapy. Plan: Discussed with patient regarding his labs white blood count 11.4 hemoglobin 8.2 hematocrit 26.1 platelets 101,[address] PET scan finding which showed progression of left upper lobe primary malignancy. New bilateral, FDG positive solid pulmonary nodules representing new metastatic disease. New abnormality in the mediastinal lymph nodes and progression of existing with interval development of new osseous metastatic disease Clinically, patient is doing reasonably well now with symptomatic anemia e.g. generalized weakness and fatigue, at this point will consider 1 unit of packed RBC to improve his overall quality of life. Patient was encouraged to maintain good nutrition and hydration. His CT PET scan findings were discussed in detail which shows intrathoracic disease progression not sure whether it is due to recurrence of small cell lung cancer or adenocarcinoma progression as patient has 2 lung primaries but no liver mets or any other distant mets except persistent left pelvic bone involvement and now with L1 and L5 involvement. At this point will consider starting him on biphosphonate or Xgeva on monthly basis along with vitamin D and calcium supplement to prevent skeletal related complications and continue supportive care and repeat CT scan of chest in 1 month and compared with CT PET scan and if there is a disease progression, may consider biopsy if possible to see which primaries progressing if there is no change, we may continue to observe while improving overall performance status and quality of life. Signed By: Colette Guerrero M.D. <<Signature on File>>
[2020-08-08 09:15] VITALS: BP 99/66; PULSE 116; RESP 18; TEMP 37; O2SAT 94
[2020-08-08 09:30] VITALS: BP 93/55; PULSE 71; RESP 18; TEMP 37; O2SAT 94
[2020-08-08 09:45] VITALS: BP 108/75; PULSE 111; RESP 18; TEMP 36.9; O2SAT 94
[2020-08-08 10:15] VITALS: BP 119/83; PULSE 106; RESP 17; TEMP 36.9; O2SAT 94
[2020-08-08 10:45] VITALS: BP 118/79; PULSE 78; RESP 18; TEMP 36.6; O2SAT 94
== END 2020-08-07 05:46 | disposition home or self-care (01) ==
LOC: ONCMED 05:47
PROVIDERS: PCP Family Medicine; Visit Provider Internal Medicine Hematology & Oncology
DX: C34.12 Malignant neoplasm of upper lobe, left bronchus or lung (principal); D64.81 Anemia due to antineoplastic chemotherapy; D70.1 Agranulocytosis secondary to cancer chemotherapy; T45.1X5A Adverse effect of antineoplastic and immunosuppressive drugs, initial encounter; Z92.3 Personal history of irradiation; Z92.21 Personal history of antineoplastic chemotherapy
CPT/HCPCS: 36591; 85025; 86850; 86900; 86920; 99214

== ENCOUNTER 2020-08-08 09:10 | Outpatient (CLI) | payer MEDICARE, OTHER, SELFPAY ==
[2020-08-08] MEDS: acetaminophen 325 mg Tablet 650 MG PO (09:10)
[2020-08-08] MEDS: sodium chloride 0.9% 250 ML 999 ML IV (09:10)
[2020-08-09] MEDS: acetaminophen 325 mg Tablet 650 MG PO (09:00)
[2020-08-09] MEDS: diphenhydrAMINE 25 mg Capsule PO (15:10)
== END 2020-08-08 09:11 | disposition home or self-care (01) ==
LOC: ONCMED 09:14
PROVIDERS: PCP Family Medicine; Visit Provider Internal Medicine Hematology & Oncology
DX: C34.12 Malignant neoplasm of upper lobe, left bronchus or lung (principal); D64.81 Anemia due to antineoplastic chemotherapy; D70.1 Agranulocytosis secondary to cancer chemotherapy; T45.1X5A Adverse effect of antineoplastic and immunosuppressive drugs, initial encounter
CPT/HCPCS: J7050; P9016

== ENCOUNTER 2020-08-28 15:42 | Inpatient (IN) | payer MEDICARE, OTHER, SELFPAY ==
[2020-08-28] VITALS (10 sets, daily range): BP systolic 85–127; BP diastolic 61–92; PULSE 99–143; RESP 18–32; TEMP 36.6–36.8; O2SAT 90–100; BMI 18.9
--- NOTE | 2020-08-28 16:02 | XRR_ITS ---
PROCEDURE INFORMATION: Exam: XR Chest, 1 View Exam date and time: 08/28/2020 4:03 PM Age: 75 years old Clinical indication: Cough and dyspnea; Additional info: Dyspnea/cough TECHNIQUE: Imaging protocol: XR of the chest Views: 1 view. COMPARISON: CR XR chest 1V portable [id number] 06/11/2020 8:42 AM; CTA Chest 07/05/2020 1:39 p.m. FINDINGS: Tubes, catheters and devices: Right Infusaport catheter. Lungs: Subsegmental consolidated alveolar airspace disease process left upper lobe which could reflect pneumonia and/or atelectasis. Site of known potential lung carcinoma based on the CT examination of 07/05/2020. This could also reflect in addition to the lung carcinoma radiation pneumonitis. Numerous bilateral subcentimeter pulmonary nodules with concern for hematogenous metastasis. COPD/chronic bronchitis/emphysema. Pleural space: Unremarkable. No pleural effusion. No pneumothorax. Heart/Mediastinum: Cardiomegaly. Arteriosclerosis. Status post sternotomy chest and CABG. Bones/joints: Mild scoliotic curvature of the spine. Age-appropriate degenerative disease. XR/XR chest 1V portable [id number] IMPRESSION: 1. Subsegmental volume left upper lobe alveolar airspace disease with differential discussed in text above. 2. Known left upper lobe neoplasm with evidence of hematogenous metastasis bilaterally. 3. COPD/chronic bronchitis/emphysema.
--- NOTE | 2020-08-28 16:03 | ECG_ITS ---
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 Measurements Intervals [place] Rate: 140 P: 26 [place]: 142 QRS: 21 QRSD: 77 T: 55 QT: 277 QTc: 423 Interpretive Statements SINUS TACHYCARDIA WITH OCCASIONAL VENTRICULAR PREMATURE COMPLEXES No previous ECG available for comparison Electronically Signed On 08-30-2020 20:40:45 CDT by Juanito Werner M.D. [email or web address]
--- NOTE | 2020-08-28 16:23 | ED_ITS ---
Documented by User: Jaguar Araya DO 08/29/20 13:13 HPI - SOB/Dyspnea General: Chief Complaint: Shortness of Breath/Dyspnea Stated Complaint: SOB/[facility] told them to come here Time Seen by Provider: 08/28/20 15:54 History of Present Illness: HPI Narrative: 75-year-old male presents emergency room weakness rapid heart rate and shortness of breath. Patient has a known history of lung cancer with metastasis to the bone. He has been short of breath with lung he is not had any hemoptysis. He is not receiving treatment at this time he denies nausea vomiting diarrhea or fever progressing increasing shortness of breath he did have a little bit of chest discomfort before arrival as well. Associated symptoms: Deny abdominal pain, chest pain, fever(s), nausea, orthopnea or vomiting Review of Systems Const: Denies: fever(s), chills, body aches, change in appetite, fatigue or malaise ENMT: Denies: throat pain, ear or mastoid pain, nasal discharge or nasal congestion Card: Denies: chest pain, edema, dyspnea on exertion or orthopnea Resp: Denies: dyspnea, productive cough or non-productive cough GI: Denies: abdominal pain, nausea, vomiting, hematemesis, coffee ground emesis, diarrhea, constipation, bloating, hematochezia or melena : Denies: flank pain, dysuria, urinary frequency or urinary urgency Skin/Breast: Denies: rash or pruritus PFSH ED PFSH: Medical History CAD (coronary artery disease) COPD (chronic obstructive pulmonary disease) GERD (gastroesophageal reflux disease) History of cardiac arrhythmia Hypertension 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 Guerrero, on third cycle of carboplatin, Alimta, Keytruda and has received 1 dose of radiation therapy to the brain as of 01/12/20 Surgical History History of bilateral inguinal hernia repair (~2017) History of cataract surgery (~2013) History of coronary artery bypass graft (~2012) Vocal cord nodule Required surgery x2 in 2011 and 2014, benign Family History Other CAD (coronary artery disease) Cancer Hypertension Denies family history of Diabetes Stroke Social History Smoking and tobacco status: former smoker Quit status (tobacco): has quit using tobacco Year quit tobacco: 2013 quit cigars Alcohol intake: current Alcohol intake frequency: holidays/special occasions only 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 History of recent travel: No Physical Exam Const: COMMON NORMALS: no acute distress GENERAL APPEARANCE: cooperative and comfortable ORIENTATION/CONSCIOUSNESS: Yes awake, Yes oriented to person, Yes oriented to place and Yes oriented to time HENMT: COMMON NORMALS: normocephalic, atraumatic and hearing grossly normal bilaterally HEAD & SCALP: normocephalic and atraumatic Eye: COMMON NORMALS: Equal, round and reactive pupils present, EOMs intact bilaterally, conjunctivae normal and no scleral icterus CONJUNCTIVA: Yes conjunctivae normal PUPIL: Yes Equal, round and reactive pupils present Neck/C-Spine: COMMON NORMALS: full ROM, no lymphadenopathy, supple and no JVD Lymph: LYMPHATIC: no lymphadenopathy noted and no lymphedema noted Resp: COMMON NORMALS: normal respiratory effort, No retractions, No use of accessory muscles and clear to auscultation bilaterally AUSCULTATION: clear to auscultation bilaterally Cardio: COMMON NORMALS: no JVD, regular rate, regular rhythm and No murmurs present (Cardio) RATE: regular rate RHYTHM: regular rhythm GI: COMMON NORMALS: Soft to palpation and No hepatosplenomegaly present AUSCULTATION: Yes normoactive bowel sounds PALPATION: Yes Soft to palpation, No Tenderness to palpation present (GI), No Guarding due to palpation present (GI) and Yes No hepatosplenomegaly present Extremity: COMMON NORMALS: normal to inspection, capillary refill normal, no clubbing, cyanosis or edema, no calf tenderness and no pedal edema Neuro: SENSORIUM/ORIENTATION: Yes oriented to person, Yes oriented to place and Yes oriented to time Skin: COMMON NORMALS: no rashes or lesions noted GENERAL SKIN EXAM: no rashes or lesions noted Course Vital Signs: Vital signs: Vital Signs Temperature 97.7 F 08/29/20 11:36 Pulse Rate 97 08/29/20 11:36 Respiratory Rate 18 08/29/20 11:36 Blood Pressure 133/75 08/29/20 11:36 Pulse Oximetry 100 08/29/20 11:36 MDM - SOB/Dyspnea MDM Narrative: Medical decision making narrative: Care turned over to Dr. Nye at change of shift see his notes for definitive diagnosis and disposition. Lab Data: Labs: Lab Results 08/28/20 08/28/20 08/28/20 Range/Units 16:14 16:14 16:14 WBC 13.3 H (4.0-10.0) 10^3/ uL RBC 2.63 L (4.1-5.3) 10^6/u L Hgb 8.9 L (11.7-16.6) g/dL Hct 28.0 L (42.0-52.0) % MCV 106.5 H (80-94) fL MCH 33.8 (28.0-34.0) pg MCHC 31.8 (30.0-36.0) g/dL RDW 19.7 H (12.1-15.1) % Plt Count 156 (130-400) 10^3/c mm MPV 10.2 (7.4-10.4) fL Lymph % (Auto) Not Reportable Schleicher % (Auto) Not Reportable Lymph # (Auto) Not Reportable Schleicher # (Auto) Not Reportable Total Counted 100 (0-100) Atypical Lymphs % 9.0 H (0-5) % Absolute Neutrophi ls 10.0 H (1.4-6.5) 10^3/c mm Segmented Neutroph ils 75 % Abs Segm Neuts (Ma n) 10.0 H (1.6-7.1) 10/cmm Band Neutrophils 0.0 % Abs Band Neuts (Ma n) 0.0 (0.0-1.2) 10^3/c mm Lymphocytes (Manua l) 4 % Monocytes (Manual) 7.0 % Absolute Monocytes 0.9 H (0.1-0.6) 10^3/c mm Eosinophils (Manua l) 0 % Absolute Eosinophi ls 0.0 (0.0-0.7) 10^3/c mm Basophils (Manual) 0.0 % Absolute Basophils 0.0 (0.0-0.2) 10^3/c mm Metamyelocytes 1.0 % Myelocytes 4.0 % Platelet Estimate Normal (Normal) Anisocytosis Trace Specimen Type Sample Site ABG pH (7.35-7.45) ABG pCO2 (35-45) mmHg ABG pO2 (80.0-100.0) mmH g ABG HCO3 (22-26) mmol/L ABG Base Excess (-2.0-2.0) mmol/ L Adrien Test Hematocrit (42-52) % O2 Delivery Device O2 Liters/Min % Autos Disassembler ID Sodium 136 (136-145) mmol/L Potassium 3.9 (3.5-5.1) mmol/L Chloride 95 L (98-107) mmol/L Carbon Dioxide 25 (22-29) mmol/L Anion Gap 19.9 H (5-19) BUN 29 H (8-23) mg/dL Creatinine 0.8 (0.7-1.2) mg/dL GFR Calculation Not Reportable Glucose 167 H (65-115) mg/dL Calculated Osmolal ity 292 (285-295) mOsm/k g Calcium 9.1 (8.5-10.5) mg/dL Total Bilirubin 0.3 (0.15-1.2) mg/dL AST 27 (0-40) U/L ALT 18 (0-41) U/L Alkaline Phosphata se 211 H (40-130) IU/L Troponin T Baselin e 50 H (0-15) ng/L Troponin T 120 Min [place] (0-15) ng/L Delta Troponin T (0-10) ABS# Total Protein 5.8 L (6.6-8.7) g/dL Albumin 3.2 L (3.5-5.2) g/dL Globulin 2.6 (1.3-4.6) g/dL Urine Color (Yellow) Urine Appearance (CLEAR) Urine pH (5-7) Ur Specific Gravit y (1.005-1.030) Urine Protein (Negative) Urine Glucose (UA) (Normal) Urine Ketones (Negative) Urine Blood (Negative) Urine Nitrate (Negative) Urine Bilirubin (Negative) Urine Urobilinogen (Negative) mg/dL Ur Leukocyte Avelina ase (Negative) Urine RBC (0-2) /hpf Urine WBC (0-5) /hpf Ur Squamous Epith Cells (0-5) /hpf Ur Transition Epit h Cell /hpf Ur Renal Epithelia l Cell /hpf Calcium Oxalate Cr ystal /hpf Amorphous Sediment Urine Bacteria (NONE) /hpf Hyaline Casts /lpf Fine Granular Cast s /lpf Influenza Type A A g (Negative) Influenza Type B A g (Negative) SARS-CoV-2 Ag (Rap id) (Negative) 08/28/20 08/28/20 08/28/20 Range/Units 17:38 18:35 20:00 WBC (4.0-10.0) 10^3/ uL RBC (4.1-5.3) 10^6/u L Hgb (11.7-16.6) g/dL Hct (42.0-52.0) % MCV (80-94) fL MCH (28.0-34.0) pg MCHC (30.0-36.0) g/dL RDW (12.1-15.1) % Plt Count (130-400) 10^3/c mm MPV (7.4-10.4) fL Lymph % (Auto) Schleicher % (Auto) Lymph # (Auto) Schleicher # (Auto) Total Counted (0-100) Atypical Lymphs % (0-5) % Absolute Neutrophi ls (1.4-6.5) 10^3/c mm Segmented Neutroph ils % Abs Segm Neuts (Ma n) (1.6-7.1) 10/cmm Band Neutrophils % Abs Band Neuts (Ma n) (0.0-1.2) 10^3/c mm Lymphocytes (Manua l) % Monocytes (Manual) % Absolute Monocytes (0.1-0.6) 10^3/c mm Eosinophils (Manua l) % Absolute Eosinophi ls (0.0-0.7) 10^3/c mm Basophils (Manual) % Absolute Basophils (0.0-0.2) 10^3/c mm Metamyelocytes % Myelocytes % Platelet Estimate (Normal) Anisocytosis Specimen Type Arterial Sample Site Radial, right ABG pH 7.46 H (7.35-7.45) ABG pCO2 39.4 (35-45) mmHg ABG pO2 73.4 L (80.0-100.0) mmH g ABG HCO3 27.7 H (22-26) mmol/L ABG Base Excess 3.5 H (-2.0-2.0) mmol/ L Adrien Test Pos Hematocrit 24.2 L (42-52) % O2 Delivery Device Nc O2 Liters/Min 4.0 % Autos Disassembler ID ellpe Sodium (136-145) mmol/L Potassium (3.5-5.1) mmol/L Chloride (98-107) mmol/L Carbon Dioxide (22-29) mmol/L Anion Gap (5-19) BUN (8-23) mg/dL Creatinine (0.7-1.2) mg/dL GFR Calculation Glucose (65-115) mg/dL Calculated Osmolal ity (285-295) mOsm/k g Calcium (8.5-10.5) mg/dL Total Bilirubin (0.15-1.2) mg/dL AST (0-40) U/L ALT (0-41) U/L Alkaline Phosphata se (40-130) IU/L Troponin T Baselin e (0-15) ng/L Troponin T 120 Min [place] 44.42 H (0-15) ng/L Delta Troponin T -5.58 L (0-10) ABS# Total Protein (6.6-8.7) g/dL Albumin (3.5-5.2) g/dL Globulin (1.3-4.6) g/dL Urine Color Yellow (Yellow) Urine Appearance Clear (CLEAR) Urine pH 6.5 (5-7) Ur Specific Gravit y 1.015 (1.005-1.030) Urine Protein Trace (Negative) Urine Glucose (UA) Norm (Normal) Urine Ketones Negative (Negative) Urine Blood Neg (Negative) Urine Nitrate Negative (Negative) Urine Bilirubin Neg (Negative) Urine Urobilinogen Norm (Negative) mg/dL Ur Leukocyte Avelina ase Negative (Negative) Urine RBC None (0-2) /hpf Urine WBC None (0-5) /hpf Ur Squamous Epith Cells 0-4 H (0-5) /hpf Ur Transition Epit h Cell None /hpf Ur Renal Epithelia l Cell 5-10 /hpf Calcium Oxalate Cr ystal 5-10 H /hpf Amorphous Sediment Not Reportable Urine Bacteria Trace (NONE) /hpf Hyaline Casts 0-4 H /lpf Fine Granular Cast s 0-4 H /lpf Influenza Type A A g (Negative) Influenza Type B A g (Negative) SARS-CoV-2 Ag (Rap id) (Negative) 08/28/20 08/28/20 Range/Units 20:35 20:35 WBC (4.0-10.0) 10^3/ uL RBC (4.1-5.3) 10^6/u L Hgb (11.7-16.6) g/dL Hct (42.0-52.0) % MCV (80-94) fL MCH (28.0-34.0) pg MCHC (30.0-36.0) g/dL RDW (12.1-15.1) % Plt Count (130-400) 10^3/c mm MPV (7.4-10.4) fL Lymph % (Auto) Schleicher % (Auto) Lymph # (Auto) Schleicher # (Auto) Total Counted (0-100) Atypical Lymphs % (0-5) % Absolute Neutrophi ls (1.4-6.5) 10^3/c mm Segmented Neutroph ils % Abs Segm Neuts (Ma n) (1.6-7.1) 10/cmm Band Neutrophils % Abs Band Neuts (Ma n) (0.0-1.2) 10^3/c mm Lymphocytes (Manua l) % Monocytes (Manual) % Absolute Monocytes (0.1-0.6) 10^3/c mm Eosinophils (Manua l) % Absolute Eosinophi ls (0.0-0.7) 10^3/c mm Basophils (Manual) % Absolute Basophils (0.0-0.2) 10^3/c mm Metamyelocytes % Myelocytes % Platelet Estimate (Normal) Anisocytosis Specimen Type Sample Site ABG pH (7.35-7.45) ABG pCO2 (35-45) mmHg ABG pO2 (80.0-100.0) mmH g ABG HCO3 (22-26) mmol/L ABG Base Excess (-2.0-2.0) mmol/ L Adrien Test Hematocrit (42-52) % O2 Delivery Device O2 Liters/Min % Autos Disassembler ID Sodium (136-145) mmol/L Potassium (3.5-5.1) mmol/L Chloride (98-107) mmol/L Carbon Dioxide (22-29) mmol/L Anion Gap (5-19) BUN (8-23) mg/dL Creatinine (0.7-1.2) mg/dL GFR Calculation Glucose (65-115) mg/dL Calculated Osmolal ity (285-295) mOsm/k g Calcium (8.5-10.5) mg/dL Total Bilirubin (0.15-1.2) mg/dL AST (0-40) U/L ALT (0-41) U/L Alkaline Phosphata se (40-130) IU/L Troponin T Baselin e (0-15) ng/L Troponin T 120 Min [place] (0-15) ng/L Delta Troponin T (0-10) ABS# Total Protein (6.6-8.7) g/dL Albumin (3.5-5.2) g/dL Globulin (1.3-4.6) g/dL Urine Color (Yellow) Urine Appearance (CLEAR) Urine pH (5-7) Ur Specific Gravit y (1.005-1.030) Urine Protein (Negative) Urine Glucose (UA) (Normal) Urine Ketones (Negative) Urine Blood (Negative) Urine Nitrate (Negative) Urine Bilirubin (Negative) Urine Urobilinogen (Negative) mg/dL Ur Leukocyte Avelina ase (Negative) Urine RBC (0-2) /hpf Urine WBC (0-5) /hpf Ur Squamous Epith Cells (0-5) /hpf Ur Transition Epit h Cell /hpf Ur Renal Epithelia l Cell /hpf Calcium Oxalate Cr ystal /hpf Amorphous Sediment Urine Bacteria (NONE) /hpf Hyaline Casts /lpf Fine Granular Cast s /lpf Influenza Type A A g Negative (Negative) Influenza Type B A g Negative (Negative) SARS-CoV-2 Ag (Rap id) Negative (Negative) Discharge Plan Discharge Patient Disposition: Admitted As Inpatient Admit Provider: Veronica Wilson Clinical Impression: Small cell lung cancer COPD (chronic obstructive pulmonary disease) Qualifiers: COPD type: unspecified COPD Qualified Code(s): J44.9 - Chronic obstructive pulmonary disease, unspecified Pulmonary embolism Qualifiers: Pulmonary embolism type: unspecified Chronicity: acute Acute cor pulmonale presence: with acute cor pulmonale Qualified Code(s): I26.09 - Other pulmonary embolism with acute cor pulmonale Condition: Stable Referrals: [facility] [Other] - 09/04/20 10:30 am (For CT chest with contrast) Edwin Carranaz [Primary Care Provider] - 4-7 days Discharge Date/Time: 08/28/20 23:40 Sign Out Sign Out Data: Patient Sign Out occurred on 08/28/20 at 18:23. Patient's care was discussed, and care was transferred from to Teena Reid. 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 Guerrero, on third cycle of carboplatin, Alimta, Keytruda and has received 1 dose of radiation therapy to the brain as of 01/12/20 Surgical History History of bilateral inguinal hernia repair (~2017) History of cataract surgery (~2013) History of coronary artery bypass graft (~2012) Vocal cord nodule Required surgery x2 in 2011 and 2014, benign Family History Other CAD (coronary artery disease) Cancer Hypertension Denies family history of Diabetes Stroke Social History Smoking and tobacco status: former smoker Quit status (tobacco): has quit using tobacco Year quit tobacco: 2012 quit cigars Alcohol intake: current Alcohol intake frequency: holidays/special occasions only 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 There is good blood return IV was secured there was good flushing without any discomfort of the patient. Course Vital Signs: Vital signs: Vital Signs Temperature 97.7 F 08/29/20 11:36 Pulse Rate 97 08/29/20 11:36 Respiratory Rate 18 08/29/20 11:36 Blood Pressure 133/75 08/29/20 11:36 Pulse Oximetry 100 08/29/20 11:36 MDM - SOB/Dyspnea MDM Narrative: Medical decision making narrative: 0700 -patient care turned over to me at change of shift from Dr. Araya. Please see his note for his history, physical exam and medical decision-making notes. Patient states she is had increasing shortness of breath over the past 2 to 3 days. He has a cough productive of pale-colored sputum. He denies hemoptysis. Said no fever. Denies any chest pain. Patient states he does feel overall weak and tired. Case reviewed in its entirety with Dr. Wilson he agrees to go ahead and admit the patient for further evaluation and care. He will determine whether he wants to give anticoagulation versus an IVC filter. He will involve oncology in the morning. Lab Data: Labs: Lab Results 08/28/20 08/28/20 08/28/20 Range/Units 16:14 16:14 16:14 WBC 13.3 H (4.0-10.0) 10^3/ uL RBC 2.63 L (4.1-5.3) 10^6/u L Hgb 8.9 L (11.7-16.6) g/dL Hct 28.0 L (42.0-52.0) % MCV 106.5 H (80-94) fL MCH 33.8 (28.0-34.0) pg MCHC 31.8 (30.0-36.0) g/dL RDW 19.7 H (12.1-15.1) % Plt Count 156 (130-400) 10^3/c mm MPV 10.2 (7.4-10.4) fL Lymph % (Auto) Not Reportable Schleicher % (Auto) Not Reportable Lymph # (Auto) Not Reportable Schleicher # (Auto) Not Reportable Total Counted 100 (0-100) Atypical Lymphs % 9.0 H (0-5) % Absolute Neutrophi ls 10.0 H (1.4-6.5) 10^3/c mm Segmented Neutroph ils 75 % Abs Segm Neuts (Ma n) 10.0 H (1.6-7.1) 10/cmm Band Neutrophils 0.0 % Abs Band Neuts (Ma n) 0.0 (0.0-1.2) 10^3/c mm Lymphocytes (Manua l) 4 % Monocytes (Manual) 7.0 % Absolute Monocytes 0.9 H (0.1-0.6) 10^3/c mm Eosinophils (Manua l) 0 % Absolute Eosinophi ls 0.0 (0.0-0.7) 10^3/c mm Basophils (Manual) 0.0 % Absolute Basophils 0.0 (0.0-0.2) 10^3/c mm Metamyelocytes 1.0 % Myelocytes 4.0 % Platelet Estimate Normal (Normal) Anisocytosis Trace Specimen Type Sample Site ABG pH (7.35-7.45) ABG pCO2 (35-45) mmHg ABG pO2 (80.0-100.0) mmH g ABG HCO3 (22-26) mmol/L ABG Base Excess (-2.0-2.0) mmol/ L Adrien Test Hematocrit (42-52) % O2 Delivery Device O2 Liters/Min % Autos Disassembler ID Sodium 136 (136-145) mmol/L Potassium 3.9 (3.5-5.1) mmol/L Chloride 95 L (98-107) mmol/L Carbon Dioxide 25 (22-29) mmol/L Anion Gap 19.9 H (5-19) BUN 29 H (8-23) mg/dL Creatinine 0.8 (0.7-1.2) mg/dL GFR Calculation Not Reportable Glucose 167 H (65-115) mg/dL Calculated Osmolal ity 292 (285-295) mOsm/k g Calcium 9.1 (8.5-10.5) mg/dL Total Bilirubin 0.3 (0.15-1.2) mg/dL AST 27 (0-40) U/L ALT 18 (0-41) U/L Alkaline Phosphata se 211 H (40-130) IU/L Troponin T Baselin e 50 H (0-15) ng/L Troponin T 120 Min [place] (0-15) ng/L Delta Troponin T (0-10) ABS# Total Protein 5.8 L (6.6-8.7) g/dL Albumin 3.2 L (3.5-5.2) g/dL Globulin 2.6 (1.3-4.6) g/dL Urine Color (Yellow) Urine Appearance (CLEAR) Urine pH (5-7) Ur Specific Gravit y (1.005-1.030) Urine Protein (Negative) Urine Glucose (UA) (Normal) Urine Ketones (Negative) Urine Blood (Negative) Urine Nitrate (Negative) Urine Bilirubin (Negative) Urine Urobilinogen (Negative) mg/dL Ur Leukocyte Avelina ase (Negative) Urine RBC (0-2) /hpf Urine WBC (0-5) /hpf Ur Squamous Epith Cells (0-5) /hpf Ur Transition Epit h Cell /hpf Ur Renal Epithelia l Cell /hpf Calcium Oxalate Cr ystal /hpf Amorphous Sediment Urine Bacteria (NONE) /hpf Hyaline Casts /lpf Fine Granular Cast s /lpf Influenza Type A A g (Negative) Influenza Type B A g (Negative) SARS-CoV-2 Ag (Rap id) (Negative) 08/28/20 08/28/20 08/28/20 Range/Units 17:38 18:35 20:00 WBC (4.0-10.0) 10^3/ uL RBC (4.1-5.3) 10^6/u L Hgb (11.7-16.6) g/dL Hct (42.0-52.0) % MCV (80-94) fL MCH (28.0-34.0) pg MCHC (30.0-36.0) g/dL RDW (12.1-15.1) % Plt Count (130-400) 10^3/c mm MPV (7.4-10.4) fL Lymph % (Auto) Schleicher % (Auto) Lymph # (Auto) Schleicher # (Auto) Total Counted (0-100) Atypical Lymphs % (0-5) % Absolute Neutrophi ls (1.4-6.5) 10^3/c mm Segmented Neutroph ils % Abs Segm Neuts (Ma n) (1.6-7.1) 10/cmm Band Neutrophils % Abs Band Neuts (Ma n) (0.0-1.2) 10^3/c mm Lymphocytes (Manua l) % Monocytes (Manual) % Absolute Monocytes (0.1-0.6) 10^3/c mm Eosinophils (Manua l) % Absolute Eosinophi ls (0.0-0.7) 10^3/c mm Basophils (Manual) % Absolute Basophils (0.0-0.2) 10^3/c mm Metamyelocytes % Myelocytes % Platelet Estimate (Normal) Anisocytosis Specimen Type Arterial Sample Site Radial, right ABG pH 7.46 H (7.35-7.45) ABG pCO2 39.4 (35-45) mmHg ABG pO2 73.4 L (80.0-100.0) mmH g ABG HCO3 27.7 H (22-26) mmol/L ABG Base Excess 3.5 H (-2.0-2.0) mmol/ L Adrien Test Pos Hematocrit 24.2 L (42-52) % O2 Delivery Device Nc O2 Liters/Min 4.0 % Autos Disassembler ID [email or web address] Sodium (136-145) mmol/L Potassium (3.5-5.1) mmol/L Chloride (98-107) mmol/L Carbon Dioxide (22-29) mmol/L Anion Gap (5-19) BUN (8-23) mg/dL Creatinine (0.7-1.2) mg/dL GFR Calculation Glucose (65-115) mg/dL Calculated Osmolal ity (285-295) mOsm/k g Calcium (8.5-10.5) mg/dL Total Bilirubin (0.15-1.2) mg/dL AST (0-40) U/L ALT (0-41) U/L Alkaline Phosphata se (40-130) IU/L Troponin T Baselin e (0-15) ng/L Troponin T 120 Min [place] 44.42 H (0-15) ng/L Delta Troponin T -5.58 L (0-10) ABS# Total Protein (6.6-8.7) g/dL Albumin (3.5-5.2) g/dL Globulin (1.3-4.6) g/dL Urine Color Yellow (Yellow) Urine Appearance Clear (CLEAR) Urine pH 6.5 (5-7) Ur Specific Gravit y 1.015 (1.005-1.030) Urine Protein Trace (Negative) Urine Glucose (UA) Norm (Normal) Urine Ketones Negative (Negative) Urine Blood Neg (Negative) Urine Nitrate Negative (Negative) Urine Bilirubin Neg (Negative) Urine Urobilinogen Norm (Negative) mg/dL Ur Leukocyte Avelina ase Negative (Negative) Urine RBC None (0-2) /hpf Urine WBC None (0-5) /hpf Ur Squamous Epith Cells 0-4 H (0-5) /hpf Ur Transition Epit h Cell None /hpf Ur Renal Epithelia l Cell 5-10 /hpf Calcium Oxalate Cr ystal 5-10 H /hpf Amorphous Sediment Not Reportable Urine Bacteria Trace (NONE) /hpf Hyaline Casts 0-4 H /lpf Fine Granular Cast s 0-4 H /lpf Influenza Type A A g (Negative) Influenza Type B A g (Negative) SARS-CoV-2 Ag (Rap id) (Negative) 08/28/20 08/28/20 Range/Units 20:35 20:35 WBC (4.0-10.0) 10^3/ uL RBC (4.1-5.3) 10^6/u L Hgb (11.7-16.6) g/dL Hct (42.0-52.0) % MCV (80-94) fL MCH (28.0-34.0) pg MCHC (30.0-36.0) g/dL RDW (12.1-15.1) % Plt Count (130-400) 10^3/c mm MPV (7.4-10.4) fL Lymph % (Auto) Schleicher % (Auto) Lymph # (Auto) Schleicher # (Auto) Total Counted (0-100) Atypical Lymphs % (0-5) % Absolute Neutrophi ls (1.4-6.5) 10^3/c mm Segmented Neutroph ils % Abs Segm Neuts (Ma n) (1.6-7.1) 10/cmm Band Neutrophils % Abs Band Neuts (Ma n) (0.0-1.2) 10^3/c mm Lymphocytes (Manua l) % Monocytes (Manual) % Absolute Monocytes (0.1-0.6) 10^3/c mm Eosinophils (Manua l) % Absolute Eosinophi ls (0.0-0.7) 10^3/c mm Basophils (Manual) % Absolute Basophils (0.0-0.2) 10^3/c mm Metamyelocytes % Myelocytes % Platelet Estimate (Normal) Anisocytosis Specimen Type Sample Site ABG pH (7.35-7.45) ABG pCO2 (35-45) mmHg ABG pO2 (80.0-100.0) mmH g ABG HCO3 (22-26) mmol/L ABG Base Excess (-2.0-2.0) mmol/ L Adrien Test Hematocrit (42-52) % O2 Delivery Device O2 Liters/Min % Autos Disassembler ID Sodium (136-145) mmol/L Potassium (3.5-5.1) mmol/L Chloride (98-107) mmol/L Carbon Dioxide (22-29) mmol/L Anion Gap (5-19) BUN (8-23) mg/dL Creatinine (0.7-1.2) mg/dL GFR Calculation Glucose (65-115) mg/dL Calculated Osmolal ity (285-295) mOsm/k g Calcium (8.5-10.5) mg/dL Total Bilirubin (0.15-1.2) mg/dL AST (0-40) U/L ALT (0-41) U/L Alkaline Phosphata se (40-130) IU/L Troponin T Baselin e (0-15) ng/L Troponin T 120 Min [place] (0-15) ng/L Delta Troponin T (0-10) ABS# Total Protein (6.6-8.7) g/dL Albumin (3.5-5.2) g/dL Globulin (1.3-4.6) g/dL Urine Color (Yellow) Urine Appearance (CLEAR) Urine pH (5-7) Ur Specific Gravit y (1.005-1.030) Urine Protein (Negative) Urine Glucose (UA) (Normal) Urine Ketones (Negative) Urine Blood (Negative) Urine Nitrate (Negative) Urine Bilirubin (Negative) Urine Urobilinogen (Negative) mg/dL Ur Leukocyte Avelina ase (Negative) Urine RBC (0-2) /hpf Urine WBC (0-5) /hpf Ur Squamous Epith Cells (0-5) /hpf Ur Transition Epit h Cell /hpf Ur Renal Epithelia l Cell /hpf Calcium Oxalate Cr ystal /hpf Amorphous Sediment Urine Bacteria (NONE) /hpf Hyaline Casts /lpf Fine Granular Cast s /lpf Influenza Type A A g Negative (Negative) Influenza Type B A g Negative (Negative) SARS-CoV-2 Ag (Rap id) Negative (Negative) Imaging Data^: CXR: Radiologist's impression: [address] [place] [address] XRay Report Signed Patient: Timmy Romeo Unit #: [id number] : 1945 Age/Sex: 75 / M ADM Date: 08/28/20 Loc: ER Room/Bed: Attending Dr: Ordering Provider/Ordering MD: Jaguar Araya DO Date of Service: 08/28/20 Procedure(s): XR chest 1V portable [id number] Accession Number(s): [id number] Report Number: [id number] PROCEDURE INFORMATION: Exam: XR Chest, 1 View Exam date and time: 08/28/2020 4:03 PM Age: 75 years old Clinical indication: Cough and dyspnea; Additional info: Dyspnea/cough TECHNIQUE: Imaging protocol: XR of the chest Views: 1 view. COMPARISON: CR XR chest 1V portable [id number] 06/11/2020 8:42 AM; CTA Chest 07/05/2020 1:39 p.m. FINDINGS: Tubes, catheters and devices: Right Infusaport catheter. Lungs: Subsegmental consolidated alveolar airspace disease process left upper lobe which could reflect pneumonia and/or atelectasis. Site of known potential lung carcinoma based on the CT examination of 07/05/2020. This could also reflect in addition to the lung carcinoma radiation pneumonitis. Numerous bilateral subcentimeter pulmonary nodules with concern for hematogenous metastasis. COPD/chronic bronchitis/emphysema. Pleural space: Unremarkable. No pleural effusion. No pneumothorax. Heart/Mediastinum: Cardiomegaly. Arteriosclerosis. Status post sternotomy chest and CABG. Bones/joints: Mild scoliotic curvature of the spine. Age-appropriate degenerative disease. XR/XR chest 1V portable [id number] IMPRESSION: 1. Subsegmental volume left upper lobe alveolar airspace disease with differential discussed in text above. 2. Known left upper lobe neoplasm with evidence of hematogenous metastasis bilaterally. 3. COPD/chronic bronchitis/emphysema. Dictated By: Sang Tatum Signed By: Sang Tatum Signed Date/Time: 08/28/201715 DD/ 14 CT Chest: Radiologist's impression: [facility] [address] [place] [address] CT Scan Report Signed Patient: Timmy Romeo Unit #: [id number] : 1945 Age/Sex: 75 / M ADM Date: 08/28/20 Loc: ER Room/Bed: Attending Dr: Ordering Provider/Ordering MD: Jaguar Araya DO Date of Service: 08/28/20 Procedure(s): CT angio chest PE protcl [id number] Accession Number(s): [id number] Report Number: [id number] PROCEDURE INFORMATION: Exam: CT Angiography Chest With Contrast Exam date and time: 08/28/2020 7:23 PM Age: 75 years old Clinical indication: Shortness of breath; Prior surgery; Surgery type: Inguinal hernia, cabg, port; Patient HX: Sob/tachycardia/dyspnea TECHNIQUE: Imaging protocol: Computed tomographic angiography of the chest with intravenous contrast. 3D rendering (Not supervised by radiologist): MIP and/or 3D reconstructed images were created by the technologist. Radiation optimization: All CT scans at this facility use at least one of these dose optimization techniques: automated exposure control; mA and/or kV adjustment per patient size (includes targeted exams where dose is matched to clinical indication); or iterative reconstruction. Contrast material: OMNI 350; Contrast volume: 77 ml; Contrast route: INTRAVENOUS (IV); COMPARISON: CT angio chest PE protcl [id number] 07/05/2020 1:35 PM RADIATION DOSE METRICS: Total DLP (mGy-cm): 608.98 FINDINGS: Pulmonary arteries: Examination reveals a tiny focus of nonobstructing pulmonary emboli proximal segmental artery of the posterior basal segment right lower lobe. Very tiny focus and very minimal pulmonary embolism load best identified on the axial. Series 2, image 275 and the sagittal MIP series 604, image 43. No other evidence of pulmonary embolism/pulmonary arterial thrombus. No central pulmonary embolism/pulmonary arterial thrombus. In Aorta: The thoracic aorta is nonaneurysmal. No visible intimal flap or dissection. Moderate arterial sclerotic disease. Lungs: Enlarging anterior segment left upper lobe lung neoplasm measuring 63 mm x 36 mm x 63 mm extending to the left hilum. Too numerous to count bilateral hematogenous metastatic foci largest aggregate collection posterior basal segment right lower lobe. Peripheral acinar emphysema. Pleural space: Unremarkable. No pneumothorax. No pleural effusion. Heart: Status post sternotomy chest and CABG. Advanced three-vessel coronary artery disease. Left ventricular hypertrophy. Prominent left atrial appendage. No visible pericardial effusion. Lymph nodes: Again note of prominent mediastinal and hilar lymph nodes most likely malignant with interval enlargement. Also noted calcified complexes of antecedent granulomatous disease. Gallbladder and bile ducts: Incidental note of cholelithiasis. Bones/joints: Age-appropriate degenerative disease and degenerative disc disease of the spine with spondylosis deformans. Osteopenia. No visible osteolytic or osteoblastic destructive process. Soft tissues: Cachexia. CT/CT angio chest PE protcl [id number] IMPRESSION: 1. Tiny focus of nonobstructing pulmonary emboli proximal segmental artery of the posterior basal segment right lower lobe. 2. No other visible pulmonary embolism/pulmonary arterial thrombus. No visible central pulmonary embolism. 3. Very small pulmonary thrombus load without obstruction. No right ventricular strain. 4. Enlarging anterior segment left upper lobe lung neoplasm. 5. Too numerous to count bilateral hematogenous metastatic foci. 6. Mediastinal and hilar malignant lymphadenopathy. 7. Other nonurgent, nonemergent, chronic, and age related findings as detailed in text above. Radiation Dose CTDIVOL = (mGy): DLP = 608.98 (mGy-cm) Dictated By: Sang Tatum Signed By: Sang Tatum Signed Date/Time: 08/28/202101 DD/ 00 Discharge Plan Discharge Patient Disposition: Admitted As Inpatient Admit Provider: Veronica Wilson Clinical Impression: Small cell lung cancer COPD (chronic obstructive pulmonary disease) Qualifiers: COPD type: unspecified COPD Qualified Code(s): J44.9 - Chronic obstructive pulmonary disease, unspecified Pulmonary embolism Qualifiers: Pulmonary embolism type: unspecified Chronicity: acute Acute cor pulmonale presence: with acute cor pulmonale Qualified Code(s): I26.09 - Other pulmonary embolism with acute cor pulmonale Condition: Stable Referrals: [facility] [Other] - 09/04/20 10:30 am (For CT chest with contrast) Edwin Carranza [Primary Care Provider] - 4-7 days Discharge Date/Time: 08/28/20 23:40 Sign Out Sign Out Data: Patient Sign Out occurred on 08/28/20 at 18:23. Patient's care was discussed, and care was transferred from to Teena Reid. Coding Level of Care Code ED Supervisor Remelt for Shonda Jimenez
[2020-08-28 16:27] LABS: Hemoglobin 8.9 g/dL (11.7-16.6); Mean Corpuscular HGB Conc 31.8 g/dL (30.0-36.0); Mean Corpuscular Hemoglobin 33.8 pg (28.0-34.0); Mean Corpuscular Volume 106.5 fL (80-94); Mean Platelet Volume 10.2 fL (7.4-10.4); Platelet Count 156 10^3/cmm (130-400); Red Blood Count 2.63 10^6/uL (4.1-5.3); Red Cell Distribution Width 19.7 % (12.1-15.1); White Blood Count 13.3 10^3/uL (4.0-10.0)
[2020-08-28 16:52] LABS: Slide Review Slide Review Perform
[2020-08-28 16:56] LABS: Alanine Aminotransferase 18 U/L (0-41); Albumin Level 3.2 g/dL (3.5-5.2); Alkaline Phosphatase 211 IU/L (40-130); Anion Gap 19.9 (5-19); Aspartate Amino Transferase 27 U/L (0-40); Blood Urea Nitrogen 29 mg/dL (8-23); Calcium 9.1 mg/dL (8.5-10.5); Carbon Dioxide 25 mmol/L (22-29); Chloride 95 mmol/L (98-107); Globulin 2.6 g/dL (1.3-4.6); Glucose 167 mg/dL (65-115); Osmolality Calculated 292 mOsm/kg (285-295); Potassium 3.9 mmol/L (3.5-5.1); Sodium 136 mmol/L (136-145); Total Bilirubin 0.3 mg/dL (0.15-1.2); Total Protein 5.8 g/dL (6.6-8.7)
[2020-08-28 17:01] LABS: Troponin(5th) Baseline 50 ng/L (0-15)
[2020-08-28 17:04] LABS: Anisocytosis Trace; Eosinophils 0 %; Lymphocytes 4 %; Monocytes Absolute 0.9 10^3/cmm (0.1-0.6); Platelet Estimate Normal (Normal); Segmented Neutrophils 75 %; Total Cells Counted 100 (0-100)
--- NOTE | 2020-08-28 17:23 | CTR_ITS ---
PROCEDURE INFORMATION: Exam: CT Angiography Chest With Contrast Exam date and time: 08/28/2020 7:23 PM Age: 75 years old Clinical indication: Shortness of breath; Prior surgery; Surgery type: Inguinal hernia, cabg, port; Patient HX: Sob/tachycardia/dyspnea TECHNIQUE: Imaging protocol: Computed tomographic angiography of the chest with intravenous contrast. 3D rendering (Not supervised by radiologist): MIP and/or 3D reconstructed images were created by the technologist. Radiation optimization: All CT scans at this facility use at least one of these dose optimization techniques: automated exposure control; mA and/or kV adjustment per patient size (includes targeted exams where dose is matched to clinical indication); or iterative reconstruction. Contrast material: OMNI 350; Contrast volume: 77 ml; Contrast route: INTRAVENOUS (IV); COMPARISON: CT angio chest PE protcl [id number] 07/05/2020 1:35 PM RADIATION DOSE METRICS: Total DLP (mGy-cm): 608.98 FINDINGS: Pulmonary arteries: Examination reveals a tiny focus of nonobstructing pulmonary emboli proximal segmental artery of the posterior basal segment right lower lobe. Very tiny focus and very minimal pulmonary embolism load best identified on the axial. Series 2, image 275 and the sagittal MIP series 604, image 43. No other evidence of pulmonary embolism/pulmonary arterial thrombus. No central pulmonary embolism/pulmonary arterial thrombus. In Aorta: The thoracic aorta is nonaneurysmal. No visible intimal flap or dissection. Moderate arterial sclerotic disease. Lungs: Enlarging anterior segment left upper lobe lung neoplasm measuring 63 mm x 36 mm x 63 mm extending to the left hilum. Too numerous to count bilateral hematogenous metastatic foci largest aggregate collection posterior basal segment right lower lobe. Peripheral acinar emphysema. Pleural space: Unremarkable. No pneumothorax. No pleural effusion. Heart: Status post sternotomy chest and CABG. Advanced three-vessel coronary artery disease. Left ventricular hypertrophy. Prominent left atrial appendage. No visible pericardial effusion. Lymph nodes: Again note of prominent mediastinal and hilar lymph nodes most likely malignant with interval enlargement. Also noted calcified complexes of antecedent granulomatous disease. Gallbladder and bile ducts: Incidental note of cholelithiasis. Bones/joints: Age-appropriate degenerative disease and degenerative disc disease of the spine with spondylosis deformans. Osteopenia. No visible osteolytic or osteoblastic destructive process. Soft tissues: Cachexia. CT/CT angio chest PE protcl [id number] IMPRESSION: 1. Tiny focus of nonobstructing pulmonary emboli proximal segmental artery of the posterior basal segment right lower lobe. 2. No other visible pulmonary embolism/pulmonary arterial thrombus. No visible central pulmonary embolism. 3. Very small pulmonary thrombus load without obstruction. No right ventricular strain. 4. Enlarging anterior segment left upper lobe lung neoplasm. 5. Too numerous to count bilateral hematogenous metastatic foci. 6. Mediastinal and hilar malignant lymphadenopathy. 7. Other nonurgent, nonemergent, chronic, and age related findings as detailed in text above. Radiation Dose CTDIVOL = (mGy): DLP = 608.98 (mGy-cm)
--- NOTE | 2020-08-28 18:03 | ECG_ITS ---
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 Measurements Intervals [place] Rate: 123 P: VT: -1 QRS: 23 QRSD: 82 T: 64 QT: 292 QTc: 418 Interpretive Statements SINUS TACHYCARDIA Compared to ECG 08/28/2020 16:00:24 Aberrant conduction of supraventricular beat(s) now present Electronically Signed On 08-30-2020 20:57:05 CDT by Juanito Werner M.D. [id number]
[2020-08-28] MEDS: morphine 4 mg/mL SDV 1 mL IVP (18:19)
[2020-08-28] MEDS: sodium chloride 0.9% 1,000 ML 999 ML IV (18:31)
[2020-08-28 18:57] LABS: Add Urine Microscopic? YES; Bilirubin Urine Neg (Negative); Blood Urine Neg (Negative); Glucose Urine UA Norm (Normal); Ketones Urine Negative (Negative); Leukocyte Esterase Urine Negative (Negative); Nitrate Urine Negative (Negative); Protein Urine Trace (Negative); Specific Gravity, Urine 1.015 (1.005-1.030); Urine Appearance Clear (CLEAR); Urine Color Yellow (Yellow); Urobilinogen Urine Norm (Negative); pH Urine 6.5 (5-7)
[2020-08-28 19:19] LABS: Squamous Epithelial Cell Urine 0-4 /hpf (0-5)
[2020-08-28 19:20] LABS: Troponin 5 2HR 44.42 ng/L (0-15)
[2020-08-28 19:20] LABS: Add Urine Culture? No; Bacteria Urine TRACE /hpf; Fine Granular Casts Urine 0-4 /lpf; Hyaline Casts Urine 0-4 /lpf
[2020-08-28 19:26] LABS: Troponin 5 2HR Delta -5.58 ABS# (0-10)
[2020-08-28 20:05] LABS: ABG PCO2 39.4 mmHg (35-45); ABG PH Result 7.46 (7.35-7.45); Arterial Blood Gas Hematocrit 24.2 % (42-52); Base Excess ABG 3.5 mmol/L (-2.0-2.0); Blood Gas Allen Test Pos; Blood Gas Sample Site Radial, right; Blood Gas Sample Type Arterial; HCO3 ABG 27.7 mmol/L (22-26); Oxygen Device NC; PO2 ABG 73.4 mmHg (80.0-100.0)
[2020-08-28] MEDS: iohexol 350 mg/mL 100 mL Btl IV (20:23)
[2020-08-28 21:22] LABS: SARS Covid-2 Antigen Negative (Negative)
[2020-08-28 21:23] LABS: Influenza A by IFA Negative (Negative); Influenza B by IFA Negative (Negative)
[2020-08-28] MEDS: cefTRIAXone 1,000 MG in sodium chloride 0.9% (plus) 50 ML 100 MG IV (21:43)
[2020-08-28] MEDS: doxycycline 100 mg Tablet 200 MG PO (21:44)
--- NOTE | 2020-08-28 21:55 | PM.HP ---
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 He then transitioned to maintenance pembrolizumab, cycle 1 on 06/06/2020. He continued with cycle 2 on 06/27/2020), underwent palliative whole brain radiotherapy completed 05/05, recurrence of adenocarcinoma left hilar lymph node, came to the hospital for generalized weakness and gradual worsening of shortness of breath. Patient has been investigated for pulmonology embolism multiple times in the past because of his worsening hypoxia and generalized weakness, his symptoms were attributed to anemia & deconditioning. Patient is endorsing that his health is declining gradually and in last 3 months he has lost his appetite, he is not able to walk independently anymore, at home he has been using 2 to 3 L of oxygen, recently he has experienced worsening of shortness of breath which is not associated with chest pain, excessive sputum production, hemoptysis, hematemesis, fevers, chills. He is endorsing palpitations, tachycardia and constipation. These are the concerns which brought him to the hospital Diagnosis in the ER revealed small nonobstructive PE without right heart strain, anemia, leukocytosis, Covid antigen negative, influenza antigen negative, he was given ceftriaxone and doxycycline in the ER because of infected left sebaceous cyst on abdominal wall, CTA revealed PE, alveolar hemorrhage and metastatic changes Review of Systems Const: Reports: body aches, change in appetite, fatigue and malaise; Denies: fever(s) or chills Eyes: Denies: change in vision ENMT: Denies: throat pain Card: Reports: dyspnea on exertion; Denies: chest pain, pre-syncope or orthopnea Resp: Reports: dyspnea, wheezing and chest congestion GI: Reports: constipation; Denies: abdominal pain : Denies: flank pain Musc: Reports: extremity pain and muscle cramps Skin/Breast: Reports: rash and new lesions (Sebaceous cyst around his neck and anterior abdominal wall) Neuro: Denies: headache(s) Psych: Reports: change in appetite; Denies: anxiety or depression Endo: Denies: polyuria Yuri/Lymph: Denies: easy bruising All/Imm: Denies: urticaria Medications/Allergies Home Medications Medication Instructions Recorded Confirmed Last Taken Type Anoro Ellipta 1 inh INHALATION DAILY 01/11/20 07/18/20 06/11/20 History Multi-Day Plus Minerals 1 tab PO DAILY 01/11/20 07/18/20 06/10/20 History ascorbic acid (vitamin C) [Vitamin 1,000 mg PO DAILY 01/11/20 07/18/20 06/10/20 History C] cetirizine [Zyrtec] 10 mg PO DAILY 01/11/20 07/18/20 06/10/20 History fluticasone propionate 2 spray INTRANASAL Q12H PRN 01/11/20 07/18/20 06/10/20 History montelukast [Singulair] 10 mg PO DAILY 01/11/20 07/18/20 06/10/20 History omeprazole 20 mg PO BID 01/11/20 07/18/20 06/10/20 History folic acid 1 mg tablet 1 mg PO DAILY 02/02/20 07/18/20 06/10/20 History magnesium oxide 400 mg (241.3 mg 400 mg PO DAILY 02/02/20 07/18/20 06/10/20 History magnesium) tablet hydrocodone 5 mg-acetaminophen 325 2 tab PO BID tab 07/18/20 07/18/20 Unknown History mg tablet levetiracetam 500 mg tablet 500 mg PO BID #60 tab 07/31/20 Unknown Rx olanzapine 5 mg tablet 5 mg PO DAILY #30 tab 07/31/20 Unknown Rx Allergies Allergy/AdvReac Type Severity Reaction Status Date / Time Latex, Natural Rubber Allergy Intermediate ADR-Itching Verified 07/18/20 10:45 PFSH Acute PFSH: Medical History CAD (coronary artery disease) COPD (chronic obstructive pulmonary disease) GERD (gastroesophageal reflux disease) History of cardiac arrhythmia Hypertension 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 Guerrero, on third cycle of carboplatin, Alimta, Keytruda and has received 1 dose of radiation therapy to the brain as of 01/12/20 Surgical History History of bilateral inguinal hernia repair (~2017) History of cataract surgery (~2013) History of coronary artery bypass graft (~2012) Vocal cord nodule Required surgery x2 in 2011 and 2014, benign Family History Other CAD (coronary artery disease) Cancer Hypertension Denies family history of Diabetes Stroke Social History Smoking and tobacco status: former smoker Quit status (tobacco): has quit using tobacco Year quit tobacco: 2012 quit cigars Alcohol intake: current Alcohol intake frequency: holidays/special occasions only 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 History of recent travel: No Vitals/I&O/Wt Last Vital Signs Temp 97.8 F 08/28/20 15:49 Pulse 117 H 08/28/20 21:29 Resp 18 08/28/20 21:29 BP 127/92 08/28/20 21:29 Pulse Ox 100 08/28/20 21:29 Weight last 48 hrs Weight 59.874 kg Physical Exam Narrative: EXAM NARRATIVE: Saturating well on 4 L nasal cannula 97% Sinus tachycardia heart rate 117, Appears more than stated age Dehydrated malnourished and frail elderly male Appears dehydrated, S1, S2 sinus tachycardia no signs of heart failure or murmur Anterior left-sided abdominal wall reveals infected sebaceous cyst Flat scaphoid abdomen bowel sound present Abdomen nontender bowel sound present Neurologically no focal deficit EOMI, PERRLA, arcus senilis bilaterally Appropriate mood and affect Mild expiratory wheeze at the lung base left greater than right otherwise no active respiratory distress Low symmetry no edema gangrene ulcer, muscle mass loss evident, sarcopenia Sebaceous cyst located at left anterior abdominal wall without any purulent drainage, appears red inflamed and is tender on palpation Data : 08/28/20 16:14 08/28/20 16:14 A&P Assessment and plan (1) Pulmonary embolism: Status: Acute (2) Anemia of chronic disease: Status: Acute (3) Pulmonary alveolar hemorrhage: Status: Acute (4) Physical deconditioning: Status: Acute (5) Infected sebaceous cyst: Status: Acute Additional A&P Information Acute pulmonary embolism, symptomatic No right heart strain evident on CT imaging, troponin without significant delta however high, will obtain BNP level 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, will check lower extremities for DVT He also has diffuse alveolar hemorrhage evident on CT imaging I would avoid giving him any anticoagulation at this point I do believe due to radiation is suffering from alveolar hemorrhage I do not suspect Goodpasture syndrome or vasculitis at this point, I would continue steroids for now Anemia of chronic disease: Hemoglobin at baseline, Currently alveolar hemorrhage pattern evident on CT imaging of lung Conservative management for now, no active hemoptysis Infectious sebaceous cyst Would use doxycycline for now Sebaceous cyst located at left anterior abdominal wall without any purulent drainage, appears red inflamed and is tender on palpation In the ER he was given ceftriaxone and doxycycline, will discontinue ceftriaxone 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: Continue Keppra Anorexia: Currently he is not on appetite stimulants Constipation: We will keep him on senna S along opioids Last bowel movement was yesterday Goals of care discussed with the patient and his : Patient is DNR/DNI, we had extensive discussion regarding pulmonary embolism, alveolar hemorrhage, limitation for surgical intervention IVC filter, brain metastases and poor prognosis Regular diet DVT prophylaxis SCDs Attestations Medical Necessity Statement*: Anticipating discharge in less than 48 hours Limited/conservative management for acute PE with brain metastases Time Spent in Patient Care: (>than 50% of time spent in counselling and/or direct pt care on unit). 60mins Coding Level of Care Code Acute [place] Hydraulic Press Operator for Shonda Beed Diagnoses Pulmonary embolism I26.99 Anemia of chronic disease D63.8 Pulmonary alveolar hemorrhage R04.89 Physical deconditioning R53.81 Infected sebaceous cyst L72.3; L08.9
--- NOTE | 2020-08-28 22:00 | PC.NURSE ---
during pt rounds, pt requesting pain meds for L hip 04/25. notified
--- NOTE | 2020-08-28 23:08 | PC.NURSE ---
vo gtom Dr Wilson, cancel troponin series
[2020-08-29] VITALS (8 sets, daily range): BP systolic 115–133; BP diastolic 73–77; PULSE 78–121; RESP 14–20; TEMP 36.3–36.8; O2SAT 93–100
[2020-08-29] MEDS: sodium chloride 0.9% 1,000 ML 100 ML IV ×3 (00:17→21:18)
[2020-08-29 04:03] LABS: Basophils # 0.1 10^3/uL (0.0-0.1); Basophils % 0.4 %; Eosinophils % 0.2 %; Hematocrit 26.2 % (42.0-52.0); Lymphocytes # 0.6 10^3/uL (0.8-4.8); Mean Corpuscular HGB Conc 30.5 g/dL (30.0-36.0); Mean Corpuscular Hemoglobin 33.2 pg (28.0-34.0); Mean Corpuscular Volume 108.7 fL (80-94); Mean Platelet Volume 10.3 fL (7.4-10.4); Monocytes # 0.2 10^3/uL (0.2-0.9); Neutrophils # 10.34 10^3/uL (1.8-7.7); Neutrophils % 85.6 %; Nucleated Red Blood Cells % 0 %; Platelet Count 117 10^3/cmm (130-400); Red Blood Count 2.41 10^6/uL (4.1-5.3); Red Cell Distribution Width 19.3 % (12.1-15.1); White Blood Count 12.1 10^3/uL (4.0-10.0)
[2020-08-29 04:28] LABS: Anion Gap 15.5 (5-19); Blood Urea Nitrogen 28 mg/dL (8-23); Calcium 8.7 mg/dL (8.5-10.5); Carbon Dioxide 25 mmol/L (22-29); Chloride 99 mmol/L (98-107); Glucose 128 mg/dL (65-115); Osmolality Calculated 287 mOsm/kg (285-295); Potassium 4.5 mmol/L (3.5-5.1); Sodium 135 mmol/L (136-145)
[2020-08-29 06:39] LABS: Slide Review Slide Review Perform
[2020-08-29] MEDS: HYDROcodone-acetaminophen 5-325 mg Tablet 2 TAB PO ×2 (09:02→17:23)
[2020-08-29] MEDS: levETIRAcetam 500 mg Tablet PO ×2 (09:02→17:23)
[2020-08-29] MEDS: doxycycline 100 mg Tablet PO ×2 (09:02→17:23)
[2020-08-29] MEDS: magnesium oxide 400 mg tablet PO (09:02)
[2020-08-29] MEDS: folic acid 1 mg Tablet PO (09:02)
[2020-08-29] MEDS: sennosides-docusate Tablet 1 TAB PO (09:02)
[2020-08-29] MEDS: OLANZapine 5 mg TABLET PO (09:02)
--- NOTE | 2020-08-29 11:40 | P.PN_ITS ---
Subjective Subjective: Interval history: Patient denies shortness of breath or chest pain this morning during my evaluation. Patient's medical history is complicated by metastatic malignancy, 2 types. He received radiation therapy. He had evidence of metastatic brain involvement which was treated. He is malignancy is progressing and patient's immunotherapy and further treatment was placed on hold approximately 1 month ago. Discussed with Dr. Guerrero. Patient is diagnosed with DVT and PE and Dr. Guerrero is okay to try small dose Eliquis 2.5 mg twice daily as long as patient understands potential risk of bleeding including intracranial. This was discussed with patient. Patient agreed to proceed with IVC filter placement and then trial of anticoagulation. He well understands high risk of bleeding including intracranial bleed which may result in significant disability and even mortality. Case was communicated through patient's nurse Joan with Dr. Saunders who will place IVC filter tomorrow, likely in the evening time. Vitals/I&O/Wt Last Vital Signs Temp 97.7 F 08/29/20 11:36 Pulse 97 08/29/20 11:36 Resp 18 08/29/20 11:36 BP 133/75 08/29/20 11:36 Pulse Ox 100 08/29/20 11:36 08/28/20 08/29/20 08/29/20 22:59 06:59 14:59 Intake Total 1116.667 / 1116.667 Balance 1116.667 / 1116.667 Weight last 48 hrs Weight 57.425 kg Weight 59.874 kg Physical Exam Const: COMMON NORMALS: no acute distress and patient oriented x3 Resp: COMMON NORMALS: normal respiratory effort and clear to auscultation bilaterally AUSCULTATION: clear to auscultation bilaterally Cardio: COMMON NORMALS: regular rate, regular rhythm and S2 normal heart sound present RATE: regular rate RHYTHM: regular rhythm HEART SOUNDS: S2 normal heart sound present OTHER: No lower extremity edema GI: COMMON NORMALS: Normal to inspection, nondistended, normoactive bowel sounds present, Soft to palpation and non-tender PALPATION: Yes Soft to palpation Neuro: COMMON NORMALS: patient oriented x3 and no focal motor deficits Data : 08/29/20 03:42 08/29/20 03:42 A&P Assessment and plan (1) Pulmonary embolism: Status: Acute (2) Anemia of chronic disease: Status: Acute (3) Pulmonary alveolar hemorrhage: Status: Acute (4) Physical deconditioning: Status: Acute (5) Infected sebaceous cyst: Status: Acute Additional A&P Information Acute pulmonary embolism, symptomatic No right heart strain evident on CT imaging, troponin without significant delta however high, will obtain BNP level 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, will check lower extremities for DVT He also has diffuse alveolar hemorrhage evident on CT imaging I would avoid giving him any anticoagulation at this point I do believe due to radiation is suffering from alveolar hemorrhage I do not suspect Goodpasture syndrome or vasculitis at this point, I would continue steroids for now Anemia of chronic disease: Hemoglobin at baseline, Currently alveolar hemorrhage pattern evident on CT imaging of lung Conservative management for now, no active hemoptysis Infectious sebaceous cyst Would use doxycycline for now Sebaceous cyst located at left anterior abdominal wall without any purulent drainage, appears red inflamed and is tender on palpation In the ER he was given ceftriaxone and doxycycline, will discontinue ceftriaxone 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 Awaiting IVC filter placement which will likely happen tomorrow evening after which we can start patient on low-dose Eliquis. Discussed with patient if he would consider hospice but he reports that he is not ready yet. Plan for patient to go home with his home health. Attestations Medical Necessity Statement*: Patient with acute DVT/PE requires close inpatient monitoring and treatment including IVC filter placement. 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
--- NOTE | 2020-08-29 15:53 | PC.RESP ---
Pulmonary Rehab information sent to patient.
--- NOTE | 2020-08-29 16:14 | P.CONIM_ITS ---
Providers/Reason For Consult Consulting Physican/Specialty*: Dr. Saunders/cardiothoracic surgery Reason for Consult*: Bilateral lower extremity DVTs in the right lower lobe pulmonary believes him Requesting Physcian: Dr. Durham/hospitalist service Attending Physician: Aidan Durham MD Primary Care Provider: Edwin Carranza History of Present Illness History of Present Illness Timmy Romeo is a 75 year old male whom I have been consulted on from Dr. Durham to consider IVC filter placement due to bilateral lower extremity DVTs and a isolated segmental right lower lobe pulmonary embolism noted on CTA of the chest which I have personally reviewed. Mr. Romeo has been dealing with extensive malignancy which includes small cell carcinoma with bone metastasis as well as adenocarcinoma of the left upper lobe. He has previously completed 8 cycles of chemotherapy to include carboplatin/pemetrexed and pembrolizumab. He is also received whole brain palliative radiation. He has developed worsening hypoxemia as well as generalized weakness along with chronic anemia and deconditioning. His hospital evaluation, subsequent venous duplex study reveals a right lower extremity DVT involving the popliteal vein and tibioperoneal trunk. There is extensive DVT of the left side involving the common femoral vein, superficial femoral vein and profunda vein as well as the popliteal and peroneal veins. There have been concerns raised about considering generalized therapeutic anticoagulation due to his whole brain radiation and multiple metastatic lesions of the lungs and bone. MRI of the head from December confirms right parietal, parasagittal metastatic lesions. IVC filter has been requested to assist with management. Review of Systems Const: Reports: body aches, change in appetite, change in weight, fatigue and malaise ENMT: Denies: throat pain Card: Denies: chest pain or palpitations Resp: Reports: dyspnea, productive cough and pain on inspiration GI: Reports: abdominal pain, nausea and constipation; Denies: hematemesis Musc: Reports: back pain, extremity pain and muscle cramps Neuro: Denies: headache(s) Psych: Denies: anxiety or depression Meds/Allergies Home Medications and Allergies Home Medications Medication Instructions Recorded Confirmed Last Taken Type Anoro Ellipta 1 inh INHALATION DAILY 01/11/20 07/18/20 06/11/20 History Multi-Day Plus Minerals 1 tab PO DAILY 01/11/20 07/18/20 06/10/20 History ascorbic acid (vitamin C) [Vitamin 1,000 mg PO DAILY 01/11/20 07/18/20 06/10/20 History C] cetirizine [Zyrtec] 10 mg PO DAILY 01/11/20 07/18/20 06/10/20 History fluticasone propionate 2 spray INTRANASAL Q12H PRN 01/11/20 07/18/20 06/10/20 History montelukast [Singulair] 10 mg PO DAILY 01/11/20 07/18/20 06/10/20 History omeprazole 20 mg PO BID 01/11/20 07/18/20 06/10/20 History folic acid 1 mg tablet 1 mg PO DAILY 02/02/20 07/18/20 06/10/20 History magnesium oxide 400 mg (241.3 mg 400 mg PO DAILY 02/02/20 07/18/20 06/10/20 History magnesium) tablet hydrocodone 5 mg-acetaminophen 325 2 tab PO BID tab 07/18/20 07/18/20 Unknown History mg tablet levetiracetam 500 mg tablet 500 mg PO BID #60 tab 07/31/20 Unknown Rx olanzapine 5 mg tablet 5 mg PO DAILY #30 tab 07/31/20 Unknown Rx Allergies Allergy/AdvReac Type Severity Reaction Status Date / Time Latex, Natural Rubber Allergy Intermediate ADR-Itching Verified 07/18/20 10:45 Current Medications Current Medications Generic Name Dose Route Start Last Admin Trade Name Freq PRN Reason Stop Dose Admin Hydrocodone Bitart/Acetaminophen 2 tab 08/29/20 09:00 08/29/20 09:02 Tulia 5-325 Mg PO 2 tab BID CARLA Administration Doxycycline Monohydrate 100 mg 08/29/20 09:00 08/29/20 09:02 Vibramycin PO 100 mg BID CARLA Administration Protocol Folic Acid 1 mg 08/29/20 09:00 08/29/20 09:02 Folic Acid PO 1 mg DAILY CARLA Administration Sodium Chloride 1,000 mls @ 100 mls/hr 08/28/20 23:36 08/29/20 09:03 Sodium Chloride 0.9% IV 100 mls/hr .Q10H CARLA Administration Levetiracetam 500 mg 08/29/20 09:00 08/29/20 09:02 Keppra PO 500 mg BID CARLA Administration Magnesium Oxide 400 mg 08/29/20 09:00 08/29/20 09:02 Magox PO 400 mg DAILY CARLA Administration Methylprednisolone Sodium Succinate 60 mg 08/28/20 23:36 08/29/20 14:56 Solu-Medrol IVP 60 mg Q8H CARLA Administration Olanzapine 5 mg 08/29/20 09:00 08/29/20 09:02 Zyprexa PO 5 mg DAILY CARLA Administration Senna/Docusate Sodium 1 tab 08/29/20 09:00 08/29/20 09:02 Senna-S PO 1 tab DAILY CARLA Administration PFSH Acute PFSH: Medical History CAD (coronary artery disease) COPD (chronic obstructive pulmonary disease) GERD (gastroesophageal reflux disease) History of cardiac arrhythmia Hypertension 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 Guerrero, on third cycle of carboplatin, Alimta, Keytruda and has received 1 dose of radiation therapy to the brain as of 01/12/20 Surgical History History of bilateral inguinal hernia repair (~2017) History of cataract surgery (~2013) History of coronary artery bypass graft (~2012) Vocal cord nodule Required surgery x2 in 2011 and 2014, benign Family History Other CAD (coronary artery disease) Cancer Hypertension Denies family history of Diabetes Stroke Social History Smoking and tobacco status: former smoker Quit status (tobacco): has quit using tobacco Year quit tobacco: 2013 quit cigars Alcohol intake: current Alcohol intake frequency: holidays/special occasions only 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 History of recent travel: No Vitals/I&O/Wt Last Vital Signs Temp 97.3 F L 08/29/20 15:26 Pulse 95 08/29/20 15:26 Resp 16 08/29/20 15:26 BP 122/76 08/29/20 15:26 Pulse Ox 98 08/29/20 15:26 08/29/20 08/29/20 08/29/20 06:59 14:59 22:59 Intake Total 1216.667 / 1216.667 Balance 1216.667 / 1216.667 Weight last 48 hrs Weight 126 lb 9.6 oz Weight 132 lb Physical Exam Const: COMMON NORMALS: no acute distress and patient oriented x3; negative for average body habitus and negative for healthy appearing GENERAL APPEARANCE: frail appearing NUTRITIONAL APPEARANCE: cachectic HENMT: COMMON NORMALS: normocephalic, atraumatic and hearing grossly normal bilaterally HEAD & SCALP: normocephalic and atraumatic Resp: COMMON NORMALS: negative for clear to auscultation bilaterally EFFORT & INSPECTION: Yes symmetric chest movement and No tracheal deviation AUSCULTATION: not clear to auscultation bilaterally and wheezes Cardio: COMMON NORMALS: regular rhythm and S1 normal heart sound present RATE: tachycardic RHYTHM: regular rhythm HEART SOUNDS: S1 normal heart sound present GI: COMMON NORMALS: Soft to palpation and non-tender PALPATION: Yes Soft to palpation Extremity: GENERAL: Yes pallor Neuro: COMMON NORMALS: patient oriented x3, no focal motor deficits and no sensory deficits noted A&P Assessment and plan (1) Pulmonary embolism: Will tentatively plan for IVC filter placement tomorrow afternoon. Rationale was carefully discussed with Mr. Romeo and his . Increased risk for complications including possible related to his numerous and severe comorbidities were very frankly discussed. He states understanding. He wishes for us to proceed. We will tentatively plan to attempt IVC filter placement tomorrow afternoon. Status: Acute Qualifiers: Acute cor pulmonale presence: with acute cor pulmonale Chronicity: acute Pulmonary embolism type: unspecified Qualified Code(s): I26.09 - Other pulmonary embolism with acute cor pulmonale Consult Attestations Medical Necessity Statement: DVT with PE and metastatic malignancy Time Spent in Patient Care: 16 - 35 minutes Coding Level of Care Code Acute Office Technician for [facility] Diagnoses Pulmonary embolism I26.09 Acute cor pulmonale presence: with acute cor pulmonale Chronicity: acute Pulmonary embolism type: unspecified
--- NOTE | 2020-08-29 23:36 | USCV_ITS ---
Ousmane Timmy Age: 75 Gender: M : 1945 Exam Date: 08/29/2020 06:44 Ordering Phys: Veronica Wilson MD Technologist: Guevara Chaney Exam Location: [facility] [place] Indication: PE HISTORY: Pulmonary embolism. PROCEDURES: The venous duplex Doppler examination of both lower extremities was performed in the standard fashion. The following venous structures were evaluated: common femoral vein, profunda vein, proximal portion of the greater saphenous vein, superficial femoral vein, and the popliteal vein. FINDINGS: RT LEG DVT from the popliteal into the tibioperoneal trunk. LT DVT CFV, PROFUNDA, SFV, popliteal and peroneal veins. CONCLUSIONS Acute bilateral DVT. Dr. Michelle Garcia DO (Electronically Signed) Final Date: 29 August 2020 09:19 S
[2020-08-30] VITALS (15 sets, daily range): BP systolic 111–133; BP diastolic 69–90; PULSE 84–104; RESP 16–24; TEMP 36.3–37.2; O2SAT 94–100
--- NOTE | 2020-08-30 | SCC_ITS ---
Procedure Done: Inferior vena cava filter placement 258.9 seconds of fluoroscopic guidance, for a cumulative dose of 27.03 mGy, was provided to Dr. Saunders by the radiology department. C-arm images of the abdomen were saved for the patient's permanent record. [facility]
--- NOTE | 2020-08-30 06:53 | P.PN_ITS ---
Subjective Subjective: Interval history: She is report no events overnight. Mr. Romeo apparently slept reasonably well. Vitals/I&O/Wt Last Vital Signs Temp 97.8 F 08/30/20 04:00 Pulse 99 08/30/20 04:00 Resp 24 H 08/30/20 04:00 BP 127/78 08/30/20 04:00 Pulse Ox 98 08/30/20 04:00 08/29/20 08/29/20 08/30/20 14:59 22:59 06:59 Intake Total 1216.667 / 6355.495 6982 / 2736.667 Output Total 400 / 400 450 / 850 Balance 1216.667 / 2518.183 1213 / 2336.667 -450 / 1886.667 Weight last 48 hrs Weight 126 lb 9.6 oz Weight 132 lb Physical Exam Resp: COMMON NORMALS: negative for clear to auscultation bilaterally EFFORT & INSPECTION: No tracheal deviation AUSCULTATION: not clear to auscultation bilaterally and diminished lung sounds bilateral Cardio: COMMON NORMALS: regular rhythm; negative for regular rate RATE: abnormal rate and tachycardic RHYTHM: regular rhythm Data : 08/29/20 03:42 08/29/20 03:42 A&P Assessment and plan (1) Pulmonary embolism: Level right lower lobe pulmonary embolism with bilateral DVT left greater than right Plan: We will plan for IVC filter placement this afternoon. Rationale and risk again discussed. Patient wishes to proceed. Substantial increased risk for perioperative complications related to his numerous comorbidities and disseminated malignancy Status: Acute Qualifiers: Acute cor pulmonale presence: with acute cor pulmonale Chronicity: acute Pulmonary embolism type: unspecified Qualified Code(s): I26.09 - Other pulmonary embolism with acute cor pulmonale Attestations Medical Necessity Statement*: Pulmonary embolism with DVT Time Spent in Patient Care: less than 15 minutes Coding Level of Care Code Acute Manager Pmo for [facility] Diagnoses Pulmonary embolism I26.09 Acute cor pulmonale presence: with acute cor pulmonale Chronicity: acute Pulmonary embolism type: unspecified
[2020-08-30 08:38] LABS: Alanine Aminotransferase 18 U/L (0-41); Albumin Level 2.8 g/dL (3.5-5.2); Alkaline Phosphatase 179 IU/L (40-130); Anion Gap 16.3 (5-19); Aspartate Amino Transferase 22 U/L (0-40); Blood Urea Nitrogen 39 mg/dL (8-23); Calcium 8.5 mg/dL (8.5-10.5); Carbon Dioxide 22 mmol/L (22-29); Chloride 103 mmol/L (98-107); Globulin 2.7 g/dL (1.3-4.6); Glucose 132 mg/dL (65-115); Osmolality Calculated 295 mOsm/kg (285-295); Potassium 4.3 mmol/L (3.5-5.1); Sodium 137 mmol/L (136-145); Total Bilirubin 0.2 mg/dL (0.15-1.2); Total Protein 5.5 g/dL (6.6-8.7)
[2020-08-30] MEDS: magnesium oxide 400 mg tablet PO (08:55)
[2020-08-30] MEDS: sennosides-docusate Tablet 1 TAB PO (08:55)
[2020-08-30] MEDS: levETIRAcetam 500 mg Tablet PO (08:55)
[2020-08-30] MEDS: HYDROcodone-acetaminophen 5-325 mg Tablet 2 TAB PO (08:55)
[2020-08-30] MEDS: OLANZapine 5 mg TABLET PO (08:56)
[2020-08-30] MEDS: folic acid 1 mg Tablet PO (08:56)
[2020-08-30] MEDS: doxycycline 100 mg Tablet PO (09:00)
[2020-08-30] MEDS: sodium chloride 0.9% 1,000 ML 100 ML IV (09:01)
--- NOTE | 2020-08-30 09:36 | P.PN_ITS ---
Subjective Subjective: Interval history: Patient denies shortness of breath or chest pain. Morning labs are pending. Plan to have IVC filter placed later today. Vitals/I&O/Wt Last Vital Signs Temp 98.5 F 08/30/20 08:00 Pulse 94 08/30/20 08:00 Resp 18 08/30/20 08:00 BP 123/69 08/30/20 08:00 Pulse Ox 97 08/30/20 08:00 08/29/20 08/30/20 08/30/20 22:59 06:59 14:59 Intake Total 1520 / 2736.667 1000 / 1000 Output Total 400 / 400 450 / 850 Balance 1120 / 2336.667 -450 / 2667.579 0882 / 1000 Weight last 48 hrs Weight 57.425 kg Weight 59.874 kg Physical Exam Const: COMMON NORMALS: no acute distress and patient oriented x3 Resp: COMMON NORMALS: normal respiratory effort and clear to auscultation bilaterally AUSCULTATION: clear to auscultation bilaterally Cardio: COMMON NORMALS: regular rate, regular rhythm and S2 normal heart sound present RATE: regular rate RHYTHM: regular rhythm HEART SOUNDS: S2 normal heart sound present OTHER: No lower extremity edema GI: COMMON NORMALS: Normal to inspection, nondistended, normoactive bowel sounds present, Soft to palpation and non-tender PALPATION: Yes Soft to palpation Neuro: COMMON NORMALS: patient oriented x3 and no focal motor deficits Data : 08/29/20 03:42 08/30/20 07:49 A&P Assessment and plan (1) Pulmonary embolism: Patient also has evidence of bilateral DVT. Status: Acute (2) Anemia of chronic disease: Status: Acute (3) Pulmonary alveolar hemorrhage: Ruled out. Status: Acute (4) Physical deconditioning: Status: Acute (5) Infected sebaceous cyst: Status: Acute Additional A&P Information Acute pulmonary embolism, symptomatic No right heart strain evident on CT imaging, troponin without significant delta however high, will obtain BNP level 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, will check lower extremities for DVT He also has diffuse alveolar hemorrhage evident on CT imaging I would avoid giving him any anticoagulation at this point I do believe due to radiation is suffering from alveolar hemorrhage I do not suspect Goodpasture syndrome or vasculitis at this point, I would continue steroids for now Anemia of chronic disease: Hemoglobin at baseline, Currently alveolar hemorrhage pattern evident on CT imaging of lung Conservative management for now, no active hemoptysis Infectious sebaceous cyst Would use doxycycline for now Sebaceous cyst located at left anterior abdominal wall without any purulent drainage, appears red inflamed and is tender on palpation In the ER he was given ceftriaxone and doxycycline, will discontinue ceftriaxone 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 Had discussion regarding risks and benefits of anticoagulation with patient and his at bedside yesterday evening. Awaiting lab work and depending on hemoglobin and platelets will consider starting patient on low-dose Eliquis today and if he continues to do well we could possibly dismiss patient home tomorrow. Attestations Medical Necessity Statement*: Patient with DVT and PE requires close inpatient monitoring and treatment until deemed safe for discharge. Time Spent in Patient Care: less than 15 minutes Coding Level of Care Code Acute Sales And Marketing Associate for [employer] Diagnoses Pulmonary embolism I26.99 Anemia of chronic disease D63.8 Pulmonary alveolar hemorrhage R04.89 Physical deconditioning R53.81 Infected sebaceous cyst L72.3; L08.9
[2020-08-30 09:43] LABS: Basophils % 0.2 %; Hematocrit 22.6 % (42.0-52.0); Hemoglobin 7.2 g/dL (11.7-16.6); Lymphocytes # 1.1 10^3/uL (0.8-4.8); Lymphocytes % 5.5 %; Mean Corpuscular HGB Conc 31.9 g/dL (30.0-36.0); Mean Corpuscular Hemoglobin 34.1 pg (28.0-34.0); Mean Corpuscular Volume 107.1 fL (80-94); Mean Platelet Volume 10.5 fL (7.4-10.4); Monocytes # 1.6 10^3/uL (0.2-0.9); Monocytes % 8.1 %; Neutrophils # 15.95 10^3/uL (1.8-7.7); Neutrophils % 79.5 %; Nucleated Red Blood Cells % 0 %; Platelet Count 136 10^3/cmm (130-400); Red Blood Count 2.11 10^6/uL (4.1-5.3); Red Cell Distribution Width 19.1 % (12.1-15.1); White Blood Count 20.1 10^3/uL (4.0-10.0)
[2020-08-30 09:47] LABS: Slide Review Slide Review Perform
--- NOTE | 2020-08-30 10:59 | PC.CHAP ---
Pastoral Care Encounter/Spiritual Assessment Type of Contact [] Declined custodial services manager visit [] Patient/Family/Request visit [] Outpatient visit [] Follow-up visit [] Physician referral [] Code/Alert [x] Routine visit [] Staff referral [] Actively dying [] Patient sleeping [] Family support [] [] Out of room [] Palliative care [] [x] Receiving care in room [] Pre-surgical visit [] Trauma [] Long length of stay [] ICU visit [] Other: Relational/Emotional Strength [x] Patient feels connected with others/family/visitors/staff [] Distress [] Loneliness/isolation [] Abandonment Spirituality of Patient [x] Person of Kateryna [] Attends Islam of their [place]yna [x] Believes in Prayer [] Reads Bible or Taoist materials [] There are Spiritual issues to be addressed Professional Builder Interventions [x] Prayer [x] Active listening [x] Non-anxious presence [x] Spiritual/emotional support [] Crisis/trauma care [x] Spiritual counseling [] Bereavement support [] Provided bereavement packet [] Provided Bible/devotional materials [] Provided toy/stuffed animal, coloring book to patient or family member [] Provided Communion [] Anointing/[place] [] Salvation [x] Completed spiritual assessment [] Other: Impact on Illness or Injury [] Angry [x] Fearful [] Anxious [] Often cries [] Exhaustion [] Unable to work [] Unable to attend adventist [] Unable to walk/stand [] Unable to read [] Unable to drive [] Unable to eat/drink [] Unable to sleep [] Unable to be with family [] Patient intubated [] Other: Summary Feeling better not sure about recovery has a good attitude Time spent with patient 10 mins
--- NOTE | 2020-08-30 13:35 | PC.NURSE ---
Checked on pt. He is resting comfortably. No complaints of pain.
--- NOTE | 2020-08-30 15:55 | ANES.PREANE2 ---
Pre-Anesthetic Assessment Pre-Anesthetic Assessment: Height/Weight: Height 1.78 m Weight 57.425 kg Temp Pulse Resp BP Pulse Ox 98.9 F 91 18 111/69 97 08/30/20 15:37 08/30/20 15:37 08/30/20 15:37 08/30/20 15:37 08/30/20 15:37 Preop Diagnosis: PE Proposed Procedure: Operation Date: 08/30/20 16:00 Proposed Procedures p Vena Cava Filter Insertion(Not Applicable) - Edwin Saunders MD Was Beta Petr taken within 24 hours: N/A Social: Social History: Tobacco (history of smoking, quit 2012) Exam: Pre-Anes Outpt Exam: alert, oriented x 3, clear to auscultation bilaterally and regular rate & rhythm Airway: Submandibular: WNL Cervical ROM: WNL MP: 1 Dentition: Full History/ROS: No significant history except as noted Pulmonary: Pulmonary: COPD and RICE Comments: Lung cancer CV/HEM: CV/HEM: CAD and HTN : : None reported Hepatic: Hepatic: None reported GI: GI: GERD Metabolic: Metabolic: Hyperlipidemia Musc/skel: Musc/skel: None reported Neuropsych: Neuropsych: Seizure Anesthetic Plan: ASA status: 3 Anesthesia: Anesthesia Evaluation and MAC Risk of > 500 ml blood loss (7ml/kg in children): No Meds/Allergies Current Medications: Current Medications Generic Name Dose Route Start Last Admin Trade Name Freq PRN Reason Stop Dose Admin Hydrocodone Bitart /Acetaminophen 2 tab 08/29/20 09:00 08/30/20 08:55 [place] 5-325 Mg PO 2 tab BID CARLA Administration Doxycycline Monohy drate 100 mg 08/29/20 09:00 08/30/20 09:00 Vibramycin PO 100 mg BID CARLA Administration Protocol Folic Acid 1 mg 08/29/20 09:00 08/30/20 08:56 Folic Acid PO 1 mg DAILY CARLA Administration Sodium Chloride 1,000 mls @ 100 m ls/hr 08/28/20 23:36 08/30/20 09:01 Sodium Chloride 0.9% IV 100 mls/hr .Q10H CARLA Administration Levetiracetam 500 mg 08/29/20 09:00 08/30/20 08:55 Keppra PO 500 mg BID CARLA Administration Magnesium Oxide 400 mg 08/29/20 09:00 08/30/20 08:55 Magox PO 400 mg DAILY CARLA Administration Methylprednisolone Sodium Succinate 60 mg 08/28/20 23:36 08/30/20 09:06 Solu-Medrol IVP 60 mg Q8H CARLA Administration Olanzapine 5 mg 08/29/20 09:00 08/30/20 08:56 Zyprexa PO 5 mg DAILY CARLA Administration Senna/Docusate Sod ium 1 tab 08/29/20 09:00 08/30/20 08:55 Senna-S PO 1 tab DAILY CARLA Administration PFSH Anesthesia PFSH: Medical History CAD (coronary artery disease) COPD (chronic obstructive pulmonary disease) GERD (gastroesophageal reflux disease) History of cardiac arrhythmia Hypertension 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 Guerrero, on third cycle of carboplatin, Alimta, Keytruda and has received 1 dose of radiation therapy to the brain as of 01/12/20 Surgical History History of bilateral inguinal hernia repair (~2017) History of cataract surgery (~2013) History of coronary artery bypass graft (~2012) Vocal cord nodule Required surgery x2 in 2011 and 2014, benign Family History Other CAD (coronary artery disease) Cancer Hypertension Denies family history of Diabetes Stroke Social History Smoking and tobacco status: former smoker Quit status (tobacco): has quit using tobacco Year quit tobacco: 2013 quit cigars Alcohol intake: current Alcohol intake frequency: holidays/special occasions only 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 History of recent travel: No Data Anesthesia CBC & Chem 7: 08/30/20 07:49 08/30/20 07:49 Other Labs: Laboratory Results - last 48 hr 08/28/20 08/28/20 08/28/20 16:14 16:14 16:14 WBC 13.3 H RBC 2.63 L Hgb 8.9 L Hct 28.0 L MCV 106.5 H MCH 33.8 MCHC 31.8 RDW 19.7 H Plt Count 156 MPV 10.2 Neut % (Auto) Lymph % (Auto) Not Reportable [place] % (Auto) Not Reportable Eos % (Auto) Baso % (Auto) Neut # (Auto) Lymph # (Auto) Not Reportable [place] # (Auto) Not Reportable Eos # (Auto) Baso # (Auto) Nucleated RBC % (auto) Total Counted 100 Atypical Lymphs % 9.0 H Absolute Neutrophils 10.0 H Segmented Neutrophils 75 Abs Segm Neuts (Man) 10.0 H Band Neutrophils 0.0 Abs Band Neuts (Man) 0.0 Lymphocytes (Manual) 4 Monocytes (Manual) 7.0 Absolute Monocytes 0.9 H Eosinophils (Manual) 0 Absolute Eosinophils 0.0 Basophils (Manual) 0.0 Absolute Basophils 0.0 Metamyelocytes 1.0 Myelocytes 4.0 Nucleated RBCs # Platelet Estimate Normal Anisocytosis Trace Specimen Type Sample Site ABG pH ABG pCO2 ABG pO2 ABG HCO3 ABG Base Excess Adrien Test Hematocrit O2 Delivery Device O2 Liters/Min Sustainment Logistics Analyst ID Sodium 136 Potassium 3.9 Chloride 95 L Carbon Dioxide 25 Anion Gap 19.9 H BUN 29 H Creatinine 0.8 GFR Calculation Not Reportable Glucose 167 H Calculated Osmolality 292 Calcium 9.1 Total Bilirubin 0.3 AST 27 ALT 18 Alkaline Phosphatase 211 H Troponin T Baseline 50 H Troponin T 120 Minute Delta Troponin T Total Protein 5.8 L Albumin 3.2 L Globulin 2.6 Urine Color Urine Appearance Urine pH Ur Specific [place] Urine Protein Urine Glucose (UA) Urine Ketones Urine Blood Urine Nitrate Urine Bilirubin Urine Urobilinogen Ur Leukocyte Esterase Urine RBC Urine WBC Ur Squamous Epith Cells Ur Transition Epith Cell Ur Renal Epithelial Cell Calcium Oxalate Crystal Amorphous Sediment Urine Bacteria Hyaline Casts Fine Granular Casts Influenza Type A Ag Influenza Type B Ag SARS-CoV-2 Ag (Rapid) Blood Type Rho(D) Type Antibody Screen Crossmatch 08/28/20 08/28/20 08/28/20 17:38 18:35 20:00 WBC RBC Hgb Hct MCV MCH MCHC RDW Plt Count MPV Neut % (Auto) Lymph % (Auto) [place] % (Auto) Eos % (Auto) Baso % (Auto) Neut # (Auto) Lymph # (Auto) [place] # (Auto) Eos # (Auto) Baso # (Auto) Nucleated RBC % (auto) Total Counted Atypical Lymphs % Absolute Neutrophils Segmented Neutrophils Abs Segm Neuts (Man) Band Neutrophils Abs Band Neuts (Man) Lymphocytes (Manual) Monocytes (Manual) Absolute Monocytes Eosinophils (Manual) Absolute Eosinophils Basophils (Manual) Absolute Basophils Metamyelocytes Myelocytes Nucleated RBCs # Platelet Estimate Anisocytosis Specimen Type Arterial Sample Site Radial, right ABG pH 7.46 H ABG pCO2 39.4 ABG pO2 73.4 L ABG HCO3 27.7 H ABG Base Excess 3.5 H Adrien Test Pos Hematocrit 24.2 L O2 Delivery Device Nc O2 Liters/Min 4.0 Sustainment Logistics Analyst ID ellpe Sodium Potassium Chloride Carbon Dioxide Anion Gap BUN Creatinine GFR Calculation Glucose Calculated Osmolality Calcium Total Bilirubin AST ALT Alkaline Phosphatase Troponin T Baseline Troponin T 120 Minute 44.42 H Delta Troponin T -5.58 L Total Protein Albumin Globulin Urine Color Yellow Urine Appearance Clear Urine pH 6.5 Ur Specific [place] 1.015 Urine Protein Trace Urine Glucose (UA) Norm Urine Ketones Negative Urine Blood Neg Urine Nitrate Negative Urine Bilirubin Neg Urine Urobilinogen Norm Ur Leukocyte Esterase Negative Urine RBC None Urine WBC None Ur Squamous Epith Cells 0-4 H Ur Transition Epith Cell None Ur Renal Epithelial Cell 5-10 Calcium Oxalate Crystal 5-10 H Amorphous Sediment Not Reportable Urine Bacteria Trace Hyaline Casts 0-4 H Fine Granular Casts 0-4 H Influenza Type A Ag Influenza Type B Ag SARS-CoV-2 Ag (Rapid) Blood Type Rho(D) Type Antibody Screen Crossmatch 08/28/20 08/28/20 08/29/20 20:35 20:35 03:42 WBC 12.1 H RBC 2.41 L Hgb 8.0 L Hct 26.2 L MCV 108.7 H MCH 33.2 MCHC 30.5 RDW 19.3 H Plt Count 117 L MPV 10.3 Neut % (Auto) 85.6 Lymph % (Auto) 5.0 [place] % (Auto) 2.0 Eos % (Auto) 0.2 Baso % (Auto) 0.4 Neut # (Auto) 10.34 H Lymph # (Auto) 0.6 L [place] # (Auto) 0.2 Eos # (Auto) 0.0 Baso # (Auto) 0.1 Nucleated RBC % (auto) 0 Total Counted Atypical Lymphs % Absolute Neutrophils Segmented Neutrophils Abs Segm Neuts (Man) Band Neutrophils Abs Band Neuts (Man) Lymphocytes (Manual) Monocytes (Manual) Absolute Monocytes Eosinophils (Manual) Absolute Eosinophils Basophils (Manual) Absolute Basophils Metamyelocytes Myelocytes Nucleated RBCs # 0.0 Platelet Estimate Anisocytosis Specimen Type Sample Site ABG pH ABG pCO2 ABG pO2 ABG HCO3 ABG Base Excess Adrien Test Hematocrit O2 Delivery Device O2 Liters/Min Sustainment Logistics Analyst ID Sodium Potassium Chloride Carbon Dioxide Anion Gap BUN Creatinine GFR Calculation Glucose Calculated Osmolality Calcium Total Bilirubin AST ALT Alkaline Phosphatase Troponin T Baseline Troponin T 120 Minute Delta Troponin T Total Protein Albumin Globulin Urine Color Urine Appearance Urine pH Ur Specific [place] Urine Protein Urine Glucose (UA) Urine Ketones Urine Blood Urine Nitrate Urine Bilirubin Urine Urobilinogen Ur Leukocyte Esterase Urine RBC Urine WBC Ur Squamous Epith Cells Ur Transition Epith Cell Ur Renal Epithelial Cell Calcium Oxalate Crystal Amorphous Sediment Urine Bacteria Hyaline Casts Fine Granular Casts Influenza Type A Ag Negative Influenza Type B Ag Negative SARS-CoV-2 Ag (Rapid) Negative Blood Type Rho(D) Type Antibody Screen Crossmatch 08/29/20 08/29/20 08/30/20 03:42 17:45 07:49 WBC 20.1 H RBC 2.11 L Hgb 7.2 L Hct 22.6 L MCV 107.1 H MCH 34.1 H MCHC 31.9 RDW 19.1 H Plt Count 136 MPV 10.5 H Neut % (Auto) 79.5 Lymph % (Auto) 5.5 [place] % (Auto) 8.1 Eos % (Auto) 0.0 Baso % (Auto) 0.2 Neut # (Auto) 15.95 H Lymph # (Auto) 1.1 [place] # (Auto) 1.6 H Eos # (Auto) 0.0 Baso # (Auto) 0.0 Nucleated RBC % (auto) 0 Total Counted Atypical Lymphs % Absolute Neutrophils Segmented Neutrophils Abs Segm Neuts (Man) Band Neutrophils Abs Band Neuts (Man) Lymphocytes (Manual) Monocytes (Manual) Absolute Monocytes Eosinophils (Manual) Absolute Eosinophils Basophils (Manual) Absolute Basophils Metamyelocytes Myelocytes Nucleated RBCs # 0.0 Platelet Estimate Anisocytosis Specimen Type Sample Site ABG pH ABG pCO2 ABG pO2 ABG HCO3 ABG Base Excess Adrien Test Hematocrit O2 Delivery Device O2 Liters/Min Sustainment Logistics Analyst ID Sodium 135 L Potassium 4.5 Chloride 99 Carbon Dioxide 25 Anion Gap 15.5 BUN 28 H Creatinine 0.7 GFR Calculation Not Reportable Glucose 128 H Calculated Osmolality 287 Calcium 8.7 Total Bilirubin AST ALT Alkaline Phosphatase Troponin T Baseline Troponin T 120 Minute Delta Troponin T Total Protein Albumin Globulin Urine Color Urine Appearance Urine pH Ur Specific [place] Urine Protein Urine Glucose (UA) Urine Ketones Urine Blood Urine Nitrate Urine Bilirubin Urine Urobilinogen Ur Leukocyte Esterase Urine RBC Urine WBC Ur Squamous Epith Cells Ur Transition Epith Cell Ur Renal Epithelial Cell Calcium Oxalate Crystal Amorphous Sediment Urine Bacteria Hyaline Casts Fine Granular Casts Influenza Type A Ag Influenza Type B Ag SARS-CoV-2 Ag (Rapid) Blood Type O Positive Rho(D) Type Positive Antibody Screen Negative Crossmatch See Detail 08/30/20 07:49 WBC RBC Hgb Hct MCV MCH MCHC RDW Plt Count MPV Neut % (Auto) Lymph % (Auto) [place] % (Auto) Eos % (Auto) Baso % (Auto) Neut # (Auto) Lymph # (Auto) [place] # (Auto) Eos # (Auto) Baso # (Auto) Nucleated RBC % (auto) Total Counted Atypical Lymphs % Absolute Neutrophils Segmented Neutrophils Abs Segm Neuts (Man) Band Neutrophils Abs Band Neuts (Man) Lymphocytes (Manual) Monocytes (Manual) Absolute Monocytes Eosinophils (Manual) Absolute Eosinophils Basophils (Manual) Absolute Basophils Metamyelocytes Myelocytes Nucleated RBCs # Platelet Estimate Anisocytosis Specimen Type Sample Site ABG pH ABG pCO2 ABG pO2 ABG HCO3 ABG Base Excess Adrien Test Hematocrit O2 Delivery Device O2 Liters/Min Sustainment Logistics Analyst ID Sodium 137 Potassium 4.3 Chloride 103 Carbon Dioxide 22 Anion Gap 16.3 BUN 39 H Creatinine 0.7 GFR Calculation Not Reportable Glucose 132 H Calculated Osmolality 295 Calcium 8.5 Total Bilirubin 0.2 AST 22 ALT 18 Alkaline Phosphatase 179 H Troponin T Baseline Troponin T 120 Minute Delta Troponin T Total Protein 5.5 L Albumin 2.8 L Globulin 2.7 Urine Color Urine Appearance Urine pH Ur Specific [place] Urine Protein Urine Glucose (UA) Urine Ketones Urine Blood Urine Nitrate Urine Bilirubin Urine Urobilinogen Ur Leukocyte Esterase Urine RBC Urine WBC Ur Squamous Epith Cells Ur Transition Epith Cell Ur Renal Epithelial Cell Calcium Oxalate Crystal Amorphous Sediment Urine Bacteria Hyaline Casts Fine Granular Casts Influenza Type A Ag Influenza Type B Ag SARS-CoV-2 Ag (Rapid) Blood Type Rho(D) Type Antibody Screen Crossmatch Cardiac Studies: No Data to Display
[2020-08-30] MEDS: lidocaine 1% INJ 20 mL SUBCUT (17:44)
--- NOTE | 2020-08-30 17:58 | PM.OP ---
Operative Report Date of procedure: August 30, 2020 Pre-op Diagnosis: DVT with pulmonary lithium Post-op diagnosis: same Procedure Done: Inferior vena cava filter placement Pathology: none sent Surgeon: Edwin Saunders Anesthesia: MAC and Local Complications: None Findings: Fluoroscopy utilized for positioning and deployment Condition: stable Disposition: PACU Brief History: 75-year-old gentleman with metastatic lung carcinoma also involving bone and brain. Status post radiotherapy. Bilateral lower extremity DVT and segmental right lower lobe pulmonary embolism. IVC filter placement requested because of concerns for therapeutic anticoagulation related to the brain involvement. Details and risk of procedure carefully and frankly discussed. Appropriate sets have been reviewed and signed. Procedure: The entire abdomen, lower chest, groin area, perineal area, and thighs to the level of the knees were sterilely prepped and draped. Utilizing modified Seldinger technique, the right femoral vein was aspirated and a guidewire was placed under fluoroscopic guidance after initial localization with hand-held ultrasound. A series of enlarging dilators and subsequently the Brooke filter sheath were then placed over the guidewire without difficulty at the skin was incised with a #11 scalpel blade. Next, Omnipaque was utilized to perform a venogram for proper assessment of the renal veins. Sheath was introduced and appropriately positioned. Inner cannula and dilator were removed and a 12 [place] filter introducer were then inserted and advanced and secured to the sheath. Tip of filter was appropriately positioned utilizing fluoroscopic guidance. Following this, filter was released with fluoroscopic guidance and observation. The filter seated well with minimal angulation. Introducer and sheath were then withdrawn and direct pressure was held on the groin area for 10 minutes until hemostasis was confirmed. A weighted pressure dressing was then applied. Mr. Romeo tolerated procedure well and was awakened from anesthesia. He was then transported to PACU. We did outreach counselor with his at completion of the procedure.
--- NOTE | 2020-08-30 18:12 | SUR.PHASEI ---
PT AWAKE ALERT WITH GOOD RESP PT PLACED ON 4LNC PRE SURGERY, RT GROIN PRESSURE DRESSING D/I DISTAL FOOT PINK WARM WITH CAP REFILL LESS THAN 3 SECONDS.
--- NOTE | 2020-08-30 18:30 | PM.PACU ---
PACU note Post-Anesthesia Exam: awake and vital signs stable Disposition: back to floor
--- NOTE | 2020-08-30 18:34 | XR_ITS ---
NOTE: Report was unsigned for reason: Order was edited. Original Signature date and time was: 08/31/20 0813 WS: [id number] Lumbar spine, C-arm fluoroscopy AP central abdomen, 08/30/2020 Clinical Data: OR PICS Comparison: None. Findings: There is a vena caval filter which is at right side of the second and third lumbar vertebra. MTDD XR/XR abdomen 1V* [id number] Impression: Inferior vena caval filter.
--- NOTE | 2020-08-30 18:39 | SUR.PHASEI ---
1815 PT TO FLOOR PER BED AT BEDSIDE WALKED UP TO FLOOR WITH PT AND RN, PT ALERT TALKATIVE, TO ROOM REPOSITIONED TO COMFORT, NURSE STACY RN TO ROOM SITE UNCHANGED D/I NO HEMATOMA NOTED RT FOOT PINK WARM HANDOFF AT BEDSIDE.
[2020-08-30] MEDS: HYDROcodone-acetaminophen 5-325 mg Tablet 1 TAB PO (21:18)
[2020-08-31 03:45] VITALS: BP 119/74; PULSE 86; RESP 14; TEMP 36.6; O2SAT 95
[2020-08-31 05:26] LABS: Basophils % 0.1 %; Eosinophils % 0.1 %; Hematocrit 22.8 % (42.0-52.0); Hemoglobin 7.1 g/dL (11.7-16.6); Lymphocytes # 1.2 10^3/uL (0.8-4.8); Lymphocytes % 7.7 %; Mean Corpuscular HGB Conc 31.1 g/dL (30.0-36.0); Mean Corpuscular Hemoglobin 34.3 pg (28.0-34.0); Mean Corpuscular Volume 110.1 fL (80-94); Mean Platelet Volume 9.9 fL (7.4-10.4); Monocytes % 12.9 %; Neutrophils # 11.39 10^3/uL (1.8-7.7); Neutrophils % 73.8 %; Nucleated Red Blood Cells % 0 %; Platelet Count 103 10^3/cmm (130-400); Red Blood Count 2.07 10^6/uL (4.1-5.3); Red Cell Distribution Width 19.3 % (12.1-15.1); White Blood Count 15.4 10^3/uL (4.0-10.0)
[2020-08-31 05:54] LABS: Chloride 103 mmol/L (98-107); Sodium 137 mmol/L (136-145)
--- NOTE | 2020-08-31 06:24 | PC.NURSE ---
This RN checked the Pt's pulses and dressing status at 1900, 2100, 0100, and 0500. The dressing is dry and intact, pulses are palpable as 3+. No other needs voiced at this time. Will continue to monitor.
[2020-08-31 06:29] LABS: Alanine Aminotransferase 19 U/L (0-41); Albumin Level 2.8 g/dL (3.5-5.2); Alkaline Phosphatase 184 IU/L (40-130); Aspartate Amino Transferase 25 U/L (0-40); Blood Urea Nitrogen 37 mg/dL (8-23); Calcium 8.8 mg/dL (8.5-10.5); Carbon Dioxide 25 mmol/L (22-29); Globulin 2.4 g/dL (1.3-4.6); Glucose 97 mg/dL (65-115); Magnesium 1.2 mg/dL (1.7-2.3); Osmolality Calculated 295 mOsm/kg (285-295); Total Bilirubin 0.3 mg/dL (0.15-1.2); Total Protein 5.2 g/dL (6.6-8.7)
[2020-08-31 06:48] LABS: Slide Review Slide Review Perform
[2020-08-31] MEDS: magnesium sulfate premix 4 GM/100 ML PREMIX IV (07:54)
[2020-08-31 08:00] VITALS: BP 133/85; PULSE 88; RESP 18; TEMP 36.9; O2SAT 96
--- NOTE | 2020-08-31 08:23 | ANE.PACU2 ---
Inpatient post-anesthesia follow up: Vital signs: Temperature 98.5 F Pulse Rate [Monito r] 143 Pulse Rate 88 Respiratory Rate 18 Blood Pressure [Le ft Arm] 85/61 Blood Pressure 133/85 Pulse Oximetry 96 Oxygen Delivery Me thod [ Nasal Cannula Current Rate & Del chico] Oxygen Delivery Me thod Room Air,Nasal Can nula Oxygen Flow Rate [ Current Rate 2 & Delivery] Oxygen Flow Rate 4 Fraction of Inspir ed Oxygen Hydration adequate: Yes Nausea and vomiting: No Pain level: 2 Mental status: Baseline
--- NOTE | 2020-08-31 09:49 | P.DS_ITS ---
Discharge Providers Date of Admission: 08/29/20 14:53 Date of Discharge: August 31, 2020 Attending Provider at Admission: Veronica Wilson MD Attending Provider at Discharge: Aidan Durham MD Primary Care Provider: Edwin Carranza Diagnoses at Discharge Discharge Diagnosis (1) Pulmonary embolism: Status: Acute (2) Anemia of chronic disease: Status: Acute (3) Pulmonary alveolar hemorrhage: Status: Acute (4) Physical deconditioning: Status: Acute (5) Infected sebaceous cyst: Status: Acute Reason for Visit Reason for Visit: [facility] told them to come here Hospital Course Discharge Summary: Patient with metastatic lung cancer not responding to therapy and recently advancing presented with acute PE and DVT. Patient was seen by Dr. Saunders and IVC filter was placed. This morning patient denies any complaints including shortness of breath or chest pain. Reports that he is using oxygen at x3 L by nasal cannula at home and this will be continued. Patient continues to be deconditioned and wants to go home with home health and this was arranged. Patient asked me this morning if I think he needs to continue with treatment of malignancy or let nature take its course. Reports that he did not want to discuss this in front of his because she can get very emotional. Reports that he understands that he does not have much time to live but he is not ready for hospice. I have recommended patient to discuss this with Dr. Guerrero next visit as it will be more appropriate to hear this from him. Discussed that patients functional status plays a significant role in decision making. Given extensive anemia and some thrombocytopenia I feel like risk of anticoagulation outweighs benefit therefore no Eliquis will be initiated. I will let Dr. Guerrero reevaluate patient post discharge to decide regarding anticoagulation. Physical Exam Const: COMMON NORMALS: no acute distress and patient oriented x3 Resp: COMMON NORMALS: normal respiratory effort and clear to auscultation bilaterally (With overall decreased air movement) AUSCULTATION: clear to auscultation bilaterally (With overall decreased air movement) Cardio: COMMON NORMALS: regular rate, regular rhythm and S2 normal heart sound present RATE: regular rate RHYTHM: regular rhythm HEART SOUNDS: S2 normal heart sound present OTHER: No lower extremity edema GI: COMMON NORMALS: Normal to inspection, nondistended, normoactive bowel sounds present, Soft to palpation and non-tender PALPATION: Yes Soft to palpation Neuro: COMMON NORMALS: patient oriented x3 and no focal motor deficits Discharge Data Data Completed and Pending: Completed Studies During Hospitalization Category Date Time Status CT angio chest PE protcl [id number] Stat Cat Scan 08/28/20 17:23 Completed XR abdomen 1V* [id number] Routine Exams 08/30/20 18:34 Completed XR chest 1V davonte ble [id number] Stat Exams 08/28/20 16:02 [place] [id number] Routin e Ultrasound 08/29/20 23:36 Completed Pending at discharge Category Date Time Status Complete Blood Co unt w/Auto AM LABS Lab 09/01/20 04:00 Ordered Complete Blood Co unt w/Auto AM LABS Lab 09/02/20 04:00 Ordered Comprehensive Met abolic Panel AM LA BS Lab 09/01/20 04:00 Ordered Comprehensive Met abolic Panel AM LA BS Lab 09/02/20 04:00 Ordered Leukocyte Reduced RBC Routine Lab 08/29/20 17:45 Results Magnesium AM LABS Lab 09/01/20 04:00 Ordered Magnesium AM LABS Lab 09/02/20 04:00 Ordered Type and Screen R outine Lab 08/29/20 17:45 Results Labs from last 24 hours 08/31/20 08/31/20 05:04 05:04 WBC 15.4 H RBC 2.07 L Hgb 7.1 L Hct 22.8 L MCV 110.1 H MCH 34.3 H MCHC 31.1 RDW 19.3 H Plt Count 103 L MPV 9.9 Neut % (Auto) 73.8 Lymph % (Auto) 7.7 [place] % (Auto) 12.9 Eos % (Auto) 0.1 Baso % (Auto) 0.1 Neut # (Auto) 11.39 H Lymph # (Auto) 1.2 [place] # (Auto) 2.0 H Eos # (Auto) 0.0 Baso # (Auto) 0.0 Nucleated RBC % (a uto) 0 Nucleated RBCs # 0.0 Sodium 137 Potassium 4.0 Chloride 103 Carbon Dioxide 25 Anion Gap 14.0 BUN 37 H Creatinine 0.8 GFR Calculation Not Reportable Glucose 97 Calculated Osmolal ity 295 Calcium 8.8 Magnesium 1.2 L Total Bilirubin 0.3 AST 25 ALT 19 Alkaline Phosphata se 184 H Total Protein 5.2 L Albumin 2.8 L Globulin 2.4 Vitals: Last Vital Signs Temp 98.5 F 08/31/20 08:00 Pulse 88 08/31/20 08:00 Resp 18 08/31/20 08:00 BP 133/85 08/31/20 08:00 Pulse Ox 96 08/31/20 08:00 Discharge Plan Discharge Patient Disposition: Home Health Service Condition: Stable Prescriptions: New lactulose 20 gram/30 mL Solution 20 g PO Q6H PRN (Reason: Constipation (Use 3rd)) Qty: 30 RF: 0 Continued magnesium oxide 400 mg (241.3 mg magnesium) tablet 400 mg PO DAILY RF: 0 folic acid 1 mg tablet 1 mg PO DAILY RF: 0 hydrocodone-acetaminophen 5-325 mg tablet 1.5 tab PO BID PRN (Reason: Pain) RF: 0 levetiracetam [Keppra] 500 mg tablet 500 mg PO BID Qty: 60 RF: 5 olanzapine [Zyprexa] 5 mg tablet 5 mg PO DAILY Qty: 30 RF: 2 Anoro Ellipta 62.5-25 mcg/actuation blister with device 1 inh INHALATION DAILY RF: 0 omeprazole 20 mg Capsule,Delayed Release(Dr/Ec) 20 mg PO BID RF: 0 cetirizine [Zyrtec] 10 mg Tablet 10 mg PO DAILY RF: 0 montelukast [Singulair] 10 mg Tablet 10 mg PO DAILY RF: 0 Multi-Day Plus Minerals 18 mg iron-400 mcg-25 mcg Tablet 1 tab PO DAILY RF: 0 fluticasone propionate 50 mcg/actuation [place],Suspension 2 spray INTRANASAL Q12H PRN (Reason: Allergy Symptoms) RF: 0 Discontinued ascorbic acid (vitamin C) [Vitamin C] 1,000 mg Tablet 1,000 mg PO BID RF: 0 Discharge Orders: Discharge Order (Routine); Ordered 08/31/20 Ordered By: Aidan Durham Referrals: [facility] [Other] - 09/04/20 10:30 am (For CT chest with contrast) Colette Guerrero MD [Staff Physician] - 09/18/20 2:30 pm (He will have lab work at 230pm then will see Dr. Guerrero at 4pm) Edwin Carranza [Primary Care Provider] - 09/05/20 10:45 am Discharge Diet: Advance as tolerated Discharge Activity: Increase activity as tolerated Activity Restrictions/Additional Instructions: Please call your doctor or present to emergency department if your condition worsens or you develop diarrhea, lightheadedness, fatigue or see blood in your stool or black stool. Please discuss with Dr. Guerrero to make decision regarding anticoagulation. At this point I think risk of anticoagulation outweighs the benefit therefore I will not initiate therapy. Please continue with home oxygen. Discharge Attestations Time Spent in Discharge Care*: greater than 30 min Quality Metrics Clinical Quality Measures During this hospital stay, did patient experience: VTE Contraindication to Overlap Therapy: Overlap treatment not indicated VTE Discharge Education: Follow-up arranged Coding Level of Care Code Acute Lead Oracle Developer for Chg Fwd Diagnoses Pulmonary embolism I26.99 Anemia of chronic disease D63.8 Pulmonary alveolar hemorrhage R04.89 Physical deconditioning R53.81 Infected sebaceous cyst L72.3; L08.9
[2020-08-31] MEDS: HYDROcodone-acetaminophen 5-325 mg Tablet 2 TAB PO (09:59)
[2020-08-31] MEDS: levETIRAcetam 500 mg Tablet PO (09:59)
[2020-08-31] MEDS: folic acid 1 mg Tablet PO (09:59)
[2020-08-31] MEDS: magnesium oxide 400 mg tablet PO (10:00)
[2020-08-31 11:38] VITALS: BP 116/73; PULSE 92; RESP 18; TEMP 36.8; O2SAT 94
[2020-08-31 12:51] VITALS: BP 116/73; PULSE 92; RESP 18; TEMP 36.8; O2SAT 94
--- NOTE | 2020-08-31 16:03 | PC.PT ---
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
== END 2020-08-31 13:15 | disposition home health service (06) | DRG 176 ==
LOC: ER 21:54 → MEDSURG 22:41
PROVIDERS: Emergency Medicine; Family Medicine; Thoracic Surgery (Cardiothoracic Vascular Surgery); Admitting Provider Internal Medicine; PCP Family Medicine; Visit Provider Internal Medicine
PROC: 06H03DZ Insertion of Intraluminal Device into Inferior Vena Cava, Percutaneous Approach (ICD-10-PCS; CPT 37191; principal; 2020-08-30 16:00)
DX: I26.99 Other pulmonary embolism without acute cor pulmonale (principal); R04.89 Hemorrhage from other sites in respiratory passages; Z68.1 Body mass index [BMI] 19.9 or less, adult; C79.31 Secondary malignant neoplasm of brain; R53.81 Other malaise; L72.3 Sebaceous cyst; D63.8 Anemia in other chronic diseases classified elsewhere; Z85.118 Personal history of other malignant neoplasm of bronchus and lung; Z20.828 Contact with and (suspected) exposure to other viral communicable diseases; Z66 Do not resuscitate; I25.10 Atherosclerotic heart disease of native coronary artery without angina pectoris; J44.9 Chronic obstructive pulmonary disease, unspecified; K21.9 Gastro-esophageal reflux disease without esophagitis; I10 Essential (primary) hypertension; Z95.1 Presence of aortocoronary bypass graft; Z87.891 Personal history of nicotine dependence; R63.0 Anorexia
CPT/HCPCS: 12345; 36415; 36591; 36600; 71045; 71275; 72020; 74018; 76000; 80048; 80053; 81001; 82803; 83735; 84484; 85007; 85025; 86850; 86900; 86920; 87426; 87804; 93005; 93970; 96375; 99284; G0378; J0690; J0696; J2250; J2270; J2704; J2930; J3010; J3475; J7030; Q9967

== ENCOUNTER 2020-09-17 15:57 | Outpatient (CLI) | payer MEDICARE, OTHER, SELFPAY ==
[2020-09-17 14:00] LABS: Basophils # 0.1 10^3/uL (0.0-0.1); Basophils % 0.5 %; Eosinophils # 0.1 10^3/uL (0.0-0.8); Eosinophils % 0.3 %; Hematocrit 28.8 % (42.0-52.0); Hemoglobin 8.6 g/dL (11.7-16.6); Lymphocytes # 1.3 10^3/uL (0.8-4.8); Lymphocytes % 6.7 %; Mean Corpuscular HGB Conc 29.9 g/dL (30.0-36.0); Mean Corpuscular Hemoglobin 34.4 pg (28.0-34.0); Mean Corpuscular Volume 115.2 fL (80-94); Mean Platelet Volume 12.1 fL (7.4-10.4); Monocytes # 1.9 10^3/uL (0.2-0.9); Monocytes % 9.8 %; Neutrophils # 15.34 10^3/uL (1.8-7.7); Neutrophils % 78.7 %; Nucleated Red Blood Cells % 0 %; Platelet Count 119 10^3/cmm (130-400); White Blood Count 19.5 10^3/uL (4.0-10.0)
[2020-09-17 14:25] LABS: Alanine Aminotransferase 20 U/L (0-41); Alkaline Phosphatase 299 IU/L (40-130); Anion Gap 18.1 (5-19); Aspartate Amino Transferase 34 U/L (0-40); Blood Urea Nitrogen 32 mg/dL (8-23); Calcium 9.3 mg/dL (8.5-10.5); Carbon Dioxide 27 mmol/L (22-29); Chloride 95 mmol/L (98-107); Globulin 3.1 g/dL (1.3-4.6); Glucose 67 mg/dL (65-115); Osmolality Calculated 287 mOsm/kg (285-295); Potassium 4.1 mmol/L (3.5-5.1); Sodium 136 mmol/L (136-145); Total Bilirubin 0.3 mg/dL (0.15-1.2); Total Protein 6.1 g/dL (6.6-8.7)
== END 2020-09-17 15:58 | disposition home or self-care (01) ==
LOC: ONCMED 15:58
PROVIDERS: Nurse Practitioner; PCP Family Medicine; Visit Provider Internal Medicine Hematology & Oncology
DX: C34.12 Malignant neoplasm of upper lobe, left bronchus or lung (principal); C34.2 Malignant neoplasm of middle lobe, bronchus or lung; D64.81 Anemia due to antineoplastic chemotherapy; D70.1 Agranulocytosis secondary to cancer chemotherapy; T45.1X5A Adverse effect of antineoplastic and immunosuppressive drugs, initial encounter
CPT/HCPCS: 80053; 85025

== ENCOUNTER 2020-09-18 05:46 | Outpatient (CLI) | payer MEDICARE, OTHER, SELFPAY ==
--- NOTE | 2020-09-18 16:47 | ONC FU_ITS ---
Dr. 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 In the last week of June 2018 he had noted some blood in his yellow phlegm and tried to tough it out for about month and half. He finally saw his primary care physician and he was diagnosed with chronic bronchitis. A Chest x-ray was done-as per patient it was normal and he was given a prescription for Flovent. He felt some improvement and on 09/01/[address] scan of chest which showed right middle lobe lung mass. The mass was reported as about 6 cm in size with mediastinal and hilar lymphadenopathy and there was a contralateral nodule which is lobulated in the left upper lobe measures 4 x 2.3 cm. Mr Romeo was then referred to Dr. Ortiz, mixing and dispensing supervisor in [place]. He underwent bronchoscopy and transbronchial biopsy on 09/10/2018 which showed no evidence of malignancy. Subsequently patient underwent CT-guided biopsy of right middle lobe on 10/01/2018 which confirmed small cell lung cancer. Mr. Romeo underwent PET CT staging on 10/23/2018. The bulky right middle lobe mass demonstrates significant necrosis, and homogenous FDG uptake extends from the right hilum with subtotal atelectasis of the right middle lobe and an SUV of 25.2. There was loss of that plane between the mediastinum and mass superiorly, suggesting early invasion. The left upper lobe satellite mass was in a subpleural location, without involvement of the adjacent chest wall. This measured 2.0 x 3.0 cm with an SUV of 8.5. There was no evidence of malignancy outside of the chest. MRI of the head from 10/20/2018 revealed right anterior frontal lobe and left parietal lobe cortical 2-3 mm enhancing foci; primary considerations metastatic disease. Mr. Romeo began his first cycle of carboplatin and etoposide on 11/02/2018. CT PET scan done after 3 cycles of chemotherapy on 01/15/2019 showed significant improvement in the right middle lobe mass with postobstructive atelectasis since the prior study. The mass now measured 4.6 x 2.4 cm with SUV of 5. And the satellite malignant nodules in the left upper lobe was stable measuring 2.2 x 2.8 cm with SUV of 10.9, not a significant change since prior study on 10/23/2018. No new lesion seen. He was was referred to [facility] where he saw thoracic oncologist Dr. Bellamy who recommended MRI scan of the brain which was done on on 02/21/2019 which showed a new diffusion weighted, 5 mm abnormality with mild enhancement in the anterior right parietal lobe cortex. Subacute small lacunar infarction versus metastatic disease. Follow-up MRI brain recommended in 3-4 months. Previously described anterior right frontal and left parietal cortical areas of enhancement were slightly smaller in size. Differential include decrease in size of metastatic due to treatment. CT-guided biopsy of left upper lobe was done on 02/24/2019 showed adenocarcinoma, well-differentiated. He then underwent radiation to the right lung and mediastinum concurrently with carboplatin and etoposide chemotherapy. It was followed by whole brain radiation and SBRT to the left lung lesion. Treatment was completed on 05/09/2020. Follow-up CT scan of chest done on 06/20/2019 showed decreased size of previous left upper lobe neoplastic mass and further decrease in size of previous bulky right middle lobe mass. Residual mass lesion remaining is probably associated with right-sided mediastinal invasion. Residual scarring or subsegmental atelectasis right middle lobe and chronic emphysema. f/u CT PET scan done on 09/10/2019 showed positive response to therapy of the left upper lobe adenocarcinoma. New abnormal activity in the left upper lobe groundglass nodule and left upper hilar lymph node and increased activity in the bowel at left inguinal canal with new reactive left inguinal node. Patient has history of left inguinal hernia repair in April 2018. MRI head done on 08/23/2019 showed resolved enhancing metastatic lesion, no new lesion seen. He was referred to [facility] in [place] for EBUS/biopsy of left upper hilar lymph node which was done on 10/07/2019 and final pathology report came back adenocarcinoma consistent with lung origin. Dr Romeo was referred to radiation oncology for evaluation. Dr Dalal's impression was that the patient had received radiation therapy to left upper lobe primary previously. With further radiation, the risk of casuing left bronchus damage and major blood vessel damage would deter radiation. was suggested chemotherapy alone. Dr Romeo was offered treatment with Carboplatin/Alimta/Keytruda. He started cycle 1 Keytruda/carboplatin/Alimta on 11/15/2019. Follow-up CT PET scan done after 3 cycles of carboplatin/Alimta/Keytruda on 01/07/2020 showed mild progression of left upper lobe mass from the prior study done on 09/10/2019. Overall progression of disease within new unifocal osseous metastatic disease in the posterior left iliac and a new FDG positive prevascular mediastinal lymph node. Decreasing FDG activity in left upper lobe groundglass nodule. No significant change in left hilar node. No significant change in presumed inflammatory activity in the left inguinal canal. Dr Romeo had a MRI scan of the head done in December 2019. 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 He was evaluated by radiation oncology and underwent SRS to the solitary brain lesion on 01/11/2020. Subsequently patient developed seizure-like activity and was admitted to hospital on 01/12/2020. He was treated with dexamethasone and Keppra and was also evaluated by neurology- Dr. García. At that time his labs showed white blood count1.3, hemoglobin 7.7 hematocrit 23.5, platelets 47,000 Dr Romeo restarted on palliative chemotherapy with carboplatin/Alimta/Keytruda on 01/22/2020 after recovery from his December hospital admission. c/o poor appetite . In the past he had been using cannabis but has laid off of it since he has been on the Keppra. We did discuss potential interactions between the cannabis and Keppra and he was given the drug information on Keppra from up-to-date file. Follow-up CT PET scan done on May 13, 2020 showed left upper lobe mass that previously measured 2.4 x 3.1 cm with SUV of 5.8 now measured 3.1 x 4.7 cm with SUV of 7.1. Adjacent groundglass opacity was unchanged. Mediastinal nodes were improved, superior left hilar node now has improved SUV 5.8 compared to 7.8 previously. Prevascular adenopathy was improved. Right middle lobe atelectasis seen on previous study was unchanged and remain FDG negative. Activity in left inguinal canal was minimally improved. Osseous metastatic disease in the left iliac had progressed with abnormal activity now surrounding the acetabulum and new lesion in the anterior bone. discussed with Dr. Reese ([facility]iology-reading radiologist of 05/05/2020 PET/CT. Dr Reese's impression was changes in the left upper lobe nodule/primary could be due to tumor flare due to immunotherapy which is seen in about 20 to 25% cases. The rest of sites shows improvement except left hip which suggested worsening osseous disesase-again patient has history of trauma, in that case he suggested plain x-ray or MRI scan of hip for further information. Dr Romeo (patient) reports that he had a plain film at [facility] which looked really good-nothing abnormal . He continued maintenance immunotherapy with pembrolizumab, cycle 1 on 06/06/2020. He continued with cycle 2 on 06/27/2020. Underwent CT chest angiogram on July 05, 2020 which showed no pulmonary embolism, left upper lobe pulmonary mass measuring 2.6 x 5.4 x 3.3 cm with mediastinal or hilar lymphadenopathy increasing tumor burden and adenopathy since May 05, 2020 CT PET scan Multilobar areas of groundglass attenuation and scattered opacifications. And additional superimposed metastatic sites are not excluded Dr Romeo has continued on Keytruda with his last treatment on 06/27/2020. He states he feels like he is getting stronger and feels like his hip/leg pain is better overall. He continues to have limited performance status Follow-up CT PET scan done on July 28, 2020 showed left upper lobe lesion measured 3.3 x 4.5 cm with SUV 11.7 compared to 3.1 x 4.7 cm with SUV of 7.1 on May 05, 2020. Multiple new bilateral pulmonary nodules are FDG positive consistent with metastatic disease the index lesion in the posterior left lower lobe measuring 1.1 cm with SUV of 5.9. New FDG positive nodes in the right hilum, left upper hilum and prevascular territory represent new metastatic adenopathy. Osseous metastatic disease in the left ilium is significantly progressed now infiltrating essentially in the entire bone extending through the acetabulum and ischium. With SUV of 19.5 compared to 11.8 previously new osseous metastatic disease in L5 and L1 vertebra. Because of progressive disease and progressive deconditioning, it was decided to discontinue immunotherapy after last dose given on June 27, 2020 and planning was to optimize his nutritional status and supportive care and on August 29, 2020 patient was admitted to hospital with progressive shortness of breath and was diagnosed with acute PE and DVT with patient he also has progressive thrombocytopenia so anticoagulation was not considered but inferior vena cava filter was placed in. Evaluated via telephone, patient denies any specific complaints, except generalized weakness and fatigue, and dyspnea on exertion. And his chronic hip pain is under control with current pain medication. No fever or chills, no nausea or vomiting, no diarrhea or constipation, as per patient used to stay in the bed but comfortable under home visiting nursing care Medications: Anoro Ellipta 1 (62.5-25 mcg/inh) Aerosol Powder, Breath Activated Inhalation daily, black seed oil 1 Capsule Oral daily, Co Q-10 1 Capsule (of 400 mg) Oral daily, Flonase 2 spray(s) (of 50 mcg/act) Suspension Nasal daily PRN, Keppra 1 Tablet (of 1000 mg) Oral b.i.d., Magnesium 1 Tablet (of 100 mg) Oral daily, Multivitamin Adults 1 Tablet Oral daily, Omeprazole 1 Capsule (of 20 mg) Capsule Delayed Release Oral b.i.d., Probiotic Daily 1 Capsule Oral daily, ZyrTEC Allergy 1 Tablet (of 10 mg) Oral daily Allergies: latex and Pollen. Review of Systems: Review of Systems is not available for this patient. Vital Signs: Vitals are not available for this patient. Performance Status: 3 - Capable of only limited self-care, confined to bed or chair more than 50% of waking hours. (ECOG) Physical Examination: ENMT - Patient denies any mouth sores or thrush or jaundice, Respiratory - Patient denies any shortness of breath at rest but dyspnea on exertion, Cardiovascular - Patient denies any palpitation at rest, Abdomen - Patient denies any abdominal pain or fullness, Extremities - Patient is complaining of 1+ edema bilaterally. Lab/Imaging: Test performed on Aug 07, 2020 13:08 WBC 11.4 10 3/uL RBC 2.36 10 6/uL HGB 8.2 g/dL HCT 26.1 % MCV 110.6 fL MCH 34.7 pg MCHC 31.4 g/dL RDW 20.2 % Platelet Count 101 10 3/cmm MPV 10.5 fL Neutrophils 8.07 10 3/uL Lymphocytes 1.1 10 3/uL Monocytes 1.4 10 3/uL Eosinophils 0.1 10 3/uL Basophils 0.1 10 3/uL Neutrophil % 71.2 % Lymphocyte % 10.0 % Monocyte % 12.3 % Eosinophil % 0.4 % Basophils % 0.4 % NRBC % 0 % CBC Slide Review Slide Review Perform SLIDE REVIEW AGREES WITH DIFF PERFORMED ON 08/01/20. DS Anti-D Positive Blood Type OP Antibody Screen (Gel) NEGATIVE Test performed on Jul 25, 2020 12:30 Sodium 136 mmol/L Potassium 4.1 mmol/L Chloride 98 mmol/L CO2 28 mmol/L Anion Gap 14.1 BUN 28 mg/dL Creatinine 1.1 mg/dL Cr Clearance (Est) 50.0500 mL/min Glucose 163 mg/dL Calcium 8.7 mg/dL Protein, Total 6.1 g/dL Albumin 3.2 g/dL Globulin 2.9 g/dL Bilirubin, Total 0.3 mg/dL ALT (SGPT) 15 U/L AST (SGOT) 24 U/L Alkaline Phosphatase 154 IU/L Test performed on Jul 11, 2020 08:13 Osmolality - Calculated 291 mOsm/kg Manual Segs % 88 % Manual Bands % 3.0 % Manual Lymphs % 3 % Manual Monos % 5.0 % Total Cells Counted 100 Metamyelocytes % 1.0 % Macrocytosis Trace Poikilocytosis 1+ Platelet Estimate Decreased Manual Segs Abs 15.1 10/cmm Manual Bands Abs 0.5 10 3/cmm Manual Neutrophils Abs 15.7 10 3/cmm Manual Monocytes Abs 0.9 10 3/cmm Test performed on Jun 28, 2020 08:50 Leukocyte Reduced RBC [id number] OP RCLR ISSUED 06/28/20 0941 Test performed on Jun 05, 2020 11:50 TSH 2.36 uIU/mL Impression: 1. Patient with small cell lung cancer involving the right middle lobe per CT-guided lung biopsy done on 10/01/2018. He had stage IV disease with MRI of the head from 10/20/2018 revealing right anterior frontal lobe and left parietal lobe cortical 2-3 mm enhancing foci consistent with metastatic disease. 2. He had a good response to chemotherapy with 3 cycles of carboplatin/etoposide. 3. During followup he was found to have adenocarcinoma involving the upper lobe of the left lung, diagnosed by CT-guided biopsy in February 2019. He underwent radiation concurrently with carboplatin/etoposide chemotherapy, completed on 04/20/2019, total radiation dose 6,000 cGy. 4. He underwent palliative whole brain radiation, completed 05/04/2020 to a total dose of 3,000 cGy. 5. He underwent SBRT to the left lung lesion, completed on 05/09/2020 to a total dose of 4,800 cGy. 6. He had recurrence of adenocarcinoma per left hilar lymph node biopsy in September 2019. 7. On 11/15/2019 he began combined chemotherapy/immunotherapy with carboplatin/pemetrexed in combination with pembrolizumab 8. MRI scan of the head done in December 2019 showed a single brain metastases. He was evaluated by radiation oncology and he underwent SRS to the solitary brain lesion on 01/11/2020. As of 05/10/2020 he had completed 8 cycles of treatment with carboplatin/pemetrexed in combination with pembrolizumab. He then transitioned to maintenance pembrolizumab, cycle 1 on 06/06/2020. He continued with cycle 2 on 06/27/2020. He presents now with increasing weakness and shortness of breath over the past several days. He is significantly hypoxic with oxygen saturation 90% on room air dropping to 70% after walking just a short distance. It recovered to 85% at rest, then increased to 93% on 3 L nasal cannula. His CT pulmonary angiogram shows no evidence of pulmonary embolism. There does appear to be progression of the left upper lobe neoplasm. There are groundglass infiltrates in both lungs which may be due to pneumonia, treatment related pneumonitis, or progression of the underlying malignancy. in 2019 visit Clinically, patient was doing reasonably well, he was presented to clinic about a week ago with shortness of breath so underwent pulmonary CTA to rule out pulmonary embolism and it came back negative but showed additional information including left upper pulmonary mass measuring 2.6 x 5.4 x 3.2 cm which is progressive when compared with CT PET scan done in April 2020 and other concern is multilobar area of groundglass attenuation with scattered opacification, which could be pneumonitis or radiation recall or deterioration of underlying pulmonary condition or metastatic disease. At this point will consider CT PET scan and compared with previous CT PET scan to confirm if there is a disease progression in that case we will discuss about palliative chemotherapy or observation on the other hand if there is no evidence of disease progression but pneumonitis in that case we will discontinue immunotherapy and monitor and also discussed about role of hospice and patient will make decision after reviewing CT PET scan Other concern is progressive thrombocytopenia, etiology unclear could be due to ITP or considering his age underlying myelodysplasia or immunotherapy, will continue to monitor and if persist, may interfere with palliative chemotherapy. Plan: Discussed with patient on telephone regarding his labs white blood count 19.5 hemoglobin 8.6 hematocrit 28.8 platelets 119,000 compared to 78,000 on July 11, 2020 CMP within normal limits Clinically, patient is doing reasonably well, now comfortable and his hip pain is controlled with current pain medication, recently he was diagnosed with acute pulmonary embolism and DVT and inferior vena cava filter was placed in because of thrombocytopenia and patient also has history of brain mets which were treated with radiation therapy. Patient overall condition continued to decline, his maintenance immunotherapy was discontinued after June 27, 2020 dose and planning was to repeat follow-up CT scan if his overall nutrition status and performance status improves but patient could not get his CT scan because of inability to ambulate since recent hospitalization in mid August 2020. In that case we will continue with supportive care unless patient agreed for hospice care, will repeat CBC CMP in 2 weeks and if hemoglobin less than 8 will consider blood transfusion., Total time spent on phone but 8 minutes. Signed By: Colette Guerrero M.D. <<Signature on File>>
== END 2020-09-18 05:47 | disposition home or self-care (01) ==
PROVIDERS: PCP Family Medicine; Visit Provider Internal Medicine Hematology & Oncology
DX: C34.12 Malignant neoplasm of upper lobe, left bronchus or lung (principal); C34.2 Malignant neoplasm of middle lobe, bronchus or lung; D64.81 Anemia due to antineoplastic chemotherapy; D70.1 Agranulocytosis secondary to cancer chemotherapy; T45.1X5A Adverse effect of antineoplastic and immunosuppressive drugs, initial encounter; C79.31 Secondary malignant neoplasm of brain; C77.8 Secondary and unspecified malignant neoplasm of lymph nodes of multiple regions; R53.1 Weakness; R09.02 Hypoxemia; Z92.21 Personal history of antineoplastic chemotherapy; Z92.3 Personal history of irradiation
CPT/HCPCS: 99214